=== PATIENT | female | born 1955 | race Caucasian/White ===

== ENCOUNTER → 2017-05-05 06:51 | Outpatient (CLI) | payer BC, SELFPAY ==
--- NOTE | 2017-05-05 06:53 | CT_ITS ---
STUDY: CT CHEST WITH CONTRAST REASON FOR EXAM: Female, 62 years old. Patient has a history of lung cancer. Prior right upper and middle lobectomy. RADIATION DOSAGE (If Supplied By Facility): CTDIvol = ( 13.43 ) mGy, DLP = ( 498.41 ) mGycm TECHNIQUE: Transaxial imaging was performed following intravenous administration of 100mL ml of Isovue 300 contrast material. Multiplanar coronal and sagittal images were reformatted. Individualized dose optimization techniques were used for this CT. COMPARISON: Comparison is made with prior study dated October 20, 2016. FINDINGS: Stable 4 mm nodule in the left lower lobe as seen on axial image #47. Stable 3 mm pleural-based nodule in the peripheral lateral aspect of the left lower lobe as seen on axial image #85. Stable 3 mm noncalcified nodule in the peripheral lateral aspect of the right upper lobe. There is no demonstrated pleural abnormality. Normal heart and pericardium. Normal mediastinum. Normal hilar regions. Normal enhanced pulmonary arteries. Normal aorta arch and descending thoracic aorta. There are degenerative changes of the thoracic spine. 1.9 cm hypodensity in the left adrenal gland. CT/Chest WITH Contrast IMPRESSION: Stable examination. Electronically Signed: Rishabh Camara MD at 9:36 EST Tel [phone], Service support ,
[2017-05-05 07:16] LABS: CREATININE FINGERSTICK 1.1 mg/dL (0.55-1.02)
== END ==
PROVIDERS: Family Provider Family Medicine Geriatric Medicine; PCP Family Medicine Geriatric Medicine; Visit Provider Family Medicine Geriatric Medicine
DX: R91.1 Solitary pulmonary nodule (principal)
CPT/HCPCS: 71260; Q9967

== ENCOUNTER → 2017-09-20 08:24 | Outpatient (CLI) | payer OTHER, SELFPAY ==
--- NOTE | 2017-09-20 08:38 | EKG12_ITS ---
Test Reason : PRE OP Blood Pressure : / mmHG Vent. Rate : 067 BPM Atrial Rate : 067 BPM P-R Int : 160 ms QRS Dur : 084 ms QT Int : 378 ms P-R-T Axes : 016 -04 045 degrees QTc Int : 399 ms Normal sinus rhythm Minimal voltage criteria for LVH, may be normal variant Borderline ECG No previous ECGs available Confirmed by DOMONIQUE VÁZQUEZ, PAULO ([id number]), publishing editor XI EDOUARD ([id number]) on 09/21/2017 1:36:10 PM Referred By: Dipesh Serrato Confirmed By:PAULO YOUSSEF MD
[2017-09-20 08:47] LABS: Hemoglobin 16.1 g/dl (12.0-15.0); Mean Corp Hgb Conc 34.3 g/gl (32-36); Mean Corpuscular Hgb 30.4 pg (27.0-32.0); Mean Corpuscular Volume 88.8 fL (81-99); Mean Platelet Vol. 9.6 fl (6.2-12.0); Platelet Count 245 K/mm3 (150-450); RBC Distribution Width CV 12.7 % (11.6-14.6); RBC Distribution Width SD 40.6 fl (35.1-43.9); Red Blood Count 5.29 M/mm3 (4.2-5.4); White Blood Count 6.7 K/mm3 (4.4-11.0)
[2017-09-20 08:48] LABS: Scan Indicated on CBC? Y/N NO
--- NOTE | 2017-09-20 08:51 | RAD_ITS ---
STUDY: X-RAY CHEST REASON FOR EXAM: Female, 62 years old. Preop. History of lung cancer. TECHNIQUE: PA and lateral views of the chest. COMPARISON: CT chest/thorax degenerative 2017. FINDINGS: The small nodular densities seen in the right upper lobe and left lower lobe by CT are not apparent on this exam. No new infiltrate. There is stable mild elevation of the medial right diaphragm. There is no demonstrated pleural abnormality. Normal size heart. Normal mediastinum. Postsurgical changes again seen at the right hilum. Normal visualized pulmonary arteries. Normal visualized aortic arch and descending thoracic aorta. There are stable degenerative changes of the lower thoracic spine. Normal visualized ribs, clavicles, and shoulders. There is no demonstrated abnormality of the visualized soft tissue structures of the upper abdomen. RAD/Chest PA and Lateral IMPRESSION: 1. Stable post surgical changes in the right hemithorax. 2. The very small right upper lobe and left lower lobe nodules seen by CT are not apparent here. 3. No acute pneumonic infiltrate or CHF. Electronically Signed: Kishor Hernandez MD at 9:45 EDT , Service support ,
[2017-09-20 09:18] LABS: Anion Gap 7 (5-15); BUN 10 mg/dL (7-18); BUN/Creat Ratio 11.9 RATIO (10-20); Calcium,Total 9.3 mg/dL (8.5-10.1); Chloride 105 mmol/L (98-107); Creatinine, Serum 0.84 mg/dL (0.55-1.02); EST Glomerular Filtration Rate 73 mL/min (>60); Est Glom Filt Rate - Afr Amer 88 mL/min (>60); Glucose 103 mg/dL (74-106); Potassium 3.9 mmol/L (3.5-5.1); Sodium Level 138 mmol/L (136-145)
[2017-09-21 10:26] LABS: AST(SGOT) 30 U/L (15-37); Alanine Aminotransfer ALT/SGPT 54 U/L (13-56); Albumin, Serum 4.2 g/dL (3.2-5.0); Alkaline Phosphatase 68 U/L (45-117); Bilirubin, Direct 0.16 mg/dL (0.00-0.30); Protein, Total 7.2 g/dL (6.4-8.2); Thyroid Stim Hormone (TSH) 2.45 uIU/mL (0.358-3.74)
== END ==
PROVIDERS: Family Provider Family Medicine Geriatric Medicine; PCP Family Medicine Geriatric Medicine; Visit Provider Physician Assistant
DX: Z01.818 Encounter for other preprocedural examination (principal); R53.83 Other fatigue; Z13.89 Encounter for screening for other disorder
CPT/HCPCS: 36415; 71046; 80048; 80076; 84443; 85027; 93005

== ENCOUNTER → 2017-09-21 13:57 | Outpatient (CLI) | payer BC, SELFPAY ==
[2017-09-21 14:41] LABS: Blood Gas Specimen Type VEN; O2 Delivery Device Room Air; SITE OTHER; Time Given 1430; VBG BASE EXCESS 1 mmol/L (-1.0-3.5); VBG Bicarbonate 27 mmol/L (22-26); VBG Oxygen Content 29 mmol/L (23-33); VBG PO2 65 mmHg (25-40); VBG SO2 91 % (50-70); VBG pCO2 50.4 mmHg (41-51); VBG pH 7.34 (7.32-7.42)
[2017-09-21 15:51] LABS: Allen Test POS; Base Excess -3 mmol/L (-2 to +2); Bicarbonate 21.9 mmol/L (22-26); Blood Gas Specimen Type ART; O2 Delivery Device Room Air; PO2 77 mmHG (75-100); SITE R Radial; SO2 95 % (95-99); Time Given 1546; Total Carbon Dioxide 23 mmol/L; pCO2 35.1 mmHg (35-45)
== END ==
LOC: LAB 13:57 → PSN 15:16
PROVIDERS: Family Provider Family Medicine Geriatric Medicine; PCP Family Medicine Geriatric Medicine; Visit Provider Orthopaedic Surgery
DX: Z01.812 Encounter for preprocedural laboratory examination (principal); S46.011A Strain of muscle(s) and tendon(s) of the rotator cuff of right shoulder, initial encounter
CPT/HCPCS: 36415; 36600; 82803

== ENCOUNTER → 2018-03-22 10:37 | Outpatient (CLI) | payer BC, SELFPAY ==
[2017-11-28 11:00] VITALS: BMI 31.2
[2018-03-22 12:41] LABS: Absolute Neutrophil Count 4.4 X10^3/uL (2.0-7.7); Basophil# 0.04 X10^3/uL; Basophil% 0.5 % (0-1); Eosinophil# 0.11 X10^3/uL; Eosinophils% 1.5 % (0-5); Hematocrit 47.9 % (37-47); Hemoglobin 16.5 g/dl (12.0-15.0); Lymphocyte % 29.2 % (19-41); Mean Corp Hgb Conc 34.4 g/gl (32-36); Mean Corpuscular Hgb 31.1 pg (27.0-32.0); Mean Corpuscular Volume 90.2 fL (81-99); Mean Platelet Vol. 10.4 fl (6.2-12.0); Monocyte# 0.75 X10^3/uL; Monocyte% 9.9 % (0-10); Neutrophil # 4.42 X10^3/uL (2.7-7.7); Neutrophil % 58.6 % (47-70); Platelet Count 285 K/mm3 (150-450); RBC Distribution Width CV 13.1 % (11.6-14.6); RBC Distribution Width SD 43.4 fl (35.1-43.9); Red Blood Count 5.31 M/mm3 (4.2-5.4); White Blood Count 7.5 K/mm3 (4.4-11.0)
[2018-03-22 12:47] LABS: POSITIVE COUNT NO; POSITIVE DIFFERENTIAL NO; POSITIVE MORPHOLOGY NO
[2018-03-22 13:00] LABS: Vitamin D,25 Hydroxy 32.7 ng/mL (29.95-100.01)
[2018-03-22 13:03] LABS: BUN 14 mg/dL (7-18); Creatinine, Serum 0.75 mg/dL (0.55-1.02); Glucose 100 mg/dL (74-106)
[2018-03-22 13:04] LABS: ALB/GLOB Ratio 1.3 RATIO (0.9-2.4); AST(SGOT) 23 U/L (15-37); Alanine Aminotransfer ALT/SGPT 55 U/L (13-56); Albumin, Serum 4.1 g/dL (3.2-5.0); Alkaline Phosphatase 76 U/L (45-117); Anion Gap 7 (5-15); BUN/Creat Ratio 18.7 RATIO (10-20); Calcium,Total 8.9 mg/dL (8.5-10.1); Chloride 105 mmol/L (98-107); EST Glomerular Filtration Rate 83 mL/min (>60); Est Glom Filt Rate - Afr Amer 100 mL/min (>60); Globulin 3.2 g/dL (2.2-4.2); Potassium 3.8 mmol/L (3.5-5.1); Protein, Total 7.3 g/dL (6.4-8.2); Sodium Level 137 mmol/L (136-145); Thyroid Stim Hormone (TSH) 1.47 uIU/mL (0.358-3.74)
--- OUTSIDE RECORDS SUMMARY | 2018-05-08 05:39 | XMS RPT_ITS ---
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 demonstrated pleural abnormality. Normal heart and pericardium. Normal mediastinum. Normal hilar regions. Normal enhanced pulmonary arteries. Normal aorta arch and descending thoracic aorta. There are degenerative changes of the thoracic spine. 1.9 cm hypodensity in the left adrenal gland. CT/Chest WITH Contrast IMPRESSION: Stable examination. Electronically Signed: Rishabh Camara MD at 9:36 EST Tel [phone], Service support , CC: Cristian Wasserman MD Storage Architect: Signed SCREENING MAMM (CAD), Observed: 05/04/2017 Status: F Source: ANGELINA BILAT 9:27 AM [facility] [place] [facility] Imaging Services [address] [place] [address] SCREENING MAMM (CAD), BILAT MR#: [id number] Acct: [id number] Name: MELISA EDOUARD Rep #: [id number] : 1955 F 62 From: Rishabh Camara MD PCP: Cristian Wasserman MD, Chi Status: REG CLI Study: SCREENING MAMM (CAD), BILAT Date of Exam: 05/04/17 Exam# [id number] Ordering Dr: Cristian Wasserman MD MAMMOGRAPHY - BILATERAL SCREENING REASON FOR EXAM: Female, 62 years old. Routine annual screening examination. PERTINENT HISTORY: Non-contributory. TECHNIQUE: Digital bilateral breast cesar (3D mammographic acquisition) in the CC and MLO projections. 2-D mediolateral oblique (MLO) and craniocaudad (CC) views of both breasts were obtained. CAD: Full Field Digital Mammography with Computer Added Detection was performed. COMPARISON: Comparison is made with prior study dated March 02, 2016. FINDINGS: Breast Composition: There are scattered areas of fibroglandular density. There are no dominant masses or suspicious calcifications. No other significant abnormalities are identified. There has been no significant change since the prior study. HPBI/SCREENING MAMM (CAD), BILAT IMPRESSION: Stable bilateral screening mammogram. Yearly follow-up mammogram recommended. (A) ASSESSMENT CATEGORY: BIRADS Category 1: Negative. A letter regarding these results will be sent to the patient by the facility within 30 days. Approximately 10% of breast cancers are not detected by mammography. A normal mammogram should not delay biopsy of a clinically suspicious abnormality. [id number] Electronically Signed: Rishabh Camara MD at 13:12 EST Tel [phone], Service support , CC: Cristian Wasserman MD Storage Architect: Signed ALLERGIES ALLERGIES DATE TYPE / CODE NAME / CODE REACTION SEVERITY SOURCE 11/28/2017 Drug ciprofloxaci Itching OK [facility] Allergy/4160 n/[id number] [facility](SNOMED (RXNORM) Repository CT) 11/07/2016 Drug simvastatin/ Rash Unknown [facility] Allergy/4160 [id number]( Hospital [facility](SNOMED XNORM) Repository CT) 11/07/2016 Drug atorvastatin Hives Unknown [facility] Allergy/4160 /[id number]( Hospital [facility](SNOMED RXNORM) Repository CT) ENCOUNTERS ENCOUNTERS ADMIT/DISCHARGE ACCOUNT ADMITTING ENCOUNTER LOCATION SOURCE NUMBER CLASS 04/27/2018 [id number] Ambulatory Angelina Angelina 7 [facility] ing:MASS Repository 03/26/2018 [id number] Ambulatory [place] Angelina 6 [facility] ing:US Repository 03/22/2018 [id number] Ambulatory Angelina [place] 4 [facility] ing:POLAB3 Repository 11/28/2017/ [id number] Ambulatory BMSBuilding:B Angelina 8 8 [facility] Repository 09/21/2017 [id number] Ambulatory Angelina [place] 9 [facility] ing:PSN Repository 09/20/2017 [id number] Ambulatory Angelina Angelina 7 [facility] ing:LAB Repository 09/20/2017 [id number] Ambulatory BMSBuilding:W [place] 6 [facility] Repository 05/05/2017 [id number] Ambulatory [place] 4 [facility] ing:CT Repository 05/04/2017 [id number] Ambulatory [place] 6 [facility] ing:BI Repository PAYERS PAYERS ENCOUNTER GUARANTOR PAYER SUBSCRIBER SOURCE 04/27/2018 FUCHS A Primary NOT GIVENUNK [place] [id number] Insurance:SELF PAY [place] Number: Effective Repository [id number]: (330) Date:2015-04-10 [phone] () 03/26/2018 FUCHS A Primary FUCHS A [place] [id number] Insurance:ANTHEMPolic MILLERDOB: [facility] y [place]: [id number] [id number] Repository [address]25[address]Jbe: ([phone]) Date:8865-34-42[phone] () 225900BEIHXTR, [place] [address]PW: 03/26/2018 Secondary NOT GIVENUNK Angelina Insurance:SELF PAY [facility] Number: Effective Repository Date:2018-03-22 03/22/2018 FUCHS A Primary FUCHS A Angelina [id number] Insurance:ANTHEMPolic MILLERDOB: [facility] y Number: [id number], [place] [id number] Repository [address]Vil: (330) Date:1067-88-96[phone] () [id number] [place] [address]FU: 03/22/2018 Secondary NOT GIVENUNK [place] Insurance:SELF PAY [facility] Number: Effective Repository Date:2018-03-22 11/28/2017 Fuchs A Primary Fuchs A Angelina [id number] Insurance:ANTHEMPolic MillerDOB: [facility] y Number: [id number], [place] [id number] Repository 345[address]Tmk: ([phone]) Date:6031-79-21[phone] () 84[address]MIXVPBK, [place] [address]WT: 11/28/2017 Secondary NOT GIVENUNK [place] Insurance:SELF PAY [facility] Number: Effective Repository Date:2017-11-28 09/21/2017 Fuchs A Primary Fuchs A Angelina [id number] Insurance:ANTHEMPolic MillerDOB: [facility] y Number: [id number], [place] [id number] Repository [address]Wbm: ([phone]) Date:7438-01-11SW [phone] () [id number], [place] [address]SC: 09/21/2017 Secondary NOT GIVENUNK [place] Insurance:SELF PAY [facility] Number: Effective Repository Date:2017-09-21 09/20/2017 Fuchs A Primary DELANN [place] [id number] Insurance:OB MILLERDOB: [facility] CAREWORKSPolicy [id number], [place] Number: Repository [address]Oqb: 330 [id number] [phone] () Date:6702-30-87[address]FGSQAAAV, [place] [address]ZT: 09/20/2017 Secondary NOT GIVENUNK Angelina Insurance:SELF PAY [facility] Number: Effective Repository Date:2017-09-20 09/20/2017 Fuchs A Primary Fuchs A [place] [id number] Insurance:ANTHEMPolic MillerDOB: [facility] [place] y Number: [id number], [place] [id number] Repository 165[address]Kol: ([phone]) Date:7582-74-41[phone] () 644[address]WETPLOB, [place] [address]GT: 09/20/2017 Secondary NOT GIVENUNK [place] Insurance:SELF PAY [facility] Number: Effective Repository Date:2017-09-20 05/05/2017 Fuchs A Primary Fuchs A [place] [id number] Insurance:ANTHEMPolic MillerDOB: [facility] y Number: [id number], [place] [id number] Repository [address]Iie: Date:0630-78-12[phone] [id number] CHU () [address]WD: 05/05/2017 Secondary NOT GIVENUNK [place] Insurance:SELF PAY [facility] Number: Effective Repository Date:2017-04-28 05/04/2017 Fuchs A Primary Fuchs A [place] [id number] Insurance:ANTHEMPolic MillerDOB: [facility] y Number: [id number], [place] [id number] Repository [address]Bba: Date:1876-36-06ZE [phone] [id number] MARTINEZ () [address]PL: 05/04/2017 Secondary NOT GIVENUNK Angelina Insurance:SELF PAY [facility] Number: Effective Repository Date:2017-03-17
== END ==
PROVIDERS: Family Provider Family Medicine Geriatric Medicine; PCP Family Medicine Geriatric Medicine; Visit Provider Family Medicine Geriatric Medicine
DX: E55.9 Vitamin D deficiency, unspecified (principal); R53.83 Other fatigue
CPT/HCPCS: 36415; 80053; 82306; 84443; 85025

== ENCOUNTER → 2018-03-26 09:27 | Outpatient (CLI) | payer BC, SELFPAY ==
--- NOTE | 2018-03-26 10:05 | US_ITS ---
STUDY: ABDOMINAL ULTRASOUND - RIGHT UPPER QUADRANT REASON FOR VISIT: Female, 63 years old. Right upper quadrant tenderness, intermittent. TECHNIQUE: Ultrasound evaluation of the right upper quadrant was performed with real-time and static mahoney-scale imaging. TECHNICAL QUALITY: Adequate. COMPARISON: CT chest 05/05/2017 FINDINGS: Liver: The liver measures 14.8 cm. Echogenic liver suggesting hepatic steatosis, concordant with steatotic features seen on prior CT imaging. The bile ducts are within normal limits. There is hepatic color flow. The direction of portal flow is hepatopetal. There is no demonstrated mass lesion. Gallbladder: Normal distended gallbladder. The gallbladder wall measures 2.6 mm. There is a negative sonographic Mccall's sign. There is no pericholecystic fluid. There are no gallstones. Common Bile Duct (C.B.D.): The common bile duct measures 2.9 mm. Pancreas: Normal size of the head, body and tail of the pancreas. There is normal echogenicity of the pancreas. There is no demonstrated pancreatic mass or cyst. Right Kidney: Normal size of the right kidney. The right kidney measures 11.5 cm. Normal renal cortex. The right cortex measures 1.3 cm. There is no demonstrated renal mass or cyst. There is no right hydronephrosis. US/Abdomen Limited IMPRESSION: Hepatic steatosis without evidence of hepatomegaly. Normal gallbladder and biliary tree. Electronically Signed: Dmitry Santillan MD at 17:50 EST Tel , Service support ,
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
== END ==
PROVIDERS: Family Provider Family Medicine Geriatric Medicine; PCP Family Medicine Geriatric Medicine; Referring Provider Family Medicine Geriatric Medicine; Visit Provider Family Medicine Geriatric Medicine
DX: K76.0 Fatty (change of) liver, not elsewhere classified (principal); R10.9 Unspecified abdominal pain
CPT/HCPCS: 76705

== ENCOUNTER → 2018-05-07 07:46 | Outpatient (CLI) | payer BC, SELFPAY ==
[2017-11-28 11:00] VITALS: BMI 31.2
--- NOTE | 2018-05-07 08:02 | CT_ITS ---
STUDY: CT CHEST WITH CONTRAST REASON FOR EXAM: Female, 63 years old. Lung cancer. Right upper and middle lobe removal. RADIATION DOSAGE (If Supplied By Facility): CTDIvol = ( 12.88 ) mGy, DLP = ( 570.94 ) mGycm TECHNIQUE: Transaxial imaging was performed following intravenous administration of 100 ml of Isovue 300 contrast material. Multiplanar coronal and sagittal images were reformatted. Individualized dose optimization techniques were used for this CT. COMPARISON: Including October 20, 2016 and May 05, 2017 FINDINGS: There is postoperative change on the right with volume loss.. There is a stable 0.4 cm nodule in the superior segment of the left lower lobe, series 1004 image 42/121 and coronal series 601 image 31/19. There is stable 0.2 cm subpleural nodule in the left lower lobe, coronal series 601 image 36/119 The lungs are normal. There is no demonstrated pleural abnormality. Normal heart and pericardium. Normal mediastinum. Normal hilar regions. Normal enhanced pulmonary arteries. Normal aorta arch and descending thoracic aorta. There are multi-level degenerative changes of the thoracic spine. There is stable 1.8 cm left adrenal nodule. There is hepatomegaly. CT/Chest WITH Contrast IMPRESSION: Stable postoperative change on the right. Stable left-sided nodules. Stable left adrenal nodule. Electronically Signed: Narendra Atkins MD at 10:41 EST , Service support ,
[2018-05-07 08:35] LABS: CREATININE FINGERSTICK 0.6 mg/dL (0.55-1.02); EGFR FINGERSTICK > 60.0000 mL/min (>60)
== END ==
PROVIDERS: Family Provider Family Medicine Geriatric Medicine; PCP Family Medicine Geriatric Medicine; Referring Provider Family Medicine Geriatric Medicine; Visit Provider Family Medicine Geriatric Medicine
DX: R91.1 Solitary pulmonary nodule (principal)
CPT/HCPCS: 71260; Q9967

== ENCOUNTER → 2018-06-01 15:14 | Outpatient (CLI) | payer BC, SELFPAY ==
[2017-11-28 11:00] VITALS: BMI 31.2
--- NOTE | 2018-06-01 15:16 | BI_ITS ---
MAMMOGRAPHY - BILATERAL SCREENING REASON FOR EXAM: Female, 63 years old. Routine annual screening examination. PERTINENT HISTORY: Non-contributory. TECHNIQUE: Digital bilateral breast cesar (3D mammographic acquisition) in the CC and MLO projections. 2-D mediolateral oblique (MLO) and craniocaudad (CC) views of both breasts were obtained. CAD: Full Field Digital Mammography with Computer Added Detection was performed. COMPARISON: Comparison is made with prior examination and degenerative 2017 and March 02, 2016. FINDINGS: Breast Composition: There are scattered areas of fibroglandular density. There are no dominant masses or suspicious calcifications. Stable small bilateral axillary lymph nodes. No other significant abnormalities are identified. There has been no significant change since the prior study. BI/SCREENING MAMM (CAD), BILAT IMPRESSION: Stable bilateral screening mammogram. Yearly follow-up mammogram recommended. (A) ASSESSMENT CATEGORY: BIRADS Category 2: Benign. A letter regarding these results will be sent to the patient by the facility within 30 days. Approximately 10% of breast cancers are not detected by mammography. A normal mammogram should not delay biopsy of a clinically suspicious abnormality. [id number] Electronically Signed: Rishabh Camara MD at 8:51 EST , Service support ,
== END ==
PROVIDERS: Family Provider Family Medicine Geriatric Medicine; PCP Family Medicine Geriatric Medicine; Referring Provider Family Medicine Geriatric Medicine; Visit Provider Family Medicine Geriatric Medicine
DX: Z12.31 Encounter for screening mammogram for malignant neoplasm of breast (principal)
CPT/HCPCS: 77063; 77067

== ENCOUNTER → 2018-07-13 11:49 | Outpatient (CLI) | payer BC, SELFPAY ==
[2017-11-28 11:00] VITALS: BMI 31.2
--- NOTE | 2018-07-13 11:52 | RAD_ITS ---
HISTORY: cough for about a week with sinus drainage/hx of lung cancer EXAM:XR Chest 2 Views COMPARISON: 09/20/2017 FINDINGS: No significant change. Stable right postthoracotomy changes with right hilar surgical clips and tiny anastomotic alcira and ipsilateral volume loss. Left lung remains clear. Normal heart size. No acute infiltrate. No vascular congestion or pleural effusion. Dorsal kyphosis. No pneumothorax. RAD/Chest PA and Lateral IMPRESSION: 1. No acute cardiopulmonary disease. No significant interval change. 2. Stable right postthoracotomy changes. at 0425 Reported and signed by: Giovani Duron MD Electronically Signed: Giovani Duron, at 4:23 EDT Tel , Service support ,
== END ==
PROVIDERS: Family Provider Family Medicine Geriatric Medicine; PCP Family Medicine Geriatric Medicine; Referring Provider Family Medicine Geriatric Medicine; Visit Provider Family Medicine Geriatric Medicine
DX: R06.02 Shortness of breath (principal); R05 Cough
CPT/HCPCS: 71046; 87633

== ENCOUNTER 2018-08-31 09:38 | Emergency (ER) | payer BC, SELFPAY ==
[2018-08-31 09:39] VITALS: BP 162/91; PULSE 102; RESP 16; TEMP 36.6; O2SAT 97; BMI 27.1
--- NOTE | 2018-08-31 09:58 | ED.VISSUMM ---
- ER Visit Summary Date of Service: 08/31/18 Chief Complaint: Left palm laceration History of Present Illness: The patient is a 63 F presents to the emergency department left palm laceration. Patient is otherwise healthy. Tetanus is up-to-date. She was trimming bushes. She accidentally cut through the brush and then into her palmar aspect of her left hand between her second and third digits. She denies other injury. She states she washed it out well at home, but it was still bleeding and gapping. She presented here. She denies any numbness. Physical Examination: Exam is relatively unremarkable. Patient is a 1 cm full-thickness laceration on the palmar aspect between the second and third distal MCP area. Two-point determination is preserved. Cap refill is normal. No evidence of gross contamination. Test Results: [] Emergency Department Course and Treatment: The patient's wound was anesthetized and irrigated. It was closed with one mattress suture. She tolerated this without issue. She was counseled on local wound care. She will be discharged home. Treatment Plan: [] Disposition: Discharge Impression: 1. 1 cm left palmar laceration with repair This note was generated with [employer] dictation software. It may contain incorrect words, spelling, and punctuation that were not noted in review of the chart prior to signing ED Disposition - Plan for ED Patient: Instructions: ED Laceration Hand Referrals: Cristian Silveira Chi, MD [Primary Care Provider] - 10 Day for suture removal
== END 2018-08-31 10:15 | disposition home or self-care (01) ==
PROVIDERS: Emergency Provider Emergency Medicine; Family Provider Family Medicine Geriatric Medicine; PCP Family Medicine Geriatric Medicine
DX: S61.412A Laceration without foreign body of left hand, initial encounter (principal); W26.9XXA Contact with unspecified sharp object(s), initial encounter; Y93.H2 Activity, gardening and landscaping; Y92.9 Unspecified place or not applicable
CPT/HCPCS: 12001; 99283

== ENCOUNTER → 2018-09-27 | Outpatient (CLI) | payer BC, SELFPAY ==
[2018-08-31 09:39] VITALS: BMI 27.1
[2018-09-27 12:16] LABS: Absolute Lymphocyte Count 2.43 X10^3/ul (0.83-4.51); Absolute Neutrophil Count 4.5 X10^3/uL (2.0-7.7); Basophil# 0.05 X10^3/uL; Basophil% 0.6 % (0-1); Eosinophil# 0.25 X10^3/uL; Eosinophils% 3.1 % (0-5); Hematocrit 47.3 % (37-47); Hemoglobin 15.9 g/dl (12.0-15.0); Lymphocyte # 2.43 X10^3/ul (4.0); Lymphocyte % 30.1 % (19-41); Mean Corp Hgb Conc 33.6 g/gl (32-36); Mean Corpuscular Hgb 30.1 pg (27.0-32.0); Mean Corpuscular Volume 89.4 fL (81-99); Mean Platelet Vol. 10.4 fl (6.2-12.0); Monocyte# 0.81 X10^3/uL; Platelet Count 268 K/mm3 (150-450); RBC Distribution Width CV 13.1 % (11.6-14.6); RBC Distribution Width SD 42.8 fl (35.1-43.9); Red Blood Count 5.29 M/mm3 (4.2-5.4); White Blood Count 8.1 K/mm3 (4.4-11.0)
[2018-09-27 12:31] LABS: POSITIVE COUNT NO; POSITIVE DIFFERENTIAL NO; POSITIVE MORPHOLOGY NO
[2018-09-27 12:42] LABS: ALB/GLOB Ratio 1.3 RATIO (0.9-2.4); AST(SGOT) 22 U/L (15-37); Alanine Aminotransfer ALT/SGPT 45 U/L (13-56); Albumin, Serum 3.9 g/dL (3.2-5.0); Alkaline Phosphatase 104 U/L (45-117); Anion Gap 7 (5-15); BUN 13 mg/dL (7-18); BUN/Creat Ratio 18.1 RATIO (10-20); Chloride 106 mmol/L (98-107); Creatinine, Serum 0.72 mg/dL (0.55-1.02); EST Glomerular Filtration Rate 87 mL/min (>60); Est Glom Filt Rate - Afr Amer 105 mL/min (>60); Globulin 3.1 g/dL (2.2-4.2); Glucose 127 mg/dL (74-106); Potassium 3.5 mmol/L (3.5-5.1); Sodium Level 137 mmol/L (136-145); Thyroid Stim Hormone (TSH) 1.43 uIU/mL (0.358-3.74)
== END | disposition home or self-care (01) ==
LOC: POLAB3 08:39
PROVIDERS: Family Provider Family Medicine Geriatric Medicine; PCP Family Medicine Geriatric Medicine; Visit Provider Family Medicine Geriatric Medicine
DX: R53.83 Other fatigue (principal)
CPT/HCPCS: 36415; 80053; 84443; 85025

== ENCOUNTER → 2019-03-28 09:46 | Outpatient (CLI) | payer MEDICARE, BC, SELFPAY ==
[2019-03-28 10:47] LABS: Absolute Lymphocyte Count 2.39 X10^3/uL (0.83-4.51); Absolute Neutrophil Count 5.9 X10^3/uL (2.0-7.7); Basophil# 0.08 X10^3/uL; Basophil% 0.9 % (0-1); Eosinophils% 1.1 % (0-5); Hematocrit 51.7 % (37-47); Hemoglobin 16.7 g/dL (12.0-15.0); Lymphocyte # 2.39 X10^3/ul (4.0); Mean Corp Hgb Conc 32.3 g/dL (32-36); Mean Corpuscular Hgb 29.9 pg (27.0-32.0); Mean Corpuscular Volume 92.7 fL (81-99); Mean Platelet Vol. 11.3 fl (6.2-12.0); Monocyte# 0.68 X10^3/uL; Monocyte% 7.4 % (0-10); NRBC Flagged by Analyzer 0 % (0-5); Neutrophil # 5.94 X10^3/uL (2.7-7.7); Neutrophil % 64.5 % (47-70); Platelet Count 216 K/mm3 (150-450); RBC Distribution Width CV 12.5 % (11.6-14.6); RBC Distribution Width SD 43.1 fl (35.1-43.9); Red Blood Count 5.58 M/mm3 (4.2-5.4); White Blood Count 9.2 K/mm3 (4.4-11.0)
[2019-03-28 10:54] LABS: Vitamin D,25 Hydroxy 32.4 ng/mL (29.95-100.01)
[2019-03-28 10:59] LABS: ALB/GLOB Ratio 1.2 RATIO (0.9-2.4); AST(SGOT) 40 U/L (15-37); Alanine Aminotransfer ALT/SGPT 70 U/L (13-56); Albumin, Serum 4.2 g/dL (3.2-5.0); Alkaline Phosphatase 123 U/L (45-117); Anion Gap 6 (5-15); BUN 13 mg/dL (7-18); BUN/Creat Ratio 15.9 RATIO (10-20); Calcium,Total 9.3 mg/dL (8.5-10.1); Chloride 107 mmol/L (98-107); Creatinine, Serum 0.82 mg/dL (0.55-1.02); EST Glomerular Filtration Rate 75 mL/min (>60); Est Glom Filt Rate - Afr Amer 90 mL/min (>60); Globulin 3.4 g/dL (2.2-4.2); Glucose 100 mg/dL (74-106); Potassium 3.8 mmol/L (3.5-5.1); Protein, Total 7.6 g/dL (6.4-8.2); Sodium Level 140 mmol/L (136-145); Thyroid Stim Hormone (TSH) 1.64 uIU/mL (0.358-3.74)
== END ==
PROVIDERS: Family Provider Family Medicine Geriatric Medicine; PCP Family Medicine Geriatric Medicine; Visit Provider Family Medicine Geriatric Medicine
DX: E55.9 Vitamin D deficiency, unspecified (principal); R53.83 Other fatigue
CPT/HCPCS: 36415; 80053; 82306; 84443; 85025

== ENCOUNTER → 2019-04-02 06:44 | Outpatient (CLI) | payer MEDICARE, BC, SELFPAY ==
--- NOTE | 2019-04-02 06:46 | CT_ITS ---
STUDY: CT CHEST WITHOUT CONTRAST- LOW DOSE SCREENING PROTOCOL REASON FOR EXAM: Female, 64 years old. pack per year history. No current symptoms of lung cancer or pulmonary infection. Shared decision-making with referring PCP documented in patient''s record. RADIATION DOSAGE (If Supplied By Facility): CTDIvol = ( 3.02 ) mGy, DLP = ( 95.91 ) mGycm TECHNIQUE: Low dose screening CT examination performed from the base of the neck to the upper abdomen. Sagittal and coronal reformatted images performed. Sagittal and coronal MIP images provided. The measurements provided are average, rounded measurements per ACR guidelines. COMPARISON: 05/07/2018 FINDINGS: Status post resection of the right upper lobe and right middle lobe the lungs. No change in a 4 mm noncalcified nodule in the superior segment the left lower lobe the lungs on image 84 consistent with a noncalcified granuloma. This requires no further follow-up. There is no demonstrated pleural abnormality. Normal heart and pericardium. There are calcifications of the coronary arteries. Normal mediastinum. Normal hilar regions. Normal unenhanced pulmonary arteries. Normal aorta arch and descending thoracic aorta. Normal osseous structures. There is no demonstrated abnormality of the visualized upper abdomen. CT/Low Dose CT Lung Screening IMPRESSION: 1. No significant indeterminate incidental findings requiring additional imaging. 2. Incidental findings include 4 mm of a left lower lobe noncalcified granuloma.. ASSESSMENT CATEGORY: LungRADS 1 - Negative. Continue annual screening with LDCT in 12 months, per established ACR guidelines. Electronically Signed: Dmitry Birmingham MD at 7:59 EST Tel , Service support ,
== END ==
PROVIDERS: Family Provider Family Medicine Geriatric Medicine; PCP Family Medicine Geriatric Medicine; Referring Provider Family Medicine Geriatric Medicine; Visit Provider Family Medicine Geriatric Medicine
DX: Z87.891 Personal history of nicotine dependence (principal)
CPT/HCPCS: G0297

== ENCOUNTER → 2019-04-23 11:22 | Outpatient (CLI) | payer MEDICARE, BC, SELFPAY ==
[2019-04-24 04:07] LABS: HEPATITIS B SURFACE AG Negative (Negative); Hepatitis A AB, Total Positive (Negative); Hepatitis A IgM Antibody Negative (Negative); Hepatitis B Core AB IgM Negative (Negative); Hepatitis B Core Ab Total Negative (Negative); Hepatitis C Ab <0.1 s/co ratio (0.0-0.9)
[2019-04-24 12:52] LABS: Hep B Surface Antibodies Reactive (.)
== END ==
PROVIDERS: Family Provider Family Medicine Geriatric Medicine; PCP Family Medicine Geriatric Medicine; Visit Provider Family Medicine Geriatric Medicine
DX: K76.9 Liver disease, unspecified (principal)
CPT/HCPCS: 36415; 86704; 86705; 86706; 86708; 86709; 86803; 87340

== ENCOUNTER 2019-04-29 13:00 | Outpatient (RCR) | payer SELFPAY | END 2019-05-10 23:59 | LOC: NS 13:00 | PROVIDERS: Family Provider Family Medicine Geriatric Medicine; PCP Family Medicine Geriatric Medicine; Visit Provider Family Medicine Geriatric Medicine | DX: Z71.3 Dietary counseling and surveillance (principal); E66.9 Obesity, unspecified; Z68.32 Body mass index [BMI] 32.0-32.9, adult | CPT/HCPCS: 97802; 97803 ==

== ENCOUNTER → 2019-04-30 12:14 | Outpatient (CLI) | payer MEDICARE, BC, SELFPAY ==
[2019-04-30 12:55] LABS: ALB/GLOB Ratio 1.3 RATIO (0.9-2.4); AST(SGOT) 32 U/L (15-37); Alanine Aminotransfer ALT/SGPT 70 U/L (13-56); Albumin, Serum 4.1 g/dL (3.2-5.0); Alkaline Phosphatase 104 U/L (45-117); Anion Gap 3 (5-15); BUN 13 mg/dL (7-18); BUN/Creat Ratio 16.3 RATIO (10-20); Calcium,Total 9.3 mg/dL (8.5-10.1); Chloride 107 mmol/L (98-107); EST Glomerular Filtration Rate 77 mL/min (>60); Est Glom Filt Rate - Afr Amer 93 mL/min (>60); Globulin 3.2 g/dL (2.2-4.2); Glucose 102 mg/dL (74-106); Potassium 4.3 mmol/L (3.5-5.1); Protein, Total 7.3 g/dL (6.4-8.2); Sodium Level 137 mmol/L (136-145)
== END ==
PROVIDERS: PCP Family Medicine Geriatric Medicine; Visit Provider Family Medicine Geriatric Medicine
DX: R74.8 Abnormal levels of other serum enzymes (principal)
CPT/HCPCS: 36415; 80053

== ENCOUNTER → 2019-05-16 10:04 | Outpatient (CLI) | payer MEDICARE, BC, SELFPAY ==
[2019-05-16 12:50] LABS: ALB/GLOB Ratio 1.4 RATIO (0.9-2.4); AST(SGOT) 33 U/L (15-37); Alanine Aminotransfer ALT/SGPT 61 U/L (13-56); Albumin, Serum 4.2 g/dL (3.2-5.0); Alkaline Phosphatase 101 U/L (45-117); Anion Gap 5 (5-15); BUN 11 mg/dL (7-18); Calcium,Total 9.8 mg/dL (8.5-10.1); Chloride 106 mmol/L (98-107); Creatinine, Serum 0.85 mg/dL (0.55-1.02); EST Glomerular Filtration Rate 72 mL/min (>60); Est Glom Filt Rate - Afr Amer 87 mL/min (>60); Globulin 3.1 g/dL (2.2-4.2); Glucose 98 mg/dL (74-106); Potassium 3.9 mmol/L (3.5-5.1); Protein, Total 7.3 g/dL (6.4-8.2); Sodium Level 138 mmol/L (136-145)
== END ==
PROVIDERS: PCP Family Medicine Geriatric Medicine; Visit Provider Family Medicine Geriatric Medicine
DX: K76.9 Liver disease, unspecified (principal)
CPT/HCPCS: 36415; 80053

== ENCOUNTER 2019-05-27 09:30 | Outpatient (RCR) | payer SELFPAY | END 2019-06-08 23:59 | LOC: NS 09:30 | PROVIDERS: Family Provider Family Medicine Geriatric Medicine; PCP Family Medicine Geriatric Medicine; Visit Provider Family Medicine Geriatric Medicine | DX: Z71.3 Dietary counseling and surveillance (principal); E66.9 Obesity, unspecified; Z68.32 Body mass index [BMI] 32.0-32.9, adult | CPT/HCPCS: 97803 ==

== ENCOUNTER → 2019-06-03 09:55 | Outpatient (CLI) | payer MEDICARE, BC, SELFPAY ==
--- NOTE | 2019-06-03 09:59 | BI_ITS ---
MAMMOGRAPHY - BILATERAL SCREENING REASON FOR EXAM: Female, 64 years old. Routine annual screening examination. PERTINENT HISTORY: Lost 13 pounds right lung cancer in April 2014 BILATERAL DIGITAL MAMMOGRAM WITH TOMOSYNTHESIS: Mediolateraloblique and craniocaudal views demonstrate no evidence of dominant parenchymal masses. No cluster of microcalcification or architectural distortion is seen. No evidence of skin thickening. No significant change since 06/01/2018. Breast Density: There are scattered areas of fibroglandular density. CAD was used to assist in final assessment. IMPRESSION: NORMAL MAMMOGRAM BILATERALLY. FINAL ASSESSMENT: BIRAD 1 (NEGATIVE) YEARLY MAMMOGRAM RECOMMENDED Electronically Signed: Lei Valencia, at 17:21 EST Tel , Service support , BI/SCREEN MAMM (CAD) W/SERAFIN ROSADO
== END ==
PROVIDERS: PCP Family Medicine Geriatric Medicine; Referring Provider Family Medicine Geriatric Medicine; Visit Provider Family Medicine Geriatric Medicine
DX: Z12.31 Encounter for screening mammogram for malignant neoplasm of breast (principal)
CPT/HCPCS: 77063; 77067

== ENCOUNTER 2019-06-25 09:30 | Outpatient (RCR) | payer SELFPAY | END 2019-07-09 23:59 | LOC: NS 09:30 | PROVIDERS: Family Provider Family Medicine Geriatric Medicine; PCP Family Medicine Geriatric Medicine; Visit Provider Family Medicine Geriatric Medicine | DX: Z71.3 Dietary counseling and surveillance (principal); E66.9 Obesity, unspecified; Z68.32 Body mass index [BMI] 32.0-32.9, adult | CPT/HCPCS: 97803 ==

== ENCOUNTER 2019-07-22 12:51 | Outpatient (RCR) | payer SELFPAY | END 2019-08-08 23:59 | LOC: NS 12:51 | PROVIDERS: Family Provider Family Medicine Geriatric Medicine; PCP Family Medicine Geriatric Medicine; Visit Provider Family Medicine Geriatric Medicine | DX: Z71.3 Dietary counseling and surveillance (principal); E66.9 Obesity, unspecified; Z68.32 Body mass index [BMI] 32.0-32.9, adult | CPT/HCPCS: 97803 ==

== ENCOUNTER 2019-09-03 14:00 | Outpatient (RCR) | payer SELFPAY | END 2019-09-08 23:59 | LOC: NS 14:00 | PROVIDERS: Family Provider Family Medicine Geriatric Medicine; PCP Family Medicine Geriatric Medicine; Visit Provider Family Medicine Geriatric Medicine | DX: Z71.3 Dietary counseling and surveillance (principal); E66.9 Obesity, unspecified; Z68.32 Body mass index [BMI] 32.0-32.9, adult | CPT/HCPCS: 97803 ==

== ENCOUNTER 2019-09-24 14:33 | Outpatient (RCR) | payer SELFPAY | END 2019-10-08 23:59 | LOC: NS 14:33 | PROVIDERS: Family Provider Family Medicine Geriatric Medicine; PCP Family Medicine Geriatric Medicine; Visit Provider Family Medicine Geriatric Medicine | DX: Z71.3 Dietary counseling and surveillance (principal); E66.9 Obesity, unspecified; Z68.32 Body mass index [BMI] 32.0-32.9, adult | CPT/HCPCS: 97803 ==

== ENCOUNTER → 2019-09-30 11:21 | Outpatient (CLI) | payer MEDICARE, BC, SELFPAY ==
[2019-09-30 12:15] LABS: Absolute Lymphocyte Count 2.87 X10^3/uL (0.83-4.51); Absolute Neutrophil Count 4.8 X10^3/uL (2.0-7.7); Basophil# 0.06 X10^3/uL; Basophil% 0.7 % (0-1); Eosinophil# 0.15 X10^3/uL; Eosinophils% 1.7 % (0-5); Hematocrit 47.4 % (37-47); Hemoglobin 15.8 g/dL (12.0-15.0); Lymphocyte # 2.87 X10^3/ul (4.0); Lymphocyte % 33.3 % (19-41); Mean Corp Hgb Conc 33.3 g/dL (32-36); Mean Corpuscular Hgb 30.9 pg (27.0-32.0); Mean Corpuscular Volume 92.6 fL (81-99); Mean Platelet Vol. 10.5 fl (6.2-12.0); Monocyte# 0.76 X10^3/uL; Monocyte% 8.8 % (0-10); NRBC Flagged by Analyzer 0 % (0-5); Neutrophil # 4.76 X10^3/uL (2.7-7.7); Neutrophil % 55.2 % (47-70); Platelet Count 281 K/mm3 (150-450); RBC Distribution Width CV 12.1 % (11.6-14.6); RBC Distribution Width SD 41.5 fl (35.1-43.9); Red Blood Count 5.12 M/mm3 (4.2-5.4); White Blood Count 8.6 K/mm3 (4.4-11.0)
[2019-09-30 12:37] LABS: BUN 14 mg/dL (7-18); Glucose 101 mg/dL (74-106)
[2019-09-30 12:38] LABS: ALB/GLOB Ratio 1.3 RATIO (0.9-2.4); AST(SGOT) 14 U/L (15-37); Alanine Aminotransfer ALT/SGPT 28 U/L (13-56); Alkaline Phosphatase 95 U/L (45-117); Anion Gap 6 (5-15); BUN/Creat Ratio 20.1 RATIO (10-20); Calcium,Total 9.6 mg/dL (8.5-10.1); Chloride 106 mmol/L (98-107); EST Glomerular Filtration Rate 90 mL/min (>60); Est Glom Filt Rate - Afr Amer 109 mL/min (>60); Globulin 3.1 g/dL (2.2-4.2); Potassium 4.3 mmol/L (3.5-5.1); Protein, Total 7.1 g/dL (6.4-8.2); Sodium Level 141 mmol/L (136-145); Thyroid Stim Hormone (TSH) 1.78 uIU/mL (0.358-3.74)
[2019-09-30 13:06] LABS: Vitamin D,25 Hydroxy 27.9 ng/mL
== END ==
PROVIDERS: PCP Family Medicine Geriatric Medicine; Visit Provider Family Medicine Geriatric Medicine
DX: I10 Essential (primary) hypertension (principal); E55.9 Vitamin D deficiency, unspecified
CPT/HCPCS: 36415; 80053; 82306; 84443; 85025

== ENCOUNTER 2019-10-22 13:25 | Outpatient (RCR) | payer SELFPAY | END 2019-11-08 23:59 | LOC: NS 13:25 | PROVIDERS: Family Provider Family Medicine Geriatric Medicine; PCP Family Medicine Geriatric Medicine; Visit Provider Family Medicine Geriatric Medicine | DX: Z71.3 Dietary counseling and surveillance (principal); E66.9 Obesity, unspecified; Z68.32 Body mass index [BMI] 32.0-32.9, adult | CPT/HCPCS: 97803 ==

== ENCOUNTER 2019-11-12 13:44 | Outpatient (RCR) | payer SELFPAY | END 2019-11-12 23:59 | disposition home or self-care (01) | LOC: NS 13:44 | PROVIDERS: Family Provider Family Medicine Geriatric Medicine; PCP Family Medicine Geriatric Medicine; Visit Provider Family Medicine Geriatric Medicine | DX: Z71.3 Dietary counseling and surveillance (principal); E66.9 Obesity, unspecified; Z68.32 Body mass index [BMI] 32.0-32.9, adult | CPT/HCPCS: 97803 ==

== ENCOUNTER → 2020-03-25 10:08 | Outpatient (CLI) | payer MEDICARE, BC, SELFPAY ==
[2020-03-25 12:39] LABS: Absolute Lymphocyte Count 2.94 X10^3/uL (0.83-4.51); Absolute Neutrophil Count 4.2 X10^3/uL (2.0-7.7); Basophil# 0.06 X10^3/uL; Basophil% 0.7 % (0-1); Eosinophil# 0.14 X10^3/uL; Eosinophils% 1.7 % (0-5); Hematocrit 49.3 % (37-47); Hemoglobin 16.3 g/dL (12.0-15.0); Lymphocyte # 2.94 X10^3/ul (4.0); Lymphocyte % 35.9 % (19-41); Mean Corp Hgb Conc 33.1 g/dL (32-36); Mean Corpuscular Hgb 30.5 pg (27.0-32.0); Mean Corpuscular Volume 92.1 fL (81-99); Mean Platelet Vol. 10.5 fl (6.2-12.0); Monocyte# 0.86 X10^3/uL; Monocyte% 10.5 % (0-10); NRBC Flagged by Analyzer 0 % (0-5); Neutrophil # 4.17 X10^3/uL (2.7-7.7); Platelet Count 324 K/mm3 (150-450); RBC Distribution Width SD 40.9 fl (35.1-43.9); Red Blood Count 5.35 M/mm3 (4.2-5.4); White Blood Count 8.2 K/mm3 (4.4-11.0)
[2020-03-25 12:52] LABS: Vitamin D,25 Hydroxy 36.9 ng/mL
[2020-03-25 13:00] LABS: ALB/GLOB Ratio 1.4 RATIO (0.9-2.4); AST(SGOT) 21 U/L (15-37); Alanine Aminotransfer ALT/SGPT 32 U/L (13-56); Albumin, Serum 4.2 g/dL (3.2-5.0); Alkaline Phosphatase 91 U/L (45-117); Anion Gap 5 (5-15); BUN 12 mg/dL (7-18); BUN/Creat Ratio 17.2 RATIO (10-20); Calcium,Total 9.5 mg/dL (8.5-10.1); Chloride 107 mmol/L (98-107); EST Glomerular Filtration Rate 89 mL/min (>60); Est Glom Filt Rate - Afr Amer 108 mL/min (>60); Globulin 3.1 g/dL (2.2-4.2); Glucose 89 mg/dL (74-106); Potassium 4.4 mmol/L (3.5-5.1); Protein, Total 7.3 g/dL (6.4-8.2); Sodium Level 139 mmol/L (136-145); Thyroid Stim Hormone (TSH) 2.19 uIU/mL (0.358-3.74)
== END ==
PROVIDERS: PCP Family Medicine Geriatric Medicine; Visit Provider Family Medicine Geriatric Medicine
DX: E55.9 Vitamin D deficiency, unspecified (principal); R53.83 Other fatigue
CPT/HCPCS: 36415; 80053; 82306; 84443; 85025

== ENCOUNTER → 2020-06-04 10:25 | Outpatient (CLI) | payer MEDICARE, BC, SELFPAY ==
--- NOTE | 2020-06-04 10:28 | BI_ITS ---
MAMMOGRAPHY - BILATERAL SCREENING REASON FOR EXAM: Female, 65 years old. Routine annual screening examination. PERTINENT HISTORY: Non-contributory. TECHNIQUE: Digital bilateral breast serafin (3D mammographic acquisition) in the CC and MLO projections. 2-D mediolateral oblique (MLO) and craniocaudad (CC) views of both breasts were obtained. CAD: Full Field Digital Mammography with Computer Added Detection was performed. COMPARISON: Comparison is made with prior examination dated 06/03/2019 and 06/01/2018. FINDINGS: Breast Composition: There are scattered areas of fibroglandular density. There are no dominant masses or suspicious calcifications. No other significant abnormalities are identified. There has been no significant change since the prior study. BI/SCRN MAMM (CAD)W/SERAFIN BILAT IMPRESSION: Stable bilateral screening mammogram. Yearly follow-up mammogram recommended. (A) ASSESSMENT CATEGORY: BIRADS Category 1: Negative. A letter regarding these results will be sent to the patient by the facility within 30 days. Approximately 10% of breast cancers are not detected by mammography. A normal mammogram should not delay biopsy of a clinically suspicious abnormality. [id number] Electronically Signed: Rishabh Camara MD at 12:39 EST , Service support ,
== END ==
PROVIDERS: PCP Family Medicine Geriatric Medicine; Referring Provider Family Medicine Geriatric Medicine; Visit Provider Family Medicine Geriatric Medicine
DX: Z12.31 Encounter for screening mammogram for malignant neoplasm of breast (principal)
CPT/HCPCS: 77063; 77067

== ENCOUNTER 2020-06-11 09:00 | Outpatient (RCR) | payer MEDICARE, BC, SELFPAY ==
[2020-06-11] MEDS: COVID-19 VACC, MRNA(PFIZER)/PF 30 MCG/0.3 ML SYRINGE IM (09:21)
[2020-07-02] MEDS: COVID-19 VACC, MRNA(PFIZER)/PF 30 MCG/0.3 ML SYRINGE IM (09:18)
== END 2020-06-11 23:59 ==
LOC: IMMUN 09:00
PROVIDERS: PCP Family Medicine Geriatric Medicine; Referring Provider Family Medicine; Visit Provider Family Medicine
DX: Z23 Encounter for immunization (principal)
CPT/HCPCS: 0001A; 0002A; 91300

== ENCOUNTER → 2020-10-05 10:06 | Outpatient (CLI) | payer MEDICARE, BC, SELFPAY ==
[2020-10-05 12:26] LABS: Absolute Neutrophil Count 4.5 X10^3/uL (2.0-7.7); Basophil% 1.2 % (0-1); Eosinophil# 0.32 X10^3/uL; Eosinophils% 3.9 % (0-5); Hematocrit 48.8 % (37-47); Hemoglobin 16.1 g/dL (12.0-15.0); Lymphocyte % 30.3 % (19-41); Mean Corpuscular Hgb 29.7 pg (27.0-32.0); Monocyte# 0.83 X10^3/uL; Monocyte% 10.1 % (0-10); NRBC Flagged by Analyzer 0 % (0-5); Neutrophil # 4.47 X10^3/uL (2.7-7.7); Neutrophil % 54.3 % (47-70); Platelet Count 285 K/mm3 (150-450); RBC Distribution Width CV 12.3 % (11.6-14.6); RBC Distribution Width SD 40.4 fl (35.1-43.9); Red Blood Count 5.42 M/mm3 (4.2-5.4); White Blood Count 8.2 K/mm3 (4.4-11.0)
[2020-10-05 12:53] LABS: ALB/GLOB Ratio 1.2 RATIO (0.9-2.4); AST(SGOT) 19 U/L (15-37); Alanine Aminotransfer ALT/SGPT 35 U/L (13-56); Alkaline Phosphatase 95 U/L (45-117); Anion Gap 8 (5-15); BUN 13 mg/dL (7-18); BUN/Creat Ratio 18.2 RATIO (10-20); Calcium,Total 9.3 mg/dL (8.5-10.1); Chloride 105 mmol/L (98-107); Creatinine, Serum 0.71 mg/dL (0.55-1.02); EST Glomerular Filtration Rate 87 mL/min (>60); Est Glom Filt Rate - Afr Amer 105 mL/min (>60); Globulin 3.2 g/dL (2.2-4.2); Glucose 91 mg/dL (74-106); Potassium 3.9 mmol/L (3.5-5.1); Protein, Total 7.2 g/dL (6.4-8.2); Sodium Level 138 mmol/L (136-145); Thyroid Stim Hormone (TSH) 1.53 uIU/mL (0.358-3.74)
[2020-10-05 12:59] LABS: Vitamin D,25 Hydroxy 30.4 ng/mL
== END ==
PROVIDERS: PCP Family Medicine Geriatric Medicine; Visit Provider Family Medicine Geriatric Medicine
DX: E55.9 Vitamin D deficiency, unspecified (principal); I10 Essential (primary) hypertension
CPT/HCPCS: 36415; 80053; 82306; 84443; 85025

== ENCOUNTER 2021-01-07 13:35 | Outpatient (CLI) | payer MEDICARE, BC, SELFPAY ==
[2021-01-07] MEDS: 0.9% Saline Lock 10 ML Syringe IV (13:52)
[2021-01-07 13:56] VITALS: BP 130/69; PULSE 84; RESP 16; TEMP 36.6; O2SAT 92; BMI 29.9
[2021-01-07 14:30] VITALS: BP 145/58; PULSE 77; RESP 16; TEMP 36.8; O2SAT 97
[2021-01-07 15:36] VITALS: BP 133/56; PULSE 73; RESP 16; TEMP 36.6; O2SAT 98
== END 2021-01-07 15:36 | disposition home or self-care (01) ==
LOC: MS3OUT 13:35 → MS3 13:36
PROVIDERS: PCP Family Medicine Geriatric Medicine; Referring Provider Nurse Practitioner Adult Health; Visit Provider Nurse Practitioner Adult Health
DX: Z23 Encounter for immunization (principal); U07.1 COVID-19
CPT/HCPCS: J7050; M0243; A4216; Q0244

== ENCOUNTER → 2021-03-29 13:24 | Outpatient (CLI) | payer MEDICARE, BC, SELFPAY ==
[2021-03-29 15:48] LABS: Absolute Lymphocyte Count 2.78 X10^3/uL (0.83-4.51); Absolute Neutrophil Count 4.2 X10^3/uL (2.0-7.7); Basophil# 0.08 X10^3/uL; Eosinophil# 0.27 X10^3/uL; Eosinophils% 3.4 % (0-5); Hematocrit 45.3 % (37-47); Hemoglobin 15.5 g/dL (12.0-15.0); Lymphocyte # 2.78 X10^3/ul (0.83-4.51); Lymphocyte % 34.6 % (19-41); Mean Corp Hgb Conc 34.2 g/dL (32-36); Mean Corpuscular Hgb 30.7 pg (27.0-32.0); Mean Corpuscular Volume 89.7 fL (81-99); Mean Platelet Vol. 11.2 fl (6.2-12.0); Monocyte# 0.71 X10^3/uL; Monocyte% 8.8 % (0-10); NRBC Flagged by Analyzer 0 % (0-5); Neutrophil # 4.17 X10^3/uL (2.7-7.7); Platelet Count 305 K/mm3 (150-450); RBC Distribution Width CV 12.8 % (11.6-14.6); RBC Distribution Width SD 41.8 fl (35.1-43.9); Red Blood Count 5.05 M/mm3 (4.2-5.4)
[2021-03-29 16:04] LABS: Vitamin D,25 Hydroxy 40.5 ng/mL
[2021-03-29 16:11] LABS: ALB/GLOB Ratio 1.1 RATIO (0.9-2.4); AST(SGOT) 37 U/L (15-37); Alanine Aminotransfer ALT/SGPT 53 U/L (13-56); Albumin, Serum 3.9 g/dL (3.2-5.0); Alkaline Phosphatase 94 U/L (45-117); Anion Gap 10 (5-15); BUN 12 mg/dL (7-18); BUN/Creat Ratio 17.2 RATIO (10-20); Calcium,Total 9.3 mg/dL (8.5-10.1); Chloride 106 mmol/L (98-107); EST Glomerular Filtration Rate 89 mL/min (>60); Est Glom Filt Rate - Afr Amer 108 mL/min (>60); Globulin 3.4 g/dL (2.2-4.2); Glucose 95 mg/dL (74-106); Protein, Total 7.3 g/dL (6.4-8.2); Sodium Level 141 mmol/L (136-145); Thyroid Stim Hormone (TSH) 1.35 uIU/mL (0.358-3.74)
== END ==
PROVIDERS: PCP Family Medicine Geriatric Medicine; Visit Provider Family Medicine Geriatric Medicine
DX: E55.9 Vitamin D deficiency, unspecified (principal); R53.83 Other fatigue
CPT/HCPCS: 36415; 80053; 82306; 84443; 85025

== ENCOUNTER 2021-06-07 10:40 | Outpatient (CLI) | payer MEDICARE, BC, SELFPAY ==
--- NOTE | 2021-06-07 10:44 | BI_ITS ---
MAMMOGRAPHY - BILATERAL SCREENING REASON FOR EXAM: Female, 66 years old. Routine annual screening examination. PERTINENT HISTORY: Non-contributory. TECHNIQUE: Digital bilateral breast serafin (3D mammographic acquisition) in the CC and MLO projections. 2-D mediolateral oblique (MLO) and craniocaudad (CC) views of both breasts were obtained. CAD: Full Field Digital Mammography with Computer Added Detection was performed. COMPARISON: Comparison is made with prior study dated 06/04/2020 and 06/03/2019. FINDINGS: Breast Composition: There are scattered areas of fibroglandular density. There are no dominant masses or suspicious calcifications. Stable benign-appearing bilateral axillary lymph nodes. No other significant abnormalities are identified. There has been no significant change since the prior study. BI/SCRN MAMM (CAD)W/SERAFIN BILAT IMPRESSION: Stable bilateral screening mammogram. Yearly follow-up mammogram recommended. (A) ASSESSMENT CATEGORY: BIRADS Category 2: Benign. A letter regarding these results will be sent to the patient by the facility within 30 days. Approximately 10% of breast cancers are not detected by mammography. A normal mammogram should not delay biopsy of a clinically suspicious abnormality. [id number] Electronically Signed: Rishabh Camara MD at 13:23 EST ,
== END 2021-06-07 23:59 | disposition home or self-care (01) ==
LOC: OPBI 10:41
PROVIDERS: PCP Family Medicine Geriatric Medicine; Visit Provider Family Medicine Geriatric Medicine
DX: Z12.31 Encounter for screening mammogram for malignant neoplasm of breast (principal)
CPT/HCPCS: 77063; 77067

== ENCOUNTER → 2021-09-28 | Outpatient (CLI) | payer MEDICARE, BC, SELFPAY | END | disposition home or self-care (01) | LOC: PSN 11:26 | PROVIDERS: PCP Family Medicine Geriatric Medicine; Visit Provider Family Medicine Geriatric Medicine | DX: U07.1 COVID-19 (principal) | CPT/HCPCS: 87635; 87804; 87807; C9803; U0003; U0005 ==

== ENCOUNTER → 2021-10-22 | Outpatient (CLI) | payer MEDICARE, BC, SELFPAY ==
[2021-10-22 12:39] LABS: Absolute Lymphocyte Count 2.47 X10^3/uL (0.83-4.51); Absolute Neutrophil Count 5.2 X10^3/uL (2.0-7.7); Basophil# 0.07 X10^3/uL; Basophil% 0.8 % (0-1); Eosinophil# 0.18 X10^3/uL; Eosinophils% 2.1 % (0-5); Hematocrit 46.5 % (37-47); Hemoglobin 15.9 g/dL (12.0-15.0); Lymphocyte # 2.47 X10^3/ul (0.83-4.51); Lymphocyte % 28.3 % (19-41); Mean Corp Hgb Conc 34.2 g/dL (32-36); Mean Corpuscular Hgb 31.7 pg (27.0-32.0); Mean Corpuscular Volume 92.6 fL (81-99); Monocyte# 0.78 X10^3/uL; Monocyte% 8.9 % (0-10); NRBC Flagged by Analyzer 0 % (0-5); Neutrophil # 5.19 X10^3/uL (2.7-7.7); Neutrophil % 59.4 % (47-70); Platelet Count 273 K/mm3 (150-450); RBC Distribution Width CV 12.5 % (11.6-14.6); RBC Distribution Width SD 42.3 fl (35.1-43.9); Red Blood Count 5.02 M/mm3 (4.2-5.4); White Blood Count 8.7 K/mm3 (4.4-11.0)
[2021-10-22 13:10] LABS: Vitamin D,25 Hydroxy 46.4 ng/mL
[2021-10-22 13:20] LABS: ALB/GLOB Ratio 1.2 RATIO (0.9-2.4); AST(SGOT) 19 U/L (15-37); Alanine Aminotransfer ALT/SGPT 46 U/L (13-56); Albumin, Serum 3.8 g/dL (3.2-5.0); Alkaline Phosphatase 81 U/L (45-117); Anion Gap 8 (5-15); BUN 14 mg/dL (7-18); Calcium,Total 9.4 mg/dL (8.5-10.1); Chloride 105 mmol/L (98-107); Creatinine, Serum 0.74 mg/dL (0.55-1.02); EST Glomerular Filtration Rate 84 mL/min (>60); Est Glom Filt Rate - Afr Amer 101 mL/min (>60); Globulin 3.3 g/dL (2.2-4.2); Glucose 94 mg/dL (74-106); Potassium 3.7 mmol/L (3.5-5.1); Protein, Total 7.1 g/dL (6.4-8.2); Sodium Level 139 mmol/L (136-145)
== END | disposition home or self-care (01) ==
LOC: POLAB3 09:33
PROVIDERS: PCP Family Medicine Geriatric Medicine; Visit Provider Family Medicine Geriatric Medicine
DX: E55.9 Vitamin D deficiency, unspecified (principal); R53.83 Other fatigue
CPT/HCPCS: 36415; 80053; 82306; 84443; 85025

== ENCOUNTER → 2022-01-03 | Outpatient (CLI) | payer MEDICARE, BC, SELFPAY ==
[2022-01-03 16:47] LABS: Absolute Neutrophil Count 5.7 X10^3/uL (2.0-7.7); Basophil# 0.08 X10^3/uL; Basophil% 0.8 % (0-1); Eosinophil# 0.14 X10^3/uL; Eosinophils% 1.5 % (0-5); Hematocrit 47.9 % (37-47); Lymphocyte % 29.5 % (19-41); Mean Corp Hgb Conc 33.4 g/dL (32-36); Mean Corpuscular Hgb 30.8 pg (27.0-32.0); Mean Corpuscular Volume 92.1 fL (81-99); Mean Platelet Vol. 10.3 fl (6.2-12.0); Monocyte# 0.69 X10^3/uL; Monocyte% 7.3 % (0-10); NRBC Flagged by Analyzer 0 % (0-5); Neutrophil # 5.73 X10^3/uL (2.7-7.7); Neutrophil % 60.4 % (47-70); Platelet Count 314 K/mm3 (150-450); RBC Distribution Width SD 41.1 fl (35.1-43.9); White Blood Count 9.5 K/mm3 (4.4-11.0)
[2022-01-03 17:09] LABS: ALB/GLOB Ratio 1.2 RATIO (0.9-2.4); AST(SGOT) 20 U/L (15-37); Alanine Aminotransfer ALT/SGPT 43 U/L (13-56); Albumin, Serum 3.9 g/dL (3.2-5.0); Alkaline Phosphatase 83 U/L (45-117); Amylase 53 U/L (25-115); Anion Gap 7 (5-15); BUN 12 mg/dL (7-18); BUN/Creat Ratio 17.1 RATIO (10-20); Calcium,Total 9.4 mg/dL (8.5-10.1); Chloride 104 mmol/L (98-107); EST Glomerular Filtration Rate 88 mL/min (>60); Est Glom Filt Rate - Afr Amer 107 mL/min (>60); Globulin 3.2 g/dL (2.2-4.2); Glucose 96 mg/dL (74-106); Lipase 146 U/L (73-393); Potassium 3.6 mmol/L (3.5-5.1); Protein, Total 7.1 g/dL (6.4-8.2); Sodium Level 140 mmol/L (136-145)
== END | disposition home or self-care (01) ==
LOC: POLAB3 13:52
PROVIDERS: PCP Family Medicine Geriatric Medicine; Visit Provider Family Medicine Geriatric Medicine
DX: R10.9 Unspecified abdominal pain (principal)
CPT/HCPCS: 36415; 80053; 82150; 83690; 85025

== ENCOUNTER → 2022-01-06 | Outpatient (CLI) | payer MEDICARE, BC, SELFPAY ==
--- NOTE | 2022-01-06 07:13 | US_ITS ---
STUDY: ABDOMINAL ULTRASOUND - RIGHT UPPER QUADRANT REASON FOR VISIT: Female, 66 years old RUQ PAIN TECHNIQUE: Ultrasound evaluation of the right upper quadrant was performed with real-time and static mahoney-scale imaging. TECHNICAL QUALITY: Adequate. COMPARISON: Comparison is made with prior study dated 03/26/2018. FINDINGS: Liver: The liver measures 16.1 cm. There is increased echogenicity consistent with fatty infiltration. The bile ducts are within normal limits. There is hepatic color flow. The direction of portal flow is hepatopetal. There is no demonstrated mass lesion. Gallbladder: Normal distended gallbladder. The gallbladder wall measures 2.0 mm. There is a negative sonographic Mccall''s sign. There is no pericholecystic fluid. There are no gallstones. Common Bile Duct (C.B.D.): The common bile duct measures 4 mm. Pancreas: Normal size of the head, body and tail of the pancreas. There is increased echogenicity of the pancreas. There is no demonstrated pancreatic mass or cyst. Right Kidney: Normal size of the right kidney. The right kidney measures 10.3 cm x 4.7 cm x 4.6 cm. Normal renal cortex. The right cortex measures 1.2 cm. There is no demonstrated renal mass or cyst. There is no right hydronephrosis. US/Abdomen Limited IMPRESSION: Fatty infiltration of the liver. Electronically Signed: Rishabh Camara MD at 10:17 EDT ,
== END | disposition home or self-care (01) ==
LOC: US 07:12
PROVIDERS: PCP Family Medicine Geriatric Medicine; Referring Provider Family Medicine Geriatric Medicine; Visit Provider Family Medicine Geriatric Medicine
DX: K76.0 Fatty (change of) liver, not elsewhere classified (principal)
CPT/HCPCS: 76705

== ENCOUNTER → 2022-01-14 | Outpatient (CLI) | payer MEDICARE, BC, SELFPAY ==
--- NOTE | 2022-01-14 07:55 | US_ITS ---
STUDY: ABDOMINAL ULTRASOUND - ELASTOGRAPHY REASON FOR VISIT: Female, 67 years old. Fatty infiltration of the liver. TECHNIQUE: Liver stiffness measurements were obtained on a G[employer] Cloud RS 85 ultrasound machine using a CA 1-7 probe following the SRU guidelines. 3 measurements were obtained using a 2-D-SWE method. The QR/M was 21suggesting a quality data set. TECHNICAL QUALITY: Adequate. COMPARISON: Comparison is made with prior sonogram of the right upper quadrant dated 01/06/2022. FINDINGS: Liver: Fatty infiltration of the liver. Median liver stiffness measured 8.1 kPa. US/Elastography Parenchyma/Organ IMPRESSION: Liver stiffness measures 8.1 kPa compatible with F2-F3 (Mild to moderate liver fibrosis) Metavir score. Electronically Signed: Rishabh Camara MD at 12:13 EDT ,
== END | disposition home or self-care (01) ==
LOC: US 07:52
PROVIDERS: PCP Family Medicine Geriatric Medicine; Referring Provider Family Medicine Geriatric Medicine; Visit Provider Family Medicine Geriatric Medicine
DX: K76.0 Fatty (change of) liver, not elsewhere classified (principal)
CPT/HCPCS: 76981

== ENCOUNTER → 2022-03-30 | Outpatient (CLI) | payer MEDICARE, BC, SELFPAY ==
--- NOTE | 2022-03-30 10:28 | RAD_ITS ---
STUDY: X-RAY - LUMBAR SPINE REASON FOR EXAM: Female, 67 years old. LOW BACK PAIN TECHNIQUE: XR Spine Lumbar Min 4 Views COMPARISON: 05.20.16 FINDINGS: Normal lumbar lordosis. There is no substantial scoliosis. There is a normal alignment of the vertebrae. There is multilevel endplate spondylosis of the lumbar vertebrae. There is multi-level degenerative disc disease with multi-level disc space narrowing. There are atherosclerotic vascular calcifications. Vacuum disc phenomenon at L5-S1. There is a compression deformity of the spine at level: L2 . These are age-indeterminate. MRI could further evaluate if of concern. The soft tissue structures are unremarkable. RAD/L/S Spine Min 4 Views IMPRESSION: Degenerative changes of the spine, as detailed above. There is a compression deformity of the spine at level: L2 . These are age-indeterminate. MRI could further evaluate if of concern. Electronically Signed: Tien Malhotra MD at 20:11 EST ,
== END | disposition home or self-care (01) ==
LOC: RAD 10:25
PROVIDERS: PCP Family Medicine Geriatric Medicine; Referring Provider Family Medicine Geriatric Medicine; Visit Provider Family Medicine Geriatric Medicine
DX: M47.816 Spondylosis without myelopathy or radiculopathy, lumbar region (principal); M51.36 Other intervertebral disc degeneration, lumbar region
CPT/HCPCS: 72110

== ENCOUNTER → 2022-04-27 | Outpatient (CLI) | payer MEDICARE, BC, SELFPAY ==
[2022-04-27 14:00] LABS: Vitamin D,25 Hydroxy 64.2 ng/mL
[2022-04-27 14:02] LABS: Absolute Lymphocyte Count 1.65 X10^3/uL (0.83-4.51); Absolute Neutrophil Count 5.3 X10^3/uL (2.0-7.7); Basophil# 0.06 X10^3/uL; Basophil% 0.7 % (0-1); Eosinophil# 0.14 X10^3/uL; Eosinophils% 1.7 % (0-5); Hematocrit 49.1 % (37-47); Hemoglobin 16.3 g/dL (12.0-15.0); Lymphocyte # 1.65 X10^3/ul (0.83-4.51); Lymphocyte % 20.4 % (19-41); Mean Corp Hgb Conc 33.2 g/dL (32-36); Mean Corpuscular Hgb 30.4 pg (27.0-32.0); Mean Corpuscular Volume 91.4 fL (81-99); Mean Platelet Vol. 10.3 fl (6.2-12.0); Monocyte# 0.91 X10^3/uL; Monocyte% 11.2 % (0-10); NRBC Flagged by Analyzer 0 % (0-5); Neutrophil % 65.6 % (47-70); Platelet Count 347 K/mm3 (150-450); RBC Distribution Width SD 43.1 fl (35.1-43.9); Red Blood Count 5.37 M/mm3 (4.2-5.4); White Blood Count 8.1 K/mm3 (4.4-11.0)
[2022-04-27 14:17] LABS: ALB/GLOB Ratio 1.3 RATIO (0.9-2.4); AST(SGOT) 21 U/L (15-37); Alanine Aminotransfer ALT/SGPT 34 U/L (13-56); Albumin, Serum 4.2 g/dL (3.2-5.0); Alkaline Phosphatase 90 U/L (45-117); Anion Gap 8 (5-15); BUN 15 mg/dL (7-18); BUN/Creat Ratio 23.5 RATIO (10-20); Calcium,Total 9.7 mg/dL (8.5-10.1); Chloride 103 mmol/L (98-107); Creatinine, Serum 0.64 mg/dL (0.55-1.02); EST Glomerular Filtration Rate 98 mL/min (>60); Est Glom Filt Rate - Afr Amer 119 mL/min (>60); Globulin 3.3 g/dL (2.2-4.2); Glucose 57 mg/dL (74-106); Potassium 3.5 mmol/L (3.5-5.1); Protein, Total 7.5 g/dL (6.4-8.2); Sodium Level 138 mmol/L (136-145); Thyroid Stim Hormone (TSH) 2.18 uIU/mL (0.358-3.74)
== END | disposition home or self-care (01) ==
LOC: POLAB3 09:25
PROVIDERS: PCP Family Medicine Geriatric Medicine; Visit Provider Family Medicine Geriatric Medicine
DX: E55.9 Vitamin D deficiency, unspecified (principal); R53.83 Other fatigue
CPT/HCPCS: 36415; 80053; 82306; 84443; 85025

== ENCOUNTER → 2022-05-07 | Outpatient (CLI) | payer MEDICARE, BC, SELFPAY ==
--- NOTE | 2022-05-07 08:30 | MRI_ITS ---
STUDY: MRI LUMBAR SPINE WITHOUT CONTRAST REASON FOR EXAM: Female, 67 years old. Initial encounter for fracture. TECHNIQUE: Standardized fat and water weighted pulse sequences were obtained in the sagittal and axial planes. COMPARISON: Lumbar spine radiographs 03/30/2022. MRI lumbar spine without contrast 06/09/2016. FINDINGS: T10-T11, T11-T12 and T12-L1: (Sagittal only). Normal endplates. Normal disc height, hydration and morphology. No ventral extradural defects. Normal central canal and bilateral intervertebral neural foramina. Small T11 benign vertebral body hemangioma is more obvious. Normal lumbar lordosis. There is no substantial scoliosis. Normal conus medullaris that terminates at the L1-L2 disc space level. L1-2: Normal L1 inferior endplate. Deep Schmorl''s node in the anterior L2 superior endplate causing increased anterior disc space height. There is mild reactive marrow fat infiltration underneath the Schmorl''s node. No ventral extradural defect. No significant facet arthropathy. Normal central canal and bilateral lateral recesses. Normal bilateral intervertebral neural foramina. L2-3: Normal endplates. Normal disc height, hydration and morphology. Normal bilateral facet joints. Normal central canal and bilateral lateral recesses. Normal bilateral intervertebral neural foramina. L3-4: Normal endplates. Mild disc space height narrowing. No ventral extradural defect. Mild bilateral degenerative facet arthropathy. Normal central canal and bilateral lateral recesses. Normal bilateral intervertebral neural foramina. L4-5: Normal endplates. Mild disc space height narrowing. No significant facet arthropathy. Tiny ventral extradural defect due to posterior bulging annulus. Moderate central canal stenosis with an AP canal diameter of 7 mm. Normal bilateral lateral recesses. Mild stenosis of the right intervertebral neural foramen. Normal left intervertebral neural foramen. L5-S1: Modic type II degenerative vertebral marrow fat infiltration underneath the vertebral endplates. Moderately pronounced disc space height narrowing. No significant facet arthropathy. Normal central canal and bilateral lateral recesses. Mild stenosis of the bilateral intervertebral neural foramina. Normal visualized sacral ala. Normal visualized paraspinous soft tissue structures. MRI/Spine Lumbar (Routine) IMPRESSION: 1. Prominent deep Schmorl''s node in the anterior L2 superior endplate with minimal reactive marrow fat infiltration. 2. No MRI evidence of recent fractures of the lumbar spine. 3. No MRI evidence of lumbar extruded disc fragment or disc protrusion. 4. Moderate central canal stenosis at L4-L5 disc space level with an AP canal diameter of 7 mm. Electronically Signed: Shilo Galaviz MD at 10:49 [facility] ,
== END | disposition home or self-care (01) ==
LOC: MRI 07:58
PROVIDERS: PCP Family Medicine Geriatric Medicine; Referring Provider Anesthesiology Pain Medicine; Visit Provider Anesthesiology Pain Medicine
DX: C34.00 Malignant neoplasm of unspecified main bronchus (principal); M80.08XA Age-related osteoporosis with current pathological fracture, vertebra(e), initial encounter for fracture
CPT/HCPCS: 72148

== ENCOUNTER → 2022-06-09 | Outpatient (CLI) | payer MEDICARE, BC, SELFPAY ==
--- NOTE | 2022-06-09 09:09 | BI_ITS ---
MAMMOGRAPHY - BILATERAL SCREENING REASON FOR EXAM: Female, 67 years old. Routine annual screening examination. PERTINENT HISTORY: Non-contributory. TECHNIQUE: Digital bilateral breast serafin (3D mammographic acquisition) in the CC and MLO projections. 2-D mediolateral oblique (MLO) and craniocaudad (CC) views of both breasts were obtained. CAD: Full Field Digital Mammography with Computer Added Detection was performed. COMPARISON: Comparison is made with prior study dated June 07, 2021 and June 04, 2020. FINDINGS: Breast Composition: There are scattered areas of fibroglandular density. There are no dominant masses or suspicious calcifications. Stable small benign-appearing bilateral axillary lymph nodes. No other significant abnormalities are identified. There has been no significant change since the prior study. MAMMOGRAPHY - BILATERAL SCREENING REASON FOR EXAM: Female, 67 years old. Routine annual screening examination. PERTINENT HISTORY: Non-contributory. TECHNIQUE: Digital bilateral breast serafin (3D mammographic acquisition) in the CC and MLO projections. 2-D mediolateral oblique (MLO) and craniocaudad (CC) views of both breasts were obtained. CAD: Full Field Digital Mammography with Computer Added Detection was performed. COMPARISON: Comparison is made with prior study dated June 07, 2021 and June 04, 2020. FINDINGS: Breast Composition: There are scattered areas of fibroglandular density. There are no dominant masses or suspicious calcifications. Stable small benign-appearing bilateral axillary lymph nodes. No other significant abnormalities are identified. There has been no significant change since the prior study. IMPRESSION: Stable bilateral screening mammogram. Yearly follow-up mammogram recommended. (A) ASSESSMENT CATEGORY: BIRADS Category 2: Benign. A letter regarding these results will be sent to the patient by the facility within 30 days. Approximately 10% of breast cancers are not detected by mammography. A normal mammogram should not delay biopsy of a clinically suspicious abnormality. [id number] BI/SCRN MAMM (CAD)W/SERAFIN BILAT IMPRESSION: Stable bilateral screening mammogram. Yearly follow-up mammogram recommended. (A) ASSESSMENT CATEGORY: BIRADS Category 2: Benign. A letter regarding these results will be sent to the patient by the facility within 30 days. Approximately 10% of breast cancers are not detected by mammography. A normal mammogram should not delay biopsy of a clinically suspicious abnormality. [id number] Electronically Signed: Rishabh Camara MD at 10:03 EST ,
== END | disposition home or self-care (01) ==
LOC: OPBI 09:08
PROVIDERS: PCP Family Medicine Geriatric Medicine; Visit Provider Family Medicine Geriatric Medicine
DX: Z12.31 Encounter for screening mammogram for malignant neoplasm of breast (principal)
CPT/HCPCS: 77063; 77067

== ENCOUNTER 2022-06-10 14:00 | Outpatient (RCR) | payer MEDICARE, BC, SELFPAY ==
--- NOTE | 2022-05-18 12:21 | HP.PTEVAL_ITS ---
Patient's Visit Information MELISA EDOUARD is a 67 year old F referred to Physical Therapy by Dr. Devin Van MD with a diagnosis of BACK PAIN. Date of Evaluation: 05/18/22 Physical Therapist: Yudi Sen PT, Cert MDT - Visit Plan Frequency: 2-3x /Week Duration: 4-6 Weeks Plan: INSTRUCT IN PROPER BODY MECHANICS FOR GARDENING. POSTURE CORRECTION/STRENGTHENING, INSTRUCTION IN APPROPRIATE BODY MECHANICS AND ACTIVITY MODIFICATIONS. DLS STARTING WITH A NEUTRAL SPINE PROGRESSING ROM TOLERATED. PRASHANT LE ROM, STRETCHING AND STRENGTHENING. HEP INSTRUCTION. 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 GOING ON VACATION NEXT MONTH. - Subjective Work/Leisure: RETIRED. LIKES TO GARDEN. [employer]. Present symptoms: I CAN FEEL IT ON THE LEFT SIDE OF MY BACK (L2). PATIENT REPORTS SHE HAS INTERMITTENT DISCOMFORT IN HER LEFT BACK AREA AT TIMES. PATIENT DENIES PRASHANT UE AND LE SX'S. Present since: JAN 2022. Pain Scale: WORST 1/10, LEAST 0/10. Currently: 0/10. Is it getting better, worse or staying the same: GETTING BETTER. Commenced as a result of: NO APPARENT REASON. Symptoms at onset: LEFT LOW BACK PAIN. Worse: BENDING, LIFTING. Better: OTC PAIN MEDICATION AND HEAT. SITTING AND LYING DOWN. Disturbed sleep: NO. Previous history/Previous treatment: PATIENT REPORTS A HISTORY OF HER BACK MUSCLES TENDING TO GET REALLY TIGHT SO SHE DOES MASSAGE AND CHIROPRACTIC. CHIROPRACTIC SINCE HIGH SCHOOL. NO BACK SURGERY. NO BACK INJECTIONS. Treatment this episode: CHIROPRACTIC AND MASSAGE. AFTER 3 MONTHS OF PAIN WENT TO DR. WASSERMAN - X-RAY SHOWED L2 COMPRESSION FX AND REFERRED TO DR. VAN. HAS HAD [address] VAN - ORDERED MRI AND FOLLOWED UP ON RESULTS. PRESCRIBED MALOXACAM AND PT. FOLLOW UP PENDING IN JULY. Coughing/sneezing/straining: NEGATIVE. Gait: NOT WALKING FAST BEFORE PAIN STARTED. WALKING ON TREADMILL X 20 MINUTES 4 TIMES NOW WITHOUT INCREASED PAIN. Bowel or Bladder Dysfunction: NO. Accidents: NO. Unexplained weight loss: NO. Imaging: BACK X-RAYS AND MRI - SEE [facility] EMR. PMH/Recent major surgery: IBS. 2015 PARTIAL REMOVAL OF LUNG FOR LUNG CANCER. NO CHEMO OR RADIATION. R ROTATOR CUFF REPAIR ABOUT 5 YEARS AGO. - Objective Sitting/Standing Posture: INCREASED KYPHOSIS. FH. RSH'S. Active Correction of posture: BETTER. Other Observations: INDEP GAIT AND TRANSFERS BUT SOME GUARDING WITH MVMT ALONG WITH DECREASED GAIT CADANCE. Sensory deficit: PRASHANT LE LIGHT TOUCH SENSATION GROSSLY INTACT AND SYMMETRICAL. ROM deficit: MILD HS AND GASTROC SOLEUS TIGHTNESS. L HIP IR/ER TIGHTNESS COMPARED TO RIGHT. Motor deficit: PRASHANT LE'S GROSSLY 5/5 WITH MMT'ING EXCEPT HIPS 4/5. Dural Signs: NEGATIVE PRASHANT LE'S. Lumbar mvmt loss: flex - NIL. ext - MOD. R SG - LARISSA. L SG - LARISSA. PATIENT C/O INCRASED SQUEEZING FEELING L LB WITH L SB TESTING. OTHERWISE PATIENT DENIES DISCOMFORT/PAIN WITH TESTING. Core strength: POOR. Palpation: NO ACUTE LOWER THORACIC, LUMBAR OR HIP TENDERNESS WITH PALPATION. TREATMENT: NEUROMUSCULAR REEDUCATION - RETRAINING OF MVMT AND POSTURE FOR SITTING, LYING AND STANDING ACTIVITIES. PATIENT IS ALREADY USING LUMBAR SUPPORT IN SITTING. INSTRUCTED PATIENT TO CONTINUE TO MINIMIZE BENDING, LIFTING AND TWISTING. - Balance/Special Test Scores Oswestry Low Back Score: 6 - Goals Goal 1:: DECRASE C/O LEFT LOW BACK PAIN Goal Time Frame: 4-6 Weeks Goal 2:: IMPROVE BENDING AND LIFTING FUNCTION Goal Time Frame: 4-6 Weeks Goal 3:: INSTRUCT IN PROPHYLAXIS Goal Time Frame: 4-6 Weeks - Anticipated Interventions Patient/Client Instruction: Educate patient on: Condition, Plan of Care, Risk Factors For the Purpose of:: To improve self management Therapeutic Exercise to Include: Strength training, Body mechanics, Postural training, Flexibilty training, Neuromotor development, In an aquatic setting, Dynamic Lumbar Stabilization For the Purpose of:: To decrease pain, To improve muscle performance and motor function, To increase tolerance to activity/condition/position, To improve ability of physical actions for home/community/work/leisure Thank you for the opportunity to evaluate your patient. For Medicare and Medicare HMO plans, please review the plan of care and approve it. It will need to be FAXED BACK to us at [phone] for Medicare purposes. For Medicare only, by signing this I certify the plan of care. Please let me know if there are questions or concerns regarding this plan of care. Physician Signature: Date:
--- NOTE | 2022-06-10 14:27 | HP.PTDCSUM ---
It has been my pleasure to treat MELISA EDOUARD referred by Dr. Devin Van MD, with the diagnosis of BACK PAIN for a total of 10 visit(s). Discharge Date: Please see the following information for a summary of their discharge status. Subjective: PATIENT REPORTS HER BACK FEELS STRONGER AND THE PAIN IS GONE. I THINK I JUST NEEDED TO GET BACK INTO EX'S AND LEARN THE RIGHT WAY. HAS BEEN TAKING IT EASY OVER ALL BUT ABLE TO DO SOME HOUSEWORK INCLUDING DUSTING AND VACUUMING YESTERDAY. NOT ABLE TO DO QUITE MUCH BEFORE BECAUSE COULD START TO FEEL IT IN HER BACK BEFORE DONE YESTERDAY. L rib Pain Intensity (Out of 10): 0 LB Pain Intensity (Out of 10): 0 % Improvement: 99 Objective/Function: PATIENT WAS SEEN TODAY FOR RE-ASSESSMENT OF PROGRESS TOWARD THE SET PT GOALS AND THE NEED FOR FURTHER PHYSICAL THERAPY VS READINESS FOR DISCHARGE. PATIENT REPORTS 99% IMPROVEMENT AND SHE IS INDEP WITH HOME AND GYM EX'S PROGRAMS BUT SHE STILL HAS SIGNIFICANT BACK ROM LIMITATION PER BELOW AND L LOW BACK SX'S ARE EASILY PROVOKED WITH ONE REP OF L SG TESTING ALTHOUGH MILD. ALSO STILL LIMITED IN ADL'S. PHYSICIAN RE-ASSESSMENT RECOMMENDED. PATIENT AGREEABLE. FOLLOW UP PENDING [facility] DR. VAN 07/11/[address] WASSERMAN IN SEPTEMBER. UPON EXAM TODAY: NEGATIVE PRASHANT LE DURAL TESTING. Lumbar mvmt loss: flex - NIL. ext - MOD. R SG - LARISSA. L SG - LARISSA. PATIENT C/O INCRASED SQUEEZING FEELING L LB AT THE END OF THE AVAILABLE ROM WITH L SB TESTING. OTHERWISE PATIENT DENIES DISCOMFORT/PAIN WITH TESTING. [ End ] Goal 1:: DECRASE C/O LEFT LOW BACK PAIN Goal Progress: Goal Met Goal 2:: IMPROVE BENDING AND LIFTING FUNCTION Goal Progress: Goal Met Goal 3:: INSTRUCT IN PROPHYLAXIS Goal Progress: Goal Met Plan: D/C TO INDEP EX. LEAVING FOR VACATION NEXT WEEK. If there are questions or concerns regarding this patient's physical therapy, please feel free to call me at [phone]. Thank you for the referral of this patient. Sincerely, Yudi Sen, PT, Cert MDT Balance/Gait/Functional tests - Balance/Special Test Scores Oswestry Low Back Score: 3
== END 2022-06-10 19:00 | disposition home or self-care (01) ==
LOC: PT 14:00
PROVIDERS: PCP Family Medicine Geriatric Medicine; Referring Provider Anesthesiology Pain Medicine; Visit Provider Anesthesiology Pain Medicine
DX: M54.9 Dorsalgia, unspecified (principal)
CPT/HCPCS: 97110; 97112; 97162; 97164

== ENCOUNTER → 2022-07-04 | Outpatient (CLI) | payer MEDICARE, BC, SELFPAY | END | disposition home or self-care (01) | LOC: PSN 08:20 | PROVIDERS: PCP Family Medicine Geriatric Medicine; Referring Provider Family Medicine Geriatric Medicine; Visit Provider Family Medicine Geriatric Medicine | DX: U07.1 COVID-19 (principal) | CPT/HCPCS: 87635; 87804; 87807; C9803; U0003; U0005 ==

== ENCOUNTER → 2022-10-24 | Outpatient (CLI) | payer MEDICARE, BC, SELFPAY ==
[2022-10-24 12:24] LABS: Absolute Lymphocyte Count 2.21 X10^3/uL (0.83-4.51); Basophil# 0.07 X10^3/uL; Eosinophil# 0.13 X10^3/uL; Eosinophils% 1.8 % (0-5); Hematocrit 46.7 % (37-47); Hemoglobin 15.7 g/dL (12.0-15.0); Lymphocyte # 2.21 X10^3/ul (0.83-4.51); Lymphocyte % 31.3 % (19-41); Mean Corp Hgb Conc 33.6 g/dL (32-36); Mean Corpuscular Hgb 30.8 pg (27.0-32.0); Mean Corpuscular Volume 91.6 fL (81-99); Mean Platelet Vol. 10.4 fl (6.2-12.0); Monocyte# 0.63 X10^3/uL; Monocyte% 8.9 % (0-10); NRBC Flagged by Analyzer 0 % (0-5); Neutrophil # 3.98 X10^3/uL (2.7-7.7); Neutrophil % 56.6 % (47-70); Platelet Count 271 K/mm3 (150-450); RBC Distribution Width SD 40.5 fl (35.1-43.9); White Blood Count 7.1 K/mm3 (4.4-11.0)
[2022-10-24 13:21] LABS: ALB/GLOB Ratio 1.1 RATIO (0.9-2.4); AST(SGOT) 23 U/L (15-37); Alanine Aminotransfer ALT/SGPT 47 U/L (13-56); Albumin, Serum 3.7 g/dL (3.2-5.0); Alkaline Phosphatase 84 U/L (45-117); Anion Gap 10 (5-15); BUN 15 mg/dL (7-18); BUN/Creat Ratio 23.7 RATIO (10-20); Calcium,Total 9.1 mg/dL (8.5-10.1); Chloride 108 mmol/L (98-107); Creatinine, Serum 0.63 mg/dL (0.55-1.02); EST Glomerular Filtration Rate 99 mL/min (>60); Est Glom Filt Rate - Afr Amer 120 mL/min (>60); Globulin 3.4 g/dL (2.2-4.2); Glucose 121 mg/dL (74-106); Potassium 3.7 mmol/L (3.5-5.1); Protein, Total 7.1 g/dL (6.4-8.2); Sodium Level 139 mmol/L (136-145); Thyroid Stim Hormone (TSH) 1.71 uIU/mL (0.358-3.74)
== END | disposition home or self-care (01) ==
PROVIDERS: PCP Family Medicine Geriatric Medicine; Visit Provider Family Medicine Geriatric Medicine
DX: E55.9 Vitamin D deficiency, unspecified (principal); R53.83 Other fatigue
CPT/HCPCS: 36415; 80053; 82306; 84443; 85025

== ENCOUNTER → 2022-11-22 | Outpatient (CLI) | payer MEDICARE, BC, SELFPAY | END | disposition home or self-care (01) | LOC: PSN 07:02 | PROVIDERS: PCP Family Medicine Geriatric Medicine; Referring Provider Family Medicine Geriatric Medicine; Visit Provider Family Medicine Geriatric Medicine | DX: R68.83 Chills (without fever) (principal) | CPT/HCPCS: 87635; 87804; 87807; C9803 ==

== ENCOUNTER → 2023-04-13 | Outpatient (CLI) | payer MEDICARE, BC, SELFPAY ==
--- NOTE | 2023-04-13 09:55 | RAD_ITS ---
STUDY: X-RAY - LUMBAR SPINE REASON FOR EXAM: Female, 68 years old. Low back pain. History of fall. TECHNIQUE: 5 view(s) of the lumbar spine were obtained. COMPARISON: March 30, 2022. FINDINGS: Normal osteopenia. Normal lumbar lordosis. No scoliosis. Normal vertebral alignment. New anterior wedge compression deformity of the upper endplate of the L4 vertebral body compatible with anterior wedge compression fracture. Diffuse lower thoracic and lumbosacral facet sclerosis. Diffuse intervertebral disc space narrowing with osteophytes most marked at L5-S1 with vacuum phenomenon at that level, unchanged. Vascular calcification. RAD/L/S Spine Min 4 Views IMPRESSION: Osteopenia with lower thoracic and lumbosacral spondylosis as described, most prevalent at L5-S1 and unchanged. New upper endplate anterior wedge compression deformity of the L4 vertebral body compatible with anterior wedge compression fracture. Electronically Signed: Dipesh Levi MD at 13:58 EST ,
--- OUTSIDE RECORDS SUMMARY | 2023-04-13 10:15 | XMS RPT_ITS | CCD ---
Author Name Unknown Address [address] [place] [address] Organization [facility] Results Test Name Value Interpretation Reference Range Facil ity Summary Purpose Family History No Family History Records Found Advance Directives No Advanced Directives Records Found Additional Source Comments INFORMATION SOURCE (unrecogn ized section and content) FOR RECORDS PERTAINING TO PATIENTS WHO ARE OR HAVE BEEN ENROLLED IN A CHEMICAL DEPENDENCY/SUBSTANCEABUSE PROGRAM, SOME INFORMATION MAY BE OMITTED. This clinical summary was aggregated from multiple sources. Caution should be exercised in using it in the provision of clinical care. This summary normalizes information from multiple sources, and as a consequence, information in this document may materially change the coding, format and clinical context of patient data. In addition, data may be omitted in some cases. CLINICAL DECISIONS SHOULD BE BASED ON THE PRIMARY CLINICAL RECORDS. [employer] provides no warranty or guarantee of the accuracy or completeness of information in this document.
== END | disposition home or self-care (01) ==
LOC: RAD 09:53
PROVIDERS: PCP Family Medicine Geriatric Medicine; Referring Provider Family Medicine Geriatric Medicine; Visit Provider Family Medicine Geriatric Medicine
DX: M54.50 Low back pain, unspecified (principal)
CPT/HCPCS: 72110

== ENCOUNTER → 2023-04-26 | Outpatient (CLI) | payer MEDICARE, BC, SELFPAY ==
[2023-04-26 10:43] LABS: Absolute Lymphocyte Count 2.37 X10^3/uL (0.83-4.51); Basophil# 0.08 X10^3/uL; Basophil% 0.9 % (0-1); Eosinophil# 0.19 X10^3/uL; Hematocrit 47.8 % (37-47); Hemoglobin 16.1 g/dL (12.0-15.0); Lymphocyte # 2.37 X10^3/ul (0.83-4.51); Lymphocyte % 25.3 % (19-41); Mean Corp Hgb Conc 33.7 g/dL (32-36); Mean Corpuscular Hgb 30.5 pg (27.0-32.0); Mean Corpuscular Volume 90.5 fL (81-99); Mean Platelet Vol. 10.2 fl (6.2-12.0); Monocyte# 0.72 X10^3/uL; Monocyte% 7.7 % (0-10); NRBC Flagged by Analyzer 0 % (0-5); Neutrophil # 5.96 X10^3/uL (2.7-7.7); Neutrophil % 63.5 % (47-70); Platelet Count 265 K/mm3 (150-450); RBC Distribution Width CV 12.4 % (11.6-14.6); RBC Distribution Width SD 41.1 fl (35.1-43.9); Red Blood Count 5.28 M/mm3 (4.2-5.4); White Blood Count 9.4 K/mm3 (4.4-11.0)
[2023-04-26 10:53] LABS: Vitamin D,25 Hydroxy 69.6 ng/mL
[2023-04-26 12:21] LABS: ALB/GLOB Ratio 1.2 RATIO (0.9-2.4); AST(SGOT) 14 U/L (15-37); Alanine Aminotransfer ALT/SGPT 40 U/L (13-56); Albumin, Serum 3.7 g/dL (3.2-5.0); Alkaline Phosphatase 157 U/L (45-117); Anion Gap 7 (5-15); BUN 15 mg/dL (7-18); BUN/Creat Ratio 23.8 RATIO (10-20); Calcium,Total 9.3 mg/dL (8.5-10.1); Chloride 106 mmol/L (98-107); Creatinine, Serum 0.63 mg/dL (0.55-1.02); EST Glomerular Filtration Rate 100 mL/min (>60); Est Glom Filt Rate - Afr Amer 120 mL/min (>60); Globulin 3.1 g/dL (2.2-4.2); Glucose 126 mg/dL (74-106); Potassium 3.7 mmol/L (3.5-5.1); Protein, Total 6.8 g/dL (6.4-8.2); Sodium Level 136 mmol/L (136-145); Thyroid Stim Hormone (TSH) 1.53 uIU/mL (0.358-3.74)
== END | disposition home or self-care (01) ==
LOC: POLAB3 09:13
PROVIDERS: PCP Family Medicine Geriatric Medicine; Visit Provider Family Medicine Geriatric Medicine
DX: E55.9 Vitamin D deficiency, unspecified (principal); R53.83 Other fatigue
CPT/HCPCS: 36415; 80053; 82306; 84443; 85025

== ENCOUNTER 2023-05-15 12:00 | Outpatient (RCR) | payer MEDICARE, BC, SELFPAY ==
--- NOTE | 2023-04-24 14:28 | HP.PTEVAL ---
Patient's Visit Information Visit Information Visit Information: MELISA EDOUARD is a 68 year old F referred to Physical Therapy by Dr. Cristian Silveira MD with a diagnosis of L4 Compression Fracture. Date of Evaluation: 04/24/23 Physical Therapist: Deidre Haines DPT Visit Plan Frequency: 2x /Week Duration: 4 Weeks Plan: L4 Compression Fracture- Focus on LE and Core Strength/Stabilization- Pain Mgmt. HEP Given IE: postural education, TA contraction, Clams, Hip add with ball, sit to stand with TA contraction. PATIENT IS ALREADY USING LUMBAR SUPPORT IN SITTING. INSTRUCTED PATIENT TO CONTINUE TO MINIMIZE BENDING, LIFTING AND TWISTING. LET PAIN BE HER GUIDE. Subjective Subjective: Patient reports that she fell KASH doing laundry and compression fracture L4. Called MD and she went in and saw PCP who gave her medications anti-inflam and muscle relaxers- x-ray which showed the compression fracture. She then had a bone density test and PT. She has not had the bone density test. Most of the time if she is in her recliner she is painfree. When she does have pain its more dull and achy. Pain is located in the across the back at top of the hips. She will get some anterior hip pain if she shifts position it goes away. The recliner has a lumbar support. She had PT last year for the same thing so she has gone back to all of her mechanical reminders. She has had a massage and she felt that helped a little bit. Worst: 05/20. No pain that radiates down the legs and no N/T. No loss or change in bowel or bladder- she has IBS-c. She is a member of [employer]- she works with [employer]- usually 1x a week through the holidays but goal is to come 3x a week. She did land therapy last time she had a compression fracture and she did okay- she does not like the pool. She feels that this compression fracture it worse than last year. She goes to the chiropractor- but is not currently. Goes back to the MD on Monday. Sleep is not disturbed-side sleeper. Work: none. PMHx/Meds: none. Objective Objective: Posture: forward head, rounded shoulder- increased kyphosis- can correct with verbal cues but does not maintain Gait: mild decrease in trunk rotation- good arm swing Sensation: WFL to gross touch bilateral LE Reflex: 2+ to patella ROM: Lumbar: Flexion: mild restriction, Extension: neutral, SB: mild restriction, Rotation: mild restriction- hesitant to move but no pain with motion. Hip/Knee/Ankle: WNL Strength: Core: fair minus, Hip: 4+/5 throughout, Knee: 5/5, Ankle: 5/5 Flex: HS: mild, Gastroc: mild Dural Signs: negative bilateral Palpation: not tender to touch Balance/Special Test Scores Oswestry Low Back Score: 25 Goals Goal 1:: Patient will report participation in home exercise program activities a minimum of 5 days per week, as adjunct to skilled physical therapy intervention in preparation for independent home management upon discharge. Goal Time Frame: 4-6 Weeks Goal 2:: Patient will maintain proper posture t/o tx session to demo increased core strength/stabilization Goal Time Frame: 4-6 Weeks Goal 3:: Patient will report no pain for 1 week Goal Time Frame: 4-6 Weeks Goal 4:: Patient will report 80% improvement Goal Time Frame: 4-6 Weeks Rehabilitation Potential Physical Therapy Diagnosis: Patient presents with hypomobility- she has decreased core strength/stabilization and muscular endurance leading to poor posture and increased pain with ADL's Rehabilitation Potential: Good Anticipated Interventions Patient/Client Instruction: Educate patient on: Benefits of Fitness Program For the Purpose of:: To improve muscle performance and motor function Therapeutic Exercise to Include: Strength training, Endurance training, Agility training, Body mechanics, Postural training, Flexibilty training, Gait and locomotor training, Neuromotor development, Dynamic Lumbar Stabilization and Scapular Strength/Stabilization For the Purpose of:: To improve muscle performance and motor function Cryotherapy (ice pack, ice massage): Yes Thermo therapy (hot pack): Yes Text: Thank you for the opportunity to evaluate your patient. For Medicare and Medicare HMO plans, please review the plan of care and approve it. It will need to be FAXED BACK to us at [phone] for Medicare purposes. For Medicare only, by signing this I certify the plan of care. Please let me know if there are questions or concerns regarding this plan of care. Physician Signature: Date:
--- NOTE | 2023-05-15 12:59 | HP.PTDCSUM ---
Discharge Summary D/C summary: It has been my pleasure to treat MELISA EDOUARD referred by Dr. Cristian Silveira MD, with the diagnosis of L4 Compression Fracture for a total of 7 visit(s). Discharge Date: Please see the following information for a summary of their discharge status. Subjective Subjective: She has been feeling really good and making progress and then on Monday she walked on the TM for 15 min- Monday went to [employer]- sang in the choir- went for a walk outside- 12 min walk her left hip was really sore in the middle of the buttock- ice/heat/ibuprofen- still a little touch -05/20. First time she has been outside walking. She had no pain doing the machines today. She feels confident with what she is doing currently. Pain Low back: Pain Intensity (Out of 10): 1 Overall Improvement % Improvement: 60 Objective Objective/Function: Posture: improved- good throughout session sitting on plinth without back support Gait: good- no decrease in trunk rotation Sensation: WFL to gross touch bilateral LE Reflex: 2+ to patella ROM: Lumbar: WFL mild discomfort with SB to the left Hip/Knee/Ankle: WNL Strength: Core: fair minus, Hip: 4+/5 throughout, Knee: 5/5, Ankle: 5/5 Flex: HS: mild, Gastroc: mild Dural Signs: negative bilateral Palpation: not tender to touch Goals Goal 1:: Patient will report participation in home exercise program activities a minimum of 5 days per week, as adjunct to skilled physical therapy intervention in preparation for independent home management upon discharge. Goal Progress: Goal Met Goal 2:: Patient will maintain proper posture t/o tx session to demo increased core strength/stabilization Goal Progress: Goal Met Goal 3:: Patient will report no pain for 1 week Goal Progress: Progressing Goal 4:: Patient will report 80% improvement Goal Progress: Progressing Plan Plan: Discharge to independent home exercise program- encouraged to call if questions or concerns. D/C Information d/c sentence: If there are questions or concerns regarding this patient's physical therapy, please feel free to call me at [phone]. Thank you for the referral of this patient. Sincerely, Deidre Haines, DPT Balance/Gait/Functional tests Balance/Special Test Scores Oswestry Low Back Score: 14 Improvement % Improvement: 60
== END 2023-05-15 14:10 | disposition home or self-care (01) ==
LOC: PT 12:00
PROVIDERS: PCP Family Medicine Geriatric Medicine; Referring Provider Family Medicine Geriatric Medicine; Visit Provider Family Medicine Geriatric Medicine
DX: S32.049D Unspecified fracture of fourth lumbar vertebra, subsequent encounter for fracture with routine healing (principal)
CPT/HCPCS: 97110; 97162

== ENCOUNTER → 2023-05-18 | Outpatient (CLI) | payer MEDICARE, BC, SELFPAY ==
--- NOTE | 2023-05-18 08:45 | BD_ITS ---
STUDY: DUAL ENERGY X-RAY ABSORPTIOMETRY / DXA REASON FOR EXAM: Female, 68 years old. [id number] TECHNIQUE: Bone Mineral Density (BMD) measurements of lumbar spine and bilateral hips were obtained. COMPARISON: None. FINDINGS: Lumbar Spine (L1-L4): g/cm2 (0.853) / T-score (-1.5) / Z-score (0.5) Findings are suggestive of osteopenia with a low fracture risk. Left Femur Total: g/cm2 (0.730) / T-score (-1.7) / Z-score (-0.3) Left Femoral Neck: g/cm2 (0.562) / T-score (-2.6) / Z-score (-0.8) Right Femur Total: g/cm2 (0.69) / T-score (-2.0) / Z-score (-0.5) Right Femoral Neck: g/cm2 (0.510) / T-score (-3.1) / Z-score (-1.3) BD/Dexa Bone Density Study IMPRESSION: The patient is considered osteoporotic as outlined below according to World [place] Organization (WHO) criteria with a high fracture risk. Reference Information: The T-score is the number of standard deviations above or below the standard which is normal for young adults at their peak bone mineral density. The World Health Organization (WHO) interprets the T-scores as follows: Above -1 Normal bone density Between -1 and -2.5 Osteopenia Equal to / or below -2.5 Osteoporosis As a practical clinical guideline, osteopenia may be graded as follows: Mild -1 through -1.5 Moderate -1.6 through -2.0 Severe -2.1 through -2.4 The Z-score is the number of standard deviations above or below age-matched controls. A Z-score of less than -1.5 would be considered abnormal. References: 1. NIH Osteoporosis and Related Bone Diseases www osteo.org 2. International Society for Clinical Densitometry www iscd.org 3. National Osteoporosis Foundation www nof.org Electronically Signed: Rishabh Camara MD at 9:32 EST ,
--- OUTSIDE RECORDS SUMMARY | 2023-05-18 08:58 | XMS RPT_ITS | CCD ---
Author Name Unknown Address [address] [place] [address] Organization [facility] Results Test Name Value Interpretation [...] BE BASED ON THE PRIMARY CLINICAL RECORDS. [employer] provides no warranty or guarantee of the accuracy or completeness of information in this document.
== END | disposition home or self-care (01) ==
LOC: OPBD 08:37
PROVIDERS: PCP Family Medicine Geriatric Medicine; Referring Provider Family Medicine Geriatric Medicine; Visit Provider Family Medicine Geriatric Medicine
DX: M81.0 Age-related osteoporosis without current pathological fracture (principal); Z78.0 Asymptomatic menopausal state
CPT/HCPCS: 77080

== ENCOUNTER 2023-05-26 20:03 | Observation (INO) | payer MEDICARE, BC, SELFPAY ==
[2023-05-26 20:03] VITALS: BP 162/72; PULSE 94; RESP 16; TEMP 36.4; O2SAT 99; BMI 29.2
--- NOTE | 2023-05-26 20:26 | EX.ED.UPPERE ---
HPI History of Present Illness HPI Narrative: Patient presents with paresthesias and weakness to her right arm that occurred tonight while she was sitting in her recliner. Patient states she was using her laptop. Patient states that she had some paresthesias in her right arm. Patient states she had difficulty moving her right arm. Patient states she had to reach over with her left arm and move her right arm. Patient states that she also had some questionable right facial weakness and questionable slurred speech. Patient states this lasted for only 5 to 10 seconds. Patient denies any chest pain. Patient denies any shortness of breath. Patient denies any nausea or vomiting. Patient states she does have a history of recent L4 compression fracture but only has minimal pain with this. Chief Complaint: Upper Extremity Injury Informant: patient Onset/Context/Timing Onset: Today Context: Sudden Onset Timing: Intermittent and Lasts (5 to 10 seconds) Location: Right upper extremity Worsened by: Nothing Relieved by: Nothing Associated Symptoms Associated Symptoms: Positive for Parasthesia and Weakness PFSH PFSH Medical History COVID-19 DDD (degenerative disc disease), lumbar Environmental allergies History of lung cancer IBS (irritable bowel syndrome) Home Medications calcium carbonate 600 mg calcium (1,500 mg) tablet 1,200 mg PO DAILY 11/07/16 [History Last Taken Unknown] ivermectin 1 % topical cream (Soolantra) 30 g TP DAILY 11/07/16 [History Last Taken Unknown] linaclotide 72 mcg capsule (Linzess) 72 mcg PO DAILY 11/07/16 [History Last Taken Unknown] loratadine 10 mg tablet (Allergy Relief (loratadine)) 10 mg PO PRN PRN Allergies 11/07/16 [History Last Taken Unknown] multivitamin (Multiple Vitamins tablet) 1 ea PO DAILY 11/07/16 [History Last Taken Unknown] Allergy/AdvReac Type Severity Reaction Status Date / Time ciprofloxacin [From Cipro] Allergy Mild itching Verified 05/26/23 20:07 atorvastatin Allergy Hives Verified 05/26/23 20:07 simvastatin Allergy Rash Verified 05/26/23 20:07 Family History Other Asthma CVA (cerebral vascular accident) Cancer Diabetes Surgical History History of lobectomy of lung History of rotator cuff surgery History of tonsillectomy History of tubal ligation Status post right foot surgery Social History Smoking Status: Never smoker alcohol intake: never substance use type: does not use what type of physical activity do you participate in: walking frequency: 3-4 times per week ROS ROS ED Constitutional Constitutional ED: Denies chills or fever(s) Eyes Eyes: Denies blurry vision or change in vision ENT ENT ED: Denies rhinorrhea or sore throat Cardiovascular Cardiovascular: Denies chest pain or palpitations Respiratory/Chest Respiratory/Chest: Denies cough or dyspnea Gastrointestinal Gastrointestinal: Denies nausea or vomiting Genitourinary Genitourinary ED: Denies dysuria or hematuria Musculoskeletal Musculoskeletal: Reports back pain; Denies neck pain Integumentary Denies abscess or rash Neurologic Neurologic: Reports paresthesias and weakness; Denies headache(s) Allergic/Immunologic Allergic/Immunologic ED: Denies mouth swelling or urticaria EXAM Physical Exam Const Vital Signs: 05/26/23 20:03 Temperature 97.6 F L Temperature Source Temporal Pulse Rate 948 H Respiratory Rate 16 Blood Pressure 162/72 H Blood Pressure Mean 102 Pulse Ox 99 Positive well nourished and well developed General Appearance ED: well developed and NAD HEENT Reports moist mucous membranes Eyes PERRL Neck full ROM and supple Resp normal respiratory effort and clear to auscultation bilaterally Cardio regular rate and regular rhythm GI non-tender and non-distended Palpation: soft Extremity normal to inspection and full ROM Neuro oriented x3, CN's II-XII intact bilaterally, moves all extremities, no focal motor deficits and no sensory deficits noted Sensorium / Orientation: alert Motor Exam: strength 5/5 throughout Psych mental status grossly normal MDM MDM MDM Narrative Medical decision making narrative: Differential diagnosis includes TIA, paresthesias, electrolyte abnormality, stroke, intracranial bleeding, cardiac dysrhythmia, and cardiac ischemia. EKG will be obtained to assess for cardiac dysrhythmia and cardiac ischemia. CT scan of the brain will be obtained to assess for intracranial bleeding and stroke. Chest x-ray will be obtained to assess for pneumonia and pneumothorax. CBC will be obtained to assess for leukocytosis and anemia. Basic metabolic profile will be obtained to assess for electrolyte abnormality and renal function. High-sensitivity troponin will be obtained to assess for cardiac ischemia. 2-hour repeat high-sensitivity troponin will be obtained to assess for ongoing cardiac ischemia. PT with INR and PTT will be obtained to assess for coagulopathy. Lab Data Attestation: I reviewed the patient's lab results. Lab results narrative: CBC was reviewed and was within normal limits. Basic metabolic profile was reviewed and showed an elevated glucose of 212. Anion gap was normal. Potassium was slightly low at 3.4. PT with INR and PTT were reviewed and were within normal limits. Initial high-sensitivity troponin was reviewed and was normal at 6. 2-hour repeat high-sensitivity troponin was reviewed and was normal at 7. Radiography Chest X-Ray - ED: 2 View, Read by ED Physician, Read by Radiologist and No Acute Disease Diagnostic Testing: PA and lateral chest x-ray was obtained. There are 2 views. On my independent interpretation, lung morocho are clear. There is normal cardiac silhouette. Bony thorax is normal. There is no acute process noted. Radiologist also interpreted the x-ray and agrees. EKG Initial EKG: Attestation: I personally reviewed and interpreted this EKG as follows: Interpretation: Sinus Rhythm (91) and No Acute Injury Pattern Comments: EKG was obtained. On my independent interpretation, it showed a normal sinus rhythm with a rate of 91. DE interval, QRS interval, and QTc intervals were all normal. Carnegie was normal. There are no acute ST or T wave changes. Prior EKG tracings: available for review Prior: Unchanged (09/20/2017) Treatment and Re-Evaluation Narrative: Patient is feeling better on reevaluation. Patient was advised of her findings. Patient has an ABCD2 score of 4. This puts her at moderate risk for further stroke. Because of this, I recommended admission to the hospital for TIA workup. Patient is agreeable with this. Case was discussed with the hospitalist. He will admit the patient for observation. Patient understood and was agreeable with the plan. All questions were answered. Discharge Plan Triage Chief Complaint: Upper Extremity Injury ED Provider: Mike Rivera Dx/Rx/DC Orders Clinical Impression: TIA (transient ischemic attack), Elevated blood pressure reading without diagnosis of hypertension Prescriptions: No Action multivitamin [Multiple Vitamins] 1 EACH tablet 1 ea PO DAILY calcium carbonate 600 MG tablet 1,200 mg PO DAILY loratadine [Allergy Relief (loratadine)] 10 MG tablet 10 mg PO PRN PRN (Reason: Allergies) ivermectin [Soolantra] 30 GM cream 30 g TP DAILY Linzess 72 MCG capsule 72 mcg PO DAILY Primary Care Provider: Cristian Silveira Chi Referrals: Cristian Silveira Chi, MD [Primary Care Provider] - Disposition Disposition: Acute Care Hospital [facility]
--- NOTE | 2023-05-26 20:50 | EKG12_ITS ---
Test Reason : DYSRHYTHMIA Blood Pressure : / mmHG Vent. Rate : 091 BPM Atrial Rate : 091 BPM P-R Int : 168 ms QRS Dur : 090 ms QT Int : 348 ms P-R-T Axes : 050 -09 052 degrees QTc Int : 428 ms Normal sinus rhythm Normal ECG Confirmed by Apolinar Santana ([id number]), social media editor HERB BURTON ([id number]) on 05/29/2023 9:55:12 AM Referred By: Confirmed By:Apolinar Santana
--- NOTE | 2023-05-26 20:50 | CT_ITS ---
STUDY: CT BRAIN WITHOUT CONTRAST REASON FOR EXAM: Female, 68 years old. TIA RADIATION DOSAGE (If Supplied By Facility): CTDIvol = ( 44.99 ) mGy, DLP = ( 796.11 ) mGycm TECHNIQUE: Transaxial CT imaging of the brain was performed without administration of intravenous contrast material. Individualized dose optimization techniques were used for this CT. COMPARISON: No relevant priors. FINDINGS: Normal soft tissue structures. Normal calvarium. Normal size ventricles and extra-axial spaces for the patient''s age. Normal white matter tracts of the cerebral hemispheres. Normal basal ganglia and thalami. Normal brainstem. Normal cerebellum. There is no intracranial hemorrhage. There are no findings of an acute ischemic infarction. Normal visualized paranasal sinuses. CT/Brain/Head without Contrast IMPRESSION: Normal unenhanced CT scan of the brain. Electronically Signed: Dmitry Birmingham MD at 21:55 EST ,
--- NOTE | 2023-05-26 21:20 | RAD_ITS ---
STUDY: X-RAY CHEST REASON FOR EXAM: Female, 68 years old. TIA TECHNIQUE: PA and lateral views of the chest. COMPARISON: 07/13/2018 FINDINGS: The lungs are clear and expanded. There is no demonstrated pleural abnormality. Normal size heart. Normal mediastinum and nj. Normal visualized pulmonary arteries. Normal visualized aortic arch and descending thoracic aorta. Normal visualized thoracic spine. Normal visualized ribs, clavicles, and shoulders. There is no demonstrated abnormality of the visualized soft tissue structures of the upper abdomen. RAD/Chest PA and Lateral IMPRESSION: Normal x-ray examination of the chest. Electronically Signed: Dmitry Birmingham MD at 22:01 EST ,
[2023-05-26 21:25] LABS: Absolute Lymphocyte Count 2.61 X10^3/uL (0.83-4.51); Absolute Neutrophil Count 5.8 X10^3/uL (2.0-7.7); Basophil# 0.07 X10^3/uL; Basophil% 0.7 % (0-1); Eosinophil# 0.14 X10^3/uL; Eosinophils% 1.5 % (0-5); Hematocrit 44.7 % (37-47); Hemoglobin 15.5 g/dL (12.0-15.0); Lymphocyte # 2.61 X10^3/ul (0.83-4.51); Lymphocyte % 27.6 % (19-41); Mean Corp Hgb Conc 34.7 g/dL (32-36); Mean Corpuscular Hgb 30.9 pg (27.0-32.0); Mean Platelet Vol. 9.5 fl (6.2-12.0); Monocyte# 0.81 X10^3/uL; Monocyte% 8.6 % (0-10); NRBC Flagged by Analyzer 0 % (0-5); Neutrophil # 5.79 X10^3/uL (2.7-7.7); Neutrophil % 61.4 % (47-70); Platelet Count 267 K/mm3 (150-450); RBC Distribution Width CV 12.3 % (11.6-14.6); RBC Distribution Width SD 40.2 fl (35.1-43.9); Red Blood Count 5.02 M/mm3 (4.2-5.4); White Blood Count 9.4 K/mm3 (4.4-11.0)
[2023-05-26 21:42] VITALS: BP 184/79; PULSE 95; RESP 12; O2SAT 95
[2023-05-26 21:43] LABS: Prothrombin Time (Protime)PT. 13.3 SECONDS (11.7-14.9)
[2023-05-26 21:44] LABS: Partial Thromboplast Time 25.8 Seconds (24.1-36.2)
[2023-05-26 21:45] LABS: Anion Gap 7 (5-15); BUN 13 mg/dL (7-18); BUN/Creat Ratio 15.5 RATIO (10-20); Calcium,Total 9.6 mg/dL (8.5-10.1); Chloride 106 mmol/L (98-107); Creatinine, Serum 0.84 mg/dL (0.55-1.02); EST Glomerular Filtration Rate 72 mL/min (>60); Est Glom Filt Rate - Afr Amer 87 mL/min (>60); Estimated Creatinine Clearance 63.53 ml/min; Glucose 212 mg/dL (74-106); Potassium 3.4 mmol/L (3.5-5.1); Sodium Level 139 mmol/L (136-145); Troponin-I HS (w/2H Reflex) 6 pg/mL (3.0-54.0)
--- OUTSIDE RECORDS SUMMARY | 2023-05-26 21:55 | XMS RPT_ITS | CCD ---
Author Name Unknown Address [address] [place] [address] Organization [facility] Results Test Name Value Interpretation [...] BE BASED ON THE PRIMARY CLINICAL RECORDS. [employer] provides no warranty or guarantee of the accuracy or completeness of information in this document.
[2023-05-26 23:22] LABS: Reflex Troponin-HS? (from REC) Y
[2023-05-26 23:51] LABS: Troponin-I HS 7 pg/mL (3.0-54.0)
--- NOTE | 2023-05-26 23:53 | HP.PCM.HOS_ITS ---
[facility] - General General Date of Admission: 05/26/23 Date of Service: 05/26/23 Chief Complaint: Transient right arm weakness/tingling and slurred speech HPI Narrative MELISA NGUYEN, is a 68 F with a past medical history of hyperlipidemia; with intolerance to statins, obesity; with BMI of 31.4 this admission, irritable bowel syndrome; of constipation type on Linzess, history of lung cancer; s/p bilateral upper lobectomies, history of COVID-19, history of allergy to ciprofloxacin (itching), DDD of the lumbar spine, history of L4 compression fracture and osteoarthritis who presents to [facility] ER complaining of transient right arm weakness/tingling and slurred speech. Mrs. Nguyen reports her symptoms began approximately 1 hour prior to arrival while she was sitting in her recliner using her laptop when she suddenly developed paresthesias in her right arm. She then noticed difficulty moving her right arm and had to reach over with her left arm to move her right arm. She adds that she also had some questionable right facial weakness and questionable slurred speech that lasted for only 5 to 10 seconds. She denies a history of TIA or CVA or similar previous episodes but she does admit to a positive family history of CVA. She also denies associated fever, chills, nausea, vomiting, chest pain, shortness of breath, recent illness or recent/relevant traumatic injury. In the ER her CTA scan of the head and neck was negative for acute pathologic changes but she did have an ABCD2 score 4 placing her at moderate risk for further stroke. She was also noted to have laboratory evidence of mild hypokalemia of 3 .4 mmol/L present on admission. Therefore, the ER physician contacted the hospitalist group to arrange admission to the CDU under observation status for TIA/CVA workup that is expected to be less than 48 hours. [facility] Medical History COVID-19 DDD (degenerative disc disease), lumbar Environmental allergies History of lung cancer IBS (irritable bowel syndrome) Home Medications ivermectin 1 % topical cream (Soolantra) 30 g TP DAILY 11/07/16 [History Last Taken Unknown] linaclotide 72 mcg capsule (Linzess) 72 mcg PO DAILY 11/07/16 [History Last Taken Unknown] loratadine 10 mg tablet (Allergy Relief (loratadine)) 10 mg PO PRN PRN Allergies 11/07/16 [History Last Taken Unknown] cholecalciferol (vitamin D3) 25 mcg (1,000 unit) capsule 1,000 unit PO DAILY 05/27/23 [History Last Taken Unknown] doxycycline monohydrate 40 mg capsule,immediate - delay release 40 mg PO DAILY 05/27/23 [History Last Taken Unknown] Allergy/AdvReac Type Severity Reaction Status Date / Time ciprofloxacin [From Cipro] Allergy Mild itching Verified 05/26/23 20:07 atorvastatin Allergy Hives Verified 05/26/23 20:07 simvastatin Allergy Rash Verified 05/26/23 20:07 Family History Other Asthma CVA (cerebral vascular accident) Cancer Diabetes Surgical History History of lobectomy of lung History of rotator cuff surgery History of tonsillectomy History of tubal ligation Status post right foot surgery Social History Smoking Status: Never smoker alcohol intake: never substance use type: does not use what type of physical activity do you participate in: walking frequency: 3-4 times per week ROS ROS Narrative Review of systems: General: Patient denies fever or chills HENT: Denies headache, denies stuffy nose, denies sore throat EYES: Denies changes in vision or discharge from eyes Resp: Denies cough, denies shortness of breath Cardiac: Denies chest pain or palpitations GI: Denies abdominal pain, denies changes in bowel, denies nausea or vomiting : Denies changes in urination Extremity: Denies swelling Musculoskeletal: Patient admits to back pain but denies neck pain. Neuro: Patient admits to numbness, tingling and weakness of the right upper extremity that lasted only a few seconds as per HPI Heme: Denies any bleeding or bruising Skin: Denies rashes Psychiatric: No complaints voiced related to uncontrolled depression or anxiety Endocrine: No polyuria, polydipsia or polyphagia The rest of the 14 point ROS was negative except for positives in HPI. Vital Signs Vital Signs Vital Signs: 05/26/23 20:03 05/26/23 21:42 Temperature 97.6 F L Temperature Source Temporal Pulse Rate 94 95 Respiratory Rate 16 12 Blood Pressure 162/72 H 184/79 H Blood Pressure Mean 102 114 Pulse Ox 99 95 Oxygen Delivery Method Room Air Weight Weight: 170 lb Body Mass Index (BMI) 29.2 Physical Exam Const alert, oriented x3, no apparent distress, average body habitus, healthy appearing and well nourished General Appearance: cooperative HEENT normocephalic, head/scalp atraumatic, hearing grossly normal bilaterally, moist oral mucous membranes and oropharynx normal Eyes PERRL, EOMs intact bilaterally and conjunctivae normal Neck no lymphadenopathy and supple Resp normal respiratory effort, no retractions, no use of accessory muscles and clear to auscultation bilaterally Cardio regular rate and regular rhythm GI normal to inspection, nondistended, normoactive bowel sounds, soft to palpation, non-tender and non-distended Extremity normal to inspection and full ROM Skin Skin Narrative: Patient has no evidence of rash or abscess at this time. Neuro oriented x3, CN's II-XII intact bilaterally, moves all extremities and no focal motor deficits Sensorium / Orientation: awake, alert, oriented to person, oriented to place and oriented to time Speech: speech normal Motor Exam: strength 5/5 throughout Psych affect normal Results Medical Records Data Attestation: I reviewed the patient's medical records Lab / Micro Data Attestation: I reviewed the patient's lab results. 05/26/23 21:15 05/26/23 21:15 Labs: Laboratory Results - last 24 hr 05/26/23 21:15: WBC 9.4, RBC 5.02, Hgb 15.5 H, Hct 44.7, MCV 89.0, MCH 30.9, MCHC 34.7, RDW Std Deviation 40.2, RDW Coeff of Erin 12.3, Plt Count 267, MPV 9. 5, Immature Gran % (Auto) 0.200, Neut % (Auto) 61.4, Lymph % (Auto) 27.6, Mcintosh % (Auto) 8.6, Eos % (Auto) 1.5, Baso % (Auto) 0.7, Absolute Neuts (auto) 5.8, Absolute Lymphs (auto) 2.61, Nucleated RBC % 0, PT 13.3, INR 1.0, APTT 25.8, Sodium 139, Potassium 3.4 L, Chloride 106, Carbon Dioxide 26.0, Anion Gap 7, BUN 13, Creatinine 0.84, Estim Creat Clear Calc 63.53, Est GFR (MDRD) Af Amer 87, Est GFR (MDRD) Non-Af 72, BUN/Creatinine Ratio 15.5, Glucose 212 H, Calcium 9.6, Troponin I High Sens 6 05/26/23 23:28: Troponin I High Sens 7 Imaging Radiology Impression Brain CT 05/26/23 20:50 IMPRESSION: Normal unenhanced CT scan of the brain. Electronically Signed: Dmitry Birmingham MD at 21:55 EST Reading Location ID and State: [id number] / [employer] , Service support , Chest X-Ray 05/26/23 21:20 IMPRESSION: Normal x-ray examination of the chest. Electronically Signed: Dmitry Birmingham MD at 22:01 EST Reading Location ID and State: [id number] / [employer] , Service support , Assessment & Plan Assessment/Plan (1) TIA (transient ischemic attack): (2) Hypokalemia: (3) Compression fracture of L4 vertebra: QUALIFIERS: Encounter type: sequela Qualified Code(s): S32.040S - Wedge compression fracture of fourth lumbar vertebra, sequela PLAN: Plan 1. TIA versus CVA with transient right upper extremity weakness/tingling, facial droop and slurred speech - Admit to CDU under observation status. Proceed with full TIA/CVA workup including: MRI of the brain without contrast, carotid Doppler to evaluate for stenosis and echocardiogram to evaluate left ventricular ejection fraction. Check MRI of the cervical spine to evaluate for possible cervical radiculopathy mimicking symptoms of CVA. Finally, we will st art baby aspirin and avoid statin with listed allergy plus consult [facility] teleneu[facility] for further recommendations with help appreciated in advance. 2. Hypokalemia of 3.4 mmol/L present on admission complicating #1 - Give supplemental potassium chloride and then recheck BMP in the a.m. to ensure imp rovement. 3. DDD of the lumbar spine with history of subacute L4 compression fracture and osteoarthritis - Give Tylenol as needed. 4. Hyperlipidemia; with intolerance to statins - Check lipid profile this admission in light of #1. 5. Obesity; with BMI of 31.4 this admission - Weight loss will be recommended. Check TSH. 6. Irritable bowel syndrome; of constipation type on Linzess - Stable. Resume home regimen. 7. History of lung cancer; s/p bilateral upper lobectomies - Noted. 8. History of COVID-19 - Noted. 9. History of allergy to ciprofloxacin (itching) - Noted. 10. DVT prophylaxis - Lovenox 40 mg subcu daily. Total time: Approximately 45 minutes. Charges/Coding Visit Charges OBSV E&M: 34023 Observ/hosp same date L1
[2023-05-27] VITALS (8 sets, daily range): BP systolic 137–162; BP diastolic 76–82; PULSE 72–88; RESP 16–18; TEMP 35.9–36.6; O2SAT 94–96; BMI 31.4
--- OUTSIDE RECORDS SUMMARY | 2023-05-27 00:32 | XMS RPT_ITS | CCD ---
Author Name Unknown Address [address] [place] [address] Organization [facility] Results Test Name Value Interpretation [...] BE BASED ON THE PRIMARY CLINICAL RECORDS. [employer] provides no warranty or guarantee of the accuracy or completeness of information in this document.
--- NOTE | 2023-05-27 01:50 | ECHOD_ITS ---
Reason For Study: TIA/CVA Procedure This was a 2D Doppler, Color Flow transthoracic echocardiogram. Exam performed portable in patient room. Left Ventricle Normal LV size. The estimated ejection fraction is 70 %. No evidence for diastolic dysfunction. No regional wall motion abnormalities noted. Right Ventricle Normal RV size. Normal systolic function. Atria The left and right atria are normal. Bubble contrast study negative for right to left interatrial shunt. No doppler evidence for ASD. Mitral Valve There is no mitral valve stenosis. No mitral valve insufficiency. Tricuspid Valve There is no tricuspid stenosis. No tricuspid valve insufficiency. Unable to estimate RV systolic pressure due to inadequate jet, pulmonary artery pressure probably normal. Aortic Valve Trisinus/trileaflet aortic valve. There is no aortic stenosis. No aortic valve insufficiency. Pulmonic Valve There is no pulmonic valvular stenosis. No pulmonic valve insufficiency. Great Vessels Normal aortic root. Pericardium/Pleural No pericardial effusion. Medication Performed a rapid injection of agitated mix of 9 cc saline and 1cc air to assess for atrial septal defect. MMode/2D Measurements & Calculations LVIDd: 3.9 cm IVSd: 1.2 cm Ao root diam: 2.4 cm LVIDs: 2.3 cm LVPWd: 1.3 cm RVDd: 2.7 cm FS: 42.0 % LAV(MOD-bp): 34.7 ml LVAd ap4: 22.2 cm2 SV(MOD-sp4): 34.9 ml LAV(MOD-bp) Indexed: 19.0 ml/m2 LVLd ap4: 7.6 cm LAV(MOD-sp2): 28.0 ml EDV(MOD-sp4): 52.5 ml LAV(MOD-sp4): 38.7 ml EDV(sp4-el): 55.0 ml LVAs ap4: 11.1 cm2 LVLs ap4: 6.1 cm ESV(MOD-sp4): 17.6 ml ESV(sp4-el): 17.1 ml EF(MOD-sp4): 66.5 % EF(sp4-el): 68.8 % SV(sp4-el): 37.8 ml LA A4 area: 16.3 cm2 LA dimension(2D): 3.5 cm RA A4 area: 7.5 cm2 TAPSE: 2.0 cm Time Measurements MV dec time: 0.23 sec Doppler Measurements & Calculations MV E max jr: 75.1 cm/sec Lat Peak E' Jr: 8.2 cm/sec Med Peak E' Jr: 6.0 cm/sec MV A max jr: 118.5 cm/sec E/E' lat: 9.2 E/E' med: 12.5 MV E/A: 0.63 MV dec slope: 327.0 cm/sec2 Ao V2 max: 150.0 cm/sec LV V1 max: 113.4 cm/sec Ao max P.0 mmHg LV V1 max P.1 mmHg Ao V2 mean: 115.7 cm/sec Ao mean P.7 mmHg Ao V2 VTI: 34.3 cm PA V2 max: 87.2 cm/sec ECHO/Echo Complete Interpretation Summary The estimated ejection fraction is 70 %. No evidence for diastolic dysfunction. Ordering Physician: Abhay Sullivan Referring Physician: Cristian Silveira Chi Performed By: Renetta Mustafa, NICHELLE, RVT
--- NOTE | 2023-05-27 01:50 | MRI_ITS ---
INDICATION: Transient right upper extremity weakness/numbness EXAMINATION: MRA - MRA Neck W/O Contrast TECHNIQUE: Routine non-contrast [id number] Carotid MR angiogram protocol was performed without gadolinium. 3D reconstructions were reviewed. Nascet criteria using the distal ICAs for comparison were used for evaluation of stenoses. IV Contrast Dosage and Agent: None. COMPARISON: None. FINDINGS: AORTIC ARCH AND BRANCHES: No significant stenosis at the visualized portions. RIGHT CCA: No occlusion or significant stenosis. RIGHT ICA: No occlusion or significant stenosis. LEFT CCA: No occlusion or significant stenosis. LEFT ICA: No occlusion or significant stenosis. RIGHT VERTEBRAL ARTERY: No occlusion or significant stenosis. LEFT VERTEBRAL ARTERY: No occlusion or significant stenosis. No evidence of acute injury of the major arterial system of the neck. MRI/MRA Neck without Contrast IMPRESSION: Normal non-contrast MRA of the Neck. Electronically Signed: Joe Fowler MD at 13:27 EST ,
--- NOTE | 2023-05-27 02:11 | MRI_ITS ---
We are attempting to reach an attending provider to discuss findings. An addendum with communication details will be sent when the communication is complete. EXAM: MR HEAD WITHOUT INTRAVENOUS CONTRAST CLINICAL INDICATION: TIA versus CVA TECHNIQUE: Multiplanar and multisequence MR images of the brain were obtained without intravenous contrast. COMPARISON: CT brain 05/26/2023 FINDINGS: BRAIN AND EXTRA-AXIAL SPACES: 4 mm focus of restricted diffusion noted within the right occipital lobe consistent with acute ischemic change. No intra- or extra-axial hemorrhage. No intracranial mass or mass effect. Posterior fossa structures are unremarkable. Ventricles are appropriate for age. No hydrocephalus. Basal cisterns are patent. SELLA: Normal. Normal sella turcica, pituitary gland, infundibular stalk, optic chiasm and hypothalamus. AUDITORY SYSTEM: Normal. The internal auditory canals are patent. BONES/JOINTS: Intact calvarium. SINUSES: 10 mm mucus retention cyst noted within the right maxillary and ethmoid sinuses. MASTOID AIR CELLS: Unremarkable as visualized. Clear. ORBITS: Unremarkable as visualized. Both globes, extraocular muscles, optic nerves and retrobulbar fat appear unremarkable. VASCULATURE: Unremarkable as visualized. Normal flow voids in the major intracranial circulation. MRI/Brain without Contrast IMPRESSION: 4 mm focus of acute ischemic change right occipital lobe. Otherwise normal MRI brain. Electronically Signed: Joe Fowler MD at 12:47 EST ,
[2023-05-27 02:18] LABS: Alcohol, Blood (Medical)-Serum < 3.0 mg/dL
[2023-05-27 02:24] LABS: Thyroid Stim Hormone (TSH) 1.85 uIU/mL (0.358-3.74)
[2023-05-27] MEDS: Potassium Chloride Oral Tablet 20 MEQ 40 MEQ PO (02:51)
[2023-05-27] MEDS: Aspirin 81 MG TAB.CHEW 162 MG PO (02:51)
[2023-05-27] MEDS: 0.9% Normal Saline (1000mL) 1,000 ML 70 ML IV (02:56)
[2023-05-27] MEDS: 0.9% Saline Lock 10 ML Syringe IV (02:58)
[2023-05-27] MEDS: CLARIFY ORDER 1 EACH NOTE (02:58)
[2023-05-27 03:29] LABS: Cholesterol 223 mg/dL (200); High Density Lipoprotein 50 mg/dL; Triglycerides 216 mg/dL; Very Low Density Lipoprotein 43 mg/dL (5-40)
--- OUTSIDE RECORDS SUMMARY | 2023-05-27 03:31 | XMS RPT_ITS | CCD ---
Author Name Unknown Address [address] [place] [address] Organization [facility] Results Test Name Value Interpretation [...] BE BASED ON THE PRIMARY CLINICAL RECORDS. [employer] ([employer] provides no warranty or guarantee of the accuracy or completeness of information in this document.
[2023-05-27] MEDS: Cholecalciferol (VIT D3) 25 MCG TABLET (1,000 UNITS) PO (08:34)
--- NOTE | 2023-05-27 11:03 | NEURO.CONS ---
Assessment and Plan: Neuro Assessment/Plan MELISA EDOUARD is a 68 F with a past medical history of HLD being evaluated by Teleneurology for TIA. she presented with a brief episode of right arm abnormal movement and slurred speech which resolved spontaneously CT head: no acute changes Diagnosis: TIA Plan: stroke/ TIA work up MRI brain with out cont MRA head and neck TTE hba1c, lipid panel Aspirin high intensity statin vascular risk modification Transfer to [facility] for the following reasons: I personally attended this patient and spent a total time of minutes evaluating this patient including clinical assessment, review of chart, medical history imaging, and determining appropriate treatment and workup. HPI Consult Data Date of Consult: 05/27/23 HPI Narrative HPI Narrative: MELISA EDOUARD, is a 68 F who presents with a brief episode of abnormal arm movement. she reports working on her computer when her right arm started moving strangley,she decriebs as having mind of its own she also reports right facial drop, no slurred speech, vision disturbance or numbness. the episode lasted for 5-10 seconds and resoled [facility] Medical History COVID-19 DDD (degenerative disc disease), lumbar Environmental allergies History of lung cancer IBS (irritable bowel syndrome) Home Medications ivermectin 1 % topical cream (Soolantra) 30 g TP DAILY 11/07/16 [History Last Taken Unknown] linaclotide 72 mcg capsule (Linzess) 72 mcg PO DAILY 11/07/16 [History Last Taken Unknown] loratadine 10 mg tablet (Allergy Relief (loratadine)) 10 mg PO PRN PRN Allergies 11/07/16 [History Last Taken Unknown] cholecalciferol (vitamin D3) 25 mcg (1,000 unit) capsule 1,000 unit PO DAILY 05/27/23 [History Last Taken Unknown] doxycycline monohydrate 40 mg capsule,immediate - delay release 40 mg PO DAILY 05/27/23 [History Last Taken Unknown] Allergy/AdvReac Type Severity Reaction Status Date / Time ciprofloxacin [From Cipro] Allergy Mild itching Verified 05/26/23 20:07 atorvastatin Allergy Hives Verified 05/26/23 20:07 simvastatin Allergy Rash Verified 05/26/23 20:07 Family History Other Asthma CVA (cerebral vascular accident) Cancer Diabetes Surgical History History of lobectomy of lung History of rotator cuff surgery History of tonsillectomy History of tubal ligation Status post right foot surgery Social History Smoking Status: Never smoker alcohol intake: never substance use type: does not use what type of physical activity do you participate in: walking frequency: 3-4 times per week Vital Signs Vital Signs Vital Signs: 05/26/23 20:03 05/26/23 21:42 05/27/23 00:18 Temperature 97.6 F L 97.8 F Temperature Source Temporal Pulse Rate 94 95 78 Pulse Strength Respiratory Rate 16 12 16 Respiratory Effort Respiratory Depth Respiratory Pattern Blood Pressure 162/72 H 184/79 H 152/79 H Blood Pressure Mean 102 114 103 Blood Pressure Source Blood Pressure Position Blood Pressure Location Pulse Ox 99 95 94 Oxygen Delivery Method Room Air 05/27/23 02:55 05/27/23 04:07 05/27/23 06:00 Temperature 97.6 F L Temperature Source Oral Pulse Rate 72 Pulse Strength Respiratory Rate 18 Respiratory Effort Normal Non-Labored Respiratory Depth Normal Respiratory Pattern Normal Blood Pressure 162/76 H Blood Pressure Mean 104 Blood Pressure Source Monitor Blood Pressure Position Semi-Fowlers Blood Pressure Location Right Arm Pulse Ox 96 95 Oxygen Delivery Method Room Air Room Air Room Air 05/27/23 06:00 05/27/23 08:40 05/27/23 08:00 Temperature 97.6 F L 96.7 F L Temperature Source Oral Temporal Pulse Rate 72 83 Pulse Strength Respiratory Rate 18 18 Respiratory Effort Respiratory Depth Respiratory Pattern Blood Pressure 162/76 H 153/78 H Blood Pressure Mean 104 103 Blood Pressure Source Monitor Monitor Blood Pressure Position Semi-Fowlers Semi-Fowlers Blood Pressure Location Right Arm Right Arm Pulse Ox 95 95 96 Oxygen Delivery Method Room Air Room Air Room Air 05/27/23 08:48 05/27/23 08:50 Temperature Temperature Source Pulse Rate Pulse Strength Normal (2+) Respiratory Rate Respiratory Effort Normal Non-Labored Respiratory Depth Normal Respiratory Pattern Normal Blood Pressure Blood Pressure Mean Blood Pressure Source Blood Pressure Position Blood Pressure Location Pulse Ox 95 Oxygen Delivery Method Room Air Weight Weight: 83 kg Body Mass Index (BMI) 31.4 EEG Results Procedure Details EEG Procedure Details: MELISA EDOUARD is a 68 year old F with a past medical history of , who presents for evaluation of Electroencephalogram on DATE at TIME NIHSS NIHSS Nursing Documentation NIHSS Nursing Documentation: NIH Stroke Scale Start: 05/26/23 21:34 Freq: Status: Discharge Protocol: Activity Type Activity Date Activity User E-sign Co-sign Detail Recorded Client Recorded Date Recorded By Document 05/26/23 21:34 ET Desktop 05/26/23 21:35 ET 05/26/23 21:34 NIH Stroke Scale [NIHSS] A score of 0 is normal or asymptomatic . Total possible score is 42. Inpatient: RN or Physician to activate a stroke alert for onset of new stroke symptoms or with NIHSS increase >/= 3 points. Following change in neurological status, NIHSS will be performed per physician order or more frequently PRN. -1a. Level of Consciousness Alert; keenly responsive -1b. LOC Questions Answers BOTH questions correctly. -1c. LOC Commands Performs both tasks correctly . -2. Best Gaze Normal -3. Visual No visual loss -4. Facial Palsy Normal symmetrical movements -5a. Left Arm No drift; arm holds 90 (or 45 ) degrees for full 10 seconds -5b. Right Arm No drift; arm holds 90 (or 45 ) degrees for full 10 seconds -6a. Left Leg No drift; leg holds 30-degree position for full 5 seconds -6b. Right Leg No drift; leg holds 30-degree position for full 5 seconds -7. Limb Ataxia Absent -8. Sensory Normal; no sensory loss -9. Best Language No aphasia; normal -10. Dysarthria Normal -11. Extinction and Inattention No abnormality -Total 0 Query Text:A score of 0 is normal or asymptomatic. Total possible score is 42 . ED: Notify Physician for NIHSS increase by > / = 3 points. Inpatient: RN or Physician to activate a stroke alert for NIHSS increase of > / = 3 points. NIHSS: Ischemic Stroke/TIA Start: 05/27/23 02:11 Text: For PCU Patients: NIH and Neuro Check every 4 Status: Active hours and PRN Freq: [id number] Protocol: Activity Type Activity Date Activity User E-sign Co-sign Detail Recorded Client Recorded Date Recorded By Document 05/27/23 08:41 HS Desktop 05/27/23 08:41 HS 05/27/23 08:41 -1a. Level of Consciousness Alert; keenly responsive -1b. LOC Questions Answers BOTH questions correctly. -1c. LOC Commands Performs both tasks correctly . -2. Best Gaze Normal -3. Visual No visual loss -4. Facial Palsy Normal symmetrical movements -5a. Left Arm No drift; arm holds 90 (or 45 ) degrees for full 10 seconds -5b. Right Arm No drift; arm holds 90 (or 45 ) degrees for full 10 seconds -6a. Left Leg No drift; leg holds 30-degree position for full 5 seconds -6b. Right Leg No drift; leg holds 30-degree position for full 5 seconds -7. Limb Ataxia Absent -8. Sensory Normal; no sensory loss -9. Best Language No aphasia; normal -10. Dysarthria Normal -11. Extinction and Inattention No abnormality -Total 0 Query Text:A score of 0 is normal or asymptomatic. Total possible score is 42 . ED: Notify Physician for NIHSS increase by > / = 3 points. Inpatient: RN or Physician to activate a stroke alert for NIHSS increase of > / = 3 points. Coma Scale [Assess] -Eye Opening Spontaneous -Motor Obeys Commands -Verbal Oriented [Total] -Coma Scale Total 15 Physical Exam Neuro Yo Coma Scale: GCS not evaluated Cranial Nerves: CN normal except as noted Sensory Exam: double simultaneous stimulation for sensation normal Motor Exam: strength 5/5 throughout Lab / Micro Data 05/26/23 21:15 05/26/23 21:15 Labs: Laboratory Results - last 24 hr 05/26/23 21:15: WBC 9.4, RBC 5.02, Hgb 15.5 H, Hct 44.7, MCV 89.0, MCH 30.9, MCHC 34.7, RDW Std Deviation 40.2, RDW Coeff of Erin 12.3, Plt Count 267, MPV 9.5, Immature Gran % (Auto) 0.200, Neut % (Auto) 61.4, Lymph % (Auto) 27.6, Labette % (Auto) 8.6, Eos % (Auto) 1.5, Baso % (Auto) 0.7, Absolute Neuts (auto) 5.8, Absolute Lymphs (auto) 2.61, Nucleated RBC % 0, PT 13.3, INR 1.0, APTT 25.8, Sodium 139, Potassium 3.4 L, Chloride 106, Carbon Dioxide 26.0, Anion Gap 7, BUN 13, Creatinine 0.84, Estim Creat Clear Calc 63.53, Est GFR (MDRD) Af Amer 87, Est GFR (MDRD) Non-Af 72, BUN/Creatinine Ratio 15.5, Glucose 212 H, Calcium 9.6, Troponin I High Sens 6 05/26/23 23:28: Troponin I High Sens 7, Triglycerides 216 H, Cholesterol 223 H, LDL Cholesterol 130, VLDL Cholesterol 43 H, HDL Cholesterol 50, TSH 1.85 05/27/23 01:58: Ethyl Alcohol < 3.0 Imaging Radiology Impression Brain CT 05/26/23 20:50 IMPRESSION: Normal unenhanced CT scan of the brain. Electronically Signed: Dmitry Birmingham MD at 21:55 EST , Chest X-Ray 05/26/23 21:20 IMPRESSION: Normal x-ray examination of the chest. Electronically Signed: Dmitry Birmingham MD at 22:01 EST , Active Medications Active Medications Active Medications: Current Medications Generic Name Dose Route Start Last Admin Trade Name Freq PRN Reason Stop Dose Admin Acetaminophen 650 mg 05/27/23 02:11 Acetaminophen 325 Mg Tablet PO Q4H PRN PRN Pain 1-10 Or Fever>99.6 Aspirin 162 mg 05/27/23 03:00 05/27/23 02:51 Aspirin 81 Mg Tab.Chew PO 162 mg DAILYCM JAN Administration Cholecalciferol 25 mcg 05/27/23 10:00 05/27/23 08:34 Cholecalciferol (Vit D3) 25 Mcg Tablet (1,000 Units) PO 25 mcg DAILY JAN Administration Clarify Med Order 1 each 05/27/23 03:00 05/27/23 02:58 Clarify Order NOTE 1 each CLARIFY JAN Administration Sodium Chloride 1,000 mls @ 70 mls/hr 05/27/23 02:11 05/27/23 02:56 IV 70 mls/hr .[id number] JAN Administration Sodium Chloride 250 mls @ 15 mls/hr 05/27/23 02:28 IV .[id number] PRN Additional IVPB Infusion Sodium Chloride 250 mls @ 15 mls/hr 05/27/23 02:28 IV .[id number] PRN Saline Flush Loratadine 10 mg 05/27/23 10:00 Loratadine 10 Mg Tablet PO DAILY PRN PRN Allergies Non-Formulary Medication 40 mg 05/27/23 10:00 Doxycycline Monohydrate PO DAILY JAN Non-Formulary Medication 30 gm 05/27/23 10:00 Ivermectin [Soolantra] TP DAILY JAN Non-Formulary Medication 72 mcg 05/27/23 10:00 Linaclotide [Linzess] PO DAILY JAN Sodium Chloride 10 - 40 ml 05/27/23 02:28 05/27/23 02:58 0.9% Saline Lock 10 Ml Syringe IV 10 ml UD PRN Administration SALINE FLUSH
--- NOTE | 2023-05-27 11:49 | CASEMGMT ---
RN CM Consult: This RN CM reviewed pt's EMR documentation. Admitted as observation with dx of r/o CVA and hypokalemia. Pt alert, oriented x3. Pt is ambulatory in the room independently without needs identified by PT, OT or ST. 6 clicks=24. Noted pt has NOK spouse and daughter listed for support. Pt with insurance coverage including MCR A/B and a secondary with [facility]. PCP listed as Dr. Silveira. Plan: Return home with support of family. No DC needs identified. Lorraine Shaw RN AC
--- NOTE | 2023-05-27 12:00 | CASEMGMT ---
Social Work PHQ-9 completed as pt may have had a stroke or TIA, pt scored a 0, no indication of depression at this time. AUGUSTA Chaudhari
--- NOTE | 2023-05-27 15:47 | DCINST_ITS ---
Discharge Instructions Diet Discharge Diet: Low fat / Low cholesterol Activity Discharge Activity: Return to Normal Activity Dressing / Incision Call your doctor if you observe: Fever of 101 or Higher, Shortness of breath, Dizziness, Fainting spells, Swelling in the ankles, Chest pain and Increased palpitations (irregular heartbeat) Follow Up Care Test Results: Test results from this visit will be discussed in further detail at your follow- up appointment, if applicable. Discharge Plan Admission Admit Date/Time: 05/27/23 01:42 Attending Provider: Jamey Mistry Primary Care Provider: Cristian Silveira Chi Consulting Providers: Matt Young; Cassia Del Rosario; Reena Diaz; Odilia Duke; Argelia Briceno; Rodney Holman; Ariadna Lindsey; Ryan Martini; Stevo Moreno; Cece Liriano; Giovani Fontenot; Lynn Perez; Viviana Hanson; Ilda Miller; Ion Teixeira; Coby Vail; Mateo Rogers; Kay Moya; Marta Sinclair; Abhay Sullivan Discharge Orders/Prescriptions Prescriptions: New aspirin 81 mg capsule 81 mg PO DAILY Qty: 30 0RF Continued loratadine [Allergy Relief (loratadine)] 10 MG tablet 10 mg PO PRN PRN (Reason: Allergies) ivermectin [Soolantra] 30 GM cream 30 g TP DAILY Linzess 72 MCG capsule 72 mcg PO DAILY doxycycline monohydrate 40 mg capsule,IR - delay rel,biphase 40 mg PO DAILY cholecalciferol (vitamin D3) 25 mcg (1,000 unit) capsule 1,000 unit PO DAILY Patient Comments: take 1 capsule by mouth once daily Referrals / Follow Up: Cristian Silveira Chi, MD [Primary Care Provider] - Within 1 Week Disposition Disposition (needs filled in before D/C Order can be placed): Home, Self Care
--- NOTE | 2023-05-27 15:52 | PCM.DC.SUM ---
Providers Date of Admission: 05/27/23 Primary Care Physician: Dr. Cristian Silveira MD Consultations 05/27/23 02:11 Consult: Tele-Neurology Routine Consulting Provider: [facility] Reason for Consult: Acute Ischemic Stroke/TIA EMERGENT Consult: No MD Notified: Yes Date Notified: 05/27/23 Time Notified: 03:56 Method of Notification: Answering Service Comments:: Transient right upper extremity weakness + facial droop Nursing Unit Staff Notify [facility] of Tele-Neurology Consult: Yes Reason For Visit: TIA VERSUS CVA WITH HYPOKALEMIA Diagnosis Discharge Diagnosis (1) TIA (transient ischemic attack): Status: Acute Code(s): G45.9 - Transient cerebral ischemic attack, unspecified (2) Hypokalemia: Status: Acute Code(s): E87.6 - Hypokalemia (3) Compression fracture of L4 vertebra: Status: Acute Code(s): S32.040A - Wedge compression fracture of fourth lumbar vertebra, initial encounter for closed fracture Qualifiers: Encounter type: sequela Qualified Code(s): S32.040S - Wedge compression fracture of fourth lumbar vertebra, sequela Medications at Discharge Home Medications ivermectin 1 % topical cream (Soolantra) 30 g TP DAILY 11/07/16 linaclotide 72 mcg capsule (Linzess) 72 mcg PO DAILY 11/07/16 loratadine 10 mg tablet (Allergy Relief (loratadine)) 10 mg PO PRN PRN Allergies 11/07/16 aspirin 81 mg capsule 81 mg PO DAILY #30 caps 05/27/23 cholecalciferol (vitamin D3) 25 mcg (1,000 unit) capsule 1,000 unit PO DAILY 05/27/23 doxycycline monohydrate 40 mg capsule,immediate - delay release 40 mg PO DAILY 05/27/23 Hospital Course Operations None Procedures 2-D Echocardiogram Summary of Care Provided Minutes Spent on Discharge: 40 Hospital Course: Per HPI: MELISA EDOUARD, is a 68 F with a past medical history of hyperlipidemia; with intolerance to statins, obesity; with BMI of 31.4 this admission, irritable bowel syndrome; of constipation type on Linzess, history of lung cancer; s/p bilateral upper lobectomies, history of COVID-19, history of allergy to ciprofloxacin (itching), DDD of the lumbar spine, history of L4 compression fracture and osteoarthritis who presents to [facility] ER complaining of transient right arm weakness/tingling and slurred speech. Mrs. Edouard reports her symptoms began approximately 1 hour prior to arrival while she was sitting in her recliner using her laptop when she suddenly developed paresthesias in her right arm. She then noticed difficulty moving her right arm and had to reach over with her left arm to move her right arm. She adds that she also had some questionable right facial weakness and questionable slurred speech that lasted for only 5 to 10 seconds. She denies a history of TIA or CVA or similar previous episodes but she does admit to a positive family history of CVA. She also denies associated fever, chills, nausea, vomiting, chest pain, shortness of breath, recent illness or recent/relevant traumatic injury. In the ER her CTA scan of the head and neck was negative for acute pathologic changes but she did have an ABCD2 score 4 placing her at moderate risk for further stroke. She was also noted to have laboratory evidence of mild hypokalemia of 3.4 mmol/L present on admission. Therefore, the ER physician contacted the hospitalist group to arrange admission to the CDU under observation status for TIA/CVA workup that is expected to be less than 48 hours. Hospital Course: 1. TIA versus CVA?68-year-old female presented to the hospital with right upper extremity weakness as well as right facial droop and slurred speech which resolved within minutes of starting. NIH is 0. Had an MRI of the brain today on the day of discharge which demonstrated a right occipital lobe lesion that was about 4 mm however there is no corresponding physical deficit and she has no blurry vision and there is no findings in the part of the brain to explain her right facial droop and her right arm weakness. Given that it is the weekend she would prefer to go home and given the fact that the MRI was essentially negative for explaining her symptoms I feel that the rest of the workup could be completed as an outpatient. A carotid Doppler has been ordered however this does not happen on Monday, so this can be obtained as an outpatient. The echo was unremarkable with a normal EF. MRA of her neck did not demonstrate any bony abnormalities to explain his pinched nerve. She unfortunate is also had hives to atorvastatin and simvastatin therefore we will hold off on any further statins but can proceed with aspirin. I discussed with her and her the plan for possible discharge today and expressed understanding of the risk and benefits of going home and would like to go today. Physical Exam Narrative General: Alert, Oriented x3, Cooperative, No apparent distress HEENT: Atraumatic, PERRLA, EOMI, Normocephalic Oral: Moist Mucosa Neck: Supple, No JVD Lungs: Clear to auscultation, Normal air movement, No rhonchi, No wheeze, No rales Cardiovascular: Regular rate, Regular Rhythm, Normal S1, Normal S2, No murmurs Abdomen: Soft, Non Tender, Non-Distended, No Hepato-splenomegaly Extremities: No edema, Capillary Refill Less than 3 Seconds Skin: No rashes, No breakdown Musculoskeletal: No Tenderness to Palpation of Joints or Extremities Neurological: No focal neurological deficits, Motor Exam 5/5 strength throughout, Sensory exam intact to light touch and pain Psych/Mental Status: Normal Affect, Appropriate Weight / BMI Weight Weight: 182 lb 15.739 oz Body Mass Index (BMI) 31.4 ABG / Lab / Microbiology Data 05/26/23 21:15 05/26/23 21:15 Laboratory: Laboratory Results - last 24 hr 05/26/23 21:15: WBC 9.4, RBC 5.02, Hgb 15.5 H, Hct 44.7, MCV 89.0, MCH 30.9, MCHC 34.7, RDW Std Deviation 40.2, RDW Coeff of Erin 12.3, Plt Count 267, MPV 9.5, Immature Gran % (Auto) 0.200, Neut % (Auto) 61.4, Lymph % (Auto) 27.6, [place] % (Auto) 8.6, Eos % (Auto) 1.5, Baso % (Auto) 0.7, Absolute Neuts (auto) 5.8, Absolute Lymphs (auto) 2.61, Nucleated RBC % 0, PT 13.3, INR 1.0, APTT 25.8, Sodium 139, Potassium 3.4 L, Chloride 106, Carbon Dioxide 26.0, Anion Gap 7, BUN 13, Creatinine 0.84, Estim Creat Clear Calc 63.53, Est GFR (MDRD) Af Amer 87, Est GFR (MDRD) Non-Af 72, BUN/Creatinine Ratio 15.5, Glucose 212 H, Calcium 9.6, Troponin I High Sens 6 05/26/23 23:28: Troponin I High Sens 7, Triglycerides 216 H, Cholesterol 223 H, LDL Cholesterol 130, VLDL Cholesterol 43 H, HDL Cholesterol 50, TSH 1.85 05/27/23 01:58: Ethyl Alcohol < 3.0 Radiography Diagnostic Testing: Radiology Impression Brain CT 05/26/23 20:50 IMPRESSION: Normal unenhanced CT scan of the brain. Electronically Signed: Dmitry Birmingham MD at 21:55 EST , Chest X-Ray 05/26/23 21:20 IMPRESSION: Normal x-ray examination of the chest. Electronically Signed: Dmitry Birmingham MD at 22:01 EST , Echocardiogram 05/27/23 01:50 Interpretation Summary The estimated ejection fraction is 70 %. No evidence for diastolic dysfunction. Ordering Physician: Abhay Sullivan Referring Physician: Cristian Silveira Chi Performed By: Renetta Mustafa, MESSICS, RVT Neck MRA 05/27/23 01:50 IMPRESSION: Normal non-contrast MRA of the Neck. Electronically Signed: Joe Fowler MD at 13:27 EST , Brain MRI 05/27/23 02:11 IMPRESSION: 4 mm focus of acute ischemic change right occipital lobe. Otherwise normal MRI brain. Electronically Signed: Joe Fowler MD at 12:47 EST , ADDENDUM: 05/27/23 1305 IMPRESSION: 4 mm focus of acute ischemic change right occipital lobe. Otherwise normal MRI brain. N.B. : The above Results were Read Back by Joe Fowler MD to Jewels Varma RN, and understanding confirmed on 05/27/2023 12:58:25 (ET). Electronically Signed: Joe Fowler MD at 12:47 EST , D/C Instructions Discharge Diet: Low fat / Low cholesterol Call your doctor if you observe: Fever of 101 or Higher, Shortness of breath, Dizziness, Fainting spells, Swelling in the ankles, Chest pain and Increased palpitations (irregular heartbeat) Meaningful Use Info Meaningful Use Diagnoses (Choose all that apply): None applicable Discharge Plan Admission Admit Date/Time: 05/27/23 01:42 Attending Provider: Jamey Mistry Primary Care Provider: Cristian Silveira Chi Consulting Providers: Matt Young; Cassia Del Rosario; Reena Diaz; Odilia Duke; Argelia Briceno; Rodney Holman; Ariadna Lindsey; Ryan Martini; Stevo Moreno; Cece Liriano; Giovani Fontenot; Lynn Perez; Viviana Hanson; Ilda Miller; Ion Teixeira; Coby Vail; Mateo Rogers; Kay Moya; Marta Sinclair; Abhay Sullivan Discharge Orders/Prescriptions Prescriptions: New aspirin 81 mg capsule 81 mg PO DAILY Qty: 30 0RF Continued loratadine [Allergy Relief (loratadine)] 10 MG tablet 10 mg PO PRN PRN (Reason: Allergies) ivermectin [Soolantra] 30 GM cream 30 g TP DAILY Linzess 72 MCG capsule 72 mcg PO DAILY doxycycline monohydrate 40 mg capsule,IR - delay rel,biphase 40 mg PO DAILY cholecalciferol (vitamin D3) 25 mcg (1,000 unit) capsule 1,000 unit PO DAILY Patient Comments: take 1 capsule by mouth once daily Referrals / Follow Up: Cristian Silveira Chi, MD [Primary Care Provider] - Within 1 Week Disposition Disposition (needs filled in before D/C Order can be placed): Home, Self Care Charges/Coding Visit Charges Inpatient E&M: 10117 Disch Hosp >30min
== END 2023-05-27 15:51 | disposition home or self-care (01) ==
LOC: ED 05-27 00:15 → PCU 05-27 03:29
PROVIDERS: Admitting Provider Internal Medicine; Emergency Provider Emergency Medicine; PCP Family Medicine Geriatric Medicine; Visit Provider Family Medicine
DX: G45.9 Transient cerebral ischemic attack, unspecified (principal); S32.040S Wedge compression fracture of fourth lumbar vertebra, sequela; R03.0 Elevated blood-pressure reading, without diagnosis of hypertension; R29.898 Other symptoms and signs involving the musculoskeletal system; E78.5 Hyperlipidemia, unspecified; R47.81 Slurred speech; E87.6 Hypokalemia; Z86.16 Personal history of COVID-19; Z79.899 Other long term (current) drug therapy; R29.810 Facial weakness; M51.36 Other intervertebral disc degeneration, lumbar region; E66.9 Obesity, unspecified; Z68.31 Body mass index [BMI] 31.0-31.9, adult; K58.1 Irritable bowel syndrome with constipation; M47.816 Spondylosis without myelopathy or radiculopathy, lumbar region; R20.2 Paresthesia of skin
CPT/HCPCS: 70450; 70547; 70551; 71046; 80048; 80061; 80320; 84443; 84484; 85025; 85610; 85730; 93005; 93306; 94762; 97802; 99221; 99285; J7030; A4216; G0378; G0480

== ENCOUNTER → 2023-05-30 | Outpatient (CLI) | payer MEDICARE, BC, SELFPAY ==
--- NOTE | 2023-05-30 07:16 | US_ITS ---
STUDY: ABDOMINAL ULTRASOUND - RIGHT UPPER QUADRANT; ELASTOGRAPHY REASON FOR VISIT: Female, 68 years old. Fatty infiltration of the liver. TECHNIQUE: Ultrasound evaluation of the right upper quadrant was performed with real-time and static mahoney-scale imaging. Point quantification shear wave elastography was performed ([employer]). TECHNICAL QUALITY: Adequate. COMPARISON: Comparison is made with prior study dated January 06, 2022. FINDINGS: Liver: The liver measures 14.5 cm. There is increased echogenicity consistent with fatty infiltration. The bile ducts are within normal limits. There is hepatic color flow. The direction of portal flow is hepatopetal. There is no demonstrated mass lesion. Median liver stiffness measured 8.7 kPa. Gallbladder: Normal distended gallbladder. The gallbladder wall measures 2.0 mm. There is a negative sonographic Mccall''s sign. There is no pericholecystic fluid. There are no gallstones. Common Bile Duct (C.B.D.): The common bile duct measures 3.0 mm. Pancreas: There is normal echogenicity of the visualized pancreas. There is no demonstrated pancreatic mass or cyst. Right Kidney: Normal size of the right kidney. The right kidney measures 11.2 cm x 6 cm x 4.6 cm. Normal renal cortex. The right cortex measures 1.2 cm. There is no demonstrated renal mass or cyst. There is no right hydronephrosis. US/ABD Limited w/ Elastography IMPRESSION: 1. Liver stiffness measures 8.7 kPa compatible with F2-F3 (Mild to moderate liver fibrosis) Metavir score. Electronically Signed: Rishabh Camara MD at 9:59 EST ,
--- OUTSIDE RECORDS SUMMARY | 2023-05-30 07:17 | XMS RPT_ITS | CCD ---
Author Name Unknown Address [address] [place] [address] Organization [facility] Results Test Name Value Interpretation [...] BE BASED ON THE PRIMARY CLINICAL RECORDS. [employer]. provides no warranty or guarantee of the accuracy or completeness of information in this document.
== END | disposition home or self-care (01) ==
LOC: US 07:15
PROVIDERS: PCP Family Medicine Geriatric Medicine; Referring Provider Family Medicine Geriatric Medicine; Visit Provider Family Medicine Geriatric Medicine
DX: K76.0 Fatty (change of) liver, not elsewhere classified (principal)
CPT/HCPCS: 76705; 76981

== ENCOUNTER → 2023-06-01 | Outpatient (CLI) | payer MEDICARE, BC, SELFPAY ==
--- NOTE | 2023-06-01 13:52 | CDU_ITS ---
Reason For Study: TIA Rt. Velocities/BP Lt. Velocities/BP Prox CCA 81.5/9.7 cm/sec. Prox CCA 89.4/14.6 cm/sec. Mid CCA 85.3/12.6 cm/sec. Mid CCA 80.6/13.5 cm/sec. Dist CCA 73/12.6 cm/sec. Dist CCA 72.9/11.3 cm/sec. Prox ICA 69.6/16.8 cm/sec. Prox ICA 67.4/15.7 cm/sec. Mid ICA 74/21.2 cm/sec. Mid ICA 79.5/20.1 cm/sec. Dist ICA 93.8/26.7 cm/sec. Dist ICA 92.7/24.5 cm/sec. Rt. ICA/CCA = 1.15. Lt. ICA/CCA = 1.15. Prox ECA 83.9/8 cm/sec. Prox ECA 79.5/8 cm/sec. Rt. Vert. 72.9/16.8 cm/sec. Lt. Vert. 62.6/12.6 cm/sec. Right Extracranial There is intimal thickening but no significant atherosclerotic plaque noted in the right common carotid artery. There is intimal thickening but no significant atherosclerotic plaque noted in the right internal carotid artery. There is intimal thickening but no significant atherosclerotic plaque noted in the right external carotid artery. Antegrade flow is noted in the right vertebral artery. Left Extracranial There is homogeneous, smooth atherosclerotic plaque noted in the left common carotid artery. There is intimal thickening but no significant atherosclerotic plaque noted in the left internal carotid artery. There is intimal thickening but no significant atherosclerotic plaque noted in the left external carotid artery. Antegrade flow is noted in the left vertebral artery. Procedure Carotid Duplex 32962. This is a Carotid Duplex examination using B-mode, color flow and specral Doppler. Exam performed in department. VL/Carotid Duplex Ultrasound Interpretation Summary Normal right extracranial internal carotid. Normal left extracranial internal carotid. Patent and antegrade vertebrals bilaterally. Ordering Physician: Cristian Silveira Chi Referring Physician: Cristian Silveira Chi Performed By: Nancy Vega RVT
--- OUTSIDE RECORDS SUMMARY | 2023-06-01 16:11 | XMS RPT_ITS | CCD ---
Author Name Unknown Address [address] [place] [address] Organization [facility] Results Test Name Value Interpretation [...] BE BASED ON THE PRIMARY CLINICAL RECORDS. [employer]. provides no warranty or guarantee of the accuracy or completeness of information in this document.
== END | disposition home or self-care (01) ==
LOC: CVS 13:50
PROVIDERS: PCP Family Medicine Geriatric Medicine; Referring Provider Family Medicine Geriatric Medicine; Visit Provider Family Medicine Geriatric Medicine
DX: I65.23 Occlusion and stenosis of bilateral carotid arteries (principal)
CPT/HCPCS: 93880

== ENCOUNTER → 2023-06-12 | Outpatient (CLI) | payer MEDICARE, BC, SELFPAY ==
--- NOTE | 2023-06-12 13:00 | BI_ITS ---
MAMMOGRAPHY - BILATERAL SCREENING 3-D TOMOSYNTHESIS REASON FOR EXAM: Female, 68 years old. SCREENING PERTINENT HISTORY: No significant family history. TECHNIQUE: 2-D mammograms and 3-D Tomosynthesis of the breast (s) were performed. CAD was performed. COMPARISON: 06/09/2022 FINDINGS: The breast composition is composed of scattered fibroglandular density. Scattered benign calcifications are seen. No dense spiculated masses or suspicious microcalcifications are identified. No architectural distortion is identified. There is no skin thickening or retraction. There has been no significant change since the prior study. BI/SCRN MAMM (CAD)W/SERAFIN BILAT IMPRESSION: No mammographic signs of malignancy. Routine yearly mammograms recommended. ASSESSMENT CATEGORY: BIRADS Category 1: Negative. A letter regarding these results will be sent to the patient by the facility within 30 days. FOLLOW UP RECOMMENDATION: Yearly follow up mammogram recommended. (A) Approximately 10% of breast cancers are not detected by mammography. A normal mammogram should not delay biopsy of a clinically suspicious abnormality. Electronically Signed: Dmitry Birmingham MD at 16:03 EST ,
== END | disposition home or self-care (01) ==
LOC: OPBI 12:58
PROVIDERS: PCP Family Medicine Geriatric Medicine; Referring Provider Family Medicine Geriatric Medicine; Visit Provider Family Medicine Geriatric Medicine
DX: Z12.31 Encounter for screening mammogram for malignant neoplasm of breast (principal)
CPT/HCPCS: 77063; 77067

== ENCOUNTER 2023-08-10 01:45 | Emergency (ER) | payer MEDICARE, BC, SELFPAY ==
[2023-08-10 01:45] VITALS: BP 180/91; PULSE 78; RESP 16; TEMP 36.4; O2SAT 98; BMI 32.0
--- NOTE | 2023-08-10 02:02 | EKG12_ITS ---
Test Reason : Blood Pressure : / mmHG Vent. Rate : 087 BPM Atrial Rate : 087 BPM P-R Int : 158 ms QRS Dur : 086 ms QT Int : 356 ms P-R-T Axes : 046 -12 049 degrees QTc Int : 428 ms Normal sinus rhythm Minimal voltage criteria for LVH, may be normal variant ( R in aVL ) Borderline ECG Confirmed by DOMONIQUE VÁZQUEZ, PAULO ([id number]), commissioning editor SHIMA RAWLS ([id number]) on 08/10/2023 11:43:35 AM Referred By: Confirmed By:PAULO YOUSSEF MD
--- NOTE | 2023-08-10 02:03 | EX.ED.DYSGE1 ---
HPI History of Present Illness Chief Complaint: Palpitations Informant: patient and spouse/S.O. Narrative Narrative: Patient woke up less than an hour prior to evaluation with rapid palpitations in her chest feeling like her heart was racing. She has a Fitbit and she was using it to detect her heart rate, it was as high as 120, and as low as low 100s. She did not feel like it suddenly went away, she states she feels a little shaky now but admits that she does not feel like her heart is racing right now. She denies any dyspnea, chest discomfort, lightheadedness near syncope or syncope. No recent illness. She went to bed feeling fine. She had a cryptogenic TIA in May, and had a cardiac workup that was unremarkable including a 1-week event monitor that showed no episodes of A-fib. She has no cardiac history. [facility] Medical History Chronic GERD Compression fracture of L4 vertebra DDD (degenerative disc disease), lumbar Elevated blood pressure reading without diagnosis of hypertension Environmental allergies Hepatic fibrosis History of lung cancer Hyperlipidemia Hypokalemia IBS (irritable bowel syndrome) Malignant neoplasm of unspecified part of unspecified bronchus or lung Osteoporosis Segmental and somatic dysfunction of cervical region Segmental and somatic dysfunction of lumbar region Segmental and somatic dysfunction of thoracic region TIA (transient ischemic attack) Vitamin D deficiency Home Medications ivermectin 1 % topical cream (Soolantra) 30 g TP DAILY skin care 11/07/16 [History Last Taken Unknown] linaclotide 72 mcg capsule (Linzess) 72 mcg PO DAILY bowel issues 11/07/16 [History Last Taken Unknown] aspirin 81 mg capsule 81 mg PO DAILY #30 caps 05/27/23 [Rx Last Taken Unknown] cholecalciferol (vitamin D3) 25 mcg (1,000 unit) capsule 1,000 unit PO DAILY vitamin 05/27/23 [History Last Taken Unknown] alendronate 70 mg tablet (Fosamax) 70 mg PO QWEEK 06/09/23 [History Last Taken Unknown] calcium carbonate 600 mg-vitamin D3 5 mcg (200 unit) capsule (Calcium 600 + D(3)) 1 cap PO DAILY 06/09/23 [History Last Taken Unknown] glucosamine [id number] yan 1,500 mg-400 unit-100 mg tablet (Osteo Bi-Flex (5-Loxin)) 1 tab PO DAILY 06/09/23 [History Last Taken Unknown] loratadine 10 mg tablet (Allergy Relief (loratadine)) 10 mg PO DAILY Allergies 06/09/23 [History Last Taken Unknown] multivitamin 1 tab PO DAILY 06/09/23 [History Last Taken Unknown] rosuvastatin 10 mg tablet (Crestor) 10 mg PO DAILY 06/09/23 [History Last Taken Unknown] tumeric root powder PO 06/09/23 [History Last Taken Unknown] doxycycline monohydrate 40 mg capsule,immediate - delay release 1 cap PO QDAY 07/05/23 [History Last Taken Unknown] Allergy/AdvReac Type Severity Reaction Status Date / Time ciprofloxacin [From Cipro] Allergy Mild itching Verified 07/05/23 15:03 atorvastatin Allergy Hives Verified 07/05/23 15:03 simvastatin Allergy Rash Verified 07/05/23 15:03 Family History Other Asthma CVA (cerebral vascular accident) Cancer Diabetes Hypertension Surgical History History of lobectomy of lung History of rotator cuff surgery History of tonsillectomy History of tubal ligation Status post right foot surgery Social History Smoking Status: Never smoker alcohol intake: never substance use type: does not use what type of physical activity do you participate in: walking frequency: 3-4 times per week ROS ROS ED Constitutional Constitutional ED: Denies chills or fever(s) Eyes Eyes: Denies change in vision or diplopia ENT ENT ED: Denies rhinorrhea or sore throat Cardiovascular Cardiovascular: Reports palpitations and racing heartbeat; Denies chest pain, lightheadedness or syncope Respiratory/Chest Respiratory/Chest: Denies cough or dyspnea Gastrointestinal Gastrointestinal: Denies abdominal pain, diarrhea, nausea or vomiting Genitourinary Genitourinary ED: Denies dysuria or hematuria Musculoskeletal Musculoskeletal: Denies back pain or neck pain Integumentary Denies abscess or rash Neurologic Neurologic: Denies headache(s), paresthesias or weakness Psychiatric Psychiatric: Denies anxiety or suicidal thoughts EXAM Physical Exam Const Vital Signs: 08/10/23 01:45 08/10/23 01:45 08/10/23 02:45 Temperature 97.5 F L Temperature Source Oral Pulse Rate 78 69 Respiratory Rate 16 12 Respiratory Effort Normal Non-Labored Blood Pressure 180/91 H 143/69 H Blood Pressure Mean 120 93 Pulse Ox 98 95 Oxygen Delivery Method Room Air Room Air 08/10/23 03:00 Temperature Temperature Source Pulse Rate 73 Respiratory Rate 13 Respiratory Effort Blood Pressure 139/71 H Blood Pressure Mean 93 Pulse Ox 95 Oxygen Delivery Method Room Air Positive well nourished and well developed General Appearance ED: well developed and NAD HEENT Reports moist mucous membranes normocephalic and atraumatic Eyes PERRL and EOMs intact bilaterally Neck full ROM and supple Resp normal respiratory effort and clear to auscultation bilaterally Cardio regular rate, regular rhythm and no murmurs Rate: Negative for tachycardic GI non-tender and non-distended Auscultation: normoactive bowel sounds Palpation: soft Back/Spine no CVA tenderness General Back: other FROM Extremity normal to inspection General Extremety ED: Negative for edema, pulses abnormal or tenderness General Extremity: Negative for edema or pulses abnormal Neuro oriented x3, CN's II-XII intact bilaterally and no sensory deficits noted Sensorium / Orientation: awake and alert Motor Exam: strength 5/5 throughout Skin no rashes or lesions noted and no wounds MDM MDM MDM Narrative Medical decision making narrative: Workup unremarkable, and with several hour observation she had no recurrent symptoms and no dysrhythmias, ectopy, or tachycardia. At this time I think it is safer to be discharged home. In reviewing records from Dr. Alonzo, if she had any symptoms such as this they would consider placing a loop recorder. Therefore I recommend following up with them in cardiology, or return to the ER immediately if she has recurrent symptoms. Of note her initial blood pressure in triage was 180/91, without treating it and observing her it is now 139/71, and the rest of her vital signs are normal. History & Record Review Additional record(s) reviewed:: Prior outpatient record (cardiology visit) Lab Data Attestation: I reviewed the patient's lab results. Labs: Laboratory Results - last 24 hr 08/10/23 02:09 WBC 8.7 RBC 5.18 Hgb 15.6 H Hct 47.2 H MCV 91.1 MCH 30.1 MCHC 33.1 RDW Std Deviation 40.9 RDW Coeff of Erin 12.2 Plt Count 277 MPV 9.6 Immature Gran % (Auto) 0.200 Neut % (Auto) 55.8 Lymph % (Auto) 32.5 [place] % (Auto) 8.6 Eos % (Auto) 2.0 Baso % (Auto) 0.9 Absolute Neuts (auto) 4.9 Absolute Lymphs (auto) 2.82 Nucleated RBC % 0 Sodium 141 Potassium 3.5 Chloride 110 H Carbon Dioxide 25.0 Anion Gap 6 BUN 12 Creatinine 0.68 Estim Creat Clear Calc 69.88 Est GFR (MDRD) Af Amer 109 Est GFR (MDRD) Non-Af 90 BUN/Creatinine Ratio 17.5 Glucose 139 H Calcium 9.2 Troponin I High Sens 6 Rhythm Strip Rhythm Strip: Sinus Rhythm Rate: 87 Ectopy: None EKG Initial EKG: Attestation: I personally reviewed and interpreted this EKG as follows: Interpretation: Sinus Rhythm and No Acute Injury Pattern Comments: Normal EKG Prior EKG tracings: available for review Prior: Unchanged Discharge Plan Triage Chief Complaint: Palpitations ED Provider: Narendra Jarrell Dx/Rx/DC Orders Clinical Impression: Palpitations Instructions: Your Heart's Electrical System, ED Palpitations Prescriptions: No Action multivitamin Tablet 1 tab PO DAILY [id number] [Osteo Bi-Flex (5-Loxin)] 1,500-400-100 mg-unit-mg tablet 1 tab PO DAILY Rx Instructions: give after food/meal Calcium 600 + D(3) 600 mg-5 mcg (200 unit) capsule 1 cap PO DAILY tumeric root powder PO rosuvastatin [Crestor] 10 mg tablet 10 mg PO DAILY alendronate [Fosamax] 70 mg tablet 70 mg PO QWEEK doxycycline monohydrate 40 mg capsule,IR - delay rel,biphase 1 cap PO QDAY ivermectin [Soolantra] 30 GM cream 30 g TP DAILY Linzess 72 MCG capsule 72 mcg PO DAILY loratadine [Allergy Relief (loratadine)] 10 mg tablet 10 mg PO DAILY cholecalciferol (vitamin D3) 25 mcg (1,000 unit) capsule 1,000 unit PO DAILY Patient Comments: take 1 capsule by mouth once daily aspirin 81 mg capsule 81 mg PO DAILY Qty: 30 0RF Primary Care Provider: Cristian Silveira Chi Referrals: Roscoe Alonzo MD [Med Staff - Active Staff] - As soon as possible Cristian Silveira Chi, MD [Primary Care Provider] - Disposition Disposition: Home, Self Care
[2023-08-10 02:15] LABS: Absolute Lymphocyte Count 2.82 X10^3/uL (0.83-4.51); Absolute Neutrophil Count 4.9 X10^3/uL (2.0-7.7); Basophil# 0.08 X10^3/uL; Basophil% 0.9 % (0-1); Eosinophil# 0.17 X10^3/uL; Hematocrit 47.2 % (37-47); Hemoglobin 15.6 g/dL (12.0-15.0); Lymphocyte # 2.82 X10^3/ul (0.83-4.51); Lymphocyte % 32.5 % (19-41); Mean Corp Hgb Conc 33.1 g/dL (32-36); Mean Corpuscular Hgb 30.1 pg (27.0-32.0); Mean Corpuscular Volume 91.1 fL (81-99); Mean Platelet Vol. 9.6 fl (6.2-12.0); Monocyte# 0.75 X10^3/uL; Monocyte% 8.6 % (0-10); NRBC Flagged by Analyzer 0 % (0-5); Neutrophil # 4.85 X10^3/uL (2.7-7.7); Neutrophil % 55.8 % (47-70); Platelet Count 277 K/mm3 (150-450); RBC Distribution Width CV 12.2 % (11.6-14.6); RBC Distribution Width SD 40.9 fl (35.1-43.9); Red Blood Count 5.18 M/mm3 (4.2-5.4); White Blood Count 8.7 K/mm3 (4.4-11.0)
[2023-08-10 02:37] LABS: Anion Gap 6 (5-15); BUN 12 mg/dL (7-18); BUN/Creat Ratio 17.5 RATIO (10-20); Calcium,Total 9.2 mg/dL (8.5-10.1); Chloride 110 mmol/L (98-107); Creatinine, Serum 0.68 mg/dL (0.55-1.02); EST Glomerular Filtration Rate 90 mL/min (>60); Est Glom Filt Rate - Afr Amer 109 mL/min (>60); Estimated Creatinine Clearance 69.88 ml/min; Glucose 139 mg/dL (74-106); Potassium 3.5 mmol/L (3.5-5.1); Sodium Level 141 mmol/L (136-145); Troponin-I HS 6 pg/mL (3.0-54.0)
[2023-08-10 02:45] VITALS: BP 143/69; PULSE 69; RESP 12; O2SAT 95
[2023-08-10 03:00] VITALS: BP 139/71; PULSE 73; RESP 13; O2SAT 95
[2023-08-10 04:00] VITALS: BP 146/72; PULSE 66; RESP 18; O2SAT 98
[2023-08-10 04:07] VITALS: BP 146/72; PULSE 66; RESP 18; TEMP 36.4; O2SAT 98
== END 2023-08-10 04:08 | disposition home or self-care (01) ==
PROVIDERS: Emergency Provider Emergency Medicine; PCP Family Medicine Geriatric Medicine; Visit Provider Emergency Medicine
DX: R00.2 Palpitations (principal); Z79.82 Long term (current) use of aspirin; Z86.73 Personal history of transient ischemic attack (TIA), and cerebral infarction without residual deficits
CPT/HCPCS: 80048; 84484; 85025; 93005; 99284; A4216

== ENCOUNTER → 2023-10-06 | Outpatient (CLI) | payer MEDICARE, BC, SELFPAY ==
--- NOTE | 2023-10-06 12:35 | RAD_ITS ---
STUDY: X-RAY - UNILATERAL RIBS ( RIGHT ) WITH CHEST REASON FOR EXAM: Female, 68 years old. RIB PAIN TECHNIQUE - RIBS: 2 views of the right ribs. TECHNIQUE - CHEST: Frontal view of the chest. COMPARISON: None. FINDINGS - RIBS: Normal visualized right ribs without a demonstrated fracture. FINDINGS - CHEST: The lungs are clear and expanded. There is no demonstrated pleural abnormality. Normal size heart. Normal mediastinum and nj. Normal visualized pulmonary arteries. Normal visualized aortic arch and descending thoracic aorta. Normal visualized thoracic spine. Normal visualized ribs, clavicles, and shoulders. There is no demonstrated abnormality of the visualized soft tissue structures of the upper abdomen. RAD/Ribs Uni Min 3V w/PA Chest IMPRESSION: RIBS: Normal x-ray examination of the right ribs. CHEST: Normal x-ray examination of the chest. Electronically Signed: Gil Moya MD at 16:03 EDT ,
== END | disposition home or self-care (01) ==
LOC: RAD 12:30
PROVIDERS: PCP Family Medicine Geriatric Medicine; Referring Provider Family Medicine Geriatric Medicine; Visit Provider Family Medicine Geriatric Medicine
DX: R07.81 Pleurodynia (principal)
CPT/HCPCS: 71101

== ENCOUNTER → 2023-10-20 | Outpatient (CLI) | payer MEDICARE, BC, SELFPAY ==
--- NOTE | 2023-10-20 07:12 | CT_ITS ---
INDICATION: RIB PAIN ON RIGHT SIDE EXAMINATION: CT CHEST WITHOUT CONTRAST - CT Chest W/O Contrast Injection TECHNIQUE: Helically acquired images were obtained of the chest. The protocol utilizes one or more of the following dose reduction techniques: automated exposure control, adjustment of mA and/or kV according to patient size,and/or use of iterative reconstruction technique. IV Contrast dosage and agent: None. RADIATION DOSAGE (If Supplied By Facility): CTDIvol = ( 13.60 ) mGy, DLP = ( 523.23 ) mGycm COMPARISON: April 02, 2019 FINDINGS: LUNGS, PLEURA AND LARGE AIRWAYS: No new masses, consolidation, or edema. There is stable minimal bibasilar atelectasis and/or scarring. There is a stable partially calcified left lower lobe subpleural 4 mm nodule suggestive of a granuloma. No pneumothorax. THYROID: No thyroid lesions. HEART AND PERICARDIUM: Heart size is normal. No pericardial effusion. CORONARY ARTERIES: Coronary artery calcification is not seen. VESSELS: Thoracic aorta is not dilated. MEDIASTINUM AND ZULEIMA: No mediastinal or hilar adenopathy. Esophagus is unremarkable. There is a small hiatal hernia. UPPER ABDOMEN: No acute pathology. BONES: There are degenerative changes of the thoracic spine. There is a L2 superior endplate deformity suggestive of a Schmorl''s node. CT/Chest without Contrast IMPRESSION: No acute cardiopulmonary process. Hiatal hernia. Electronically Signed: Kaylin Velásquez MD at 8:31 EDT ,
== END | disposition home or self-care (01) ==
LOC: CT 07:10
PROVIDERS: PCP Family Medicine Geriatric Medicine; Referring Provider Family Medicine Geriatric Medicine; Visit Provider Family Medicine Geriatric Medicine
DX: R07.81 Pleurodynia (principal)
CPT/HCPCS: 71250

== ENCOUNTER → 2023-10-30 | Outpatient (CLI) | payer MEDICARE, BC, SELFPAY ==
[2023-10-30 10:05] LABS: Absolute Neutrophil Count 7.2 X10^3/uL (2.0-7.7); Basophil# 0.08 X10^3/uL; Basophil% 0.7 % (0-1); Eosinophil# 0.15 X10^3/uL; Eosinophils% 1.4 % (0-5); Hematocrit 48.9 % (37-47); Hemoglobin 16.2 g/dL (12.0-15.0); Mean Corp Hgb Conc 33.1 g/dL (32-36); Mean Corpuscular Hgb 30.3 pg (27.0-32.0); Mean Corpuscular Volume 91.6 fL (81-99); Mean Platelet Vol. 10.4 fl (6.2-12.0); Monocyte% 7.4 % (0-10); NRBC Flagged by Analyzer 0 % (0-5); Neutrophil # 7.16 X10^3/uL (2.7-7.7); Platelet Count 273 K/mm3 (150-450); RBC Distribution Width CV 13.1 % (11.6-14.6); RBC Distribution Width SD 43.8 fl (35.1-43.9); Red Blood Count 5.34 M/mm3 (4.2-5.4); White Blood Count 10.8 K/mm3 (4.4-11.0)
[2023-10-30 10:23] LABS: Vitamin D,25 Hydroxy 67.8 ng/mL
[2023-10-30 10:45] LABS: ALB/GLOB Ratio 1.1 RATIO (0.9-2.4); AST(SGOT) 20 U/L (15-37); Alanine Aminotransfer ALT/SGPT 45 U/L (13-56); Albumin, Serum 3.8 g/dL (3.2-5.0); Alkaline Phosphatase 72 U/L (45-117); Anion Gap 9 (5-15); BUN 17 mg/dL (7-18); Calcium,Total 9.1 mg/dL (8.5-10.1); Chloride 104 mmol/L (98-107); Creatinine, Serum 0.77 mg/dL (0.55-1.02); EST Glomerular Filtration Rate 79 mL/min (>60); Est Glom Filt Rate - Afr Amer 95 mL/min (>60); Globulin 3.4 g/dL (2.2-4.2); Glucose 108 mg/dL (74-106); Potassium 3.7 mmol/L (3.5-5.1); Protein, Total 7.2 g/dL (6.4-8.2); Sodium Level 139 mmol/L (136-145); Thyroid Stim Hormone (TSH) 1.36 uIU/mL (0.358-3.74)
== END | disposition home or self-care (01) ==
LOC: POLAB3 08:56
PROVIDERS: PCP Family Medicine Geriatric Medicine; Visit Provider Family Medicine Geriatric Medicine
DX: I10 Essential (primary) hypertension (principal); E55.9 Vitamin D deficiency, unspecified
CPT/HCPCS: 36415; 80053; 82306; 84443; 85025

== ENCOUNTER → 2023-12-26 | Outpatient (CLI) | payer MEDICARE, BC, SELFPAY | END | disposition home or self-care (01) | LOC: PSN 07:56 | PROVIDERS: PCP Family Medicine Geriatric Medicine; Referring Provider Family Medicine Geriatric Medicine; Visit Provider Family Medicine Geriatric Medicine | DX: U07.1 COVID-19 (principal) | CPT/HCPCS: 87631 ==

== ENCOUNTER → 2024-01-09 | Outpatient (CLI) | payer MEDICARE, BC, SELFPAY ==
--- NOTE | 2024-01-09 10:35 | RAD_ITS ---
ACR Level 3 findings have been noted. An addendum which confirms receipt of the report will follow. INDICATION: Low back pain, unspecified EXAMINATION/TECHNIQUE: X-RAY - XR Spine Lumbar Min 4 Views COMPARISON: Prior study dated: 04/13/2023 FINDINGS: L4 vertebral body moderate compression approximately 30% vertebral body height loss, uncertain age, height loss is greater compared to the prior. Mild compression superior endplate of L2 is unchanged. The other vertebral bodies are normal height. Disc space narrowing and osteophytes at multiple levels most pronounced at L5-S1. Bilateral facet arthropathy at essentially all levels. No subluxation. No paravertebral soft tissue mass identified. RAD/L/S Spine Min 4 Views IMPRESSION: L4 moderate vertebral body compression fracture of uncertain age but greater degree of compression compared to prior study. MRI may be helpful for further evaluation. Degenerative changes otherwise stable. Electronically Signed: Coco High MD at 8:13 EDT ,
== END | disposition home or self-care (01) ==
LOC: RAD 10:33
PROVIDERS: PCP Family Medicine Geriatric Medicine; Referring Provider Family Medicine Geriatric Medicine; Visit Provider Family Medicine Geriatric Medicine
DX: M54.50 Low back pain, unspecified (principal)
CPT/HCPCS: 72110

== ENCOUNTER → 2024-02-01 | Outpatient (CLI) | payer MEDICARE, BC, SELFPAY | END | disposition home or self-care (01) | LOC: POLAB3 16:02 | PROVIDERS: PCP Family Medicine Geriatric Medicine; Visit Provider Family Medicine Geriatric Medicine | DX: R68.83 Chills (without fever) (principal) | CPT/HCPCS: 87631 ==

== ENCOUNTER → 2024-02-02 | Outpatient (CLI) | payer MEDICARE, BC, SELFPAY ==
--- NOTE | 2024-02-02 15:30 | MRI_ITS ---
INDICATION: COMPRESSION FX EXAMINATION: MRI - MR Spine Lumbar W/O Contrast TECHNIQUE: Multiplanar and multisequence MR images of the lumbar spine. IV Contrast Dosage and Agent: None. COMPARISON: 05/07/2022 FINDINGS: VERTEBRAE: Interval loss of height of the L4 vertebral body with formation of Schmorl''s node. Marrow edema signal present adjacent to the superior endplate. Stable chronic Schmorl''s node L2. No pathologic marrow replacement. VERTEBRAL ALIGNMENT: No spondylolisthesis. There is preservation of the normal lumbar lordosis. CORD: [] Normal location, size and signal characteristics. L1/L2: Normal disc height and morphology. Normal spinal canal, lateral recesses and neuroforamina. L2/L3: Normal disc height and morphology. Normal spinal canal, lateral recesses and neuroforamina. L3/L4: Mild loss of height and circumferential annular bulge and posterior element hypertrophy. Mild central and bilateral foraminal stenosis. L4/L5: Mild circumferential annular bulge with bilateral facet joint hypertrophy produces mild bilateral foraminal stenosis. L5/S1: Loss of disc height. Circumferential annular bulge and bilateral facet joint hypertrophy produce moderate bilateral foraminal stenosis. SOFT TISSUES: Unremarkable. MRI/Spine Lumbar (Routine) IMPRESSION: Acute to subacute L4 compression fracture with mild loss of height. Multilevel degenerative disc changes with central and foraminal stenoses as above. Electronically Signed: Farzad Peguero MD at 19:57 EDT ,
--- NOTE | 2024-02-02 15:30 | MRI_ITS ---
HISTORY: Prior fall, L4 compression fracture, left radiculopathy. TECHNIQUE: Multiplanar and multisequence MR images of the pelvis were obtained without contrast. 194 images. COMPARISON: XR 05/20/2016. FINDINGS: BONE: Refer to MRI lumbar spine same day regarding L4 compression fracture. No acute fracture, femoral head avascular necrosis, or confluent T1 signal abnormality. No significant bone marrow edema. JOINT: Mild degenerative changes of the hips. Normal alignment without dislocation. No joint effusion. TENDONS: Mild bilateral gluteal tendinopathy. Intact rectus femoris, iliopsoas, hamstring tendinous attachments. OTHER SOFT TISSUES: No abnormal periarticular fluid collections. Small granulomas in the posterior subcutaneous soft tissues. Preservation of fat around the sciatic nerves. PELVIS: Mild fluid in the endometrial cavity. 1.6 x 2.2 cm round mildly hypointense left myometrial lesion. No significant free fluid in the pelvis. MRI/Pelvis (Routine) IMPRESSION: No evidence for acute fracture or dislocation in the pelvis or hips. 2.2 cm uterine lesion, likely leiomyoma. Mild fluid in the endometrial cavity. Recommend follow-up ultrasound. Electronically Signed: Radha Rosales MD at 13:00 EDT ,
--- OUTSIDE RECORDS SUMMARY | 2024-02-02 17:05 | XMS RPT_ITS | CCD ---
Author Organization [email or web address] Results Test Name Value Interpretation Reference Range Facil ity US ELASTOGRAPHY LIVER W/ABD LTDon 10-19-2019 US ELASTOGRAPHY LIVER W/ABD LTD ORIGINAL Ultrasound RIGHT upper quadrant and liver elastography. Clinical indication: Hepatic Steatosis, fatty liver COMPARISON: None Technique: Elastography of the liver was performed in the right lobe. FINDINGS: Visualized portion of the pancreas is within normal limits, however is mildly obscured by gas. Small lesions are not excludable. The liver is normal in size, measuring 13 cm in length. There is masking of the portal triads and increased echogenicity. No focal lesions are seen. Common bile duct measures 3 mm. Gallbladder is normal without stones or sludge. No RIGHT hydronephrosis. No RIGHT upper quadrant ascites. Liver Median velocity: 0.88 m/s IQR/median ratio: 0.34 (Value less than or equal to 0.3 should be seen to ensure exam adequacy.) IMPRESSION: Mild hepatic steatosis or nonspecific hepatocellular disease. No evidence of clinically significant liver fibrosis.. U Consensus of Suggested Thresholds in Patients with Hepatitis C (Based upon Siemens pSWE): Median Velocity: Recommendation: < 1.2 m/s (Siemens Minimal Risk of Clinically Significant Fibrosis: METAVIR Stage 2.2 m/s High Risk of Clinically Significant Fibrosis and/or Cirrhosis: METAVIR Stage F4 and Some F3 Clinically significant Fibrosis Elastography Assessment of Liver Fibrosis: Society of Radiologists in Ultrasound Consensus Conference Statement. Damaris RG et al. Radiology 2015 276:3, [id number] I have personally reviewed the images of this examination and agree with the resident's findings and interpretation. Interpreted By: Wallace Martel MD Preliminary Report By: Abhay Byrne DO Electronically Signed By: Wallace Martel MD Dictated Date: 10/18/2019 3:08:12 PM Prelim Date: 10/18/2019 3:20:27 PM Sign Date: 10/18/2019 11:34:23 PM Ordering Provider:[facility] ([place]) Summary Purpose Family History No Family History Records Found Advance Directives No Advanced Directives Records Found Additional Source Comments INFORMATION SOURCE (unrecogn ized section and content) DATE CREATED AUTHOR 10/31/2019 [facility] FOR RECORDS PERTAINING TO PATIENTS WHO ARE [...] BE BASED ON THE PRIMARY CLINICAL RECORDS. [facility] [employer] [facility]. provides no warranty or guarantee of the accuracy or completeness of information in this document.
== END | disposition home or self-care (01) ==
LOC: MRI 15:20
PROVIDERS: PCP Family Medicine Geriatric Medicine; Referring Provider Family Medicine Geriatric Medicine; Visit Provider Family Medicine Geriatric Medicine
DX: S32.040A Wedge compression fracture of fourth lumbar vertebra, initial encounter for closed fracture (principal)
CPT/HCPCS: 72148; 72195

== ENCOUNTER → 2024-02-12 | Outpatient (CLI) | payer MEDICARE, BC, SELFPAY ==
--- NOTE | 2024-02-12 07:43 | US_ITS ---
STUDY: ULTRASOUND OF THE FEMALE PELVIS - COMPLETE REASON FOR EXAM: Female, 69 years old. LEIOMYOMA LMP: The patient is postmenopausal. TECHNIQUE: Transvaginal TECHNICAL QUALITY: Adequate. COMPARISON: None. FINDINGS: The uterus is anteverted and is in a midline position. The uterus measures 6.8 cm x 4.7 cm x 3.4 cm. There is a Nabothian cyst of the cervix. The endometrium measures 1.7 mm in thickness, and is hyperechoic. Endometrial polyp is suspected. Fibroid uterus. The largest fibroid measures 2.4 cm x 2.3 cm x 1.8 cm. I.U.D. - The patient does not have an I.U.D. The right ovary is non-visualized. The left ovary is non-visualized. There is no fluid in the cul-de-sac. US/Transvaginal Non- IMPRESSION: Fibroid uterus. Findings suggestive of an endometrial polyp. Electronically Signed: Rishabh Camara MD at 14:18 EST ,
== END | disposition home or self-care (01) ==
PROVIDERS: PCP Family Medicine Geriatric Medicine; Referring Provider Family Medicine Geriatric Medicine; Visit Provider Family Medicine Geriatric Medicine
DX: D52.9 Folate deficiency anemia, unspecified (principal)
CPT/HCPCS: 76830

== ENCOUNTER 2024-03-12 10:00 | Outpatient (RCR) | payer MEDICARE, BC, SELFPAY ==
--- NOTE | 2024-02-20 09:03 | HP.PTEVAL ---
Patient's Visit Information Visit Information Visit Information: MELISA EDOUARD is a 69 year old F referred to Physical Therapy by Dr. Cristian Silveira MD with a diagnosis of Spinal stenosis of lumbar spine. Date of Evaluation: 02/15/24 Physical Therapist: Iam Zarco DPT Visit Plan Frequency: 2x /Week Duration: 6 Weeks Plan: 1) Neutral spine core strengthen and hip strengthening 2) gym strengthening as tolerated Subjective Subjective: Pt. is here today for her initial evaluation with diagnosis of lumbar stenosis. Pt. reports having increased low back pain over the past few months. Pt. reports recent doing better. Pt. had a compression fracture of L4 last year. She reports either this fx did not heal or she had another one. Pt. reports having some pain and occasional N/T in her L leg at times, worse at night compared to the day. Pt. reports not doing her exercise routine due to her symptoms and being hesitant with her pain. Pt. reports no myotomal weakness. Pt. is sleeping okay besides when she gets the N/T in her LE. Pt. is hopeful to increase her strength and stability of her lumbar spine and reduce symptoms in order to get back to all recreational gym and household activities without limitations. Pain Lumbar spine: Pain Intensity (Out of 10): 2 Pain Intensity Range: 0 and 4 Objective Objective: POSTURE: Pt. has decent posture in stance. Pt. has normal iliac crest heights. Pt. has fairly normal lumbar lordosis as well. PALPATION: Pt. has some mild tenderness at her lower lumbar spine with PAs, no radicular symptoms noted. Pt. has minimal issues with her lumbar erector spinae. NEURO: Pt. has normal sensation in throughout BLEs. Pt. is able to rise on heels and toes. ROM: LUMBAR SPINE: flexion min loss increase NW, ext mod loss NE, SB min loss increase NW, rotation min loss increase NW. Pt. has tight HS. MMT: LEs: 5/5 distally, 4/5 throughout B hips. No marked myotomal weakness. Core strength: poor+. GAIT: normal pattern without increase in symptoms. STAIRS: mild increase NW with normal pattern. Special Tests L/S Slump test left side: Negative L/S Slump test right side: Negative L/S Left Straight Leg Raise: Negative L/S Right Straight Leg Raise: Negative Balance/Special Test Scores Oswestry Low Back Score: 13 Goals Goal 1:: LTG: Pt. to be I with HEP and gym program. Goal Time Frame: 4-6 Weeks Goal 2:: LTG: Pt. has full ROM of lumbar spine without increase in symptoms. Goal Time Frame: 4-6 Weeks Goal 3:: LTG: Pt. to have 5/5 strength throughout BLEs and core. Goal Time Frame: 4-6 Weeks Goal 4:: LTG: Pt. to sleep without increase in LE N/T. Goal Time Frame: 4-6 Weeks Rehabilitation Potential Physical Therapy Diagnosis: Pt. has signs and symptoms consistent with lumbar spinal stenosis. Pt. has some N/T in her leg at times, but not consistent. With her history of compression fx I would like her to maintain fairly neutral spine and work on core strengthening. Rehabilitation Potential: Good Anticipated Interventions Patient/Client Instruction: Educate patient on: Condition, Plan of Care, Risk Factors and Benefits of Fitness Program For the Purpose of:: To facilitate caregiver knowledge, To improve self management, To prevent re-injury, To improve ability to perform tasks related to life management and To improve tolerance to ADL's Therapeutic Exercise to Include: Strength training, Endurance training, Balance training, Postural training, Passive ROM and Active ROM For the Purpose of:: To decrease pain, To improve nutrient delivery to tissue, To increase oxygenation perfusion, To improve muscle performance and motor function and To improve ability to perform ADL's Text: Thank you for the opportunity to evaluate your patient. For Medicare and Medicare HMO plans, please review the plan of care and approve it. It will need to be FAXED BACK to us at [phone] for Medicare purposes. For Medicare only, by signing this I certify the plan of care. Please let me know if there are questions or concerns regarding this plan of care. Physician Signature: Date:
--- NOTE | 2024-03-12 15:53 | HP.PTREVAL ---
Re-Evaluation Intro: Dr. Cristian Silveira MD, It has been my pleasure to treat MELISA EDOUARD over the last 9 visits for Spinal stenosis of lumbar spine. Please see the progress note below for an update on the physical therapy plan of care! Subjective Subjective: Pt. reports overall doing well. Pt. repors being 98% better overall. Once in a great while she reports having a slight twinge in symptoms. Pt. reports this being more musclure. Objective Objective/Function: Pt. reports no N/T with sleeping. She is still sleeping in her R side though. ROM: Lumbar spine: normal without increase in symptoms. MMT: PT. has 5/5 strength throughout BLEs. Fair- core strength. GAIT: normal without issues. PT. is back to doing all ADLs and recreational activities without limitations. she is I with gym and HEP exercises. Pt. is going to complete her exercises on her own at this point in time. Plan Plan Plan: pt. to trial HEP at home and in gym on her own. Pt. to follow up with PT in the next few weeks if having issues. If I do not hear from over this rime period I will DC. Balance/Gait/Functional tests Balance/Special Test Scores Oswestry Low Back Score: 13 Goals Goals Goal 1:: LTG: Pt. to be I with HEP and gym program. Goal Time Frame: 4-6 Weeks Goal Progress: Progressing Goal 2:: LTG: Pt. has full ROM of lumbar spine without increase in symptoms. Goal Time Frame: 4-6 Weeks Goal Progress: Goal Met Goal 3:: LTG: Pt. to have 5/5 strength throughout BLEs and core. Goal Time Frame: 4-6 Weeks Goal Progress: Goal Met Goal 4:: LTG: Pt. to sleep without increase in LE N/T. Goal Time Frame: 4-6 Weeks Goal Progress: Goal Met Anticipated Interventions Anticipated Interventions Patient/Client Instruction: Educate patient on: Condition, Plan of Care, Risk Factors and Benefits of Fitness Program For the Purpose of:: To facilitate caregiver knowledge, To improve self management, To prevent re-injury, To improve ability to perform tasks related to life management and To improve tolerance to ADL's Therapeutic Exercise to Include: Strength training, Endurance training, Balance training, Postural training, Passive ROM and Active ROM For the Purpose of:: To decrease pain, To improve nutrient delivery to tissue, To increase oxygenation perfusion, To improve muscle performance and motor function and To improve ability to perform ADL's Re-Evaluation Ending Re-evaluation ending: Please do not hesitate to contact me at [phone] by phone or if you have questions or concerns regarding this new plan of care! Sincerely, ROMAN BaumannT
== END 2024-03-12 19:00 | disposition home or self-care (01) ==
LOC: PT 10:00
PROVIDERS: PCP Family Medicine Geriatric Medicine; Referring Provider Family Medicine Geriatric Medicine; Visit Provider Family Medicine Geriatric Medicine
DX: M48.061 Spinal stenosis, lumbar region without neurogenic claudication (principal)
CPT/HCPCS: 97110; 97161; 97530

== ENCOUNTER 2024-03-19 11:19 | Day surgery (SDC) | payer MEDICARE, BC, SELFPAY ==
--- NOTE | 2024-03-18 07:23 | EKG12_ITS ---
Test Reason : PRE OP Blood Pressure : */* mmHG Vent. Rate : 73 BPM Atrial Rate : 73 BPM P-R Int : 154 ms QRS Dur : 78 ms QT Int : 366 ms P-R-T Axes : 37 -13 61 degrees QTcB Int : 403 ms Normal sinus rhythm Minimal voltage criteria for LVH, may be normal variant Borderline ECG Confirmed by DOMONIQUE VÁZQUEZ, PAULO ([id number]), school photograph editor HERB BURTON ([id number]) on 03/18/2024 2:12:35 PM Referred By: Sammie Butterfield Confirmed By: PAULO YOUSSEF MD
[2024-03-18 07:57] LABS: Hematocrit 47.1 % (37-47); Hemoglobin 15.9 g/dL (12.0-15.0); Mean Corp Hgb Conc 33.8 g/dL (32-36); Mean Corpuscular Hgb 31.2 pg (27.0-32.0); Mean Corpuscular Volume 92.4 fL (81-99); Mean Platelet Vol. 9.5 fl (6.2-12.0); Platelet Count 259 K/mm3 (150-450); RBC Distribution Width SD 43.9 fl (35.1-43.9); White Blood Count 9.6 K/mm3 (4.4-11.0)
[2024-03-18 08:29] LABS: ALB/GLOB Ratio 1.4 RATIO (0.9-2.4); AST(SGOT) 16 U/L (15-37); Alanine Aminotransfer ALT/SGPT 38 U/L (13-56); Albumin, Serum 3.8 g/dL (3.2-5.0); Alkaline Phosphatase 49 U/L (45-117); Anion Gap 4 (5-15); BUN 10 mg/dL (7-18); BUN/Creat Ratio 17.8 RATIO (10-20); Calcium,Total 9.3 mg/dL (8.5-10.1); Chloride 108 mmol/L (98-107); Creatinine, Serum 0.56 mg/dL (0.55-1.02); EST Glomerular Filtration Rate 113 mL/min (>60); Est Glom Filt Rate - Afr Amer 137 mL/min (>60); Globulin 2.8 g/dL (2.2-4.2); Glucose 115 mg/dL (74-106); Potassium 3.6 mmol/L (3.5-5.1); Protein, Total 6.6 g/dL (6.4-8.2); Sodium Level 141 mmol/L (136-145)
[2024-03-19] VITALS (10 sets, daily range): BP systolic 121–154; BP diastolic 56–74; PULSE 78–86; RESP 16; TEMP 36.2–36.6; O2SAT 94–98; BMI 31.0
--- NOTE | 2024-03-19 11:55 | PCM.PRE.AN2 ---
ASA Classification* ASA Classification ASA Classification: 3 Assessment & Plan Anesthesia* Anesthesia Assessment Anesthesia Assessment: Discussed sedation and/or anesthesia options, risks, benefits, and alternatives with patient/parents/legal guardian/POA. Questions invited. The patient/parents/legal guardian/POA seems to understand and agrees to proceed with anesthesia plan. Reviewed the physical assessment, medical history, allergy history and patient home medications list prior to surgery/procedure/anesthetic and documented any changes. Performed airway and anesthesia risk assessments. Anesthesia Type Anesthesia Type: MAC History Source History Obtained from:: Patient and Chart Anesthesia Focused Assessment* Temperature: 97.8 F Pulse Rate: 80 Blood Pressure: 154/74 Respiratory Rate: 16 Pulse Ox: 98 Oxygen Delivery Method: Room Air Airway Assessment Mouth opens: >3 cm Mallampati Score: IV Teeth Condition: Caps/Crowns (Patient has several crowns. They are all tight.) Neck Range of motion (ROM): Limited ROM (Slight decrease in extension) Focused Labs Anesthesia Preop lab: CBC WBC 9.6 K/mm3 (4.4-11.0) 03/18/24 07:33 RBC 5.10 M/mm3 (4.2-5.4) 03/18/24 07:33 Hgb 15.9 g/dL (12.0-15.0) H 03/18/24 07:33 Hct 47.1 % (37-47) H 03/18/24 07:33 Plt Count 259 K/mm3 (150-450) 03/18/24 07:33 CHEMISTRY Potassium 3.6 mmol/L (3.5-5.1) 03/18/24 07:33 Sodium 141 mmol/L (136-145) 03/18/24 07:33 BUN 10 mg/dL (7-18) 03/18/24 07:33 Creatinine 0.56 mg/dL (0.55-1.02) 03/18/24 07:33 Glucose 115 mg/dL (74-106) H 03/18/24 07:33 TSH 1.36 uIU/mL (0.358-3.74) 10/30/23 08:57 COAG PT 13.3 SECONDS (11.7-14.9) 05/26/23 21:15 Pre-Assessment Diagnosis/Proposed Procedure Planned Operative Procedure(s): HYSTEROSCOPY D&C Anesthesia History Anesthesia History - operating room technician: Anesthesia History - operating room technician Hx Hospitalization Yes: 05/2023 TIA 03/15/24 14:45 Any Problems With Anesthesia No 03/15/24 14:45 Cholinesterase deficiency No 03/15/24 14:45 You/Your Family Experience No 03/15/24 14:45 fever (hyperthermia) with Relationship Recent Exposure to Contagious No 03/19/24 11:36 Disease Does patient have nerve No 03/15/24 14:45 stimulator Patient instructed to have device shut off --Does patient have Pacemaker No 03/19/24 11:36 or ICD? When Was Last Pacemaker Check QUESTION #4 FULL TEXT: You/Your Family Experience fever (hyperthermia) with Anesthesia Last Oral Intake Last Oral intake: Last Oral Intake NPO since 00:00 03/19/24 11:36 Meds taken in AM with sips of water? Meds patient instructed to take am of surgery PONV PONV - operating room technician: PONV - operating room technician Female Yes 03/15/24 14:45 HX of Motion Sickness No 03/15/24 14:45 HX of N/V After Surgery No 03/15/24 14:45 Non-Smoker Yes 03/15/24 14:45 Duration of Surgery greater No 03/15/24 14:45 than 60 minutes Number of Risk Factors 2 03/15/24 14:45 PONV Score Moderate Risk 03/15/24 14:45 Height & Weight Height & Weight: Anesthesia: Height & Weight Height 5 ft 4 in 03/19/24 11:36 Weight: 82.1 kg 03/19/24 11:36 Body Mass Index (BMI) 31.0 03/19/24 11:36 Respiratory Assessment Respiratory Assessment - operating room technician: Respiratory Tract Infection Hx - operating room technician Hx Respiratory Tract Infection Yes: BRONCHITIS 01/2024. 03/15/24 14:45 RESOLVED Any additional information?: Yes Hx Respiratory Tract Infection: No (And no recent respiratory tract infection in the past couple weeks) STOP Sleep Apnea STOP Sleep Apnea - operating room technician: STOP Sleep Apnea - operating room technician Hx Hypertension No 03/15/24 14:45 Hx Sleep Apnea No 03/15/24 14:45 CPAP BIPAP Do you snore loudly (louder No 03/15/24 14:45 than talking or can be heard Do you often feel tired/ No 03/15/24 14:45 fatigued/ sleepy during daytime? Has anyone observed you stop No 03/15/24 14:45 breathing during sleep? STOP Results Negative 03/15/24 14:45 QUESTION #5 FULL TEXT : Do you snore loudly (louder than talking or can be heard through closed doors)? Tobacco Use History Tobacco Use History - operating room technician: Tobacco Use History - operating room technician Tobacco Use Smoking Status Never smoker 03/15/24 14:45 Hx Tobacco Use No 03/15/24 14:45 Years Smoking Packs Smoked per Day Smoking Cessation Date was within the last 15 years Hx Smoking Cessation Date Hx Smoking Cessation No 03/15/24 14:45 Counseling Hematologic Medial History Hematologic Hx - operating room technician: Hematologic Medical Hx - technical support coordinator Hx of Blood Transfusion No 03/15/24 14:45 Hx of Transfusion in last 3 No 03/15/24 14:45 Months Date of Last Transfusion (if within last 3 months) Ever experience any problems No 03/15/24 14:45 with transfusion(s)? Specify any problems Hx of Preganancy in last 3 No 03/15/24 14:45 Months Nurse Filling Out Transfusion DSCHRIBER 03/15/24 14:45 & Questions: Date: 03/15/24 03/15/24 14:45 Time: 14:47 03/15/24 14:45 Patient unable to answer at this time (ie. confused, unrespo /Reproduction History /Reproductive History - operating room technician: /Reproductive Hx- operating room technician Hx Now No 03/15/24 14:45 Gestational Age (in weeks): EDC: Hx Hx Para Hx Section SAB No 03/15/24 14:45 PFSH Medical History (Updated 03/15/24 @ 14:55 by Marcy Joy) Wears glasses Post-menopausal History of steroid therapy Fatty liver High cholesterol Back pain History of IBS Heartburn Non-smoker Asthma Cancer Shortness of breath on exertion History of Holter monitoring History of echocardiogram Cardiology follow-up encounter Malignant neoplasm of unspecified part of unspecified bronchus or lung Chronic GERD Vitamin D deficiency Hepatic fibrosis Osteoporosis Hyperlipidemia Compression fracture of L4 vertebra Hypokalemia Elevated blood pressure reading without diagnosis of hypertension TIA (transient ischemic attack) DDD (degenerative disc disease), lumbar Segmental and somatic dysfunction of cervical region Segmental and somatic dysfunction of thoracic region Segmental and somatic dysfunction of lumbar region IBS (irritable bowel syndrome) History of lung cancer Environmental allergies Home Medications ?Medication ?Instructions ?Recorded ?Last Taken ?Type ivermectin 1 % topical cream 30 g TP DAILY skin care 11/07/16 Unknown History (Soolantra) linaclotide 72 mcg capsule 72 mcg PO DAILY bowel issues 11/07/16 Unknown History (Linzess) aspirin 81 mg capsule 81 mg PO DAILY #30 caps 05/27/23 03/18/24 Rx cholecalciferol (vitamin D3) 25 1,000 unit PO DAILY vitamin 05/27/23 Unknown History mcg (1,000 unit) capsule alendronate 70 mg tablet (Fosamax) 70 mg PO QWEEK 06/09/23 Unknown History calcium 600 mg (as 1 cap PO DAILY 06/09/23 Unknown History carbonate)-vitamin D3 5 mcg (200 unit) capsule (Calcium 600 + D(3)) loratadine 10 mg tablet (Allergy 10 mg PO DAILY Allergies 06/09/23 Unknown History Relief (loratadine)) multivitamin 1 tab PO DAILY 06/09/23 Unknown History doxycycline monohydrate 40 mg 1 cap PO .QOD 08/23/23 Unknown History capsule,immediate - delay release rosuvastatin 10 mg tablet (Crestor) 20 mg PO DAILY 11/23/23 Unknown History albuterol sulfate 90 mcg/actuation 2 puff inhalation PRN PRN 03/15/24 Unknown History aerosol inhaler BRONCHITIS gabapentin 100 mg capsule 100 mg PO TID PRN PRN pain 03/15/24 Unknown History Allergy/AdvReac Type Severity Reaction Status Date / Time ciprofloxacin (From Cipro) Allergy Mild itching Verified 03/19/24 11:35 atorvastatin Allergy Hives Verified 03/19/24 11:35 simvastatin Allergy Rash Verified 03/19/24 11:35 Family History Other Asthma CVA (cerebral vascular accident) Cancer Diabetes Hypertension Surgical History (Updated 03/19/24 @ 12:[address] Solo Peacock MD) Hx of colonoscopy History of lobectomy of lung History of rotator cuff surgery Status post right foot surgery History of tubal ligation History of tonsillectomy Social History (Updated 03/15/24 @ 09:24 by Avani Torres Smoking Status: Never smoker alcohol intake: never substance use type: does not use caffeine: Yes what type of physical activity do you participate in: walking frequency: 3-4 times per week seatbelt use: always do you feel safe at home: Yes additional social history: - Fuchs Review of Systems (Anesthesia) ROS Narrative System reviewed and no additional complaints, except as documented.
--- NOTE | 2024-03-19 12:33 | PCM.HP.BLA ---
History and Physical Date of Admission: 03/19/24 Intake Vital Signs 11/22/2408:59 03/15/2409:12 Height 5 ft 4 in 5 ft 4 in Weight: 184 lb 6 oz BMI 31.6 BP 158/88 H Intake Visit Reasons: FIBROID UTERUS (LUX) Acute Care Clinical Nurse Specialist Required: No Is patient in pain?: No Allergies ciprofloxacin (From Cipro) Allergy (Mild, Verified 03/15/24 09:13) itching atorvastatin Allergy (Verified 03/15/24 09:13) Hivessimvastatin Allergy (Verified 03/15/24 09:13) Rash Medications ?Medication ?Instructions ?Recorded ?Confirmed ?Type ivermectin 1 % topical cream 30 g TP DAILY skin care 11/07/16 03/15/24 History (Soolantra) linaclotide 72 mcg capsule 72 mcg PO DAILY bowel issues 11/07/16 03/15/24 History (Linzess) aspirin 81 mg capsule 81 mg PO DAILY #30 caps 05/27/23 03/15/24 Rx cholecalciferol (vitamin D3) 25 1,000 unit PO DAILY vitamin 05/27/23 03/15/24 History mcg (1,000 unit) capsule alendronate 70 mg tablet (Fosamax) 70 mg PO QWEEK 06/09/23 03/15/24 History calcium 600 mg (as 1 cap PO DAILY 06/09/23 03/15/24 History carbonate)-vitamin D3 5 mcg (200 unit) capsule (Calcium 600 + D(3)) loratadine 10 mg tablet (Allergy 10 mg PO DAILY Allergies 06/09/23 03/15/24 History Relief (loratadine)) multivitamin 1 tab PO DAILY 06/09/23 03/15/24 History tumeric root powder PO 06/09/23 03/15/24 History doxycycline monohydrate 40 mg 1 cap PO .QOD 08/23/23 03/15/24 History capsule,immediate - delay release rosuvastatin 10 mg tablet (Crestor) 20 mg PO DAILY 11/23/23 03/15/24 History gabapentin 100 mg capsule 100 mg PO TID 03/15/24 03/15/24 History Is last menstrual period known: No Post menopausal: Yes Patient : No : No PFSH Medical History Malignant neoplasm of unspecified part of unspecified bronchus or lung Chronic GERD Vitamin D deficiency Hepatic fibrosis Osteoporosis Hyperlipidemia Compression fracture of L4 vertebra Hypokalemia Elevated blood pressure reading without diagnosis of hypertension TIA (transient ischemic attack) DDD (degenerative disc disease), lumbar Segmental and somatic dysfunction of cervical region Segmental and somatic dysfunction of thoracic region Segmental and somatic dysfunction of lumbar region IBS (irritable bowel syndrome) History of lung cancer Environmental allergies Surgical History History of lobectomy of lung History of rotator cuff surgery Status post right foot surgery History of tubal ligation History of tonsillectomy Family History Other Asthma CVA (cerebral vascular accident) Cancer Diabetes Hypertension Social History (Updated 03/15/24 @ 09:24 by Avani Clay) Smoking Status: Never smoker alcohol intake: never substance use type: does not use caffeine: Yes what type of physical activity do you participate in: walking frequency: 3-4 times per week seatbelt use: always do you feel safe at home: Yes additional social history: - Fuchs HPI FIBROID UTERUS (LUX) Details: MELISA EDOUARD is a 69 year old who presents for discussion about incidental finding of uterine polyp. She had an MRI for low back pain and fracture of spine and they found the uterus to be enlarged. ultrasound showed the following: She denies postmenopausal bleeding and has never had any abnormal paps. She is a 10 year survivor of lung cancer (not related to smoking) She is surgically missing the top 2 lobes of her right lung. FINDINGS: The uterus is anteverted and is in a midline position. The uterus measures 6.8 cm x 4.7 cm x 3.4 cm. There is a Nabothian cyst of the cervix. The endometrium measures 1.7 mm in thickness, and is hyperechoic. Endometrial polyp is suspected. Fibroid uterus. The largest fibroid measures 2.4 cm x 2.3 cm x 1.8 cm. I.U.D. - The patient does not have an I.U.D. The right ovary is non-visualized. The left ovary is non-visualized. There is no fluid in the cul-de-sac. US/Transvaginal Non- IMPRESSION: Fibroid uterus. Findings suggestive of an endometrial polyp. History 2 Elective abortions Hx Para 2 Spontaneous abortions Hx # Term Pregnancies Ectopic pregnancies Hx # Pregnancies Multiple births # of living children Past Pregnancies Del. Date Name GA/Weeks Outcome Route Bth Weight Gen [facility] F[facility] Unknown Fredo Unknown Sonal ROS Const ROS Unobtainable: All systems reviewed & are unremarkable except as noted in H Resp Resp: Reports system reviewed and no additional complaints, except as documented; Denies cough GI GI: Reports as per HPI Psych Psych: Reports system reviewed and no additional complaints, except as documented Exam Const General: cooperative, healthy appearing, comfortable and no acute distress Resp Effort & Inspection: normal respiratory effort Skin General: no rashes or lesions noted Psych Appearance: grossly normal Speech and Movement: speech and movement normal Coding Level of Care Code Off vis,new,level 4 Diagnoses Endometrial thickening on ultrasound R93.89 Assessment and Plan Assessment and Plan (1) Endometrial thickening on ultrasound: Status: Acute Plan: After discussing the patient's diagnosis and treatment plan options, patient wishes to proceed with surgical management. I have discussed with the patient the risks, benefits, and alternatives of the procedure which include but are not limited to risks of anesthesia, bleeding, infection, possible damage to bowel, bladder, or surrounding vasculature which could lead to additional surgery to evaluate any complications. Patient agrees to procedure and wishes to proceed. ACOG/uptodate references given for additional information regarding procedure. plan is to perform a hysteroscopy D&C possible polypectomy.
--- NOTE | 2024-03-19 13:00 | EMB_PTH ---
PATIENT: MELISA EDOUARD LOC: [facility] – [place] U#:[id number] AGE/SX: 69/F ROOM: RE03/19/[address]: Dr. Sammie Butterfield DO : 1955 BED: DIS: 03/19/2024 SPEC #: [id number] RECD: 03/19/24 15:49 STATUS: CHINO TEJAS #: [id number] TREY: 03/19/24 13:[address]: Sammie Butterfield DEPT: SURGICAL PATHOLOGY RECD BY: Vadim Bronson ENTERED: 03/20/24 07:11 SP TYPE: ENDOM BX/C JOVANNI DR: Dr. Cristian Silveira MD Tissues: Endometrium, NOS Procedures: Surgery Specimen Level IV HEADER OPERATION: Hysteroscopy, D&C PRE-OP DIAGNOSIS: Endometrial thickening on ultrasound TISSUE SUBMITTED: Endometrial curettings MICROSCOPIC DIAGNOSIS Endometrial curettings: Fragments of benign endometrial tissue with inactive endometrium and focal cystic changes. SJ.mr 03/21/2024 MICROSCOPIC DESCRIPTION Slides are reviewed. GROSS DESCRIPTION Received in fixative is one container labeled with the patient's name and designated Endometrial curettings. The specimen consists of multiple irregular fragments of light angulo soft tissue that in aggregate measure 1.5 x 0.2 x 0.1 cm. The specimen is totally submitted in one cassette. 03/20/2024 TC:5 CPT:73091
--- NOTE | 2024-03-19 13:17 | PCM.DC ---
Discharge Instructions Diet Discharge Diet: No restrictions DC O2, CPAP, BIPAP needs Additional Home O2 Discharge instructions: No Dressing / Incision Discharge Activity: Return to Normal Activity, May Shower and May Take a Tub Bath (after 1 week) May resume sexual activity in: 1-2 weeks Weight Bearing Status: Weight bearing as tolerated Lifting Restrictions: none Dressing / Incision Call your doctor if you observe: Fever of 101 or Higher, Using more than 1 pad per hour, Shortness of breath and Uncontrolled pain Follow Up Care Please Follow Up With: Sammie Butterfield DO When: Call [phone] to schedule appointment. Test Results: Test results from this visit will be discussed in further detail at your follow-up appointment, if applicable. Discharge Plan Admission Primary Reason for Your Visit: hysteroscopy D&C Attending Provider: Sammie Butterfield Primary Care Provider: Cristian Silveira Chi Instructions Print Language: Citizen Of [place] Discharge Orders/Prescriptions Prescriptions: No Action multivitamin Tablet 1 tab PO DAILY Calcium 600 + D(3) 600 mg-5 mcg (200 unit) capsule 1 cap PO DAILY alendronate [Fosamax] 70 mg tablet 70 mg PO QWEEK doxycycline monohydrate 40 mg capsule,IR - delay rel,biphase 1 cap PO .QOD rosuvastatin [Crestor] 10 mg tablet 20 mg PO DAILY gabapentin 100 mg capsule 100 mg PO TID PRN PRN (Reason: pain) ivermectin [Soolantra] 30 GM cream 30 g TP DAILY Linzess 72 MCG capsule 72 mcg PO DAILY loratadine [Allergy Relief (loratadine)] 10 mg tablet 10 mg PO DAILY cholecalciferol (vitamin D3) 25 mcg (1,000 unit) capsule 1,000 unit PO DAILY Patient Comments: take 1 capsule by mouth once daily aspirin 81 mg capsule 81 mg PO DAILY Qty: 30 0RF albuterol sulfate 90 mcg/actuation HFA aerosol inhaler 2 puff inhalation PRN PRN (Reason: BRONCHITIS) Referrals / Follow Up: rCistian Silveira Chi, MD [Primary Care Provider] - Sammie Butterfield DO [Med Staff - Active Staff] - Disposition Disposition (needs filled in before D/C Order can be placed): Home, Self Care
[2024-03-19] MEDS: Lidocaine 1% (20 ml mdv) 20 ML Vial (13:31)
--- NOTE | 2024-03-19 13:54 | OP.PCM_ITS ---
Problems Associated Problem List Diagnoses (1) Endometrial thickening on ultrasound: (2) Malignant neoplasm of unspecified part of unspecified bronchus or lung: Multi Select Codes Urinary/Genital Urinary/Genital CPT Codes: 06132 Hysteroscopy,EMC, Polypectomy Operative Report (Standard) Operative Information Date of Procedure: 03/19/24 Pre-Operative Diagnosis: thickened endometrium, postmenopausal Post-Operative Diagnosis: thickened endometrium, postmenopausal Surgery/Procedure Performed: hysteroscopy D&C field ironworker: No Type of Anesthesia: Local MAC RN Documented Start/Stop Times: Operation Date: 03/19/24 13:00 Case Time Into Pre-Op 03/19/24 11:25 Out of Pre-Op 03/19/24 13:06 Anesthesia Start 03/19/24 13:09 Into Room 03/19/24 13:09 Procedure Start 03/19/24 13:30 Procedure End 03/19/24 13:45 Anesthesia End 03/19/24 13:51 Out of Room 03/19/24 13:51 Procedure Start Time: 13:30 Procedure Stop Time: 13:45 Select all DRAINS/GRAFTS/IMPLANTS that apply: None Estimated Blood Loss: 5cc Specimen collected: Yes Description of specimen(s) removed: endometrial curetting's Description of surgery: Patient was prepped and draped in a normal sterile fashion under MAC anesthesia. A weighted speculum was placed in the vagina and the anterior lip of the cervix was grasped with a single-tooth tenaculum. A paracervical block was placed with 1% lidocaine. Cervix was progressively dilated to allow passage of a 5 mm hysteroscope. The lining was fully visualized and noted to have a small lesion present that was almost flush with the lining of the uterus. A submucosal fibroid suspected. The lining otherwise appeared atrophic. A Uterine sound was performed and the uterus sounded to 9cm. A Curettage was performed and scant tissue was sent to pathology. Attempt was made to dig the small structure out of the endometrium. A fragment of the lesion broke free and had the appearance of fibroid tissue. This was submitted with the curettage sampling. At this time the procedure was ended. All instruments were removed from the vagina and excellent hemostasis was noted. Patient was awoken and taken to recovery in stable condition. Surgical Findings: small submucosal fibroid. less than 1 mm. Complications Complications: No Admit VTE Documentation VTE Present on Admission: No VTE Mechan Device Prophylaxis: SCD's VTE Pharm Prophylaxis ordered?: No
--- NOTE | 2024-03-19 13:55 | PCM.POST.ANE ---
Anesthesia: Postop Eval I Current Vital Signs Temperature: 97.2 F Pulse Rate: 86 Blood Pressure: 121/64 Respiratory Rate: 16 Pulse Ox: 96 Oxygen Delivery Method: Room Air Assessment Airway patent: Yes Spontaneous unlabored respirations: Yes Mental status: Awake and Calm nausea: No Vomiting: No Anesthesia Complication: No Fluid Hydration Crystalloid volume administer (ml): 10 Total IV fluid infused: 10 Progress Note Anesthesia document: Postop Eval 1 completed: Yes
[2024-03-19] MEDS: Acetaminophen 500 MG Tablet 1000 MG PO (14:55)
--- NOTE | 2024-03-19 16:49 | POSTOPAN2_ITS ---
Anesthesia Postop Eval I Sum Postop Eval Completion status Anesthesia document: Postop Eval 1 completed: Yes Anesthesia Postop Eval I Summary Anesthesia Postop Eval I Summary: Anesthesia Postop Eval I: Assessment Summary Airway patent Yes 03/19/24 13:56 PACKAGING LINE ATTENDANT.[email or web address] Spontaneous unlabored Yes 03/19/24 13:56 PACKAGING LINE ATTENDANT.[email or web address] respirations Mental status Awake,Calm 03/19/24 13:56 PACKAGING LINE ATTENDANT.[email or web address] nausea No 03/19/24 13:56 PACKAGING LINE ATTENDANT.[email or web address] Vomiting No 03/19/24 13:56 PACKAGING LINE ATTENDANT.LISAOBJamal Anesthesia Postop Eval I: Fluid Summary Crystalloid volume administer 10 03/19/24 13:56 PACKAGING LINE ATTENDANT.SKOBY (ml) Colloids volume administered ( ml) Blood Product volume administered (ml) Total IV fluid infused 10 03/19/24 13:56 PACKAGING LINE ATTENDANT.LISAOBJamal Anesthesia Postop Eval I: Summary Notes Anesthesia Complication No 03/19/24 13:56 PACKAGING LINE ATTENDANT.[email or web address] Anesthesia Complication Comment: Post-operative progress note Anesthesia: Postop Eval II Evaluation Mental status: Awake and Calm Pain Level: 1 nausea: No Vomiting: No Complications Anesthesia Complication: No
--- NOTE | 2024-03-19 16:49 | PCM.POSTANE2 ---
Anesthesia Postop Eval I Sum Postop Eval Completion status Anesthesia document: Postop Eval 1 completed: Yes Anesthesia Postop Eval I Summary Anesthesia Postop Eval I Summary: Anesthesia Postop Eval I: Assessment Summary Airway patent Yes 03/19/24 13:56 WINDOWS SYSTEM ADMIN.[email or web address] Spontaneous unlabored Yes 03/19/24 13:56 WINDOWS SYSTEM ADMIN.FRANCIS respirations Mental status Awake,Calm 03/19/24 13:56 WINDOWS SYSTEM ADMIN.SKOBY nausea No 03/19/24 13:56 WINDOWS SYSTEM ADMIN.SKOBY Vomiting No 03/19/24 13:56 WINDOWS SYSTEM ADMIN.LISAOBJamal Anesthesia Postop Eval I: Fluid Summary Crystalloid volume administer 10 03/19/24 13:56 WINDOWS SYSTEM ADMIN.SKOBY (ml) Colloids volume administered ( ml) Blood Product volume administered (ml) Total IV fluid infused 10 03/19/24 13:56 WINDOWS SYSTEM ADMIN.LISAOBJamal Anesthesia Postop Eval I: Summary Notes Anesthesia Complication No 03/19/24 13:56 WINDOWS SYSTEM ADMIN.LISAOBJamal Anesthesia Complication Comment: Post-operative progress note Anesthesia: Postop Eval II Evaluation Mental status: Awake and Calm Pain Level: 1 nausea: No Vomiting: No Complications Anesthesia Complication: No
== END 2024-03-19 15:13 | disposition home or self-care (01) ==
LOC: SDC 11:19 → AC 11:21
PROVIDERS: PCP Family Medicine Geriatric Medicine; Referring Provider Obstetrics & Gynecology; Visit Provider Obstetrics & Gynecology
PROC: (CPT 58120; principal; 2024-03-19 12:45)
DX: D25.0 Submucous leiomyoma of uterus (principal); R93.89 Abnormal findings on diagnostic imaging of other specified body structures; E78.5 Hyperlipidemia, unspecified; Z78.0 Asymptomatic menopausal state; Z90.2 Acquired absence of lung [part of]; Z79.82 Long term (current) use of aspirin; Z86.73 Personal history of transient ischemic attack (TIA), and cerebral infarction without residual deficits; Z85.118 Personal history of other malignant neoplasm of bronchus and lung
CPT/HCPCS: 58558; 00952; 36415; 80053; 85027; 86850; 86900; 86901; 88305; 93005; A4216; J2405

== ENCOUNTER → 2024-04-17 | Outpatient (CLI) | payer MEDICARE, BC, SELFPAY ==
[2024-04-17 11:17] LABS: Absolute Lymphocyte Count 2.42 X10^3/uL (0.83-4.51); Absolute Neutrophil Count 6.3 X10^3/uL (2.0-7.7); Basophil# 0.08 X10^3/uL; Basophil% 0.8 % (0-1); Hematocrit 46.4 % (37-47); Lymphocyte # 2.42 X10^3/ul (0.83-4.51); Lymphocyte % 24.9 % (19-41); Mean Corp Hgb Conc 34.5 g/dL (32-36); Mean Corpuscular Hgb 30.8 pg (27.0-32.0); Mean Corpuscular Volume 89.2 fL (81-99); Mean Platelet Vol. 9.6 fl (6.2-12.0); Monocyte% 8.2 % (0-10); NRBC Flagged by Analyzer 0 % (0-5); Neutrophil # 6.26 X10^3/uL (2.7-7.7); Neutrophil % 64.6 % (47-70); Platelet Count 290 K/mm3 (150-450); RBC Distribution Width CV 12.7 % (11.6-14.6); RBC Distribution Width SD 41.7 fl (35.1-43.9); White Blood Count 9.7 K/mm3 (4.4-11.0)
[2024-04-17 11:44] LABS: Vitamin D,25 Hydroxy 79.6 ng/mL
[2024-04-17 12:02] LABS: ALB/GLOB Ratio 1.2 RATIO (0.9-2.4); AST(SGOT) 19 U/L (15-37); Alanine Aminotransfer ALT/SGPT 40 U/L (13-56); Albumin, Serum 3.6 g/dL (3.2-5.0); Alkaline Phosphatase 54 U/L (45-117); Anion Gap 8 (5-15); BUN 14 mg/dL (7-18); BUN/Creat Ratio 22.4 RATIO (10-20); Calcium,Total 9.2 mg/dL (8.5-10.1); Chloride 106 mmol/L (98-107); Creatinine, Serum 0.63 mg/dL (0.55-1.02); EST Glomerular Filtration Rate 100 mL/min (>60); Est Glom Filt Rate - Afr Amer 121 mL/min (>60); Globulin 3.1 g/dL (2.2-4.2); Glucose 121 mg/dL (74-106); Potassium 3.5 mmol/L (3.5-5.1); Protein, Total 6.7 g/dL (6.4-8.2); Sodium Level 139 mmol/L (136-145)
== END | disposition home or self-care (01) ==
PROVIDERS: PCP Family Medicine Geriatric Medicine; Referring Provider Family Medicine Geriatric Medicine; Visit Provider Family Medicine Geriatric Medicine
DX: I10 Essential (primary) hypertension (principal); E55.9 Vitamin D deficiency, unspecified
CPT/HCPCS: 36415; 80053; 82306; 84443; 85025

== ENCOUNTER 2024-05-15 11:55 | Outpatient (CLI) | payer MEDICARE, BC, SELFPAY | END 2024-05-15 23:59 | disposition home or self-care (01) | LOC: PSN 11:56 | PROVIDERS: PCP Family Medicine Geriatric Medicine; Referring Provider Family Medicine Geriatric Medicine; Visit Provider Family Medicine Geriatric Medicine | DX: R68.83 Chills (without fever) (principal) | CPT/HCPCS: 87631 ==

== ENCOUNTER → 2024-06-13 | Outpatient (CLI) | payer MEDICARE, BC, SELFPAY ==
--- NOTE | 2024-06-13 11:55 | BI_ITS ---
PROCEDURE: SCRN MAMM (CAD)W/SERAFIN BILAT REASON FOR EXAM: F, Age 69 y/o , . Routine annual follow-up. No family history. TECHNIQUE: Bilateral screening digital breast tomosynthesis with 2D and 3D images. Computer aided detection. COMPARISON: Prior exam(s) dating back to June 12, 2023.. FINDINGS: The breasts are almost entirely fatty. Stable small bilateral fat containing axillary lymph nodes. No suspicious masses, areas of developing architectural distortion, or suspicious calcifications. Stable examination. BI/SCRN MAMM (CAD)W/SERAFIN BILAT IMPRESSION: BI-RADS 2: BENIGN. RECOMMEND ANNUAL MAMMOGRAPHIC SCREENING. Follow-up code: Routine Follow-up The patient will be notified of the results by letter. Reading Location: [id number]
== END | disposition home or self-care (01) ==
LOC: OPBI 11:53
PROVIDERS: PCP Family Medicine Geriatric Medicine; Referring Provider Family Medicine Geriatric Medicine; Visit Provider Family Medicine Geriatric Medicine
DX: Z12.31 Encounter for screening mammogram for malignant neoplasm of breast (principal)
CPT/HCPCS: 77063; 77067

== ENCOUNTER → 2024-07-18 | Outpatient (CLI) | payer MEDICARE, BC, SELFPAY ==
--- NOTE | 2024-07-18 15:20 | RAD_ITS ---
PROCEDURE: ABD INC DECUB AND/OR ERECT 07/18/2024 REASON FOR EXAM: FDFECAL IMPACTION TECHNIQUE: Single view abdomen. COMPARISON: None available FINDINGS: Bowel gas: Nonobstructive bowel gas pattern Calcifications: Vascular phleboliths projecting over the pelvis. Bones: No acute displaced fracture or dislocation. Other: None RAD/Abd Inc Decub and/or Erect IMPRESSION: Nonobstructive bowel gas pattern Reading Location: [id number]
[2024-07-18 16:04] LABS: Absolute Lymphocyte Count 2.46 X10^3/uL (0.83-4.51); Absolute Neutrophil Count 7.9 X10^3/uL (2.0-7.7); Basophil# 0.07 X10^3/uL; Basophil% 0.6 % (0-1); Eosinophil# 0.14 X10^3/uL; Eosinophils% 1.2 % (0-5); Hematocrit 49.2 % (37-47); Hemoglobin 16.5 g/dL (12.0-15.0); Lymphocyte # 2.46 X10^3/ul (0.83-4.51); Mean Corp Hgb Conc 33.5 g/dL (32-36); Mean Corpuscular Hgb 30.4 pg (27.0-32.0); Mean Corpuscular Volume 90.6 fL (81-99); Mean Platelet Vol. 9.7 fl (6.2-12.0); Monocyte# 1.03 X10^3/uL; Monocyte% 8.8 % (0-10); NRBC Flagged by Analyzer 0 % (0-5); Neutrophil # 7.93 X10^3/uL (2.7-7.7); Neutrophil % 67.9 % (47-70); Platelet Count 306 K/mm3 (150-450); RBC Distribution Width CV 12.7 % (11.6-14.6); RBC Distribution Width SD 42.3 fl (35.1-43.9); Red Blood Count 5.43 M/mm3 (4.2-5.4); White Blood Count 11.7 K/mm3 (4.4-11.0)
[2024-07-18 16:55] LABS: Anion Gap 12 (5-15); BUN 13 mg/dL (4-19); BUN/Creat Ratio 20.1 RATIO (10-20); Calcium,Total 10.1 mg/dL (7.6-11.0); Carbon Dioxide 25.1 mmol/L (21.0-32.0); Chloride 101 mmol/L (98-108); Creatinine, Serum 0.65 mg/dL (0.70-1.20); EST Glomerular Filtration Rate 95 (>60); Glucose 118 mg/dL (70-99); Potassium 3.7 mmol/L (3.3-5.1); Sodium Level 138 mmol/L (133-145)
== END | disposition home or self-care (01) ==
LOC: RAD 15:25
PROVIDERS: PCP Family Medicine Geriatric Medicine; Referring Provider Family Medicine Geriatric Medicine; Visit Provider Family Medicine Geriatric Medicine
DX: K56.41 Fecal impaction (principal); I10 Essential (primary) hypertension
CPT/HCPCS: 36415; 74019; 80048; 85025

== ENCOUNTER → 2024-07-19 | Outpatient (CLI) | payer MEDICARE, BC, SELFPAY | END | disposition home or self-care (01) | PROVIDERS: PCP Family Medicine Geriatric Medicine; Referring Provider Family Medicine Geriatric Medicine; Visit Provider Family Medicine Geriatric Medicine | DX: R19.7 Diarrhea, unspecified (principal) | CPT/HCPCS: 82274; 83630; 87177; 87209; 87493; 87506 ==

== ENCOUNTER → 2024-08-06 | Outpatient (CLI) | payer MEDICARE, BC, SELFPAY ==
[2024-08-06 08:33] LABS: Cholesterol 172 mg/dL (<=200); High Density Lipoprotein 62 mg/dL; Low Density Lipoprotein Calc. 94 mg/dL; Triglycerides 79 mg/dL; Very Low Density Lipoprotein 16 mg/dL (5-40); cholesterol:hdl ratio screen 2.77
[2024-08-06 08:59] LABS: AST(SGOT) 23 U/L (<=31); Alanine Aminotransfer ALT/SGPT 35 U/L (<=34); Albumin, Serum 4.3 g/dL (3.4-4.8); Alkaline Phosphatase 49 U/L (35-104); Anion Gap 12 (5-15); BUN 11 mg/dL (4-19); BUN/Creat Ratio 17.1 RATIO (10-20); Bilirubin, Direct 0.32 mg/dL (0.00-0.30); Calcium,Total 9.2 mg/dL (7.6-11.0); Carbon Dioxide 23.9 mmol/L (21.0-32.0); Chloride 105 mmol/L (98-108); Creatinine, Serum 0.64 mg/dL (0.70-1.20); EST Glomerular Filtration Rate 95 (>60); Globulin 2.3 g/dL (2.2-4.2); Glucose 118 mg/dL (70-99); Potassium 3.8 mmol/L (3.3-5.1); Protein, Total 6.6 g/dL (5.9-8.4); Sodium Level 140 mmol/L (133-145); Total Bilirubin 0.72 mg/dL (0.00-1.30)
== END | disposition home or self-care (01) ==
LOC: LAB 07:03
PROVIDERS: PCP Family Medicine Geriatric Medicine; Referring Provider Student in an Organized Health Care Education/Training Program; Visit Provider Student in an Organized Health Care Education/Training Program
DX: I10 Essential (primary) hypertension (principal); E78.5 Hyperlipidemia, unspecified
CPT/HCPCS: 36415; 80048; 80061; 80076

== ENCOUNTER → 2024-08-14 | Outpatient (CLI) | payer MEDICARE, BC, SELFPAY ==
--- NOTE | 2024-08-14 10:10 | RAD_ITS ---
PROCEDURE: CHEST PA AND LATERAL 08/14/2024 REASON FOR EXAM: PLEURISY TECHNIQUE: Frontal and lateral views of the chest. COMPARISON: 10/06/2023 FINDINGS: The lungs are clear. Status post right upper lobectomy again noted. No pneumothorax or pleural effusion. The cardiac and mediastinal contours appear within limits. The visualized osseous structures appear within limits. RAD/Chest PA and Lateral IMPRESSION: No evidence of acute disease. Reading Location: [id number]
== END | disposition home or self-care (01) ==
LOC: RAD 10:08
PROVIDERS: PCP Family Medicine Geriatric Medicine; Referring Provider Family Medicine Geriatric Medicine; Visit Provider Family Medicine Geriatric Medicine
DX: R09.1 Pleurisy (principal)
CPT/HCPCS: 71046

== ENCOUNTER → 2024-10-30 | Outpatient (CLI) | payer MEDICARE, BC, SELFPAY ==
[2024-10-30 09:43] LABS: Hematocrit 46.7 % (37-47); Hemoglobin 15.8 g/dL (12.0-15.0); Immature Granulocytes Count 0.060 X10^3/uL (0.0-0.0); Mean Corp Hgb Conc 33.8 g/dL (32-36); Mean Corpuscular Volume 91.7 fL (81-99); Mean Platelet Vol. 9.7 fl (6.2-12.0); NRBC Flagged by Analyzer 0 % (0-5); Platelet Count 319 K/mm3 (150-450); RBC Distribution Width CV 12.8 % (11.6-14.6); RBC Distribution Width SD 43.0 fl (35.1-43.9); Red Blood Count 5.09 M/mm3 (4.2-5.4); White Blood Count 9.4 K/mm3 (4.4-11.0)
[2024-10-30 10:49] LABS: AST(SGOT) 21 U/L (<=31); Alanine Aminotransfer ALT/SGPT 34 U/L (<=34); Albumin, Serum 4.3 g/dL (3.4-4.8); Alkaline Phosphatase 52 U/L (35-104); Anion Gap 13 (5-15); BUN 11 mg/dL (4-19); BUN/Creat Ratio 17.8 RATIO (10-20); Calcium,Total 9.6 mg/dL (7.6-11.0); Carbon Dioxide 22.2 mmol/L (21.0-32.0); Chloride 104 mmol/L (98-108); Globulin 2.3 g/dL (2.2-4.2); Glucose 133 mg/dL (70-99); Potassium 3.6 mmol/L (3.3-5.1); Vitamin D,25 Hydroxy 88.2 ng/mL (30-100)
[2024-10-30 17:08] LABS: Xtra Tube Kwok EXTRA TUBE
== END | disposition home or self-care (01) ==
LOC: POLAB3 09:06
PROVIDERS: PCP Family Medicine Geriatric Medicine; Visit Provider Family Medicine Geriatric Medicine
DX: I10 Essential (primary) hypertension (principal); E55.9 Vitamin D deficiency, unspecified
CPT/HCPCS: 36415; 80053; 82306; 84443; 85025

== ENCOUNTER → 2024-11-14 | Outpatient (CLI) | payer MEDICARE, BC, SELFPAY ==
--- NOTE | 2024-11-14 07:54 | US_ITS ---
PROCEDURE: ABD LIMITED W/ ELASTOGRAPHY REASON FOR EXAM: HEPATIC FIBROSIS COMPARISON: None. TECHNIQUE: Right upper quadrant abdominal ultrasound. Iván Elast[employer] Imaging shear wave elastography for non-invasive assessment of liver tissue stiffness. Iván EPIQ Elite. FINDINGS: LIVER: Size: Unremarkable Length: 13.6 cm Echotexture: Diffusely echogenic suggesting fatty infiltration Contour: Normal Lesions: None identified Elastography: EQI Med: 11.7 kPa EQI Med Jr: 1.9 cm m/s IQR/Med: 26 %* GALLBLADDER: No stones sludge wall thickening or tenderness. COMMON BILE DUCT: Normal measuring 4 mm . PANCREAS: Normal Visualized portions of the right kidney are unremarkable. No right upper quadrant ascites. US/ABD Limited w/ Elastography IMPRESSION: SEVERE HEPATIC FIBROSIS / CIRRHOSIS Diffuse fatty infiltration of the liver. Reference Values: SRU <1.37 m/s (5.7kPa): No to mild fibrosis 1.37 m/s - 2.2 m/s: Moderate to severe fibrosis >2.2 m/s (15kPa): Significant fibrosis / cirrhosis METAVIR Score F2 or higher: 1.34 m/s (5.7kPa) F3 or higher: 1.55 m/s (7.3kPa) F4: 1.80 m/s (10kPa) * If the IQR/Med is >30%, the variance in the measurements is a large and the a ccuracy of the measurement may be in question. Reading Location: [id number]
--- OUTSIDE RECORDS SUMMARY | 2024-11-14 08:17 | XMS RPT_ITS | CCD ---
Author Organization [facility] Care Team Providers Care Quality Assurance Clerk Name Role Phone Dr. Cristian Silveira Chi Primary Care Provider Dr. Cristian Silveira Chi Referring Provider KRISTI Mcwilliams Attending Provider Dr. Cristian Silveira Chi Primary Care Provider [phone] Dr. Murphy Montes De Oca Attending Provider Dr. Mike Rivera Emergency Provider [phone] Dr. Abhay Sullivan Admit Provider Unavailabl e Dr. Abhay Sullivan Other Provider Unavailabl e MD Matt Young Other Provider Unavailable Dr. Cassia Del Rosario Other Provider MD Reena Diaz Other Provider Unavailable Dr. Odilia Duke Other Provider Dr. Argelia Briceno Other Provider Dr. Rodney Holman Other Provider Dr. Ariadna Lindsey Other Provider Dr. Ryan Martini Other Provider Dr. Stevo Moreno Other Provider MD Cece Liriano Other Provider Dr. Giovani Fontenot Other Provider Dr. Lynn Perez Other Provider Dr. Viviana Hanson Other Provider [phone] Ilda Miller Other Provider Dr. Ion Teixeira Other Provider Dr. Coby Vail Other Provider Dr. Mateo Rogers Other Provider Dr. Kay Moya Other Provider Unavailable MD Marta Sinclair Other Provider Unavailable Dr. Jamey Mistry Attending Provider Dr. Jamey Mistry Other Provider Dr. Mike Rosa Attending Provider Dr. Cristian Silveira Chi Referring Provider Dr. Cristian Silveira Chi Primary Care Provider Dr. Murphy Montes eD Oca Attending Provider Dr. Mike Rivera Emergency Provider Dr. Abhay Sullivan Admit Provider Unavailabl Dr. Abhay Dee Other Provider Unavailabl e MD Matt Young Other Provider Unavailable Dr. Cassia Del Rosario Other Provider MD Reena Diaz Other Provider Unavailable Dr. Odilia Duke Other Provider Dr. Argelia Briceno Other Provider Dr. Rodney Holman Other Provider Dr. Ariadna Lindsey Other Provider Dr. Ryan Martini Other Provider Dr. Stevo Moreno Other Provider MD Cece Liriano Other Provider Dr. Giovani Fontenot Other Provider Dr. Lynn Perez Other Provider Dr. Viviana Hanson Other Provider [phone] Dr. Ilda Miller Other Provider Dr. Ion Teixeira Other Provider Dr. Coby Vail Other Provider Dr. Mateo Rogers Other Provider Dr. Kay Moya Other Provider Unavailable MD Marta Sinclair Other Provider Unavailable Dr. Jamey Mistry Attending Provider Dr. Jamey Mistry Other Provider Dr. Cristian Silveira Chi Referring Provider Dr. Mike Rosa Attending Provider Dr. Jean Law Attending Provider Dr. Roscoe Alonzo Attending Provider Raoul VÁZQUEZ, Dr. Cristian Saleh Primary Care Provider Raoul VÁZQUEZ, Dr. Cristian Saleh Attending Provider Raoul VÁZQUEZ, Dr. Cristian Saleh Referring Provider Dr. Sammie Butterfield DO Attending Provider Cheri VÁZQUEZ, Dr. Malhotra Attending Provider Dr. Sammie Butterfield DO Referring Provider Dr. Sammie Butterfield DO Other Provider Raoul VÁZQUEZ, Dr. Cristian Saleh Primary Care Provider Raoul VÁZQUEZ, Dr. Cristian Saleh Attending Provider Raoul VÁZQUEZ, Dr. Cristian Saleh Referring Provider Hallie Tong Attending Provider Raoul VÁZQUEZ, Dr. Cristian Saleh Primary Care Provider Raoul VÁZQUEZ, Dr. Cristian Saleh Attending Provider Raoul VÁZQUEZ, Dr. Cristian Saleh Referring Provider Bruno Alvarado Attending Provider Bruno Alvarado Referring Provider Raoul VÁZQUEZ, Dr. Cristian Saleh Primary Care Provider Raoul VÁZQUEZ, Dr. Cristian Saleh Attending Provider Dr. Cristian Silveira MD, Chi Referring Provider Raoul, Cristian Chi Referring Unavailable Raoul, Cristian Chi Primary Care Unavailable Danna Goodrich NP Attending Unavailable Raoul, Cristian Chi Referring Unavailable Raoul, Cristian Chi Primary Care Unavailable Gin Littler Attending Unavailable Raoul, Cristian Chi Primary Care Unavailable Raoul, Cristian Chi Referring Unavailable Sammie Butterfield Attending Unavailabl e Raoul, Cristian Chi Primary Care Unavailable Cordelia Atwood NP Attending Unavailable Raoul, Cristian Chi Referring Unavailable Raoul, Cristian Chi Primary Care Unavailable Raoul, Cristian Chi Referring Unavailable Raoul, Cristian Chi Attending Unavailable Raoul, Cristian Chi Attending Unavailable Raoul, Cristian Chi Primary Care Unavailable Raoul, Cristian Chi Referring Unavailable Raoul, Cristian Chi Attending Unavailable Raoul, Cristian Chi Referring Unavailable Raoul, Cristian Chi Primary Care Unavailable Raoul, Cristian Chi Attending Unavailable Raoul, Cristian Chi Referring Unavailable Raoul, Cristian Chi Primary Care Unavailable Raoul, Cristian Chi Attending Unavailable Raoul, Cristian Chi Primary Care Unavailable Raoul, Cristian Chi Referring Unavailable Raoul, Cristian Chi Primary Care Unavailable Raoul, Cristian Chi Referring Unavailable Sammie Butterfield Attending Unavailabl e Raoul, Cristian Chi Primary Care Unavailable Bruno Little Attending Unavailable Demiter Bruno Referring Unavailable Raoul, Cristian Chi Attending Unavailable Raoul, Cristian Chi Referring Unavailable Raoul, Cristian Chi Primary Care Unavailable Raoul, Cristian Chi Primary Care Unavailable Raoul, Cristian Chi Referring Unavailable Raoul, Cristian Chi Attending Unavailable Raoul, Cristian Chi Attending Unavailable Raoul, Cristian Chi Primary Care Unavailable Raoul, Cristian Chi Primary Care Unavailable Raoul, Cristian Chi Attending Unavailable Raoul, Cristian Chi Primary Care Unavailable Sammie Butterfield Referring Unavailabl e Sammie Butterfield Attending Unavailabl e Raoul, Critsian Chi Attending Unavailable Raoul, Cristian Chi Primary Care Unavailable Raoul, Cristian Chi Referring Unavailable Raoul, Cristian Chi Attending Unavailable Raoul, Cristian Chi Referring Unavailable Raoul, Cristian Chi Primary Care Unavailable Raoul, Cristian Chi Attending Unavailable Raoul, Cristian Chi Referring Unavailable Raoul, Cristian Chi Primary Care Unavailable Raoul, Cristian Chi Primary Care Unavailable Raoul, Cristian Chi Referring Unavailable Raoul, Cristian Chi Attending Unavailable Raoul, Cristian Chi Primary Care Unavailable Raoul, Cristian Chi Referring Unavailable Raoul, Cristian Chi Attending Unavailable Raoul, Cristian Chi Primary Care Unavailable Sammie Butterfield Referring Unavailabl Roscoe Uriarte Attending Unavailable Raoul, Cristian Chi Primary Care Unavailable Sammie Butterfield Consulting Sammie Vu Referring Sammie Vu Attending Unavailabl e Raoul, Cristian Chi Primary Care Unavailable Hallie Tong Attending Unavail able Raoul, Cristian Chi Referring Unavailable Allergies Allergy Classification Reported Allergen(s) Allergy Type Date of Onset Reaction(s) Facility HMG-CoA Reductase Inhibitors (statins) (2 sources) atorvastatin Drug Allergy 11-02-2022 [facility] Quinolones (antibiotic) (1 source) Ciprofloxacin Drug Allergy 11-02-2022 [facility] (20 sources) atorvastatin Drug Allergy 08-31-2018 [facility] (20 sources) Ciprofloxacin Drug Allergy 08-31-2018 [facility] (20 sources) Simvastatin Drug Allergy 08-31-2018 [facility] (1 source) atorvastatin Drug Allergy 07-31-[address] [facility] (1 source) Ciprofloxacin Drug Allergy 07-31-[address] [facility] (1 source) Simvastatin Drug Allergy 07-31-[address] [facility] Medications Current Medications Medication Drug Class(es) Dates Sig (Normalized) Sig (Original) [id number] 200 actuat albuterol 0.09 mg/actuat metered dose inhaler (6 sources) beta2-Adrenergic Agonist Start: 03-15-2024 Albuterol Sulfate 90 mcg/actuation HFA aerosol inhaler Active 2 NMA INHALATION NEEDED as needed for BRONCHITIS March 15, 2024 1:00am alendronic acid 70 mg oral tablet (8 sources) Bisphosphonate Start: 06-09-2023 take 1 tablet by mouth every week Alendronate (Fosamax) 70 mg tablet Active 70 mg PO EVERY WEEK June 09, 2023 1:00am aspirin 81 mg oral tablet (11 sources) Platelet Aggregation Inhibitor, Nonsteroidal Anti-inflammatory Drug Start: 05-27-2023 take 1 capsule by mouth once daily Aspirin 81 mg capsule Active 81 mg PO DAILY 30 0 May 27, 2023 1:00am calcium carbonate 1500 mg / cholecalciferol 200 unt oral capsule (8 sources) Vitamin D Start: 06-09-2023 Calcium Carbonate-Vitamin D3 (Calcium 600 + D(3)) 600 mg-5 mcg (200 unit) capsule Active 1 NMA PO DAILY June 09, 2023 1:00am cholecalciferol 0.025 mg oral capsule (12 sources) Vitamin D Start: 05-27-2023 take 1 capsule by mouth once daily Cholecalciferol (Vitamin D3) 25 mcg (1,000 unit) capsule Active 1000 U PO DAILY May 27, 2023 1:00am vitamin doxycycline anhydrous 40 mg delayed release oral capsule (20 sources) Tetracycline-class Drug Start: 08-23-2023 Doxycycline Monohydrate 40 mg capsule,IR - delay rel,biphase Active 1 NMA PO .QOD August 23, 2023 2:13pm Start: 07-05-2023 take 1 capsule by mo uth once daily Doxycycline Monohydrate Active 1 CAP PO daily July 05, 2023 12:00am Start: 05-27-2023 End: 06-09-2023 take 1 capsule by mouth once daily Doxycycline Monohydrate 40 mg capsule,IR - delay rel,biphase Discontinued 40 mg PO DAILY May 27, 2023 1:00am June 09, 2023 4:12pm infection Start: 2021 End: 11-02-2022 take 1 capsule by mouth once daily Doxycycline Monohydrate 40 mg capsule,IR - delay rel,biphase Discontinued 40 mg PO DAILY 2021 12:00am November 02, 2022 8:24am gabapentin 100 mg oral capsule (12 sources) Anti-epileptic Agent Start: 11-23-2023 End: 03-15-2024 take 1 capsule by mouth three times daily as needed for pain Gabapentin 100 mg capsule Active 100 mg PO 3 TIMES DAILY NEEDED as needed for pain March 15, 2024 10:23am ivermectin 10 mg/ml topical cream (20 sources) Antiparasitic, Pediculicide Start: 11-07-2016 Ivermectin (Soolantra) 30 GM cream Active 30 g TP DAILY November 07, 2016 12:00am skin care linaclotide 0.072 mg oral capsule (20 sources) Guanylate Cyclase-C Agonist Start: 11-07-2016 take 1 capsule by mouth once daily Linaclotide (Linzess) 72 MCG capsule Active 72 ug PO DAILY November 07, 2016 12:00am bowel issues lisinopril 2.5 mg oral tablet (4 sources) Angiotensin Converting Enzyme Inhibitor Start: 07-31-2024 End: 08-23-2024 take 1 tablet by mouth once daily Lisinopril 2.5 mg tablet Active 2.5 mg PO daily 90 3 August 23, 2024 10:23am loratadine 10 mg oral tablet (20 sources) Start: 11-07-2016 End: 06-09-2023 take 1 tablet by mouth once daily Loratadine (Allergy Relief (Loratadine)) 10 mg tablet Active 10 mg PO DAILY June 09, 2023 4:09pm Allergies Multivitamin preparation (2 sources) Start: 06-09-2023 take 1 tablet by mouth once daily Multivitamin Active 1 TABLET PO DAILY June 09, 2023 1:00am Start: 06-09-2023 take 1 tablet by [place] th once daily Multivitamin Active 1 TABLET PO DAILY June 09, 2023 12:00am Multivitamin tablet (6 sources) Start: 06-09-2023 Multivitamin t ablet Active 1 {tbl} PO DAILY June 09, 2023 1:00am rosuvastatin calcium 10 mg oral tablet (14 sources) HMG-CoA Reductase Inhibitor Start: 11-23-2023 take 2 tablets by mouth once daily Rosuvastatin (Crestor) 10 mg tablet Active 20 mg PO DAILY November 23, 2023 9:57am Start: 06-09-2023 End: 11-23-2023 take 1 tablet by mouth once daily Rosuvastatin (Crestor) 10 mg tablet Discontinued 10 mg PO DAILY June 09, 2023 1:00am November 23, 2023 9:57am vancomycin 125 mg oral capsule (5 sources) Glycopeptide Antibacterial Start: 07-19-2024 take 1 capsule by mouth every six hours Vancomycin 125 mg capsule Active 125 mg PO EVERY 6 HOURS 40 10 0 July 19, 2024 12:00am Completed/Discontinued Medications Medication Drug Class(es) Dates Sig (Normalized) Sig (Original) amoxicillin 875 mg / clavulanate 125 mg oral tablet (5 sources) Penicillin-class Antibacterial Start: 07-02-2024 End: 07-02-2024 Amoxicillin-Pot Clavulanate 875-125 mg tablet Discontinued 1 {tbl} PO Q12H July 02, 2024 12:00am July 02, 2024 11:50am Complete 07/04/24 calcium carbonate 1500 mg oral tablet (20 sources) Start: 11-07-2016 End: 05-27-2023 take 2 tablets by mouth once daily Calcium Carbonate 600 MG tablet Discontinued 1200 mg PO DAILY November 07, 2016 12:00am May 27, 2023 1:17am Start: 11-07-2016 End: 05-27-2023 take 1200 mg by mouth once daily Calcium Carbonate Discontinued 1200 MG PO DAILY November 07, 2016 12:00am May 27, 2023 1:17am Doxycycline Monohydrate 40 mg capsule,IR - delay rel,biphase (6 sources) Start: 07-05-2023 End: 08-23-2023 Doxycycline Monohydrate 40 mg capsule,IR - delay rel,biphase Discontinued 1 NMA PO daily July 05, 2023 12:00am August 23, 2023 2:14pm Ksbdyakrehn-[id number] a Serr (Osteo Bi-Flex (5-Loxin)) 1,500-400-100 mg-unit-mg tablet (8 sources) Start: 06-09-2023 End: 03-15-2024 take 1 tablet by mouth once daily at mealtime Ofnlzbhwbjn-Q0-Lrlsumjr a Serr (Osteo Bi-Flex (5-Loxin)) 1,500-400-100 mg-unit-mg tablet Discontinued 1 {tbl} PO DAILY June 09, 2023 1:00am March 15, 2024 10:23am give after food/meal Start: 06-09-2023 take 1 tablet by [place] once daily at mealtime Qxisssflbek-G3-Ehrxhhbmo Serr (Osteo Bi-Flex (5-Loxin)) 1,500-400-100 mg-unit-mg tablet Active 1 TABLET PO DAILY June 09, 2023 1:00am give after food/meal Start: 06-09-2023 take 1 tablet by [place] th once daily at mealtime Yiyvjgrtovy-L3-Lzdbursio Serr (Osteo Bi-Flex (5-Loxin)) 1,500-400-100 mg-unit-mg tablet Active 1 TABLET PO DAILY June 09, 2023 12:00am give after food/meal methylPREDNISolone 4 mg oral tablet (17 sources) Corticosteroid Start: 11-02-2022 End: 11-08-2022 take 1 tablet by mouth once Methylprednisolone (Medrol (Fede)) 4 mg tablets,dose pack Discontinued 4 mg PO per package directions 21 6 0 November 02, 2022 12:00am November 07, 2022 12:00am November 08, 2022 12:04am metroNIDAZOLE 500 mg oral tablet (5 sources) Nitroimidazole Antimicrobial Start: 07-02-2024 End: 07-02-2024 take 1 tablet by mouth twice daily Metronidazole 500 mg tablet Discontinued 500 mg PO TWICE A DAY July 02, 2024 12:00am July 02, 2024 11:50am Multivitamin (Multiple Vitamins) 1 EACH tablet (20 sources) Start: 11-07-2016 End: 05-27-2023 take 1 tablet by mouth once daily Multivitamin (Multiple Vitamins) 1 EACH tablet Discontinued 1 NMA PO DAILY November 07, 2016 12:00am May 27, 2023 1:17am Start: 11-07-2016 End: 05-27-2023 take 1 tablet by mouth once daily Multivitamin (Multiple Vitamins) 1 EACH tablet Discontinued 1 EACH PO DAILY November 07, 2016 12:00am May 27, 2023 1:17am Start: 11-07-2016 End: 05-27-2023 take 1 tablet by mouth once daily Multivitamin (Multiple Vitamins) 1 EACH tablet Discontinued 1 EACH PO DAILY November 06, 2016 11:00pm May 27, 2023 12:17am Start: 11-07-2016 take 1 tablet by [place] th once daily Multivitamin (Multiple Vitamins) 1 EACH tablet Active 1 EACH PO DAILY November 06, 2016 11:00pm Start: 11-07-2016 take 1 tablet by [place] th once daily Multivitamin (Multiple Vitamins) 1 EACH tablet Active 1 EACH PO DAILY November 07, 2016 12:00am pantoprazole 40 mg delayed release oral tablet (8 sources) Proton Pump Inhibitor Start: 06-09-2023 End: 07-05-2023 take 1 tablet by mouth once daily Pantoprazole 40 mg tablet,delayed release (DR/EC) Discontinued 40 mg PO DAILY June 09, 2023 1:00am July 05, 2023 3:05pm tumeric root powder (8 sources) Start: 06-09-2023 End: 03-15-2024 tumeric root powder Discontinued PO June 09, 2023 1:00am March 15, 2024 3:42pm Start: 06-09-2023 tumeric root p owder Active PO June 09, 2023 1:00am Start: 06-09-2023 tumeric root p owder Active PO June 09, 2023 12:00am Problems Active Problems Problem Classification Problem Date Documented Da te Episodic/Chronic Acute cerebrovascular disease (18 sources) Cerebral infarction, unspecified; Translations: [Stroke of unknown etiology] Onset: 4 06-15-2023 Chronic Cancer of bronchus; lung (9 sources) Malignant neoplasm of lower respiratory tract; Translations: [Malignant neoplasm of unspecified part of unspecified bronchus or lung] 06-09-2023 Chronic Cancer of bronchus; lung (8 sources) History of malignant neoplasm of thoracic cavity structure; Translations: [Personal history of other malignant neoplasm of bronchus and lung] 06-09-2023 Episodic Cardiac dysrhythmias (7 sources) Palpitations; Translations: [Palpitations] 08-10-2023 Episodic Disorders of lipid metabolism (10 sources) Hyperlipidemia; Translations: [Hyperlipidemia, unspecified] Onset: 5 06-09-2023 Chronic Esophageal disorders (8 sources) Gastroesophageal reflux disease; Translations: [Gastro-esophageal reflux disease without esophagitis] 06-09-2023 Chronic Essential hypertension (7 sources) Hypertensive disorder; Translations: [Essential (primary) hypertension] Onset: 5 08-02-2024 Chronic Immunizations and screening for infectious disease (20 sources) Contact with or exposure to other viral diseases; Translations: [Exposure to COVID-19 virus] 01-06-2021 Episodic Nutritional deficiencies (8 sources) Vitamin D deficiency; Translations: [Vitamin D deficiency, unspecified] 06-09-2023 Chronic Osteoporosis (8 sources) Osteoporosis; Translations: [Age-related osteoporosis without current pathological fracture] 06-09-2023 Chronic Other bone disease and musculoskeletal deformities (20 sources) Segmental and somatic dysfunction; Translations: [Segmental and somatic dysfunction of cervical region] 11-28-2017 Episodic Other circulatory disease (16 sources) Elevated blood-pressure reading without diagnosis of hypertension; Translations: [Elevated blood-pressure reading, without diagnosis of hypertension] 05-27-2023 Episodic Other fractures (11 sources) Compression fracture of lumbar spine; Translations: [Wedge compression fracture of fourth lumbar vertebra, initial encounter for closed fracture] 05-27-2023 Episodic Other gastrointestinal disorders (8 sources) Irritable bowel syndrome; Translations: [Irritable bowel syndrome without diarrhea] 06-09-2023 Chronic Other liver diseases (8 sources) Hepatic fibrosis; Translations: [Hepatic fibrosis] 06-09-2023 Chronic Other screening for suspected conditions (not mental disorders or infectious disease) (10 sources) Endometrium thickened; Translations: [Abnormal findings on diagnostic imaging of other specified body structures] Onset: 5 03-15-2024 Chronic Other upper respiratory infections (10 sources) Acute sinusitis; Translations: [Acute sinusitis, unspecified] 11-02-2022 Episodic Pleurisy; pneumothorax; pulmonary collapse (1 source) Pleurisy; Translations: [Pleurisy] Onset: 5 Episodic Spondylosis; intervertebral disc disorders; other back problems (20 sources) Degeneration of lumbar intervertebral disc; Translations: [Other intervertebral disc degeneration, lumbar region] 11-28-2017 Chronic Transient cerebral ischemia (20 sources) Transient cerebral ischemia; Translations: [Transient cerebral ischemic attack, unspecified] Onset: 4 05-27-2023 Chronic Comment on above: 05/2023 NO DEFICITS Unclassified (20 sources) Age AND/OR growth finding; Translations: [65 years of age or older] 01-06-2021 Unclassified (1 source) Hepatic fibrosis, unspecified; Translations: [Hepatic fibrosis, unspecified] Onset: 5 Unclassified (1 source) Low back pain, unspecified; Translations: [Low back pain, unspecified] Onset: 4 Viral infection (20 sources) Disease caused by 2019-nCoV; Translations: [COVID-19] 01-06-2021 Episodic Past or Other Problems Problem Classification Problem Date Documented Da te Episodic/Chronic Deficiency and other anemia (1 source) Folate deficiency anemia, unspecified; Translations: [Folate deficiency anemia, unspecified] Onset: 03-02-2024 Episodic Fluid and electrolyte disorders (18 sources) Hypokalemia; Translations: [Hypokalemia] Onset: 03-15-2024 05-27-2023 Episodic Intestinal obstruction without hernia (1 source) Fecal impaction; Translations: [Fecal impaction] Onset: 07-23-2024 Episodic Other circulatory disease (8 sources) Elevated blood-pressure reading, without diagnosis of hypertension; Translations: [Elevated blood pressure reading without diagnosis of hypertension] Onset: 03-15-2024 05-27-2023 Episodic Other fractures (6 sources) Wedge compression fracture of fourth lumbar vertebra, initial encounter for closed fracture; Translations: [Closed fracture of lumbar vertebra without mention of spinal cord injury] Onset: 02-22-2024 05-27-2023 Episodic Other gastrointestinal disorders (1 source) Diarrhea, unspecified; Translations: [Diarrhea, unspecified] Onset: 07-24-2024 Episodic Other screening for suspected conditions (not mental disorders or infectious disease) (1 source) Encounter for screening mammogram for malignant neoplasm of breast; Translations: [Encounter for screening mammogram for malignant neoplasm of breast] Onset: 06-25-2024 Episodic Residual codes; unclassified (1 source) Chills (without fever); Translations: [Chills (without fever)] Onset: 07-15-2024 Episodic Results Test Name Value Interpretation Reference Range Facility Absolute lymphocyte countOrd ered By: Cristian Silveira on 10-30-2024 Lymphocytes Auto (Unsp spec) [#/Vol] 2.36 10*3/uL 0.83-4.[address] [facility] Absolute neutrophil countOrd ered By: Cristian Silveira on 10-30-2024 Neutrophils (Bld) [#/Vol] 6.1 10*3/uL 2.0-7.[address] [facility] Anion gap in Serum or Plasma Ordered By: Cristian Silveira on 10-30-2024 Anion gap [Moles/Vol] 13 mmol/L 5-[address] [facility] Automated lymphocyte count a s percentage of total leukocytesOrdered By: Cristian Silveira on 10-30-2024 Lymphocytes/100 WBC Auto (Unsp spec) 25.1 % 19-[address] [facility] BUN/creatinine ratioOrdered By: Cristian Silveira on 10-30-2024 Urea nitrogen/Creatinine [Mass ratio] 17.8 mg/mg 10-[address] [facility] Basophil percentageOrdered B y: Cristian Silveira on 10-30-2024 Basophils/100 WBC (Bld) 0.7 % 0-1 [facility] Bilirubin, totalOrdered By: Cristian Silveira on 10-30-2024 Bilirubin [Mass/Vol] 0.66 mg/dL 0.00-1.30 [facility] CBC W/Diff, Automatedon 10-09 Absolute Lymph 2.36 X10 3/uL Normal 0.83-4.[address] [facility] Comment on above: Performed By: #### L 506.1001, [id number], L500.4050, L100.0100 ####[facility] [id number] [place], [address] Absolute Neut 6.1 X10 3/uL Normal 2.0-7.[address] [facility] Comment on above: Performed By: #### L 506.1001, [id number], L500.4050, L100.0100 ####[facility] [id number] [place], [address] Basophils/100 WBC (Bld) 0.7 % Normal 0-1 [facility] Comment on above: Performed By: #### L 506.1001, [id number], L500.4050, L100.0100 ####[facility] [id number] [place], [address] Eosinophils/100 WBC (Bld) 1.0 % Normal 0-[address] [facility] Comment on above: Performed By: #### L 506.1001, [id number], L500.4050, L100.0100 ####[facility] [id number] [place], [address] Erythrocyte distribution width (RBC) [Ratio] 12.8 % Normal 11.6-14.[address] [facility] Comment on above: Performed By: #### L 506.1001, [id number], L500.4050, L100.0100 ####[facility] [id number] [place], [address] Hematocrit (Bld) [Volume fraction] 46.7 % Normal 37-[address] [facility] Comment on above: Performed By: #### L 506.1001, [id number], L500.4050, L100.0100 ####[facility] [id number] [place], [address] Hemoglobin (Bld) [Mass/Vol] 15.8 g/dL High 12.0-15.[address] [facility] Comment on above: Performed By: #### L 506.1001, [id number], [id number], L100.0100 ####[facility] [address] [place], [address] IG% 0.600 Normal 0.0-0.[address] [facility] Comment on above: Result Comment: IG% - Immature Granulocytes (promyelocytes, myelocytes and metamyelocytes) > 1% indicates that a LEFT SHIFT is Present. Performed By: #### L 506.1001, [id number], [id number], L100.0100 ####[facility] [address] [place], [address] Lymphocytes/100 WBC (Bld) 25.1 % Normal 19-[address] [facility] Comment on above: Performed By: #### L 506.1001, [id number], L500.4050, L100.0100 ####[facility] [address] [place], [address] MCH (RBC) [Entitic mass] 31.0 pg Normal 27.0-32.[address] [facility] Comment on above: Performed By: #### L 506.1001, L501.9520, L500.4050, L100.0100 ####[facility] [address] [place], [address] MCHC (RBC) [Mass/Vol] 33.8 g/dL Normal 32-[address] [facility] Comment on above: Performed By: #### L 506.1001, L501.9520, L500.4050, L100.0100 ####[facility] [address] [place], [address] MCV (RBC) [Entitic vol] 91.7 fL Normal 81-99 [facility] Comment on above: Performed By: #### L 506.1001, L501.9520, L500.4050, L100.0100 ####[facility] [address] [place], [address] Monocytes/100 WBC (Bld) 7.5 % Normal 0-10 [facility] Comment on above: Performed By: #### L 506.1001, L501.9520, L500.4050, L100.0100 ####[facility] [address] [place], [address] Neutrophils/100 WBC (Bld) 65.1 % Normal 47-[address] [facility] Comment on above: Performed By: #### L 506.1001, L501.9520, L500.4050, L100.0100 ####[facility] [address] [place], [address] Nucleated RBC (Bld) [#/Vol] 0 10*3/uL Normal 0-[address] [facility] Comment on above: Performed By: #### L 506.1001, L501.9520, L500.4050, L100.0100 ####[facility] [address] [place], [address] Platelet mean volume (Bld) [Entitic vol] 9.7 fL Normal 6.2-12.[address] [facility] Comment on above: Performed By: #### L 506.1001, L501.9520, L500.4050, L100.0100 ####[facility] [address] [place], [address] Platelets (Bld) [#/Vol] 319 10*3/uL Normal 150-[address] [facility] Comment on above: Performed By: #### L 506.1001, L501.9520, L500.4050, L100.0100 ####[facility] [address] [place], [address] RBC (Bld) [#/Vol] 5.09 10*6/uL Normal 4.2-5.4 [facility] Comment on above: Performed By: #### L 506.1001, L501.9520, L500.4050, L100.0100 ####[facility] [address] [place], [address] RDW SD 43.0 fl Normal 35.1-43.[address] [facility] Comment on above: Performed By: #### L 506.1001, L501.9520, L500.4050, L100.0100 ####[facility] [address] [place], [address] WBC (Bld) [#/Vol] 9.4 10*3/uL Normal 4.4-11.0 [facility] Comment on above: Performed By: #### L 506.1001, L501.9520, L500.4050, L100.0100 ####[facility] [address] [place], [address] Carbon dioxide, total [Moles /volume] in Central venous bloodOrdered By: Cristian Silveira on 10-30-2024 CO2 [Moles/Vol] 22.2 mmol/L 21.0-32.[address] [facility] Chloride assayOrdered By: Vadim Silveira on 10-30-2024 Chloride [Moles/Vol] 104 mmol/L 98-108 [facility] Comprehensive Metabolic Prof ilon 10-30-2024 Albumin [Mass/Vol] 4.3 g/dL Normal 3.4-4.8 [facility] Comment on above: Performed By: #### M 100.678 #### [facility] [address] [place], [address] Albumin/Globulin [Mass ratio] 1.9 {ratio} Normal 0.9-2.[address] [facility] Comment on above: Performed By: #### M 100.678 #### [facility] [address] [place], [address] ALK PHOS 52 U/L Normal 35-[address] [facility] Comment on above: Performed By: #### M 100.678 #### [facility] [address] [place], [address] ALT [Catalytic activity/Vol] 34 U/L Normal <=[address] [facility] Comment on above: Performed By: #### M 100.678 #### [facility] [address] [place], [address] AST [Catalytic activity/Vol] 21 U/L Normal <=[address] [facility] Comment on above: Performed By: #### M 100.678 #### [facility] [address] [place], [address] Bilirubin [Mass/Vol] 0.66 mg/dL Normal 0.00-1.30 [facility] Comment on above: Performed By: #### M 100.678 #### [facility] [address] [place], [address] BUN/CRE 17.8 RATIO Normal 10-[address] [facility] Comment on above: Performed By: #### M 100.678 #### [facility] [address] [place], [address] Calcium [Mass/Vol] 9.6 mg/dL Normal 7.6-11.0 [facility] Comment on above: Performed By: #### M 100.678 #### [facility] [address] [place], [address] Chloride [Moles/Vol] 104 mmol/L Normal 98-108 [facility] Comment on above: Performed By: #### M 100.678 #### [facility] [address] [place], [address] CO2 [Moles/Vol] 22.2 mmol/L Normal 21.0-32.[address] [facility] Comment on above: Performed By: #### M 100.678 #### [facility] [address] [place], [address] Creatinine [Mass/Vol] 0.64 mg/dL Low 0.70-1.[address] [facility] Comment on above: Performed By: #### M 100.678 #### [facility] [address] [place], [address] GAP 13 Normal 5-[address] [facility] Comment on above: Performed By: #### M 100.678 #### [facility] [address] [place], [address] GFR/1.73 sq M.predicted among non-blacks MDRD (S/P/Bld) [Vol rate/Area] 95 mL/min/{1.73_m2} Normal >60 [facility] Comment on above: Result Comment: mL/m in/1.73m2 CKD-EPI Creatinine Equation (2020) Performed By: #### M 100.678 #### [facility] [address] [place], [address] Globulin (S) [Mass/Vol] 2.3 g/dL Normal 2.2-4.2 [facility] Comment on above: Performed By: #### M 100.678 #### [facility] [address] [place], [address] Glucose [Mass/Vol] 133 mg/dL High 70-99 [facility] Comment on above: Performed By: #### M 100.678 #### [facility] [address] [place], [address] Potassium [Moles/Vol] 3.6 mmol/L Normal 3.3-5.[address] [facility] Comment on above: Performed By: #### M 100.678 #### [facility] [address] [place], [address] Sodium [Moles/Vol] 139 mmol/L Normal 133-145 [facility] Comment on above: Performed By: #### M 100.678 #### [facility] [address] [place], [address] T PROT 6.6 g/dL Normal 5.9-8.[address] [facility] Comment on above: Performed By: #### M 100.678 #### [facility] [address] [place], [address] Urea nitrogen [Mass/Vol] 11 mg/dL Normal 4-[address] [facility] Comment on above: Performed By: #### M 100.678 #### [facility] [address] [place], [place], [id number] (850) Eosinophil percentageOrdered By: Cristian Silveira on 10-30-2024 Eosinophils/100 WBC (Bld) 1.0 % 0-[address] [facility] Erythrocyte distribution wid th ratioOrdered By: Cristian Silveira 10-30-2024 Erythrocyte distribution width (RBC) [Ratio] 12.8 % 11.6-14.[address] [facility] Erythrocyte distribution wid th standard deviationOrdered By: Cristian Silveira 10-30-2024 Erythrocyte distribution width (RBC) [Ratio] 43.0 fl 35.1-43.[address] [facility] Glomerular filtration rate ( GFR) estimation/1.73 sq m using serum, plasma, or whole bOrdered By: Cristian Silveira on 10-30-2024 GFR/1.73 sq M.predicted among non-blacks MDRD (S/P/Bld) [Vol rate/Area] 95 mL/min/{1.73_m2} >60 [facility] Comment on above: mL/min/1.73m2 CKD-EP I Creatinine Equation (2020) Hematocrit Auto (Bld) [Volum e fraction]Ordered By: Cristian Silveira on 10-30-2024 Hematocrit (Bld) [Volume fraction] 46.7 % 37-[address] [facility] Hemoglobin measurementOrdere d By: Cristian Silveira on 10-30-2024 Hemoglobin (Bld) [Mass/Vol] 15.8 g/dL High 12.0-15.[address] [facility] Immature granulocytes/100 WB C Auto (Bld)Ordered By: Cristian Silveira on 10-30-2024 Immature granulocytes/100 WBC (Bld) 0.600 % 0.0-0.[address] [facility] Comment on above: IG% - Immature Granu locytes (promyelocytes, myelocytes and metamyelocytes) > 1% indicates that a LEFT SHIFT is Present. Laboratory - Chemistry and C hemistry - challengeOrdered By: Cristian Silveira on 10-30-2024 AST [Catalytic activity/Vol] 21 U/L <[address] [facility] MCV (mean corpuscular volume ) determinationOrdered By: Cristian Silveira 10-30-2024 MCV (RBC) [Entitic vol] 91.7 fL 81-99 [facility] Mean corpuscular hemoglobin (MCH) determinationOrdered By: Cristian Silveira 10-30-2024 MCH (RBC) [Entitic mass] 31.0 pg 27.0-32.[address] [facility] Mean corpuscular hemoglobin concentration (MCHC) determinationOrdered By: Cristian Silveira 10-30-2024 MCHC (RBC) [Mass/Vol] 33.8 g/dL 32-[address] [facility] Mean platelet volume determi nationOrdered By: Cristian Silveira 10-30-2024 Platelet mean volume (Bld) [Entitic vol] 9.7 fL 6.2-12.[address] [facility] Monocyte percentageOrdered B y: Cristian Silveira on 10-30-2024 Monocytes/100 WBC (Bld) 7.5 % 0-10 [facility] Neutrophil percentageOrdered By: Cristian Silveira 10-30-2024 Neutrophils/100 WBC (Bld) 65.1 % 47-[address] [facility] Nucleated red blood cell per centageOrdered By: Cristian Silveira on 10-30-2024 Nucleated RBC/100 WBC (Bld) [Ratio] 0 % 0-[address] [facility] Platelet countOrdered By: Vadim Silveira on 10-30-2024 Platelets (Bld) [#/Vol] 319 10*3/uL 150-[address] [facility] Potassium measurement (mass/ volume)Ordered By: Cristian Silveira on 10-30-2024 Potassium (Unsp spec) [Mass/Vol] 3.6 mmol/L 3.3-5.[address] [facility] RBC Auto (Bld) [#/Vol]Ordere d By: Cristian Silveira on 10-30-2024 RBC (Bld) [#/Vol] 5.09 10*6/uL 4.2-5.4 [facility] Serum creatinine measurement (mass/volume)Ordered By: Cristian Silveira 10-30-2024 Creatinine [Mass/Vol] 0.64 mg/dL Low 0.70-1.[address] [facility] Serum globulin measurementOr dered By: Cristian Silveira 10-30-2024 Globulin (S) [Mass/Vol] 2.3 g/dL 2.2-4.2 [facility] Serum glucose measurement (m ass/volume)Ordered By: Cristian Silveira 10-30-2024 Glucose [Mass/Vol] 133 mg/dL High 70-99 [facility] Serum or plasma alanine mederos otransferase (ALT) measurementOrdered By: Cristian Silveira 10-30-2024 ALT [Catalytic activity/Vol] 34 U/L <[address] [facility] Serum or plasma albumin rigoberto urement (mass/volume)Ordered By: Cristian Silveira 10-30-2024 Albumin [Mass/Vol] 4.3 g/dL 3.4-4.8 [facility] Serum or plasma albumin/glob ulin mass ratioOrdered By: Cristian Silveira 10-30-2024 Albumin/Globulin [Mass ratio] 1.9 {ratio} 0.9-2.[address] [facility] Serum or plasma alkaline luis sphatase measurementOrdered By: Cristian Silveira 10-30-2024 ALP [Catalytic activity/Vol] 52 U/L 35-[address] [facility] Serum or plasma calcium rigoberto urement (mass/volume)Ordered By: Cristian Silveira on 10-30-2024 Calcium [Mass/Vol] 9.6 mg/dL 7.6-11.0 [facility] Serum or plasma urea nitroge n measurement (mass/volume)Ordered By: Cristian Silveira on 10-30-2024 Urea nitrogen [Mass/Vol] 11 mg/dL 4-[address] [facility] Sodium levelOrdered By: Cristian Silveira on 10-30-2024 Sodium [Moles/Vol] 139 mmol/L 133-145 [facility] TSH DL <= 0.005 mIU/L QnOrde red By: Cristian Silveira on 10-30-2024 TSH Qn 1.610 uIU/mL 0.300-4.[address] [facility] Thyroid Stim Hormone (TSH)on 10-30-2024 TSH 1.610 uIU/mL Normal 0.300-4.[address] [facility] Comment on above: Performed By: #### M [id number] #### [facility] [address] [place], [address] Total proteinOrdered By: Cristian Silveira on 10-30-2024 Protein [Mass/Vol] 6.6 g/dL 5.9-8.4 [facility] Vitamin D,25 Hydroxyon 10-30 Vitamin D 25-OH 88.2 ng/mL Normal 30-[address] [facility] Comment on above: Result Comment: Nery min D Status Deficiency: <20 ng/mL (50nmol/L) Insufficiency: 20-30 ng/mL (50-75 nmol/L) Sufficiency: 30-100 ng/mL (75-250 nmol/L) Toxicity: >100 ng/mL (>250 nmol/L) Performed By: #### M 100.678 #### [facility] [address] [place], [place], [address] White blood cell (WBC) count Ordered By: Cristian Silveira on 10-30-2024 WBC (Bld) [#/Vol] 9.4 10*3/uL 4.4-11.0 [facility] Chest PA and Lateralon 08-14 Chest PA and Lateral [facility] Services [address] [place], [place] [address] Chest PA and Lateral MR#: [id number] Acct: [id number] Name: MELISA EDOUARD Rep #: [id number] : 1955 F 69 From: [place] MD PCP: Dr. Cristian Silveira MD Status: REG CLI Study: Chest PA and Lateral Date of Exam: 08/14/24 Exam# [id number] Ordering Dr: Cristian Silveira MD PROCEDURE: CHEST PA AND LATERAL 08/14/2024 REASON FOR EXAM: PLEURISY TECHNIQUE: Frontal and lateral views of the chest. COMPARISON: 10/06/2023 FINDINGS: The lungs are clear. Status post right upper lobectomy again noted. No pneumothorax or pleural effusion. The cardiac and mediastinal contours appear within limits. The visualized osseous structures appear within limits. RAD/Chest PA and Lateral IMPRESSION: No evidence of acute disease. Reading Location: [facility] CC: Dr. Cristian Silveira MD Combination Welder: Signed Normal [facility] Anion gap in Serum or Plasma Ordered By: Bruno Little on 08-06-2024 Anion gap [Moles/Vol] 12 mmol/L 08-[address] [facility] BUN/creatinine ratioOrdered By: Bruno Little on 08-06-2024 Urea nitrogen/Creatinine [Mass ratio] 17.1 mg/mg 01-[address] [facility] Basic Metabolic Profile (BMP )on 08-06-2024 BUN/CRE 17.1 RATIO Normal 01-[address] [facility] Comment on above: Performed By: #### M 100.678 #### [facility] [address] [place], [place], [id number] Calcium [Mass/Vol] 9.2 mg/dL Normal 7.6-11.0 [facility] Comment on above: Performed By: #### M 100.678 #### [facility] [address] [place], [address] Chloride [Moles/Vol] 105 mmol/L Normal 98-108 [facility] Comment on above: Performed By: #### M 100.678 #### [facility] [address] [place], [address] CO2 [Moles/Vol] 23.9 mmol/L Normal 21.0-32.[address] [facility] Comment on above: Performed By: #### M 100.678 #### [facility] [address] [place], [address] Creatinine [Mass/Vol] 0.64 mg/dL Low 0.70-1.[address] [facility] Comment on above: Performed By: #### M 100.678 #### [facility] [address] [place], [address] GAP 12 Normal 5-[address] [facility] Comment on above: Performed By: #### M 100.678 #### [facility] [address] [place], [address] GFR/1.73 sq M.predicted among non-blacks MDRD (S/P/Bld) [Vol rate/Area] 95 mL/min/{1.73_m2} Normal >60 [facility] Comment on above: Result Comment: mL/m in/1.73m2 CKD-EPI Creatinine Equation (2020) Performed By: #### M 100.678 #### [facility] [address] [place], [address] Glucose [Mass/Vol] 118 mg/dL High 70-99 [facility] Comment on above: Performed By: #### M 100.678 #### [facility] [address] [place], [address] Potassium [Moles/Vol] 3.8 mmol/L Normal 3.3-5.[address] [facility] Comment on above: Performed By: #### M 100.678 #### [facility] [address] [place], [address] Sodium [Moles/Vol] 140 mmol/L Normal 133-145 [facility] Comment on above: Performed By: #### M 100.678 #### [facility] [address] [place], [address] Urea nitrogen [Mass/Vol] 11 mg/dL Normal 4-[address] [facility] Comment on above: Performed By: #### M 100.678 #### [facility] [address] [place], [place], [address] Bilirubin directOrdered By: Bruno Little on 08-06-2024 Bilirubin.direct [Mass/Vol] 0.32 mg/dL High 0.00-0.[address] [facility] Bilirubin, totalOrdered By: Bruno Little on 08-06-2024 Bilirubin [Mass/Vol] 0.72 mg/dL 0.00-1.30 [facility] Calculated very low density lipoprotein (VLDL) cholesterol measurementOrdered By: Bruno Little on 08-06-2024 Calculated very low density lipoprotein (VLDL) cholesterol measurement 16 mg/dL 5-[address] [facility] Carbon dioxide, total [Moles /volume] in Central venous bloodOrdered By: Bruno Little on 08-06-2024 CO2 [Moles/Vol] 23.9 mmol/L 21.0-32.[address] [facility] Chloride assayOrdered By: Lisa Little on 08-06-2024 Chloride [Moles/Vol] 105 mmol/L 98-108 [facility] Glomerular filtration rate ( GFR) estimation/1.73 sq m using serum, plasma, or whole bOrdered By: Bruno Little on 08-06-2024 GFR/1.73 sq M.predicted among non-blacks MDRD (S/P/Bld) [Vol rate/Area] 95 mL/min/{1.73_m2} >60 [facility] Comment on above: mL/min/1.73m2 CKD-EP I Creatinine Equation (2020) LDL calc ser/plasOrdered By: Bruno Little on 08-06-2024 Cholesterol in LDL [Mass/Vol] 94 mg/dL [facility] Comment on above: Zaqrjaujlf=591-157 m g/dL & Higher Moxw=662 mg/dL or greater Laboratory - Chemistry and C hemistry - challengeOrdered By: Bruno Little on 08-06-2024 AST [Catalytic activity/Vol] 23 U/L <[address] [facility] Lipid Profileon 08-06-2024 CHOL:HDL 2.[address] [facility] Comment on above: Performed By: #### M 100.678 #### [facility] [address] [place], [address] Cholesterol [Mass/Vol] 172 mg/dL Normal <=200 [facility] Comment on above: Result Comment: Chol esterol level, Desirable <200 mg/dL Borderline high cholesterol 200-239 mg/dL High cholesterol >=240 mg/dL Recommendations of the NCEP Adult Treatment Panel for the following risk-cutoff thresholds for the [place] population. Performed By: #### M 100.678 #### [facility] [address] [place], [address] Cholesterol in HDL [Mass/Vol] 62 mg/dL Normal [facility] Comment on above: Result Comment: Cate onal Cholesterol Education Program (NCEP) guidelines: <40 mg/dL: Low HDL-cholesterol (major risk factor for CHD) >= 60 mg/dL: High HDL-cholesterol (negative risk factor for CHD) HDL-cholesterol is affected by a number of factors, e.g. smoking, exercise, hormones, sex and age. Performed By: #### M 100.678 #### [facility] [address] [place], [address] Cholesterol in LDL [Mass/Vol] 94 mg/dL Normal [facility] Comment on above: Result Comment: Bord vqiwor=792-656 mg/dL Higher Laan=864 mg/dL or greater Performed By: #### M 100.678 #### [facility] [address] [place], [address] Cholesterol in VLDL [Mass/Vol] 16 mg/dL Normal 5-[address] [facility] Comment on above: Performed By: #### M 100.678 #### [facility] [address] [place], [address] Triglyceride [Mass/Vol] 79 mg/dL Normal [facility] Comment on above: Result Comment: The drugs N-Acetylcysteine and Metamizole may falsely depress this assay. Normal range: <150 mg/dL Borderline High: 150-199 mg/dL High: 200-499 mg/dL Very High: >500 mg/dL Performed By: #### M 100.678 #### [facility] [address] [place], [address] Liver Profileon 08-06-2024 Albumin [Mass/Vol] 4.3 g/dL Normal 3.4-4.8 [facility] Comment on above: Performed By: #### M 100.678 #### [facility] [address] [place], [address] ALK PHOS 49 U/L Normal 35-[address] [facility] Comment on above: Performed By: #### M 100.678 #### [facility] [address] [place], [address] ALT [Catalytic activity/Vol] 35 U/L Normal <=[address] [facility] Comment on above: Performed By: #### M 100.678 #### [facility] [address] [place], [address] AST [Catalytic activity/Vol] 23 U/L Normal <=[address] [facility] Comment on above: Performed By: #### M 100.678 #### [facility] [address] [place], [address] Bilirubin [Mass/Vol] 0.72 mg/dL Normal 0.00-1.30 [facility] Comment on above: Performed By: #### M 100.678 #### [facility] [address] [place], [address] Bilirubin.direct [Mass/Vol] 0.32 mg/dL High 0.00-0.[address] [facility] Comment on above: Performed By: #### M 100.678 #### [facility] [address] [place], [address] Globulin (S) [Mass/Vol] 2.3 g/dL Normal 2.2-4.2 [facility] Comment on above: Performed By: #### M 100.678 #### [facility] [address] [place], [address] T PROT 6.6 g/dL Normal 5.9-8.[address] [facility] Comment on above: Performed By: #### M 100.678 #### [facility] [address] [place], [place], [address] Potassium measurement (mass/ volume)Ordered By: Bruno Little on 08-06-2024 Potassium (Unsp spec) [Mass/Vol] 3.8 mmol/L 3.3-5.[address] [facility] Screening total cholesterol/ high density lipoprotein (HDL) cholesterol ratioOrdered By: Bruno Little on 08-06-2024 Cholesterol.total/Cholest mckenna in HDL [Mass ratio] 2.77 {ratio} [facility] Serum creatinine measurement (mass/volume)Ordered By: Bruno Little on 08-06-2024 Creatinine [Mass/Vol] 0.64 mg/dL Low 0.70-1.[address] [facility] Serum globulin measurementOr dered By: Bruno Little on 08-06-2024 Globulin (S) [Mass/Vol] 2.3 g/dL 2.2-4.2 [facility] Serum glucose measurement (m ass/volume)Ordered By: Bruno Little on 08-06-2024 Glucose [Mass/Vol] 118 mg/dL High 70-99 [facility] Serum or plasma alanine mederos otransferase (ALT) measurementOrdered By: Bruno Little on 08-06-2024 ALT [Catalytic activity/Vol] 35 U/L <[address] [facility] Serum or plasma albumin rigoberto urement (mass/volume)Ordered By: Bruno Sidney on 08-06-2024 Albumin [Mass/Vol] 4.3 g/dL 3.4-4.8 [facility] Serum or plasma alkaline luis sphatase measurementOrdered By: [facility] on 08-06-2024 ALP [Catalytic activity/Vol] 49 U/L 35-[address] [facility] Serum or plasma calcium rigoberto urement (mass/volume)Ordered By: Bruno Demmarie on 08-06-2024 Calcium [Mass/Vol] 9.2 mg/dL 7.6-11.0 [facility] Serum or plasma cholesterol in HDL measurement (mass/volume)Ordered By: Bruno Little on 08-06-2024 Cholesterol in HDL [Mass/Vol] 62 mg/dL >[address] [facility] Comment on above: National Cholesterol Education Program (NCEP) guidelines:<40 mg/dL: Low HDL-cholesterol (major risk factor for CHD)>= 60 mg/dL: High HDL-cholesterol (negative risk factor for CHD)HDL-cholesterol is affected by a number of factors, e.g. smoking, exercise, hormones, sex and age. Serum or plasma cholesterol measurement (mass/volume)Ordered By: Bruno Little on 08-06-2024 Cholesterol [Mass/Vol] 172 mg/dL <201 [facility] Comment on above: Cholesterol level, D esirable <200 mg/dLBorderline high cholesterol 200-239 mg/dLHigh cholesterol >=240 mg/dLRecommendations of the NCEP Adult Treatment Panel for the following risk-cutoff thresholds for the [place] population. Serum or plasma urea nitroge n measurement (mass/volume)Ordered By: Bruno Little on 08-06-2024 Urea nitrogen [Mass/Vol] 11 mg/dL 4-[address] [facility] Sodium levelOrdered By: Xuan Haniter on 08-06-2024 Sodium [Moles/Vol] 140 mmol/L 133-145 [facility] Total proteinOrdered By: Joseph Haniter on 08-06-2024 Protein [Mass/Vol] 6.6 g/dL 5.9-8.4 [facility] Triglycerides measurementOrd ered By: Bruno Little on 08-06-2024 Triglyceride [Mass/Vol] 79 mg/dL <199 [facility] Comment on above: The drugs N-Acetylcy steine and Metamizole may falsely depress this assay. Normal range: <150 mg/dLBorderline High: 150-199 mg/dLHigh: 200-499 mg/dLVery High: >500 mg/dL Cardiology Visit Reporton Cardiology Visit Report [facility] [address] [place] [address] OFFICE VISIT Date of Service: 07/31/24 MR#: [id number] Acct: [id number] Name: MELISA EDOUARD Rep #: [id number] : 1955 Provider: KRISTI Lew Age/Sex: 69/F Location: [facility] Status: Signed HPI HPI History of Present Illness Details: Melisa Edouard is a 69-year-old female who presents to office today for follow-up for monitoring of her cardiovascular health. Patient has a history of hypertension. Patient presented to the emergency department May 2019 for with an unusual sensation in her right arm and some facial drooping. MRI at that time demonstrated a 4 mm focus of acute ischemic changes in the right occipital lobe and otherwise normal. Patient received aspirin and no other medication. An echocardiogram was performed which demonstrated preserved left ventricular systolic function estimated at 70% with no valvular abnormalities noted, no source of embolus was noted and bubble contrast study was normal. Patient was discharged from the hospital with a 7-day event monitor which did not demonstrate any evidence of atrial fibrillation. Carotid studies were also noted to be normal and lipid profile demonstrated a total cholesterol of 223, HDL of 50, LDL 130. Patient was initiated on lipid-lowering medication. Patient presented to the emergency room 08/10/2023 with concerns of palpitations and her Fitbit detecting a heart rate into the high 120s. Workup in the emergency room was unremarkable and she had no recurrent symptoms. Patient was seen approximately 1 month ago for routine follow-up and was noted to be hypertensive. Patient was instructed to monitor BP at home. Upon follow-up in office today, patient presented home BP readings with documented readings with systolic BP 120s-140s/70s with most readings above 130 systolic. Patient also brought her home BP cuff with her today and this was determined to be accurate with readings similar to in office BP readings. Intake Vital Signs 07/02/24 07:24 07/31/24 08:18 Height 5 ft 4 in 5 ft 4 in Weight: 185 lb 185 lb BMI 31.7 31.7 BP 152/98 H 146/86 H Blood Pressure Location Rt brachial Rt brachial Position Sitting Sitting Respiration 14 18 Pulse 84 102 H Pulse Source Monitor NIBP Pulse Oximetry (%) 96 Oxygen Delivery Method room air Comment 1st BP: 151/84 HR: 98 Intake Visit Reasons: 1 M FU/OK PER MMM Inventory Control Coordinator Required: No Accompanied by: Self Is patient in pain?: No Allergies ciprofloxacin (From Cipro) Allergy (Mild, Verified 07/31/24 12:59) itching atorvastatin Allergy (Verified 07/31/24 12:59) Hives simvastatin Allergy (Verified 07/31/24 12:59) Rash Medications ???Medication ???Instructions ???Recorded ???Confirmed ???Type ivermectin 1 % topical cream 30 g TP DAILY skin care 11/07/16 0 07/31/24 History (Soolantra) linaclotide 72 mcg capsule 72 mcg PO DAILY bowel issues 11/0707/31/24 History (Linzess) aspirin 81 mg capsule 81 mg PO DAILY #30 caps 05/27/23 0 07/31/24 Rx cholecalciferol (vitamin D3) 25 1,000 unit PO DAILY vitamin 07/31/24 History mcg (1,000 unit) capsule alendronate 70 mg tablet (Fosamax) 70 mg PO QWEEK 06/09/23 07/31/24 History calcium 600 mg (as 1 cap PO DAILY 06/09/23 07/31/24 H istory carbonate)-vitamin D3 5 mcg (200 unit) capsule (Calcium 600 + D(3)) loratadine 10 mg tablet (Allergy 10 mg PO DAILY Allergies 06/09/23 07/31/24 History Relief (loratadine)) multivitamin 1 tab PO DAILY 06/09/23 07/31/24 H istory doxycycline monohydrate 40 mg 1 cap PO .QOD 05/15/24 04/23/25 Hi story capsule,immediate - delay release rosuvastatin 10 mg tablet (Crestor) 20 mg PO DAILY 11/23/23 5 History albuterol sulfate 90 mcg/actuation 2 puff inhalation PRN PRN 07/31/24 History aerosol inhaler BRONCHITIS gabapentin 100 mg capsule 100 mg PO TID PRN PRN pain 4 07/31/24 History vancomycin 125 mg capsule 125 mg PO Q6H 10 days #40 caps 03/0407/31/24 Rx lisinopril 2.5 mg tablet 2.5 mg PO QDAY #30 tabs 07/31/24 0 07/31/24 Rx Ejection fraction %: 70 Have you fallen in the past year?: No PFSH Medical History Asthma Back pain Cancer Cardiology follow-up encounter Chronic GERD Compression fracture of L4 vertebra DDD (degenerative disc disease), lumbar Elevated blood pressure reading without diagnosis of hypertension Environmental allergies Fatty liver Heartburn Hepatic fibrosis High cholesterol History of echocardiogram History of Holter monitoring History of IBS History of lung cancer History of steroid therapy Hyperlipidemia Hypokalemia IBS (irritable bowel syndrome) Malignant neoplasm of un (more content not included)... Normal [facility] Ova and Parasites 8623on OP OVA AND PARASITES EXAM, ROUTINE These results were obtained using wet preparation(s) and trichrome stained smear. This test does not include testing for Crytosporidium parvum, Cyclospora, or Microsporidia. One negative specimen does not rule out the possibility of a parasitic infection. TESTING PERFORMED AT [facility]. ORIGINAL REPORT ON FILE IN LAB CONTAINS ADDITIONAL TEST SITE INFORMATION. Ova/Parasite Exam NO OVA, CYSTS, OR PARASITES FOUND. Normal [facility] Comment on above: Performed By: #### M 100.6795, M100.637, M100.7900, M100.6796, M600.5000, M100.0605 #### [facility] Laboratory [address] [place], [address] C. difficile DNA LAURIE+probe Q l (Unsp spec)Ordered By: Cristian Silveira on 07-19-2024 Clostridioides difficile (PCR) [facility] C. difficile Ql (Stl)Ordered By: Cristian Silveira on 07-19-2024 C. difficile GDH Antigen & Toxins Toxigenic C. difficile Abnormal [facility] CDIFF (PCR)on 07-19-2024 CDIFF A positive C. difficile molecular test does not differentiate between an active C. difficile infection and C. difficile colonization. Use clinical judgement and paired toxin/antigen testing to identify true infection and need for treatment. C diff DNA Spec Ql LAURIE+probe Reference Range: Negative [employer] GeneXpert: polymerase chain reaction (PCR) 027 027 NAP1-B1 Presumptive Negative *for epidemiolologic???u se C. Diff PCR A Positive-Toxigenic C. Difficile Detected A Normal [facility] Comment on above: Performed By: #### M 100.6795, M100.637, M100.7900, M100.6796, M600.5000, M100.0605 #### [facility] [address] [place], [address] Clostridium Diff Toxin/Agon 07-19-2024 CDIFF (EIA) Copy of report sent to Infection Control Printer [id number] 07/19/24 [facility] Interpretation of C. diff by EIA Method POS Antigen and POS Toxin = Positive for Toxigenic C. difficile gene and active toxin production IS detected. Consistent with true infection. C. difficile Antigen A Positive C. diff A/B Antigen A C. difficile Toxin A Positive-Toxigenic C. Difficile (EIA) A Toxigenic C. difficile Normal [facility] Comment on above: Performed By: #### M 100.6795, M100.637, M100.7900, M100.6796, M600.5000, M100.0605 #### [facility] [address] [place], [address] Clostridium difficile detect ion by polymerase chain reactionOrdered By: Cristian Silveira on 07-19-2024 C. difficile DNA LAURIE+probe Ql (Unsp spec) [facility] ENTERIC PATHOGEN PANEL STOOL on 07-19-2024 EP PANEL Copy of report sent to Infection Control Printer [id number] 07/19/24 0414 [facility]. RESULTS CALLED TO DR. CRISTIAN SILVEIRA 07/19/24 3177 Maru Vargas. REPORT READ BACK BY . Normal Reference Range = Not Detected Nucleic acid amplification test method Not detected for Campylobacter group, Salmonella species, Shigella species, Vibrio Group, Yersinia enterocolitica, EHEC (Shiga Toxin 1, Shiga Toxin 2), Norovirus Gl/Gll, and Rotavirus A. Other common stool pathogens are not detected on this panel include: Aeromonas/Plesiomon as or parasites. Order testing for these organisms separately if suspected. This is an amplified DNA test which makes it both specific and sensitive. CAMPYLOBACTER Not Detected Norovirus Not Detected Rotavirus Not Detected Salmonella Not Detected Shiga Toxin Not Detected Shigella sp. Not Detected VIBRIO Not Detected Yersinia Not Detected Normal [facility] Comment on above: Performed By: #### M 100.6795, M100.637, M100.7900, M100.6796, M600.5000, M100.0605 #### [facility] [address] [place], [place], [id number] Lactoferrin IA Ql (Stl)Order ed By: Cristian Silveira on 07-19-2024 Stool Lactoferrin [facility] Lower GI hemoglobin IA Ql (S tl)Ordered By: Cristian Silveira on 07-19-2024 Stool Occult Blood (MARCELA) [facility] Stool Clostridium difficile detectionOrdered By: Cristian Silveira on 07-19-2024 C. difficile Ql (Stl) Toxigenic C. difficile Abnormal [facility] Stool Lactoferrin/WBCon 07-09 WBCST Normal Reference Range = Negative Fecal WBC Lactoferrin Negative: No Fecal WBC Lactoferrin present Normal [facility] Comment on above: Performed By: #### M 100.6795, M100.637, M100.7900, M100.6796, M600.5000, M100.0605 #### [facility] [address] [place], [address] Stool Occult Blood iFOBon STOB Negative Normal [facility] Comment on above: Performed By: #### M 100.6795, M100.637, M100.7900, M100.6796, M600.5000, M100.0605 #### [facility] [address] [facility] [place], [address] Stool enteric pathogen panel by probe and target amplification methodOrdered By: Cristian Silveira on 07-19-2024 Enteric Bacteriology [facility] Stool gastrointestinal hemog lobin detection by immunologic methodOrdered By: Cristian Silveira on 07-19-2024 Lower GI hemoglobin IA Ql (Stl) [facility] Stool lactoferrin detection by immunoassayOrdered By: Cristian Silveira on 07-19-2024 Lactoferrin IA Ql (Stl) [facility] Abd Inc Decub and/or Erecton 07-18-2024 Abd Inc Decub and/or Erect [facility] Imaging Services [address] [place], [place] [id number] Abd Inc Decub and/or Erect MR#: [id number] Acct: [id number] Name: MELISA EDOUARD Rep #: [id number] : 1955 F 69 From: Shelley Aguilar MD PCP: Dr. Cristian Silveira MD Status: REG CLI Study: Abd Inc Decub and/or Erect Date of Exam: 07/18 Exam# [id number] Ordering Dr: Cristian Silveira MD PROCEDURE: ABD INC DECUB AND/OR ERECT 07/18/2024 REASON FOR EXAM: FDFECAL IMPACTION TECHNIQUE: Single view abdomen. COMPARISON: None available FINDINGS: Bowel gas: Nonobstructive bowel gas pattern Calcifications: Vascular phleboliths projecting over the pelvis. Bones: No acute displaced fracture or dislocation. Other: None RAD/Abd Inc Decub and/or Erect IMPRESSION: Nonobstructive bowel gas pattern Reading Location: [facility] CC: Dr. Cristian Silveira MD Combination Welder: Signed Normal [facility] Absolute lymphocyte countOrd ered By: Cristian Silveira on 07-18-2024 Lymphocytes Auto (Unsp spec) [#/Vol] 2.46 10*3/uL 0.83-4.[address] [facility] Absolute neutrophil countOrd ered By: Cristian Silveira on 07-18-2024 Neutrophils (Bld) [#/Vol] 7.9 10*3/uL High 2.0-7.[address] [facility] Anion gap in Serum or Plasma Ordered By: Cristian Silveira on 07-18-2024 Anion gap [Moles/Vol] 12 mmol/L 5-[address] [facility] Automated lymphocyte count a s percentage of total leukocytesOrdered By: Cristian Silveira on 07-18-2024 Lymphocytes/100 WBC Auto (Unsp spec) 21.0 % 19-[address] [facility] BUN/creatinine ratioOrdered By: Cristian Silveira on 07-18-2024 Urea nitrogen/Creatinine [Mass ratio] 20.1 mg/mg High 10- [facility] Basic Metabolic Profile (BMP )on 07-18-2024 BUN/CRE 20.1 RATIO High - [facility] Comment on above: Performed By: #### L 500.2500, L100.0100 ####[facility] [address] [place], [address] Calcium [Mass/Vol] 10.1 mg/dL Normal 7.6-11.0 [facility] Comment on above: Performed By: #### L 500.2500, L100.0100 ####[facility] [address] [place], [address] Chloride [Moles/Vol] 101 mmol/L Normal 98-108 [facility] Comment on above: Performed By: #### L 500.2500, L100.0100 ####[facility] [address] [place], [address] CO2 [Moles/Vol] 25.1 mmol/L Normal 21.0-32.[address] [facility] Comment on above: Performed By: #### L 500.2500, L100.0100 ####[facility] [address] [place], [address] Creatinine [Mass/Vol] 0.65 mg/dL Low 0.70-1.[address] [facility] Comment on above: Performed By: #### L 500.2500, L100.0100 ####[facility] [address] [place], [address] GAP 12 Normal 5-[address] [facility] Comment on above: Performed By: #### L 500.2500, L100.0100 ####[facility] [address] [place], [address] GFR/1.73 sq M.predicted among non-blacks MDRD (S/P/Bld) [Vol rate/Area] 95 mL/min/{1.73_m2} Normal >60 [facility] Comment on above: Result Comment: mL/m in/1.73m2 CKD-EPI Creatinine Equation (2020) Performed By: #### L 500.2500, L100.0100 ####[facility] [address] [place], [address] Glucose [Mass/Vol] 118 mg/dL High 70-99 [facility] Comment on above: Performed By: #### L 500.2500, L100.0100 ####[facility] [address] [place], [address] Potassium [Moles/Vol] 3.7 mmol/L Normal 3.3-5.[address] [facility] Comment on above: Performed By: #### L 500.2500, L100.0100 ####[facility] [address] [place], [address] Sodium [Moles/Vol] 138 mmol/L Normal 133-145 [facility] Comment on above: Performed By: #### L 500.2500, L100.0100 ####[facility] [address] [place], [address] Urea nitrogen [Mass/Vol] 13 mg/dL Normal 4-[address] [facility] Comment on above: Performed By: #### L 500.2500, L100.0100 ####[facility] [address] [place], [address] Basophil percentageOrdered B y: Cristian Silveira on 07-18-2024 Basophils/100 WBC (Bld) 0.6 % 0-1 [facility] CBC W/Diff, Automatedon 07-09 0-2024 Absolute Lymph 2.46 X10 3/uL Normal 0.83-4.[address] [facility] Comment on above: Performed By: #### L 500.2500, L100.0100 ####[facility] [address] [place], [address] Absolute Neut 7.9 X10 3/uL High 2.0-7.[address] [facility] Comment on above: Performed By: #### L 500.2500, L100.0100 ####[facility] [address] [place], [address] Basophils/100 WBC (Bld) 0.6 % Normal 0-1 [facility] Comment on above: Performed By: #### L 500.2500, L100.0100 ####[facility] [address] [place], [address] Eosinophils/100 WBC (Bld) 1.2 % Normal 0-[address] [facility] Comment on above: Performed By: #### L 500.2500, L100.0100 ####[facility] [address] [place], [address] Erythrocyte distribution width (RBC) [Ratio] 12.7 % Normal 11.6-14.[address] [facility] Comment on above: Performed By: #### L 500.2500, L100.0100 ####[facility] [address] [place], [address] Hematocrit (Bld) [Volume fraction] 49.2 % High 37-[address] [facility] Comment on above: Performed By: #### L 500.2500, L100.0100 ####[facility] [address] [place], [address] Hemoglobin (Bld) [Mass/Vol] 16.5 g/dL High 12.0-15.[address] [facility] Comment on above: Performed By: #### L 500.2500, L100.0100 ####[facility] [address] [place], [address] IG% 0.500 Normal 0.0-0.[address] [facility] Comment on above: Result Comment: IG% - Immature Granulocytes (promyelocytes, myelocytes and metamyelocytes) > 1% indicates that a LEFT SHIFT is Present. Performed By: #### L 500.2500, L100.0100 ####[facility] [address] [place], [address] Lymphocytes/100 WBC (Bld) 21.0 % Normal 19-[address] [facility] Comment on above: Performed By: #### L 500.2500, L100.0100 ####[facility] [address] [place], [address] MCH (RBC) [Entitic mass] 30.4 pg Normal 27.0-32.[address] [facility] Comment on above: Performed By: #### L 500.2500, L100.0100 ####[facility] [address] [place], [address] MCHC (RBC) [Mass/Vol] 33.5 g/dL Normal 32-[address] [facility] Comment on above: Performed By: #### L 500.2500, L100.0100 ####[facility] [address] [place], [address] MCV (RBC) [Entitic vol] 90.6 fL Normal 81-99 [facility] Comment on above: Performed By: #### L 500.2500, L100.0100 ####[facility] [address] [place], [address] Monocytes/100 WBC (Bld) 8.8 % Normal 0-10 [facility] Comment on above: Performed By: #### L 500.2500, L100.0100 ####[facility] [address] [place], [address] Neutrophils/100 WBC (Bld) 67.9 % Normal 47-[address] [facility] Comment on above: Performed By: #### L 500.2500, L100.0100 ####[facility] [address] [place], [address] Nucleated RBC (Bld) [#/Vol] 0 10*3/uL Normal 0-[address] [facility] Comment on above: Performed By: #### L 500.2500, L100.0100 ####[facility] [address] [place], [address] Platelet mean volume (Bld) [Entitic vol] 9.7 fL Normal 6.2-12.[address] [facility] Comment on above: Performed By: #### L 500.2500, L100.0100 ####[facility] [address] [place], [address] Platelets (Bld) [#/Vol] 306 10*3/uL Normal 150-[address] [facility] Comment on above: Performed By: #### L 500.2500, L100.0100 ####[facility] [address] [place], [address] RBC (Bld) [#/Vol] 5.43 10*6/uL High 4.2-5.4 [facility] Comment on above: Performed By: #### L 500.2500, L100.0100 ####[facility] [address] [place], [address] RDW SD 42.3 fl Normal 35.1-43.[address] [facility] Comment on above: Performed By: #### L 500.2500, L100.0100 ####[facility] [address] [place], [address] WBC (Bld) [#/Vol] 11.7 10*3/uL High 4.4-11.0 [facility] Comment on above: Performed By: #### L 500.2500, L100.0100 ####[facility] [address] [place], [address] Carbon dioxide, total [Moles /volume] in Central venous bloodOrdered By: Cristian Silveira on 07-18-2024 CO2 [Moles/Vol] 25.1 mmol/L 21.0-32.[address] [facility] Chloride assayOrdered By: Vadim Silveira on 07-18-2024 Chloride [Moles/Vol] 101 mmol/L 98-108 [facility] Eosinophil percentageOrdered By: Cristian Silveira on 07-18-2024 Eosinophils/100 WBC (Bld) 1.2 % 0-[address] [facility] Erythrocyte distribution wid th (RBC) [Ratio]Ordered By: Cristian Silveira on 07-18-2024 Erythrocyte distribution width (RBC) [Entitic vol] 42.3 fL 35.1-43.9 [facility] Erythrocyte distribution wid th ratioOrdered By: Cristian Silveira on 07-18-2024 Erythrocyte distribution width (RBC) [Ratio] 12.7 % 11.6-14.[address] [facility] Erythrocyte distribution wid th standard deviationOrdered By: Cristian Silveira on 07-18-2024 Erythrocyte distribution width (RBC) [Ratio] 42.3 fl 35.1-43.[address] [facility] GFR/1.73 sq M.predicted lilian g non-blacks MDRD (S/P/Bld) [Vol rate/Area]Ordered By: Cristian Silveira on 07-18-2024 Estimated GFR (MDRD) Non-Af Amer 95 >[address] [facility] Comment on above: mL/min/1.73m2 CKD-EP I Creatinine Equation (2020) Glomerular filtration rate ( GFR) estimation/1.73 sq m using serum, plasma, or whole bOrdered By: Cristian Silveira on 07-18-2024 GFR/1.73 sq M.predicted among non-blacks MDRD (S/P/Bld) [Vol rate/Area] 95 mL/min/{1.73_m2} >60 [facility] Comment on above: mL/min/1.73m2 CKD-EP I Creatinine Equation (2020) Hematocrit Auto (Bld) [Volum e fraction]Ordered By: Cristian Silveira 07-18-2024 Hematocrit (Bld) [Volume fraction] 49.2 % High 37-[address] [facility] Hemoglobin measurementOrdere d By: Cristian Silveira 07-18-2024 Hemoglobin (Bld) [Mass/Vol] 16.5 g/dL High 12.0-15.[address] [facility] Immature granulocytes/100 WB C Auto (Bld)Ordered By: Cristian Silveira 07-18-2024 Immature granulocytes/100 WBC (Bld) 0.500 % 0.0-0.[address] [facility] Comment on above: IG% - Immature Granu locytes (promyelocytes, myelocytes and metamyelocytes) > 1% indicates that a LEFT SHIFT is Present. Lymphocytes Auto (Unsp spec) [#/Vol]Ordered By: Cristian Silveira 07-18-2024 Lymphocytes (Bld) [#/Vol] 2.46 10*3/uL 0.83-4.[address] [facility] Lymphocytes/100 WBC Auto (Un sp spec)Ordered By: Cristian Silveira 07-18-2024 Lymphocytes/100 WBC (Bld) 21.0 % 19-[address] [facility] MCV (mean corpuscular volume ) determinationOrdered By: Cristian Silveira on 07-18-2024 MCV (RBC) [Entitic vol] 90.6 fL 81-99 [facility] Mean corpuscular hemoglobin (MCH) determinationOrdered By: Cristian Silveira on 07-18-2024 MCH (RBC) [Entitic mass] 30.4 pg 27.0-32.[address] [facility] Mean corpuscular hemoglobin concentration (MCHC) determinationOrdered By: Cristian Silveira on 07-18-2024 MCHC (RBC) [Mass/Vol] 33.5 g/dL 32-[address] [facility] Mean platelet volume determi nationOrdered By: Cristian Silveira on 07-18-2024 Platelet mean volume (Bld) [Entitic vol] 9.7 fL 6.2-12.[address] [facility] Monocyte percentageOrdered B y: Cristian Silveira on 07-18-2024 Monocytes/100 WBC (Bld) 8.8 % 0-10 [facility] Neutrophil percentageOrdered By: Cristian Silveira on 07-18-2024 Neutrophils/100 WBC (Bld) 67.9 % 47-[address] [facility] Nucleated red blood cell per centageOrdered By: Cristian Silveira on 07-18-2024 Nucleated RBC/100 WBC (Bld) [Ratio] 0 % 0-[address] [facility] Platelet countOrdered By: Vadim Silveira on 07-18-2024 Platelets (Bld) [#/Vol] 306 10*3/uL 150-[address] [facility] Potassium (Unsp spec) [Mass/ Vol]Ordered By: Cristian Silveira on 07-18-2024 Potassium [Moles/Vol] 3.7 mmol/L 3.3-5.[address] [facility] Potassium measurement (mass/ volume)Ordered By: Cristian Silveira on 07-18-2024 Potassium (Unsp spec) [Mass/Vol] 3.7 mmol/L 3.3-5.[address] [facility] RBC Auto (Bld) [#/Vol]Ordere d By: Cristian Silveira on 07-18-2024 RBC (Bld) [#/Vol] 5.43 10*6/uL High 4.2-5.4 [facility] Serum creatinine measurement (mass/volume)Ordered By: Cristian Silveira on 07-18-2024 Creatinine [Mass/Vol] 0.65 mg/dL Low 0.70-1.[address] [facility] Serum glucose measurement (m ass/volume)Ordered By: Cristian Silveira on 07-18-2024 Glucose [Mass/Vol] 118 mg/dL High 70-99 [facility] Serum or plasma calcium rigoberto urement (mass/volume)Ordered By: Cristian Silveira on 07-18-2024 Calcium [Mass/Vol] 10.1 mg/dL 7.6-11.0 [facility] Serum or plasma urea nitroge n measurement (mass/volume)Ordered By: Cristian Silveira on 07-18-2024 Urea nitrogen [Mass/Vol] 13 mg/dL 4-[address] [facility] Sodium levelOrdered By: Cristian Silveira on 07-18-2024 Sodium [Moles/Vol] 138 mmol/L 133-145 [facility] White blood cell (WBC) count Ordered By: Cristian Silveira on 07-18-2024 WBC (Bld) [#/Vol] 11.7 10*3/uL High 4.4-11.0 [facility] Cardiology Visit Reporton Cardiology Visit Report [facility] [place], [place] [address] OFFICE VISIT Date of Service: 07/02/24 MR#: [id number] Acct: [id number] Name: MELISA EDOUARD Rep #: [id number] : 1955 Provider: KRISTI Tang Age/Sex: 69/F Location: [facility] [place] Status: Signed HPI HPI History of Present Illness Details: Melisa Edouard is a 69-year-old lady who presents to the office today for a cardiovascular follow up visit. She has a history of hypertension who says that on May 2023 she had an unusual sensation in her right arm with some facial drooping and presented to the emergency room. She was evaluated with an MRI which demonstrated a 4 mm focus of acute ischemic change in the right occipital lobe and otherwise normal. She received aspirin and no other medication. An echocardiogram was performed which demonstrated preserved left ventricular systolic function estimated at 70% with no valvular abnormalities noted no source of embolus was noted and bubble contrast study was normal. Subsequently she was discharged with the 7-day event monitor which has not demonstrated any evidence of atrial fibrillation. Carotid studies were noted to be normal and a lipid profile demonstrated total cholesterol 223 HDL of 50 and LDL of 130. She has since been started on lipid-lowering medication. Presented to the emergency room on 08/10/2023 with complaints of palpitations. She states her Fitbit had detected a heart rate into the high 120. Workup in the emergency room was unremarkable she had no recurrent symptoms and no dysrhythmias, ectopy, or a tachycardia. From a cardiac standpoint, the patient is doing well. She denies any palpitations, chest pain, pressure or heaviness. She denies SOB, Orthopnea, and PND. She does not have bleeding issues; no blood in urine, stool or nosebleeds. She denies any decrease in energy level, myalgias, or claudication. She does not have edema, or sudden weight gain. She denies dizziness, lightheadedness, syncopal or near syncopal episodes, and headaches. She states her blood pressures at home average 128-130/70-80's. Intake Vital Signs 07/05/23 15:00 07/02/24 07:24 Height 5 ft 4 in 5 ft 4 in Weight: 185 lb BMI 31.7 BP 152/98 H Blood Pressure Location Rt brachial Position Sitting Respiration 14 Pulse 84 Pulse Source Monitor Pulse Oximetry (%) 96 Oxygen Delivery Method room air Intake Visit Reasons: 1 Y FU Inventory Control Coordinator Required: No Accompanied by: Is patient in pain?: No Allergies ciprofloxacin (From Cipro) Allergy (Mild, Verified 07/02/24 11:25) itching atorvastatin Allergy (Verified 07/02/24 11:25) Hives simvastatin Allergy (Verified 07/02/24 11:25) Rash Medications ???Medication ???Instructions ???Recorded ???Confirmed ???Type ivermectin 1 % topical cream 30 g TP DAILY skin care 11/07/16 0 07/02/24 History (Soolantra) linaclotide 72 mcg capsule 72 mcg PO DAILY bowel issues 11/0707/02/24 History (Linzess) aspirin 81 mg capsule 81 mg PO DAILY #30 caps 05/27/23 0 07/02/24 Rx cholecalciferol (vitamin D3) 25 1,000 unit PO DAILY vitamin 07/02/24 History mcg (1,000 unit) capsule alendronate 70 mg tablet (Fosamax) 70 mg PO QWEEK 06/09/23 07/02/24 History calcium 600 mg (as 1 cap PO DAILY 06/09/23 07/02/24 H istory carbonate)-vitamin D3 5 mcg (200 unit) capsule (Calcium 600 + D(3)) loratadine 10 mg tablet (Allergy 10 mg PO DAILY Allergies 06/09/23 07/02/24 History Relief (loratadine)) multivitamin 1 tab PO DAILY 06/09/23 07/02/24 H istory doxycycline monohydrate 40 mg 1 cap PO .QOD 08/23/23 07/02/24 Hi story capsule,immediate - delay release rosuvastatin 10 mg tablet (Crestor) 20 mg PO DAILY 11/23/23 5 History albuterol sulfate 90 mcg/actuation 2 puff inhalation PRN PRN 07/02/24 History aerosol inhaler BRONCHITIS gabapentin 100 mg capsule 100 mg PO TID PRN PRN pain 4 07/02/24 History Ejection fraction %: 70 Have you fallen in the past year?: No PFSH Medical History Wears glasses Post-menopausal History of steroid therapy Fatty liver High cholesterol Back pain History of IBS Heartburn Non-smoker Asthma Cancer Shortness of breath on exertion History of Holter monitoring History of echocardiogram Cardiology follow-up encounter Malignant neoplasm of unspecified part of unspecified bronchus or lung Chronic GERD Vitamin D deficiency Hepatic fibrosis Osteoporosis Hyperlipidemia Compression fracture of L4 vertebra Hypokalemia Elevated blood pressure reading without diagnosis of hypertension TIA (transient ischemic attack) DDD (degenerative disc disease), lumbar Segmental and somatic dysfunct (more content not included)... Normal [facility] Breast imaging reportOrdered By: Rishabh Camara on 06-13-2024 Study report [facility] Imaging Services [address] [place] [address] SCRN MAMM (CAD)W/SERAFIN BILAT MR#: [id number] Acct: [id number] Name: MELISA EDOUARD Rep #: [id number] : 1955 F 69 From: Diogenes Camara MD PCP: Dr. Cristian Silveira MD Status: REG C KT Study:SCRN MAMM (CAD)W/SERAFIN BILAT Date of Exa m: 06/13/24 Exam# [id number] Ordering Dr: Cristian Silveira MD PROCEDURE: SCRN MAMM (CAD)W/SERAFIN BILAT REASON FOR EXAM: F, Age 69 y/o , . Routine annual follow-up. No family history. TECHNIQUE: Bilateral screening digital breast tomosynthesis with 2D and 3D images. Computeraided detection. COMPARISON: Prior exam(s) dating back to June 12, 2023.. FINDINGS: The breasts are almost entirely fatty. Stable small bilateral fat containing axillary lymph nodes. No suspicious masses, areas of developing architectural distortion, or suspicious calcifications. Stable examination. BI/SCRN MAMM (CAD)W/SERAFIN BILAT IMPRESSION: BI-RADS 2: BENIGN. RECOMMEND ANNUAL MAMMOGRAPHIC SCREENING. Follow-up code: Routine Follow-up The patient will be notified of the results by letter. Reading Location: [id number] CC: Dr. Cristian Silveira MD ~ Combination Welder: Signed [facility] SCRN MAMM (CAD)W/SERAFIN BILATo n 06-13-2024 SCRN MAMM (CAD)W/SERAFIN BILAT [facility] Imaging Services [address] [place] [id number] SCRN MAMM (CAD)W/SERAFIN BILAT MR#: [id number] Acct: [id number] Name: MELISA EDOUARD Rep #: [id number] : 1955 F 69 From: Rishabh cerna MD PCP: Dr. Cristian Silveira MD Status: REG CL Study: SCRN MAMM (CAD)W/SERAFIN BILAT Date of Exam: 10/02 Exam# [id number] Ordering Dr: Cristian Silveira MD PROCEDURE: SCRN MAMM (CAD)W/SERAFIN BILAT REASON FOR EXAM: F, Age 69 y/o , . Routine annual follow-up. No family history. TECHNIQUE: Bilateral screening digital breast tomosynthesis with 2D and 3D images. Computer aided detection. COMPARISON: Prior exam(s) dating back to June 12, 2023.. FINDINGS: The breasts are almost entirely fatty. Stable small bilateral fat containing axillary lymph nodes. No suspicious masses, areas of developing architectural distortion, or suspicious calcifications. Stable examination. BI/SCRN MAMM (CAD)W/SERAFIN BILAT IMPRESSION: BI-RADS 2: BENIGN. RECOMMEND ANNUAL MAMMOGRAPHIC SCREENING. Follow-up code: Routine Follow-up The patient will be notified of the results by letter. Reading Location: [facility] CC: Dr. Cristian Silveira MD Combination Welder: Signed Normal [facility] Influenza virus A and B and SARS-CoV-2 (COVID-19) and Respiratory syncytial virus RNAOrdered By: Cristian Silveira on 05-15-2024 SARS-CoV-2 (COVID-19) RNA LAURIE+probe Ql (Unsp spec) RSV Abnormal [facility] M100.678on 05-15-2024 M100.678 SARS-CoV-2 (COVID 19) Negative INFLUENZA A Negative INFLUENZA B Negative RSV PCR A Positive A RSV Normal [facility] Comment on above: Performed By: #### M 100.678 #### [facility] Laboratory [address] [place] [address], [id number] 15-MI-Qptkado DOrdered By: Josias Silveira on 04-17-2024 Vitamin D 25-Hydroxy 79.6 ng/mL [facility] Comment on above: Vitamin D 25(OH) Sta tus Range Deficiency <20 ng/mL (50nmol/L) Insufficiency 20 - 30 ng/mL (50 - 75 nmol/L) Sufficiency 30 - 100 ng/mL (75 - 250 nmol/L) Toxicity >100 ng/mL (>250 nmol/L) Absolute neutrophil countOrd ered By: Cristian Silveira on 04-17-2024 Neutrophils (Bld) [#/Vol] 6.3 10*3/uL 2.0-7.[address] [facility] Albumin to globulin ratioOrd ered By: Cristian Silveira on 04-17-2024 Albumin/Globulin [Mass ratio] 1.2 {ratio} 0.9-2.[address] [facility] Basophil percentageOrdered B y: Cristian Silveira on 04-17-2024 Basophils/100 WBC (Bld) 0.8 % 0-1 [facility] Bilirubin, totalOrdered By: Cristian Raoul on 04-17-2024 Bilirubin [Mass/Vol] 1.00 mg/dL 0.20-1.00 [facility] Comment on above: For patients on eltr ombopag therapy, use of Dimension [place] TBIL is not recommended. Blood urea nitrogen (BUN)/cr eatinine ratioOrdered By: Cristian Silveira on 04-17-2024 Urea nitrogen/Creatinine [Mass ratio] 22.4 mg/mg High 10-[address] [facility] CBC W/Diff, Automatedon Absolute Lymph 2.42 X10 3/uL Normal 0.83-4.[address] [facility] Comment on above: Performed By: #### L 500.4050, L501.9520, L100.0100, L506.1000 ####[facility] [address] [place], [address] Absolute Neut 6.3 X10 3/uL Normal 2.0-7.[address] [facility] Comment on above: Performed By: #### L 500.4050, L501.9520, L100.0100, L506.1000 ####[facility] [address] [place], [address] Basophils/100 WBC (Bld) 0.8 % Normal 0-1 [facility] Comment on above: Performed By: #### L 500.4050, L501.9520, L100.0100, L506.1000 ####[facility] [address] [place], [address] Eosinophils/100 WBC (Bld) 1.0 % Normal 0-[address] [facility] Comment on above: Performed By: #### L 500.4050, L501.9520, L100.0100, L506.1000 ####[facility] [address] [place], [address] Erythrocyte distribution width (RBC) [Ratio] 12.7 % Normal 11.6-14.[address] [facility] Comment on above: Performed By: #### L 500.4050, L501.9520, L100.0100, L506.1000 ####[facility] [address] [place], [address] Hematocrit (Bld) [Volume fraction] 46.4 % Normal 37-[address] [facility] Comment on above: Performed By: #### L 500.4050, L501.9520, L100.0100, L506.1000 ####[facility] [address] [place], [address] Hemoglobin (Bld) [Mass/Vol] 16.0 g/dL High 12.0-15.[address] [facility] Comment on above: Performed By: #### L 500.4050, L501.9520, L100.0100, L506.1000 ####[facility] [address] [place], [address] IG% 0.500 Normal 0.0-0.[address] [facility] Comment on above: Result Comment: IG% - Immature Granulocytes (promyelocytes, myelocytes and metamyelocytes) > 1% indicates that a LEFT SHIFT is Present. Performed By: #### L 500.4050, L501.9520, L100.0100, L506.1000 ####[facility] [address] [place], [address] Lymphocytes/100 WBC (Bld) 24.9 % Normal 19-[address] [facility] Comment on above: Performed By: #### L 500.4050, L501.9520, L100.0100, L506.1000 ####[facility] [address] [place], [address] MCH (RBC) [Entitic mass] 30.8 pg Normal 27.0-32.[address] [facility] Comment on above: Performed By: #### L 500.4050, L501.9520, L100.0100, L506.1000 ####[facility] [address] [place], [address] MCHC (RBC) [Mass/Vol] 34.5 g/dL Normal 32-[address] [facility] Comment on above: Performed By: #### L 500.4050, L501.9520, L100.0100, L506.1000 ####[facility] [address] [place], [address] MCV (RBC) [Entitic vol] 89.2 fL Normal 81-99 [facility] Comment on above: Performed By: #### L 500.4050, L501.9520, L100.0100, L506.1000 ####[facility] [address] [place], [address] Monocytes/100 WBC (Bld) 8.2 % Normal 0-10 [facility] Comment on above: Performed By: #### L 500.4050, L501.9520, L100.0100, L506.1000 ####[facility] [address] [place], [address] Neutrophils/100 WBC (Bld) 64.6 % Normal 47-[address] [facility] Comment on above: Performed By: #### L 500.4050, L501.9520, L100.0100, L506.1000 ####[facility] [address] [place], [address] Nucleated RBC (Bld) [#/Vol] 0 10*3/uL Normal 0-[address] [facility] Comment on above: Performed By: #### L 500.4050, L501.9520, L100.0100, L506.1000 ####[facility] [address] [place], [address] Platelet mean volume (Bld) [Entitic vol] 9.6 fL Normal 6.2-12.[address] [facility] Comment on above: Performed By: #### L 500.4050, L501.9520, L100.0100, L506.1000 ####[facility] [address] [place], [address] Platelets (Bld) [#/Vol] 290 10*3/uL Normal 150-[address] [facility] Comment on above: Performed By: #### L 500.4050, L501.9520, L100.0100, L506.1000 ####[facility] [address] [place], [address] RBC (Bld) [#/Vol] 5.20 10*6/uL Normal 4.2-5.4 [facility] Comment on above: Performed By: #### L 500.4050, L501.9520, L100.0100, L506.1000 ####[facility] [address] [place], [address] RDW SD 41.7 fl Normal 35.1-43.[address] [facility] Comment on above: Performed By: #### L 500.4050, L501.9520, L100.0100, L506.1000 ####[facility] [address] [place], [address] WBC (Bld) [#/Vol] 9.7 10*3/uL Normal 4.4-11.0 [facility] Comment on above: Performed By: #### L 500.4050, L501.9520, L100.0100, L506.1000 ####[facility] [address] [place], [address] Carbon dioxide measurementOr dered By: Cristian Silveira on 04-17-2024 CO2 [Moles/Vol] 25.0 mmol/L 21.0-32.[address] [facility] Chloride measurementOrdered By: Cristian Silveira on 04-17-2024 Chloride [Moles/Vol] 106 mmol/L 98-107 [facility] Comprehensive Metabolic Prof ilon 04-17-2024 Albumin [Mass/Vol] 3.6 g/dL Normal 3.2-5.0 [facility] Comment on above: Performed By: #### L 500.4050, L501.9520, L100.0100, L506.1000 ####[facility] [address] [place], [address] Albumin/Globulin [Mass ratio] 1.2 {ratio} Normal 0.9-2.[address] [facility] Comment on above: Performed By: #### L 500.4050, L501.9520, L100.0100, L506.1000 ####[facility] [address] [place], [address] ALK P 54 U/L Normal 45-[address] [facility] Comment on above: Performed By: #### L 500.4050, L501.9520, L100.0100, L506.1000 ####[facility] [address] [place], [address] ALT [Catalytic activity/Vol] 40 U/L Normal 13-[address] [facility] Comment on above: Performed By: #### L 500.4050, L501.9520, L100.0100, L506.1000 ####[facility] [address] [place], [address] AST [Catalytic activity/Vol] 19 U/L Normal 15-[address] [facility] Comment on above: Performed By: #### L 500.4050, L501.9520, L100.0100, L506.1000 ####[facility] [address] [place], [address] Bilirubin [Mass/Vol] 1.00 mg/dL Normal 0.20-1.00 [facility] Comment on above: Result Comment: For patients on eltrombopag therapy, use of Dimension [place] TBIL is not recommended. Performed By: #### L 500.4050, L501.9520, L100.0100, L506.1000 ####[facility] [address] [place], [address] BUN/CRE 22.4 RATIO High 10-[address] [facility] Comment on above: Performed By: #### L 500.4050, L501.9520, L100.0100, L506.1000 ####[facility] [address] [place], [address] CA,Total 9.2 mg/dL Normal 8.5-10.[address] [facility] Comment on above: Performed By: #### L 500.4050, L501.9520, L100.0100, L506.1000 ####[facility] [address] [place], [address] Chloride [Moles/Vol] 106 mmol/L Normal 98-107 [facility] Comment on above: Performed By: #### L 500.4050, L501.9520, L100.0100, L506.1000 ####[facility] [address] [place], [address] CO2 [Moles/Vol] 25.0 mmol/L Normal 21.0-32.[address] [facility] Comment on above: Performed By: #### L 500.4050, L501.9520, L100.0100, L506.1000 ####[facility] [address] [place], [address] Creatinine [Mass/Vol] 0.63 mg/dL Normal 0.55-1.[address] [facility] Comment on above: Result Comment: The validity of the calculated GFR GFRAA in patients over 70 years has not been determined. Clinical correlation is essential. Performed By: #### L 500.4050, L501.9520, L100.0100, L506.1000 ####[facility] [address] [place], [address] EST GFR - AA 121 mL/min Normal >[address] [facility] Comment on above: Result Comment: Afri can Macanese GFR Calc Performed By: #### L 500.4050, L501.9520, L100.0100, L506.1000 ####[facility] [address] [place], [address] GAP 8 Normal 5-[address] [facility] Comment on above: Performed By: #### L 500.4050, L501.9520, L100.0100, L506.1000 ####[facility] [address] [place], [address] GFR/1.73 sq M.predicted among non-blacks MDRD (S/P/Bld) [Vol rate/Area] 100 mL/min/{1.73_m2} Normal >[address] [facility] Comment on above: Result Comment: Non- GFR Calc Performed By: #### L 500.4050, L501.9520, L100.0100, L506.1000 ####[facility] [address] [place], [address] Globulin (S) [Mass/Vol] 3.1 g/dL Normal 2.2-4.2 [facility] Comment on above: Performed By: #### L 500.4050, L501.9520, L100.0100, L506.1000 ####[facility] [address] [place], [address] Glucose [Mass/Vol] 121 mg/dL High 74-106 [facility] Comment on above: Result Comment: Fast ing Glucose result from 100 to 125 mg/dL suggests IMPAIRED HOMEOSTASIS per A.D.A. criteria. Performed By: #### L 500.4050, L501.9520, L100.0100, L506.1000 ####[facility] [address] [place], [address] Potassium [Moles/Vol] 3.5 mmol/L Normal 3.5-5.[address] [facility] Comment on above: Performed By: #### L 500.4050, L501.9520, L100.0100, L506.1000 ####[facility] [address] [place], [address] Sodium [Moles/Vol] 139 mmol/L Normal 136-145 [facility] Comment on above: Performed By: #### L 500.4050, L501.9520, L100.0100, L506.1000 ####[facility] [address] [place], [address] T PROT 6.7 g/dL Normal 6.4-8.[address] [facility] Comment on above: Performed By: #### L 500.4050, L501.9520, L100.0100, L506.1000 ####[facility] [address] [place], [address] Urea nitrogen [Mass/Vol] 14 mg/dL Normal 7-[address] [facility] Comment on above: Performed By: #### L 500.4050, L501.9520, L100.0100, L506.1000 ####[facility] [address] [place], [address] Eosinophil percentageOrdered By: Cristian Silveira on 04-17-2024 Eosinophils/100 WBC (Bld) 1.0 % 0-[address] [facility] Erythrocyte distribution wid th ratioOrdered By: Cristian Silveira on 04-17-2024 Erythrocyte distribution width (RBC) [Ratio] 12.7 % 11.6-14.[address] [facility] Erythrocyte distribution wid th standard deviationOrdered By: Cristian Silveira on 04-17-2024 Erythrocyte distribution width (RBC) [Entitic vol] 41.7 fL 35.1-43.9 [facility] Estimated glomerular filtrat ion rate (GFR) AmericanOrdered By: Cristian Silveira on 04-17-2024 Estimated GFR (MDRD) Amer 121 mL/min >[address] [facility] Comment on above: GFR Calc Glomerular filtration rate ( GFR) estimationOrdered By: Cristian Silveira on 04-17-2024 Estimated GFR (MDRD) Non-Af Amer 100 mL/min >[address] [facility] Comment on above: Non- GFR Calc Glucose measurementOrdered B y: Cristian Raoul on 04-17-2024 Glucose [Mass/Vol] 121 mg/dL High 74-106 [facility] Comment on above: Fasting Glucose resu lt from 100 to 125 mg/dL suggests IMPAIRED HOMEOSTASIS per A.D.A. criteria. Hematocrit Auto (Bld) [Volum e fraction]Ordered By: Cristian Silveira on 04-17-2024 Hematocrit (Bld) [Volume fraction] 46.4 % 37-[address] [facility] Hemoglobin measurementOrdere d By: Cristian Silveira on 04-17-2024 Hemoglobin (Bld) [Mass/Vol] 16.0 g/dL High 12.0-15.[address] [facility] Immature granulocytes/100 WB C Auto (Bld)Ordered By: Cristian Silveira 04-17-2024 Immature granulocytes/100 WBC (Bld) 0.500 % 0.0-0.[address] [facility] Comment on above: IG% - Immature Granu locytes (promyelocytes, myelocytes and metamyelocytes) > 1% indicates that a LEFT SHIFT is Present. Laboratory - Chemistry and C hemistry - challengeOrdered By: Cristian Silveira on 04-17-2024 AST [Catalytic activity/Vol] 19 U/L 15-[address] [facility] Lymphocytes Auto (Unsp spec) [#/Vol]Ordered By: Cristian Silveira on 04-17-2024 Lymphocytes (Bld) [#/Vol] 2.42 10*3/uL 0.83-4.[address] [facility] Lymphocytes/100 WBC Auto (Un sp spec)Ordered By: Cristian Silveira on 04-17-2024 Lymphocytes/100 WBC (Bld) 24.9 % 19-[address] [facility] MCV (mean corpuscular volume ) determinationOrdered By: Cristian Silveira on 04-17-2024 MCV (RBC) [Entitic vol] 89.2 fL 81-99 [facility] Mean corpuscular hemoglobin (MCH) determinationOrdered By: Cristian Silveira on 04-17-2024 MCH (RBC) [Entitic mass] 30.8 pg 27.0-32.[address] [facility] Mean corpuscular hemoglobin concentration (MCHC) determinationOrdered By: Cristian Silveira on 04-17-2024 MCHC (RBC) [Mass/Vol] 34.5 g/dL 32-[address] [facility] Mean platelet volume determi nationOrdered By: Cristian Silveira on 04-17-2024 Platelet mean volume (Bld) [Entitic vol] 9.6 fL 6.2-12.[address] [facility] Monocyte percentageOrdered B y: Cristian Silveira on 04-17-2024 Monocytes/100 WBC (Bld) 8.2 % 0-10 [facility] Neutrophil percentageOrdered By: Cristian Silveira on 04-17-2024 Neutrophils/100 WBC (Bld) 64.6 % 47-[address] [facility] Nucleated red blood cell per centageOrdered By: Cristian Silveira on 04-17-2024 Nucleated RBC/100 WBC (Bld) [Ratio] 0 % 0-[address] [facility] Platelet countOrdered By: Vadim Silveira on 04-17-2024 Platelets (Bld) [#/Vol] 290 10*3/uL 150-[address] [facility] Potassium measurementOrdered By: Cristian Silveira on 04-17-2024 Potassium [Moles/Vol] 3.5 mmol/L 3.5-5.[address] [facility] RBC Auto (Bld) [#/Vol]Ordere d By: Cristian Silveira on 04-17-2024 RBC (Bld) [#/Vol] 5.20 10*6/uL 4.2-5.4 [facility] Serum anion gap measurementO rdered By: Cristian Silveira on 04-17-2024 Anion gap [Moles/Vol] 8 mmol/L 5-[address] [facility] Serum globulin measurementOr dered By: Cristian Silveira on 04-17-2024 Globulin (S) [Mass/Vol] 3.1 g/dL 2.2-4.2 [facility] Serum or plasma alanine mederos otransferase (ALT) measurementOrdered By: Cristian Silveira on 04-17-2024 ALT [Catalytic activity/Vol] 40 U/L 13-[address] [facility] Serum or plasma albumin rigoberto urement (mass/volume)Ordered By: Cristian Silveira on 04-17-2024 Albumin [Mass/Vol] 3.6 g/dL 3.2-5.0 [facility] Serum or plasma alkaline luis sphatase measurementOrdered By: Cristian Silveira on 04-17-2024 ALP [Catalytic activity/Vol] 54 U/L 45-[address] [facility] Serum or plasma calcium rigoberto urement (mass/volume)Ordered By: Cristian Silveira on 04-17-2024 Calcium [Mass/Vol] 9.2 mg/dL 8.5-10.1 [facility] Serum or plasma creatinine m easurement (mass/volume)Ordered By: Cristian Silveira on 04-17-2024 Creatinine [Mass/Vol] 0.63 mg/dL 0.55-1.[address] [facility] Comment on above: The validity of the calculated GFR & GFRAA in patients over 70 years has not been determined. Clinical correlation is essential. Serum or plasma urea nitroge n measurement (mass/volume)Ordered By: Cristian Silveira on 04-17-2024 Urea nitrogen [Mass/Vol] 14 mg/dL 7-[address] [facility] Sodium levelOrdered By: Cristian Silveira 04-17-2024 Sodium [Moles/Vol] 139 mmol/L 136-145 [facility] TSH QnOrdered By: Cristian Silveira o n 04-17-2024 Thyroid Stimulating Hormone (TSH) 1.310 uIU/mL 0.358-3.[address] [facility] Thyroid Stim Hormone (TSH)on 04-17-2024 TSH 1.310 uIU/mL Normal 0.358-3.[address] [facility] Comment on above: Performed By: #### L 500.4050, L501.9520, L100.0100, L506.1000 ####[facility] [address] [place], [address] Total proteinOrdered By: Cristian Raoul on 04-17-2024 Protein [Mass/Vol] 6.7 g/dL 6.4-8.2 [facility] Vitamin D,25 Hydroxyon 04-17 Vitamin D 25-OH 79.6 ng/mL Normal [facility] Comment on above: Result Comment: Nery min D 25(OH) Status Range Deficiency <20 ng/mL (50nmol/L) Insufficiency 20 - 30 ng/mL (50 - 75 nmol/L) Sufficiency 30 - 100 ng/mL (75 - 250 nmol/L) Toxicity >100 ng/mL (>250 nmol/L) Performed By: #### L 500.4050, L501.9520, L100.0100, L506.1000 ####[facility] [address] [place], [address] White blood cell (WBC) count Ordered By: Cristian Godfreyok on 04-17-2024 WBC (Bld) [#/Vol] 9.7 10*3/uL 4.4-11.0 [facility] Discharge Instructionon 03-10 Discharge Instruction [facility] Medical Records Department [address] [place] [address] Instructions for Home/Discharge Instructions 03/19/24 1317 MR#: [id number] Acct: [id number] Name: MELISA EDOUARD Rep #: [id number] : 1955 69 From: Sammie Butterfield DO PCP: Dr. Cristian Silveira MD Status:REG [facility] Discharge Instructions Diet Discharge Diet: No restrictions DC O2, CPAP, BIPAP needs Additional Home O2 Discharge instructions: No Dressing / Incision Discharge Activity: Return to Normal Activity, May Shower and May Take a Tub Bath (after 1 week) May resume sexual activity in: 1-2 weeks Weight Bearing Status: Weight bearing as tolerated Lifting Restrictions: none Dressing / Incision Call your doctor if you observe: Fever of 101 or Higher, Using more than 1 pad per hour, Shortness of breath and Uncontrolled pain Follow Up Care Please Follow Up With: Sammie Butterfield DO When: Call [phone] to schedule appointment. Test Results: Test results from this visit will be discussed in further detail at your follow-up appointment, if applicable. Discharge Plan Admission Primary Reason for Your Visit: hysteroscopy D C Attending Provider: Sammie Butterfield Primary Care Provider: Cristian Silveira Chi Instructions Print Language: Polish Discharge Orders/Prescription s Prescriptions: No Action multivitamin Tablet 1 tab PO DAILY Calcium 600 + D(3) 600 mg-5 mcg (200 unit) capsule 1 cap PO DAILY alendronate [Fosamax] 70 mg tablet 70 mg PO QWEEK doxycycline monohydrate 40 mg capsule,IR - delay rel,biphase 1 cap PO .QOD rosuvastatin [Crestor] 10 mg tablet 20 mg PO DAILY gabapentin 100 mg capsule 100 mg PO TID PRN PRN (Reason: pain) ivermectin [Soolantra] 30 GM cream 30 g TP DAILY Linzess 72 MCG capsule 72 mcg PO DAILY loratadine [Allergy Relief (loratadine)] 10 mg tablet 10 mg PO DAILY cholecalciferol (vitamin D3) 25 mcg (1,000 unit) capsule 1,000 unit PO DAILY Patient Comments: take 1 capsule by mouth once daily aspirin 81 mg capsule 81 mg PO DAILY Qty: 30 0RF albuterol sulfate 90 mcg/actuation HFA aerosol inhaler 2 puff inhalation PRN PRN (Reason: BRONCHITIS) Referrals / Follow Up: Cristian Silveira Chi, MD [Primary Care Provider] - Sammie Butterfield DO [Med Staff - Active Staff] - Disposition Disposition (needs filled in before D/C Order can be placed): Home, Self Care 03/19/24 1320 Sammie Butterfield DO CC: Dr. Cristian Silveira MD Signed ADDENDUM by Dr. Sammie Butterfield DO on 03/19/24 at 1408 take Ibuprofen (600 mg every 6 hours) or tylenol (500 mg every 6 hours) as needed for pain. 03/19/24 1408 Sammie Butterfield DO cc: Dr. Cristian Silveira MD * Signed [facility] MR/POSTOP.Mohinder 03-19-2024 MR/POSTOP.[facility] Medical Records Department [address] [place] [address] Anesthesia Postop Eval I 03/19/24 1355 MR#: [id number] Acct: [id number] Name: MELISA EDOUARD Rep #: [id number] : 1955 69 From: Latoya Vega CRNA PCP: Dr. Cristian Silveira MD Status:[facility] Y Race: C Location: [place] [address] Anesthesia: Postop Eval I Current Vital Signs Temperature: 97.2 F Pulse Rate: 86 Blood Pressure: 121/64 Respiratory Rate: 16 Pulse Ox: 96 Oxygen Delivery Method: Room Air Assessment Airway patent: Yes Spontaneous unlabored respirations: Yes Mental status: Awake and Calm nausea: No Vomiting: No Anesthesia Complication: No Fluid Hydration Crystalloid volume administer (ml): 10 Total IV fluid infused: 10 Progress Note Anesthesia document: Postop Eval 1 completed: Yes 03/19/24 1356 Date Latoya Vega GENERATOR OPERATOR STRAIGHT BEVEL GEAR Cosigner Signature: Date CC: Signed Normal [facility] MR/[id number] 03-19-2024 /[facility] Medical Records Department [address] [place] [address] Anesthesia Postop Eval II 03/19/24 1649 MR#: [id number] Acct: [id number] Name: MELISA EDOUARD Rep #: [id number] : 1955 69 From: Solo Peacock MD PCP: Dr. Cristian Silveira MD Status:[facility] Y Race: C Location: [facility] Anesthesia Postop Eval I Sum Postop Eval Completion status Anesthesia document: Postop Eval 1 completed: Yes Anesthesia Postop Eval I Summary Anesthesia Postop Eval I Summary: Anesthesia Postop Eval I: Assessment Summary Airway patent Yes 03/19/24 13:56 GENERATOR OPERATOR STRAIGHT BEVEL GEAR.LISAOBJamal Spontaneous unlabored Yes 03/19/24 13:56 GENERATOR OPERATOR STRAIGHT BEVEL GEAR.SKOBY respirations Mental status Awake,Calm 03/19/24 13:56 GENERATOR OPERATOR STRAIGHT BEVEL GEAR.SKOBY nausea No 03/19/24 13:56 GENERATOR OPERATOR STRAIGHT BEVEL GEAR.SKOBY Vomiting No 03/19/24 13:56 GENERATOR OPERATOR STRAIGHT BEVEL GEAR.SKOBY Anesthesia Postop Eval I: Fluid Summary Crystalloid volume administer 10 03/19/24 13:56 GENERATOR OPERATOR STRAIGHT BEVEL GEAR.SKOBY (ml) Colloids volume administered ( ml) Blood Product volume administered (ml) Total IV fluid infused 10 03/19/24 13:56 GENERATOR OPERATOR STRAIGHT BEVEL GEAR.SKOBY Anesthesia Postop Eval I: Summary Notes Anesthesia Complication No 03/19/24 13:56 GENERATOR OPERATOR STRAIGHT BEVEL GEAR.SKOBY Anesthesia Complication Comment: Post-operative progress note Anesthesia: Postop Eval II Evaluation Mental status: Awake and Calm Pain Level: 1 nausea: No Vomiting: No Complications Anesthesia Complication: No 03/19/24 1649 Date Solo Peacock MD Cosigner Signature: Date CC: Signed Normal [facility] Operative Reporton 4 Operative Report [facility] Medical Records Department [address] [place] [address] Operative Report 03/19/24 1354 MR#: [id number] Acct: [id number] Name: MELISA EDOUARD Rep #: [id number] : 1955 69 From: Sammie Butterfield DO PCP: Dr. Cristian Silveira MD Status:[facility] Location: [place] [address] Problems Associated Problem List Diagnoses (1) Endometrial thickening on ultrasound: (2) Malignant neoplasm of unspecified part of unspecified bronchus or lung: Multi Select Codes Urinary/Genital Urinary/Genital CPT Codes: 99245 Hysteroscopy,EMC, Polypectomy Operative Report (Standard) Operative Information Date of Procedure: 03/19/24 Pre-Operative Diagnosis: thickened endometrium, postmenopausal Post-Operative Diagnosis: thickened endometrium, postmenopausal Surgery/Procedure Performed: hysteroscopy D C hot mill supervisor: No Type of Anesthesia: Local MAC RN Documented Start/Stop Times: Operation Date: 03/19/24 13:00 Case Time Into Pre-Op 03/19/24 11:25 Out of Pre-Op 03/19/24 13:06 Anesthesia Start 03/19/24 13:09 Into Room 03/19/24 13:09 Procedure Start 03/19/24 13:30 Procedure End 03/19/24 13:45 Anesthesia End 03/19/24 13:51 Out of Room 03/19/24 13:51 Procedure Start Time: 13:30 Procedure Stop Time: 13:45 Select all DRAINS/GRAFTS/IMPLA NTS that apply: None Estimated Blood Loss: 5cc Specimen collected: Yes Description of specimen(s) removed: endometrial curetting's Description of surgery: Patient was prepped and draped in a normal sterile fashion under MAC anesthesia. A weighted speculum was placed in the vagina and the anterior lip of the cervix was grasped with a single-tooth tenaculum. A paracervical block was placed with 1% lidocaine. Cervix was progressively dilated to allow passage of a 5 mm hysteroscope. The lining was fully visualized and noted to have a small lesion present that was almost flush with the lining of the uterus. A submucosal fibroid suspected. The lining otherwise appeared atrophic. A Uterine sound was performed and the uterus sounded to 9cm. A Curettage was performed and scant tissue was sent to pathology. Attempt was made to dig the small structure out of the endometrium. A fragment of the lesion broke free and had the appearance of fibroid tissue. This was submitted with the curettage sampling. At this time the procedure was ended. All instruments were removed from the vagina and excellent hemostasis was noted. Patient was awoken and taken to recovery in stable condition. Surgical Findings: small submucosal fibroid. less than 1 mm. Complications Complications: No Admit VTE Documentation VTE Present on Admission: No VTE Mechan Device Prophylaxis: SCD's VTE Pharm Prophylaxis ordered?: No 03/19/24 1400 Cosigner Signature (if applicable): CC: Dr. Sammie Butterfield DO; Dr. Cristian Silveira MD Signed Normal [facility] Surgery Specimen Level Yakov 03-19-2024 Surgery Specimen Level IV ----- Patient Age/Sex Location Account Attending Physician MELISA EDOUARD 69/F [facility] [id number] Rahat Shahid Specimen: [id number] Received: 03/19/24 Status: [place] Num: [id number] Spec Type: ENDOM BX/C [facility] [place] Dr: Dr. Sammie Butterfield DO HEADER OPERATION: HysteroscopyRahat PRE-OP DIAGNOSIS: Endometrial thickening on ultrasound TISSUE SUBMITTED: Endometrial curettings MICROSCOPIC DIAGNOSIS Endometrial curettings: Fragments of benign endometrial tissue with inactive endometrium and focal cystic changes. SJ.mr 03/21/2024 MICROSCOPIC DESCRIPTION Slides are reviewed. GROSS DESCRIPTION Received in fixative is one container labeled with the patient's name and designated Endometrial curettings. The specimen consists of multiple irregular fragments of light angulo soft tissue that in aggregate measure 1.5 x 0.2 x 0.1 cm. The specimen is totally submitted in one cassette. 03/20/2024 TC:5 CPT:71753 Patient Age/Sex Location Account Attending Physician MELISA EDOUARD 69/F [facility] [id number] Rahat Shahid Signed (signatur e on file) Dr. Jame Mrogan MD 03/21/[address] [facility] Comment on above: Performed By: #### M 100.678 #### [facility] Laboratory [address] [place], [address] 12 Lead EKGon 03-18-2024 12 Lead EKG [facility] Cardiovascular Services [address] [place] [address] 12 Lead EKG 03/18/24 0724 MR#: [id number] Acct: [id number] Name: MELISA EDOUARD Rep #: [id number] : 1955 69 From: Roscoe Alonzo MD Attending Dr: Dr. Sammie Butterfield DO Statu s: PRE SDC Ordering Dr: Sammie Butterfield DO Date: 4 Location: [facility] Sex: F C Admitted: Test Reason : PRE OP Blood Pressure : */* mmHG Vent. Rate : 73 BPM Atrial Rate : 73 BPM P-R Int : 154 ms QRS Dur : 78 ms QT Int : 366 ms P-R-T Axes : 37 -13 61 degrees QTcB Int : 403 ms Normal sinus rhythm Minimal voltage criteria for LVH, may be normal variant Borderline ECG Confirmed by CHERI VÁZQUEZ, ROSCOE ([id number]), editor & co founder HERB BURTON ([id number]) on 03/18/2024 2:12:35 PM Referred By: Sammie Butterfield Confirmed By: ROSCOE ALONZO MD 03/18/24 1412 Date Roscoe Alonzo MD CC: Dr. Sammie Butterfield DO; Dr. Cristian Silveira MD Signed Normal [facility] Albumin to globulin ratioOrd ered By: Sammie Garland on 03-18-2024 Albumin/Globulin [Mass ratio] 1.4 {ratio} 0.9-2.[address] [facility] Bilirubin, totalOrdered By: Sammie Garland on 03-18-2024 Bilirubin [Mass/Vol] 0.70 mg/dL 0.20-1.00 [facility] Comment on above: For patients on eltr ombopag therapy, use of Dimension [place] TBIL is not recommended. Blood urea nitrogen (BUN)/cr eatinine ratioOrdered By: Sammie Garland on 03-18-2024 Urea nitrogen/Creatinine [Mass ratio] 17.8 mg/mg 10-[address] [facility] CBC-Complete Blood Cnt No Di ffon 03-18-2024 Erythrocyte distribution width (RBC) [Ratio] 13.0 % Normal 11.6-14.[address] [facility] Comment on above: Performed By: #### L 500.4050, BTSPAT, L100.0500 ####[facility] [address] [place], [address] Hematocrit (Bld) [Volume fraction] 47.1 % High 37-[address] [facility] Comment on above: Performed By: #### L 500.4050, BTSPAT, L100.0500 ####[facility] [address] [place], [address] Hemoglobin (Bld) [Mass/Vol] 15.9 g/dL High 12.0-15.[address] [facility] Comment on above: Performed By: #### L 500.4050, BTSPAT, L100.0500 ####[facility] [address] [place], [address] MCH (RBC) [Entitic mass] 31.2 pg Normal 27.0-32.[address] [facility] Comment on above: Performed By: #### L 500.4050, BTSPAT, L100.0500 ####[facility] [address] [place], [address] MCHC (RBC) [Mass/Vol] 33.8 g/dL Normal 32-[address] [facility] Comment on above: Performed By: #### L 500.4050, BTSPAT, L100.0500 ####[facility] [address] [place], [address] MCV (RBC) [Entitic vol] 92.4 fL Normal 81-99 [facility] Comment on above: Performed By: #### L 500.4050, BTSPAT, L100.0500 ####[facility] [address] [place], [address] Platelet mean volume (Bld) [Entitic vol] 9.5 fL Normal 6.2-12.[address] [facility] Comment on above: Performed By: #### L 500.4050, BTSPAT, L100.0500 ####[facility] [address] [place], [address] Platelets (Bld) [#/Vol] 259 10*3/uL Normal 150-[address] [facility] Comment on above: Performed By: #### L 500.4050, BTSPAT, L100.0500 ####[facility] [address] [place], [address] RBC (Bld) [#/Vol] 5.10 10*6/uL Normal 4.2-5.4 [facility] Comment on above: Performed By: #### L 500.4050, BTSPAT, L100.0500 ####[facility] [address] [place], [address] RDW SD 43.9 fl Normal 35.1-43.[address] [facility] Comment on above: Performed By: #### L 500.4050, BTSPAT, L100.0500 ####[facility] [address] [place], [address] WBC (Bld) [#/Vol] 9.6 10*3/uL Normal 4.4-11.0 [facility] Comment on above: Performed By: #### L 500.4050, BTSPAT, L100.0500 ####[facility] [address] [place], [address] Carbon dioxide measurementOr dered By: Sammie Garland on 03-18-2024 CO2 [Moles/Vol] 29.0 mmol/L 21.0-32.[address] [facility] Chloride measurementOrdered By: Sammie Garland on 03-18-2024 Chloride [Moles/Vol] 108 mmol/L High 98-107 [facility] Comprehensive Metabolic Prof ilon 03-18-2024 Albumin [Mass/Vol] 3.8 g/dL Normal 3.2-5.0 [facility] Comment on above: Performed By: #### L 500.4050, BTSPAT, L100.0500 ####[facility] [address] [place], [address] Albumin/Globulin [Mass ratio] 1.4 {ratio} Normal 0.9-2.[address] [facility] Comment on above: Performed By: #### L 500.4050, BTSPAT, L100.0500 ####[facility] [address] [place], [address] ALK P 49 U/L Normal 45-[address] [facility] Comment on above: Performed By: #### L 500.4050, BTSPAT, L100.0500 ####[facility] [address] [place], [address] ALT [Catalytic activity/Vol] 38 U/L Normal 13-[address] [facility] Comment on above: Performed By: #### L 500.4050, BTSPAT, L100.0500 ####[facility] [address] [place], [address] AST [Catalytic activity/Vol] 16 U/L Normal 15-[address] [facility] Comment on above: Performed By: #### L 500.4050, BTSPAT, L100.0500 ####[facility] [address] [place], [address] Bilirubin [Mass/Vol] 0.70 mg/dL Normal 0.20-1.00 [facility] Comment on above: Result Comment: For patients on eltrombopag therapy, use of Dimension [place] TBIL is not recommended. Performed By: #### L 500.4050, BTSPAT, L100.0500 ####[facility] [address] [place], [address] BUN/CRE 17.8 RATIO Normal 10-[address] [facility] Comment on above: Performed By: #### L 500.4050, BTSPAT, L100.0500 ####[facility] [address] [place], [address] CA,Total 9.3 mg/dL Normal 8.5-10.[address] [facility] Comment on above: Performed By: #### L 500.4050, BTSPAT, L100.0500 ####[facility] [address] [place], [address] Chloride [Moles/Vol] 108 mmol/L High 98-107 [facility] Comment on above: Performed By: #### L 500.4050, BTSPAT, L100.0500 ####[facility] [address] [place], [address] CO2 [Moles/Vol] 29.0 mmol/L Normal 21.0-32.[address] [facility] Comment on above: Performed By: #### L 500.4050, BTSPAT, L100.0500 ####[facility] [address] [place], [address] Creatinine [Mass/Vol] 0.56 mg/dL Normal 0.55-1.[address] [facility] Comment on above: Result Comment: The validity of the calculated GFR GFRAA in patients over 70 years has not been determined. Clinical correlation is essential. Performed By: #### L 500.4050, BTSPAT, L100.0500 ####[facility] [address] [place], [address] EST GFR - AA 137 mL/min Normal >[address] [facility] Comment on above: Result Comment: Afri can Macanese GFR Calc Performed By: #### L 500.4050, BTSPAT, L100.0500 ####[facility] [address] [place], [address] GAP 4 Low 5-[address] [facility] Comment on above: Performed By: #### L 500.4050, BTSPAT, L100.0500 ####[facility] [address] [place], [address] GFR/1.73 sq M.predicted among non-blacks MDRD (S/P/Bld) [Vol rate/Area] 113 mL/min/{1.73_m2} Normal >[address] [facility] Comment on above: Result Comment: Non- GFR Calc Performed By: #### L 500.4050, BTSPAT, L100.0500 ####[facility] [address] [place], [address] Globulin (S) [Mass/Vol] 2.8 g/dL Normal 2.2-4.2 [facility] Comment on above: Performed By: #### L 500.4050, BTSPAT, L100.0500 ####[facility] [address] [place], [address] Glucose [Mass/Vol] 115 mg/dL High 74-106 [facility] Comment on above: Result Comment: Fast ing Glucose result from 100 to 125 mg/dL suggests IMPAIRED HOMEOSTASIS per A.D.A. criteria. Performed By: #### L 500.4050, BTSPAT, L100.0500 ####[facility] [address] [place], [address] Potassium [Moles/Vol] 3.6 mmol/L Normal 3.5-5.[address] [facility] Comment on above: Performed By: #### L 500.4050, BTSPAT, L100.0500 ####[facility] [address] [place], [address] Sodium [Moles/Vol] 141 mmol/L Normal 136-145 [facility] Comment on above: Performed By: #### L 500.4050, BTSPAT, L100.0500 ####[facility] [address] [place], [address] T PROT 6.6 g/dL Normal 6.4-8.[address] [facility] Comment on above: Performed By: #### L 500.4050, BTSPAT, L100.0500 ####[facility] [address] [place], [address] Urea nitrogen [Mass/Vol] 10 mg/dL Normal 7-[address] [facility] Comment on above: Performed By: #### L 500.4050, BTSPAT, L100.0500 ####[facility] [address] [place], [address] Erythrocyte distribution wid th ratioOrdered By: Sammie Garland on 03-18-2024 Erythrocyte distribution width (RBC) [Ratio] 13.0 % 11.6-14.[address] [facility] Erythrocyte distribution wid th standard deviationOrdered By: Sammie Garland on 03-18-2024 Erythrocyte distribution width (RBC) [Entitic vol] 43.9 fL 35.1-43.9 [facility] Estimated glomerular filtrat ion rate (GFR) AmericanOrdered By: Sammie Garland on 03-18-2024 Estimated GFR (MDRD) Amer 137 mL/min >[address] [facility] Comment on above: GFR Calc Glomerular filtration rate ( GFR) estimationOrdered By: Sammie Garland on 03-18-2024 Estimated GFR (MDRD) Non-Af Amer 113 mL/min >[address] [facility] Comment on above: Non- GFR Calc Glucose measurementOrdered B y: Sammie Garland on 03-18-2024 Glucose [Mass/Vol] 115 mg/dL High 74-106 [facility] Comment on above: Fasting Glucose resu lt from 100 to 125 mg/dL suggests IMPAIRED HOMEOSTASIS per A.D.A. criteria. Hematocrit Auto (Bld) [Volum e fraction]Ordered By: Sammie Garland on 03-18-2024 Hematocrit (Bld) [Volume fraction] 47.1 % High 37-[address] [facility] Hemoglobin measurementOrdere d By: Sammie Garland on 03-18-2024 Hemoglobin (Bld) [Mass/Vol] 15.9 g/dL High 12.0-15.[address] [facility] Laboratory - Chemistry and C hemistry - challengeOrdered By: Sammie Garland on 03-18-2024 AST [Catalytic activity/Vol] 16 U/L 15-[address] [facility] MCV (mean corpuscular volume ) determinationOrdered By: Sammie Garland on 03-18-2024 MCV (RBC) [Entitic vol] 92.4 fL 81-99 [facility] Mean corpuscular hemoglobin (MCH) determinationOrdered By: Sammie Garland on 03-18-2024 MCH (RBC) [Entitic mass] 31.2 pg 27.0-32.[address] [facility] Mean corpuscular hemoglobin concentration (MCHC) determinationOrdered By: Sammie Garland on 03-18-2024 MCHC (RBC) [Mass/Vol] 33.8 g/dL 32-[address] [facility] Mean platelet volume determi nationOrdered By: Sammie Garland on 03-18-2024 Platelet mean volume (Bld) [Entitic vol] 9.5 fL 6.2-12.[address] [facility] Platelet countOrdered By: Adolfo Garland on 03-18-2024 Platelets (Bld) [#/Vol] 259 10*3/uL 150-[address] [facility] Potassium measurementOrdered By: Sammie Garland on 03-18-2024 Potassium [Moles/Vol] 3.6 mmol/L 3.5-5.[address] [facility] RBC Auto (Bld) [#/Vol]Ordere d By: Sammie Garland on 03-18-2024 RBC (Bld) [#/Vol] 5.10 10*6/uL 4.2-5.4 [facility] Serum anion gap measurementO rdered By: Sammie Garland on 03-18-2024 Anion gap [Moles/Vol] 4 mmol/L Low 5-[address] [facility] Serum globulin measurementOr dered By: Sammie Garland on 03-18-2024 Globulin (S) [Mass/Vol] 2.8 g/dL 2.2-4.2 [facility] Serum or plasma alanine mederos otransferase (ALT) measurementOrdered By: Sammie Garland on 03-18-2024 ALT [Catalytic activity/Vol] 38 U/L 13-[address] [facility] Serum or plasma albumin rigoberto urement (mass/volume)Ordered By: Sammie Garland on 03-18-2024 Albumin [Mass/Vol] 3.8 g/dL 3.2-5.0 [facility] Serum or plasma alkaline luis sphatase measurementOrdered By: Sammie Garland on 03-18-2024 ALP [Catalytic activity/Vol] 49 U/L 45-[address] [facility] Serum or plasma calcium rigoberto urement (mass/volume)Ordered By: Sammie Garland on 03-18-2024 Calcium [Mass/Vol] 9.3 mg/dL 8.5-10.1 [facility] Serum or plasma creatinine m easurement (mass/volume)Ordered By: Sammie Garland on 03-18-2024 Creatinine [Mass/Vol] 0.56 mg/dL 0.55-1.[address] [facility] Comment on above: The validity of the calculated GFR & GFRAA in patients over 70 years has not been determined. Clinical correlation is essential. Serum or plasma urea nitroge n measurement (mass/volume)Ordered By: Sammie Garland on 03-18-2024 Urea nitrogen [Mass/Vol] 10 mg/dL 7-[address] [facility] Sodium levelOrdered By: Mia Garland on 03-18-2024 Sodium [Moles/Vol] 141 mmol/L 136-145 [facility] Total proteinOrdered By: Grace Garland on 03-18-2024 Protein [Mass/Vol] 6.6 g/dL 6.4-8.2 [facility] Type AND Screen - PAT ONLYon 03-18-2024 Ab SCREEN GEL Negative Normal [facility] Comment on above: Order Comment: Reaso n for Exam: surgerySurgery Date: [id number] D CPREOP Performed By: #### L 500.4050, BTSPAT, L100.0500 ####[facility] [address] [place], [address] ABO and Rh group Nom (Bld) Blood group A Rh(D) negative Normal [facility] Comment on above: Order Comment: Reaso n for Exam: surgerySurgery Date: [id number] D CPREOP Performed By: #### L 500.4050, BTSPAT, L100.0500 ####[facility] [address] [place], [place], [address] White blood cell (WBC) count Ordered By: Sammie Garland on 03-18-2024 WBC (Bld) [#/Vol] 9.6 10*3/uL 4.4-11.0 [facility] Cell Builder Office Visit Reporton 03-15-2024 Cell Builder Office Visit Report [facility] [address], [address] [place] [address] OFFICE VISIT Date of Service: 03/15/24 MR#: [id number] Acct: [id number] Name: MELISA EDOUARD Rep #: [id number] : 1955 Provider: Dr. Sammie Brooks DO Age/Sex: 69/F Location: [facility] Status: Signed Intake Vital Signs 11/23/23 09:59 03/15/24 09:12 Height 5 ft 4 in 5 ft 4 in Weight: 184 lb 6 oz BMI 31.6 BP 158/88 H Intake Visit Reasons: FIBROID UTERUS (RAOUL) Inventory Control Coordinator Required: No Is patient in pain?: No Allergies ciprofloxacin (From Cipro) Allergy (Mild, Verified 03/15/24 09:13) itching atorvastatin Allergy (Verified 03/15/24 09:13) Hives simvastatin Allergy (Verified 03/15/24 09:13) Rash Medications ???Medication ???Instructions ???Recorded ???Confirmed ???Type ivermectin 1 % topical cream 30 g TP DAILY skin care 11/07/16 03/15/24 History (Soolantra) linaclotide 72 mcg capsule 72 mcg PO DAILY bowel issues 11/07/16 03/15/24 History (Linzess) aspirin 81 mg capsule 81 mg PO DAILY #30 caps 05/27/23 03/15/24 Rx cholecalciferol (vitamin D3) 25 1,000 unit PO DAILY vitamin 05/27/23 03/15/24 History mcg (1,000 unit) capsule alendronate 70 mg tablet (Fosamax) 70 mg PO QWEEK 06/09/23 03/15/24 History calcium 600 mg (as 1 cap PO DAILY 06/09/23 03/15/24 History carbonate)-vitamin D3 5 mcg (200 unit) capsule (Calcium 600 + D(3)) loratadine 10 mg tablet (Allergy 10 mg PO DAILY Allergies 06/09/23 03/15/24 History Relief (loratadine)) multivitamin 1 tab PO DAILY 06/09/23 03/15/24 History tumeric root powder PO 06/09/23 03/15/24 History doxycycline monohydrate 40 mg 1 cap PO .QOD 08/23/23 03/15/24 History capsule,immediate - delay release rosuvastatin 10 mg tablet (Crestor) 20 mg PO DAILY 11/23/23 03/15/24 History gabapentin 100 mg capsule 100 mg PO TID 03/15/24 03/15/24 History Is last menstrual period known: No Post menopausal: Yes Patient : No : No PFSH Medical History Malignant neoplasm of unspecified part of unspecified bronchus or lung Chronic GERD Vitamin D deficiency Hepatic fibrosis Osteoporosis Hyperlipidemia Compression fracture of L4 vertebra Hypokalemia Elevated blood pressure reading without diagnosis of hypertension TIA (transient ischemic attack) DDD (degenerative disc disease), lumbar Segmental and somatic dysfunction of cervical region Segmental and somatic dysfunction of thoracic region Segmental and somatic dysfunction of lumbar region IBS (irritable bowel syndrome) History of lung cancer Environmental allergies Surgical History History of lobectomy of lung History of rotator cuff surgery Status post right foot surgery History of tubal ligation History of tonsillectomy Family History Other Asthma CVA (cerebral vascular accident) Cancer Diabetes Hypertension Social History (Updated 03/15/24 @ 09:24 by Avani Clay) Smoking Status: Never smoker alcohol intake: never substance use type: does not use caffeine: Yes what type of physical activity do you participate in: walking frequency: 3-4 times per week seatbelt use: always do you feel safe at home: Yes additional social history: - [place] HPI FIBROID UTERUS (RAOUL) Details: MELISA EDOUARD is a 69 year old who presents for discussion about incidental finding of uterine polyp. She had an MRI for low back pain and fracture of spine and they found the uterus to be en larged. ultrasound showed the following: She denies postmenopausal bleeding and has never had any abnormal paps. She is a 10 year survivor of lung cancer (not related to smoking) She is surgically missing the top 2 lobes of her right lung. FINDINGS: The uterus is anteverted and is in a midline position. The uterus measures 6.8 cm x 4.7 cm x 3.4 cm. There is a Nabothian cyst of the cervix. The endometrium measures 1.7 mm in thickness, and is hyperechoic. Endometrial polyp is suspected. Fibroid uterus. The largest fibroid measures 2.4 cm x 2.3 cm x 1.8 cm. I.U.D. - The patient does not have an I.U.D. The right ovary is non-visualized. The left ovary is non-visualized. There is no fluid in the cul-de-sac. US/Transvaginal Non- IMPRESSION: Fibroid uterus. Findings suggestive of an endometrial polyp. History 2 Elective abortions Hx Para 2 Spontaneous abortions Hx # Term Pregnancies Ectopic pregnancies Hx # Pregnancies Multiple births # of living children Past Pregnancies Del. Date Name GA/Weeks Outcome Route Bth (more content not included)... Normal [facility] Re-Evaluation - PT (1)on Re-Evaluation - PT (1) [facility] Physical Therapy [facility] [address] [facility] [facility] [place] [address] / REEVALUATION / MEDICARE RECERTIFICATION PHYSICAL THERAPY MR#: [id number] Acct: [id number] Name: MELISA EDOUARD Rep #: [id number] : 1955 69 From: Iam Zarco DPT Referring Dr.: Dr. Cristian Silveira MD Status:REG RCR Insurance: MEDICARE PART A B ANTHEM Re-Evaluation Intro: Dr. Cristian Silveira MD, It has been my pleasure to treat MELISA EDOUARD over the last 9 visits for Spinal stenosis of lumbar spine. Please see the progress note below for an update on the physical therapy plan of care! Subjective Subjective: Pt. reports overall doing well. Pt. repors being 98% better overall. Once in a great while she reports having a slight twinge in symptoms. Pt. reports this being more musclure. Objective Objective/Function: Pt. reports no N/T with sleeping. She is still sleeping in her R side though. ROM: Lumbar spine: normal without increase in symptoms. MMT: PT. has 5/5 strength throughout BLEs. Fair- core strength. GAIT: normal without issues. PT. is back to doing all ADLs and recreational activities without limitations. she is I with gym and HEP exercises. Pt. is going to complete her exercises on her own at this point in time. Plan Plan Plan: pt. to trial HEP at home and in gym on her own. Pt. to follow up with PT in the next few weeks if having issues. If I do not hear from over this rime period I will DC. Balance/Gait/Functi onal tests Balance/Special Test Scores Oswestry Low Back Score: 13 Goals Goals Goal 1:: LTG: Pt. to be I with HEP and gym program. Goal Time Frame: 4-6 Weeks Goal Progress: Progressing Goal 2:: LTG: Pt. has full ROM of lumbar spine without increase in symptoms. Goal Time Frame: 4-6 Weeks Goal Progress: Goal Met Goal 3:: LTG: Pt. to have 5/5 strength throughout BLEs and core. Goal Time Frame: 4-6 Weeks Goal Progress: Goal Met Goal 4:: LTG: Pt. to sleep without increase in LE N/T. Goal Time Frame: 4-6 Weeks Goal Progress: Goal Met Anticipated Interventions Anticipated Interventions Patient/Client Instruction: Educate patient on: Condition, Plan of Care, Risk Factors and Benefits of Fitness Program For the Purpose of:: To facilitate caregiver knowledge, To improve self management, To prevent re- injury, To improve ability to perform tasks related to life management and To improve tolerance to ADL's Therapeutic Exercise to Include: Strength training, Endurance training, Balance training, Postural training, Passive ROM and Active ROM For the Purpose of:: To decrease pain, To improve nutrient delivery to tissue, To increase oxygenation perfusion, To improve muscle performance and motor function and To improve ability to perform ADL's Re-Evaluation Ending Re-evaluation ending: Please do not hesitate to contact me at [phone] by phone or if you have questions or concerns regarding this new plan of care! Sincerely, ROMAN BaumannT 03/12/24 1553 CC: Dr. Cristian Silveira MD CLS Signed For Medicare only, by signing this I certify the plan of care. _ Physicians Signature Date Normal [facility] Inital Evaluation (1) - PTon 02-20-2024 Inital Evaluation (1) - PT [facility] Physical [facility] [address] [place] [address]. [address] [place] [address] / REHABILITATION SERVICES INITIAL EVALUATION MR#: [id number] Acct: [id number] Name: MELISA EDOUARD Rep #: [id number] : 1955 69 From: Iam OWENST Referring Dr.: Dr. Cristian Silveira MD Status: REG RCR Insurance: MEDICARE PART A B [id number] Patient's Visit Information Visit Information Visit Information: MELISA EDOUARD is a 69 year old F referred to Physical Therapy by Dr. Cristian Silveira MD with a diagnosis of Spinal stenosis of lumbar spine. Date of Evaluation: 02/15/24 Physical Therapist: Iam Zarco DPT Visit Plan Frequency: 2x /Week Duration: 6 Weeks Plan: 1) Neutral spine core strengthen and hip strengthening 2) gym strengthening as tolerated Subjective Subjective: Pt. is here today for her initial evaluation with diagnosis of lumbar stenosis. Pt. reports having increased low back pain over the past few months. Pt. reports recent doing better. Pt. had a compression fracture of L4 last year. She reports either this fx did not heal or she had another one. Pt. reports having some pain and occasional N/T in her L leg at times, worse at night compared to the day. Pt. reports not doing her exercise routine due to her symptoms and being hesitant with her pain. Pt. reports no myotomal weakness. Pt. is sleeping okay besides when she gets the N/T in her LE. Pt. is hopeful to increase her strength and stability of her lumbar spine and reduce symptoms in order to get back to all recreational gym and household activities without limitations. Pain Lumbar spine: Pain Intensity (Out of 10): 2 Pain Intensity Range: 0 and 4 Objective Objective: POSTURE: Pt. has decent posture in stance. Pt. has normal iliac crest heights. Pt. has fairly normal lumbar lordosis as well. PALPATION: Pt. has some mild tenderness at her lower lumbar spine with PAs, no radicular symptoms noted. Pt. has minimal issues with her lumbar erector spinae. NEURO: Pt. has normal sensation in throughout BLEs. Pt. is able to rise on heels and toes. ROM: LUMBAR SPINE: flexion min loss increase NW, ext mod loss NE, SB min loss increase NW, rotation min loss increase NW. Pt. has tight HS. MMT: LEs: 5/5 distally, 4/5 throughout B hips. No marked myotomal weakness. Core strength: poor+. GAIT: normal pattern without increase in symptoms. STAIRS: mild increase NW with normal pattern. Special Tests L/S Slump test left side: Negative L/S Slump test right side: Negative L/S Left Straight Leg Raise: Negative L/S Right Straight Leg Raise: Negative Balance/Special Test Scores Oswestry Low Back Score: 13 Goals Goal 1:: LTG: Pt. to be I with HEP and gym program. Goal Time Frame: 4-6 Weeks Goal 2:: LTG: Pt. has full ROM of lumbar spine without increase in symptoms. Goal Time Frame: 4-6 Weeks Goal 3:: LTG: Pt. to have 5/5 strength throughout BLEs and core. Goal Time Frame: 4-6 Weeks Goal 4:: LTG: Pt. to sleep without increase in LE N/T. Goal Time Frame: 4-6 Weeks Rehabilitation Potential Physical Therapy Diagnosis: Pt. has signs and symptoms consistent with lumbar spinal stenosis. Pt. has some N/T in her leg at times, but not consistent. With her history of compression fx I would like her to maintain fairly neutral spine and work on core strengthening. Rehabilitation Potential: Good Anticipated Interventions Patient/Client Instruction: Educate patient on: Condition, Plan of Care, Risk Factors and Benefits of Fitness Program For the Purpose of:: To facilitate caregiver knowledge, To improve self management, To prevent re- injury, To improve ability to perform tasks related to life management and To improve tolerance to ADL's Therapeutic Exercise to Include: Strength training, Endurance training, Balance training, Postural training, Passive ROM and Active ROM For the Purpose of:: To decrease pain, To improve nutrient delivery to tissue, To increase oxygenation perfusion, To improve muscle performance and motor function and To improve ability to perform ADL's Text: Thank you for the opportunity to evaluate your patient. For Medicare and Medicare HMO plans, please review the plan of care and approve it. It will need to be FAXED BACK to us at [phone] for Medicare purposes. For Medicare only, by signing this I certify the plan of care. Please let me know if there are questions or concerns regarding this plan of care. Physician Signature: __Date: 02/20/24 0904 CC: Dr. Cristian Silveira MD CLS Signed Normal [facility] Transvaginal Non-on 02-12-2024 Transvaginal Non- [facility] Imaging Services [address] [place] [address] Transvaginal Non- MR#: [id number] Acct: [id number] Name: MELISA EDOUARD Rep #: [id number] : 1955 F 69 From: Rishabh cerna MD PCP: Dr. Cristian Silveira MD Status: [facility] Study: Transvaginal Non- Date of Exam: Exam# [id number] Ordering Dr: Cristian Silveira MD [id number] STUDY: ULTRASOUND OF THE FEMALE PELVIS - COMPLETE REASON FOR EXAM: Female, 69 years old. LEIOMYOMA LMP: The patient is postmenopausal. TECHNIQUE: Transvaginal TECHNICAL QUALITY: Adequate. COMPARISON: None. FINDINGS: The uterus is anteverted and is in a midline position. The uterus measures 6.8 cm x 4.7 cm x 3.4 cm. There is a Nabothian cyst of the cervix. The endometrium measures 1.7 mm in thickness, and is hyperechoic. Endometrial polyp is suspected. Fibroid uterus. The largest fibroid measures 2.4 cm x 2.3 cm x 1.8 cm. I.U.D. - The patient does not have an I.U.D. The right ovary is non-visualized. The left ovary is non-visualized. There is no fluid in the cul-de-sac. US/Transvaginal Non- IMPRESSION: Fibroid uterus. Findings suggestive of an endometrial polyp. Electronically Signed: Rishabh Camara MD at 14:18 EST , CC: Dr. Cristian Silveira MD Combination Welder: Signed Normal [facility] Pelvis (Routine)on 4 Pelvis (Routine) [facility] Imaging Services [address] [place] [address] Pelvis (Routine) MR#: [id number] Acct: [id number] Name: MELISA EDOUARD Rep #: [id number] : 1955 F 69 From: Radha redding MD PCP: Dr. Cristian Silveira MD Status: REG CLI Study: Pelvis (Routine) Date of Exam: 02/02/24 Exam# [id number] Ordering Dr: Cristian Silveira MD -[id number] HISTORY: Prior fall, L4 compression fracture, left radiculopathy. TECHNIQUE: Multiplanar and multisequence MR images of the pelvis were obtained without contrast. 194 images. COMPARISON: XR 05/20/2016. FINDINGS: BONE: Refer to MRI lumbar spine same day regarding L4 compression fracture. No acute fracture, femoral head avascular necrosis, or confluent T1 signal abnormality. No significant bone marrow edema. JOINT: Mild degenerative changes of the hips. Normal alignment without dislocation. No joint effusion. TENDONS: Mild bilateral gluteal tendinopathy. Intact rectus femoris, iliopsoas, hamstring tendinous attachments. OTHER SOFT TISSUES: No abnormal periarticular fluid collections. Small granulomas in the posterior subcutaneous soft tissues. Preservation of fat around the sciatic nerves. PELVIS: Mild fluid in the endometrial cavity. 1.6 x 2.2 cm round mildly hypointense left myometrial lesion. No significant free fluid in the pelvis. MRI/Pelvis (Routine) IMPRESSION: No evidence for acute fracture or dislocation in the pelvis or hips. 2.2 cm uterine lesion, likely leiomyoma. Mild fluid in the endometrial cavity. Recommend follow-up ultrasound. Electronically Signed: Radha Rosales MD at 13:00 EDT , CC: Dr. Cristian Silveira MD Combination Welder: Signed Normal [facility] Spine Lumbar (Routine)on Spine Lumbar (Routine) [facility] Imaging Services [address] [place] [address] Spine Lumbar (Routine) MR#: [id number] Acct: [id number] Name: MELISA EDOUARD Rep #: [id number] : 1955 F 69 From: Farzad Peguero MD PCP: Dr. Cristian Silveira MD Status: REG CLI Study: Spine Lumbar (Routine) Date of Exam: 02/02/24 Exam# [id number] Ordering Dr: Cristian Silveira MD -[id number] INDICATION: COMPRESSION FX EXAMINATION: MRI - MR Spine Lumbar W/O Contrast TECHNIQUE: Multiplanar and multisequence MR images of the lumbar spine. IV Contrast Dosage and Agent: None. COMPARISON: 05/07/2022 FINDINGS: VERTEBRAE: Interval loss of height of the L4 vertebral body with formation of Schmorl''s node. Marrow edema signal present adjacent to the superior endplate. Stable chronic Schmorl''s node L2. No pathologic marrow replacement. VERTEBRAL ALIGNMENT: No spondylolisthesis. There is preservation of the normal lumbar lordosis. CORD: [] Normal location, size and signal characteristics. L1/L2: Normal disc height and morphology. Normal spinal canal, lateral recesses and neuroforamina. L2/L3: Normal disc height and morphology. Normal spinal canal, lateral recesses and neuroforamina. L3/L4: Mild loss of height and circumferential annular bulge and posterior element hypertrophy. Mild central and bilateral foraminal stenosis. L4/L5: Mild circumferential annular bulge with bilateral facet joint hypertrophy produces mild bilateral foraminal stenosis. L5/S1: Loss of disc height. Circumferential annular bulge and bilateral facet joint hypertrophy produce moderate bilateral foraminal stenosis. SOFT TISSUES: Unremarkable. MRI/Spine Lumbar (Routine) IMPRESSION: Acute to subacute L4 compression fracture with mild loss of height. Multilevel degenerative disc changes with central and foraminal stenoses as above. Electronically Signed: Farzad Peguero MD at 19:57 EDT Reading Location ID and State: Counts include 234 beds at the [facility] / [place] Tel , Service support , CC: Dr. Cristian Silveira MD Combination Welder: Signed Normal [facility] M100.678on 02-01-2024 M100.678 Pending SARS-CoV-2 (COVID 19) Negative INFLUENZA A Negative INFLUENZA B Negative RSV PCR Negative [facility] Comment on above: Performed By: #### M 100.678 #### [facility] Laboratory [address] [facility] [place], [address] L/S Spine Min 4 Viewson L/S Spine Min 4 Views [facility] Imaging Services [address] [place] [address] L/S Spine Min 4 Views MR#: [id number] Acct: [id number] Name: MELISA EDOUARD Rep #: [id number] : 1955 F 69 From: Coco Giang PCP: Dr. Cristian Silveira MD Status: REG CLI Study: L/S Spine Min 4 Views Date of Exam: 01/09/24 Exam# [id number] Ordering Dr: Cristian Silveira MD ADDENDUM by Dr. Coco High MD on 01/10/24 at 0813 [id number] INDICATION: Low back pain, unspecified EXAMINATION/TECHNIQ UE: X-RAY - XR Spine Lumbar Min 4 Views COMPARISON: Prior study dated: 04/13/2023 FINDINGS: L4 vertebral body moderate compression approximately 30% vertebral body height loss, uncertain age, height loss is greater compared to the prior. Mild compression superior endplate of L2 is unchanged. The other vertebral bodies are normal height. Disc space narrowing and osteophytes at multiple levels most pronounced at L5-S1. Bilateral facet arthropathy at essentially all levels. No subluxation. No paravertebral soft tissue mass identified. 01/10/24 08 Date cc: Dr. Cristian Silveira MD * Signed ADDENDUM by Dr. Coco High MD on 01/10/24 at 0813 RAD/L/S Spine Min 4 Views IMPRESSION: L4 moderate vertebral body compression fracture of uncertain age but greater degree of compression compared to prior study. MRI may be helpful for further evaluation. Degenerative changes otherwise stable. N.B. : Anaid Valladares (SYLWIA) , OT, confirmed on 01/11/2024 15:22:50 (ET) that the healthcare facility has received the radiology report. Electronically Signed: Coco High MD at 8:13 EDT , 01/11/24 1529 Date cc: Dr. Cristian Silveira MD * Signed ACR Level 3 findings have been noted. An addendum which confirms receipt of the report will follow. [id number] INDICATION: Low back pain, unspecified EXAMINATION/TECHNIQ UE: X-RAY - XR Spine Lumbar Min 4 Views COMPARISON: Prior study dated: 04/13/2023 FINDINGS: L4 vertebral body moderate compression approximately 30% vertebral body height loss, uncertain age, height loss is greater compared to the prior. Mild compression superior endplate of L2 is unchanged. The other vertebral bodies are normal height. Disc space narrowing and osteophytes at multiple levels most pronounced at L5-S1. Bilateral facet arthropathy at essentially all levels. No subluxation. No paravertebral soft tissue mass identified. RAD/L/S Spine Min 4 Views IMPRESSION: L4 moderate vertebral body compression fracture of uncertain age but greater degree of compression compared to prior study. MRI may be helpful for further evaluation. Degenerative changes otherwise stable. Electronically Signed: Coco High MD at 8:13 EDT , CC: Dr. Cristian Silveira MD Combination Welder: Signed Normal [facility] [id number] 12-26-2023 M100.678 Copy of report sent to Infection Control Printer [id number] 12/26/23 1054 MLOLLO. SARS-CoV-2 (COVID 19) A Positive A INFLUENZA A Negative INFLUENZA B Negative RSV PCR Negative SARS-CoV-2 (COVID 19 PCR) [facility] Comment on above: Performed By: #### M [id number] #### [facility] [address] [place], [address] Cardiology Visit Reporton Cardiology Visit Report [facility] [address] [place], [place] [address] OFFICE VISIT Date of Service: 11/23/23 MR#: [id number] Acct: [id number] Name: MELISA EDOUARD Rep #: [id number] : 1955 Provider: AYO calero Age/Sex: 68/F Location: [facility] [place] Status: Signed [facility] History of Present Illness Details: Pleasant 68-year-old lady who presents to the office today for a cardiovascular follow up visit. She has a history of hypertension who says that on May 26 she had an unusual sensation in her right arm with some facial drooping and presented to the emergency room. She was evaluated with an MRI which demonstrated a 4 mm focus of acute ischemic change in the right occipital lobe and otherwise normal. She received aspirin and no other medication. An echocardiogram was performed which demonstrated preserved left ventricular systolic function estimated at 70% with no valvular abnormalities noted no source of embolus was noted and bubble contrast study was normal. Subsequently she was discharged with the 7-day event monitor which has not demonstrated any evidence of atrial fibrillation. Carotid studies were noted to be normal and a lipid profile demonstrated total cholesterol 223 HDL of 50 and LDL of 130. She has since been started on lipid-lowering medication. Presented to the emergency room on 08/10/2023 with complaints of palpitations. She states her Fitbit had detected a heart rate into the high 120. Workup in the emergency room was unremarkable she had no recurrent symptoms and no dysrhythmias, ectopy, or a tachycardia. From a cardiac standpoint, the patient is doing well. She denies any palpitations, chest pain, pressure or heaviness. She denies SOB, Orthopnea, and PND. She does not have bleeding issues; no b lood in urine, stool or nosebleeds. She denies any decrease in energy level, myalgias, or claudication. She does not have edema, or sudden weight gain. She denies dizziness, lightheadedness, syncopal or near syncopal episodes, and headaches. She states her blood pressures at home average 128-130/70-80's. Intake Vital Signs 08/23/23 13:47 11/23/23 09:55 11/23/23 09:59 Height 5 ft 4 in 5 ft 4 in 5 ft 4 in Weight: 184 lb BMI 31.6 BP 149/89 H Blood Pressure Location Lt brachial Position Sitting Respiration 20 H Pulse 83 Pulse Source Monitor Pulse Oximetry (%) 95 Intake Visit Reasons: 3 M FU Inventory Control Coordinator Required: No Is patient in pain?: No Allergies ciprofloxacin (From Cipro) Allergy (Mild, Verified 11/23/23 10:06) itching atorvastatin Allergy (Verified 11/23/23 10:06) Hives simvastatin Allergy (Verified 11/23/23 10:06) Rash Medications ???Medication ???Instructions ???Recorded ???Confirmed ???Type ivermectin 1 % topical cream 30 g TP DAILY skin care 11/07/16 11/23/23 History (Soolantra) linaclotide 72 mcg capsule 72 mcg PO DAILY bowel issues 11/07/16 11/23/23 History (Linzess) aspirin 81 mg capsule 81 mg PO DAILY #30 caps 05/27/23 11/23/23 Rx cholecalciferol (vitamin D3) 25 1,000 unit PO DAILY vitamin 05/27/23 11/23/23 History mcg (1,000 unit) capsule alendronate 70 mg tablet (Fosamax) 70 mg PO QWEEK 06/09/23 11/23/23 History calcium carbonate 600 mg-vitamin 1 cap PO DAILY 06/09/23 11/23/23 History D3 5 mcg (200 unit) capsule (Calcium 600 + D(3)) glucosamine [id number] 1 tab PO DAILY 06/09/23 11/23/23 History yan 1,500 mg-400 unit-100 mg tablet (Osteo Bi-Flex (5-Loxin)) loratadine 10 mg tablet (Allergy 10 mg PO DAILY Allergies 06/09/23 11/23/23 History Relief (loratadine)) multivitamin 1 tab PO DAILY 06/09/23 11/23/23 History tumeric root powder PO 06/09/23 11/23/23 History doxycycline monohydrate 40 mg 1 cap PO .QOD 08/23/23 11/23/23 History capsule,immediate - delay release gabapentin 100 mg capsule 100 mg PO QHS PRN 11/23/23 11/23/23 History rosuvastatin 10 mg tablet (Crestor) 20 mg PO DAILY 11/23/23 11/23/23 History Have you fallen in the past year?: No PFSH Medical History Malignant neoplasm of unspecified part of unspecified bronchus or lung Chronic GERD Vitamin D deficiency Hepatic fibrosis Osteoporosis Hyperlipidemia Compression fracture of L4 vertebra Hypokalemia Elevated blood pressure reading without diagnosis of hypertension TIA (transient ischemic attack) DDD (degenerative disc disease), lumbar Segmental and somatic dysfunction of cervical region Segmental and somatic dysfunction of thoracic region Segmental and somatic dysfunction of lumbar region IBS (irritable bowel syndrome) History of lung cancer Environmental allergies Surgical History History of lobectomy of lung History of rotator (more content not included)... Normal [facility] Absolute lymphocyte countOrd ered By: Narendra Jarrell on 08-10-2023 Lymphocytes Auto (Unsp spec) [#/Vol] 2.82 10*3/uL 0.83-4.[address] [facility] Automated lymphocyte count a s percentage of total leukocytesOrdered By: Narendra Jarrell on 08-10-2023 Lymphocytes/100 WBC Auto (Unsp spec) 32.5 % 19-[address] [facility] Basophil percentageOrdered B y: Narendra Jarrell on 08-10-2023 Basophils/100 WBC (Bld) 0.9 % 0-1 [facility] Chloride [Moles/Vol] 110 mmol/L 98-107 [facility] Eosinophils/100 WBC (Bld) 2.0 % 0-[address] [facility] Glucose [Mass/Vol] 139 mg/dL 74-106 [facility] Comment on above: Fasting Glucose resu lt greater than or equal to 126 mg/dL suggests DIABETES MELLITUS per A.D.A. criteria. Hemoglobin (Bld) [Mass/Vol] 15.6 g/dL 12.0-15.[address] [facility] Monocytes/100 WBC (Bld) 8.6 % 0-10 [facility] Neutrophils (Bld) [#/Vol] 4.9 10*3/uL 2.0-7.[address] [facility] Neutrophils/100 WBC (Bld) 55.8 % 47-[address] [facility] Potassium [Moles/Vol] 3.5 mmol/L 3.5-5.[address] [facility] Sodium [Moles/Vol] 141 mmol/L 136-145 [facility] WBC (Bld) [#/Vol] 8.7 10*3/uL 4.4-11.0 [facility] Determination of erythrocyte mean corpuscular volume (MCV)Ordered By: Narendra Jarrell on 08-10-2023 MCV (RBC) [Entitic vol] 91.1 fL 81-99 [facility] Erythrocyte distribution wid th ratioOrdered By: Narendra Jarrell on 08-10-2023 Erythrocyte distribution width (RBC) [Ratio] 12.2 % 11.6-14.[address] [facility] Erythrocyte distribution wid th standard deviationOrdered By: Narendra Jarrell on 08-10-2023 Erythrocyte distribution width (RBC) [Entitic vol] 40.9 fL 35.1-43.9 [facility] Hematocrit Auto (Bld) [Volum e fraction]Ordered By: Narendra Jarrell on 08-10-2023 Hematocrit (Bld) [Volume fraction] 47.2 % 37-[address] [facility] Immature granulocytes/100 WB C Auto (Bld)Ordered By: Narendra Jarrell on 08-10-2023 Immature granulocytes/100 WBC (Bld) 0.200 % 0.0-0.[address] [facility] Comment on above: IG% - Immature Granu locytes (promyelocytes, myelocytes and metamyelocytes) > 1% indicates that a LEFT SHIFT is Present. Laboratory - Chemistry and C hemistry - challengeOrdered By: Narendra Jarrell on 08-10-2023 CO2 [Moles/Vol] 25.0 mmol/L 21.0-32.[address] [facility] Urea nitrogen/Creatinine [Mass ratio] 17.5 mg/mg 10-[address] [facility] Laboratory - Hematology and Cell countsOrdered By: Narendra Jarrell on 08-10-2023 MCH (RBC) [Entitic mass] 30.1 pg 27.0-32.[address] [facility] MCHC (RBC) [Mass/Vol] 33.1 g/dL 32-[address] [facility] Nucleated RBC/100 WBC (Bld) [Ratio] 0 % 0-[address] [facility] Platelet mean volume (Bld) [Entitic vol] 9.6 fL 6.2-12.[address] [facility] Platelets (Bld) [#/Vol] 277 10*3/uL 150-[address] [facility] No Panel InformationOrdered By: Narendra Jarrell on 08-10-2023 Estimated Creatinine Clearance Calc 69.88 ml/min [facility] Estimated GFR (MDRD) Amer 109 mL/min >[address] [facility] Comment on above: GFR Calc Estimated GFR (MDRD) Non-Af Amer 90 mL/min >[address] [facility] Comment on above: Non- GFR Calc Troponin I High Sensitivity 6 pg/mL 3.0-54.[address] [facility] Comment on above: Please Note: New Stephie t Units and Gender Specific Reference Ranges. For more information see Policy Stat Procedure [place] High Sensitivity Troponin (TNIH) and attachments. RBC Auto (Bld) [#/Vol]Ordere d By: Narendra Jarrell on 08-10-2023 RBC (Bld) [#/Vol] 5.18 10*6/uL 4.2-5.4 [facility] Serum or plasma calcium rigoberto urement (mass/volume)Ordered By: Narendra Jarrell on 08-10-2023 Calcium [Mass/Vol] 9.2 mg/dL 8.5-10.1 [facility] Serum or plasma creatinine m easurement (mass/volume)Ordered By: Narendra Jarrell on 08-10-2023 Creatinine [Mass/Vol] 0.68 mg/dL 0.55-1.[address] [facility] Comment on above: The validity of the calculated GFR & GFRAA in patients over 70 years has not been determined. Clinical correlation is essential. Serum or plasma urea nitroge n measurement (mass/volume)Ordered By: Narendra Jarrell on 08-10-2023 Urea nitrogen [Mass/Vol] 12 mg/dL 10-[address] [facility] Thin prep Papanicolaou smear with manual screeningOrdered By: Narendra Jarrell on 08-10-2023 Thin prep Papanicolaou smear with manual screening 6 08-[address] [facility] No Panel InformationOrdered By: Abhay Yusuf on 05-27-2023 Ethyl Alcohol Level < 3.0 mg/dL [facility] Comment on above: The serum:whole bloo d ethanol ratio is approximately 1.14and varies slightly with hematocrit. Medical Alcohol reference interval and critical value innon-tolerant individuals; 50 - 100 Impairment 100 Intoxication 100 - 250 Severe Poisoning 250 - 400 Deep/possible fatal coma Absolute lymphocyte countOrd ered By: Mike Rivera on 05-26-2023 Lymphocytes Auto (Unsp spec) [#/Vol] 2.61 10*3/uL 0.83-4.[address] [facility] Activated partial thrombopla stin time (aPTT) in platelet poor plasma by coagulation aOrdered By: Mike Rivera on 05-26-2023 aPTT Coag (PPP) [Time] 25.8 s 24.1-36.2 [facility] Automated lymphocyte count a s percentage of total leukocytesOrdered By: Mike Rivera on 05-26-2023 Lymphocytes/100 WBC Auto (Unsp spec) 27.6 % 19-[address] [facility] Basophil percentageOrdered B y: Abhay Yusuf on 05-26-2023 Cholesterol [Mass/Vol] 223 mg/dL <200 [facility] Comment on above: <200 mg/dL Desirable 200-240 mg/dL Borderline >240 mg/dL High Risk Triglyceride [Mass/Vol] 216 mg/dL <199 [facility] Comment on above: The drugs N-Acetylcy steine and Metamizole may falsely depress this assay.Serum Triglycerides Reference Interval Normal <150 mg/dL Borderline high 150 - 199 mg/dL High 200 - 499 mg/dL Very High > or = 500 mg/dL Basophil percentageOrdered B y: Mike Rivera on 05-26-2023 Basophils/100 WBC (Bld) 0.7 % 0-1 [facility] Chloride [Moles/Vol] 106 mmol/L 98-107 [facility] Eosinophils/100 WBC (Bld) 1.5 % 0-[address] [facility] Glucose [Mass/Vol] 212 mg/dL 74-106 [facility] Comment on above: Glucose result great er than or equal to 200 mg/dLsuggests DIABETES MELLITUS per A.D.A. criteria. Hemoglobin (Bld) [Mass/Vol] 15.5 g/dL 12.0-15.[address] [facility] Monocytes/100 WBC (Bld) 8.6 % 0-10 [facility] Neutrophils (Bld) [#/Vol] 5.8 10*3/uL 2.0-7.[address] [facility] Neutrophils/100 WBC (Bld) 61.4 % 47-[address] [facility] Potassium [Moles/Vol] 3.4 mmol/L 3.5-5.[address] [facility] Sodium [Moles/Vol] 139 mmol/L 136-145 [facility] WBC (Bld) [#/Vol] 9.4 10*3/uL 4.4-11.0 [facility] Determination of erythrocyte mean corpuscular volume (MCV)Ordered By: Mike Rivera on 05-26-2023 MCV (RBC) [Entitic vol] 89.0 fL 81-99 [facility] Erythrocyte distribution wid th ratioOrdered By: Mike Rivera on 05-26-2023 Erythrocyte distribution width (RBC) [Ratio] 12.3 % 11.6-14.[address] [facility] Erythrocyte distribution wid th standard deviationOrdered By: Mike Rivera on 05-26-2023 Erythrocyte distribution width (RBC) [Entitic vol] 40.2 fL 35.1-43.9 [facility] Hematocrit Auto (Bld) [Volum e fraction]Ordered By: Mike Rivera on 05-26-2023 Hematocrit (Bld) [Volume fraction] 44.7 % 37-[address] [facility] Immature granulocytes/100 WB C Auto (Bld)Ordered By: Mike Rivera on 05-26-2023 Immature granulocytes/100 WBC (Bld) 0.200 % 0.0-0.[address] [facility] Comment on above: IG% - Immature Granu locytes (promyelocytes, myelocytes and metamyelocytes) > 1% indicates that a LEFT SHIFT is Present. Laboratory - Chemistry and C hemistry - challengeOrdered By: Abhay Yusuf on 05-26-2023 Cholesterol in HDL [Mass/Vol] 50 mg/dL >[address] [facility] Comment on above: The drugs N-Acetylcy steine and Metamizole may falsely depress this assay. Reference Range HDL <40 mg/dL Low HDL Cholesterol HDL >or= 60 mg/dL High HDL Cholesterol Cholesterol in LDL [Mass/Vol] 130 mg/dL 0-[address] [facility] Laboratory - Chemistry and C hemistry - challengeOrdered By: Mike Rivera on 05-26-2023 CO2 [Moles/Vol] 26.0 mmol/L 21.0-32.[address] [facility] Urea nitrogen/Creatinine [Mass ratio] 15.5 mg/mg 10-[address] [facility] Laboratory - CoagulationOrde red By: Mike Rivera on 05-26-2023 INR Coag (Bld) [Relative time] 1.0 {INR} [facility] PT Coag (PPP) [Time] 13.3 s 11.7-14.9 [facility] Laboratory - Hematology and Cell countsOrdered By: Mike Rivera on 05-26-2023 MCH (RBC) [Entitic mass] 30.9 pg 27.0-32.[address] [facility] MCHC (RBC) [Mass/Vol] 34.7 g/dL 32-[address] [facility] Nucleated RBC/100 WBC (Bld) [Ratio] 0 % 0-[address] [facility] Platelet mean volume (Bld) [Entitic vol] 9.5 fL 6.2-12.[address] [facility] Platelets (Bld) [#/Vol] 267 10*3/uL 150-[address] [facility] No Panel InformationOrdered By: Mike Rivera on 05-26-2023 Troponin I High Sensitivity 7 pg/mL 3.0-54.[address] [facility] Comment on above: Please Note: New Stephie t Units and Gender Specific Reference Ranges. For more information see Policy Stat Procedure [place] High Sensitivity Troponin (TNIH) and attachments. Estimated Creatinine Clearance Calc 63.53 ml/min [facility] Estimated GFR (MDRD) Amer 87 mL/min >[address] [facility] Comment on above: GFR Calc Estimated GFR (MDRD) Non-Af Amer 72 mL/min >[address] [facility] Comment on above: Non- GFR Calc No Panel InformationOrdered By: Abhay Yusuf on 05-26-2023 VLDL Cholesterol 43 mg/dL 5-[address] [facility] RBC Auto (Bld) [#/Vol]Ordere d By: Mike Rivera on 05-26-2023 RBC (Bld) [#/Vol] 5.02 10*6/uL 4.2-5.4 [facility] Serum or plasma calcium rigoberto urement (mass/volume)Ordered By: Mike Rivera on 05-26-2023 Calcium [Mass/Vol] 9.6 mg/dL 8.5-10.1 [facility] Serum or plasma creatinine m easurement (mass/volume)Ordered By: Mike Rivera on 05-26-2023 Creatinine [Mass/Vol] 0.84 mg/dL 0.55-1.[address] [facility] Comment on above: The validity of the calculated GFR & GFRAA in patients over 70 years has not been determined. Clinical correlation is essential. Serum or plasma thyroid stim ulating hormone (TSH) measurement (units/volume)Ordered By: Abhay Yusuf on 05-26-2023 TSH Qn 1.85 uIU/mL 0.358-3.[address] [facility] Serum or plasma urea nitroge n measurement (mass/volume)Ordered By: Mike Rivera on 05-26-2023 Urea nitrogen [Mass/Vol] 13 mg/dL 7-[address] [facility] Thin prep Papanicolaou smear with manual screeningOrdered By: Mike Rivera on 05-26-2023 Thin prep Papanicolaou smear with manual screening 7 5-[address] [facility] Absolute lymphocyte countOrd ered By: Cristian Silveira on 04-26-2023 Lymphocytes Auto (Unsp spec) [#/Vol] 2.37 10*3/uL 0.83-4.[address] [facility] Automated lymphocyte count a s percentage of total leukocytesOrdered By: Cristian Silveira on 04-26-2023 Lymphocytes/100 WBC Auto (Unsp spec) 25.3 % 19-[address] [facility] Basophil percentageOrdered B y: Cristian Silveira on 04-26-2023 Basophils/100 WBC (Bld) 0.9 % 0-1 [facility] Bilirubin [Mass/Vol] 0.80 mg/dL 0.20-1.00 [facility] Comment on above: For patients on eltr ombopag therapy, use of Dimension [place] TBIL is not recommended. Chloride [Moles/Vol] 106 mmol/L 98-107 [facility] Eosinophils/100 WBC (Bld) 2.0 % 0-[address] [facility] Glucose [Mass/Vol] 126 mg/dL 74-106 [facility] Comment on above: Fasting Glucose resu lt greater than or equal to 126 mg/dL suggests DIABETES MELLITUS per A.D.A. criteria. Hemoglobin (Bld) [Mass/Vol] 16.1 g/dL 12.0-15.[address] [facility] Monocytes/100 WBC (Bld) 7.7 % 0-10 [facility] Neutrophils (Bld) [#/Vol] 6.0 10*3/uL 2.0-7.[address] [facility] Neutrophils/100 WBC (Bld) 63.5 % 47-[address] [facility] Potassium [Moles/Vol] 3.7 mmol/L 3.5-5.[address] [facility] Protein [Mass/Vol] 6.8 g/dL 6.4-8.2 [facility] Sodium [Moles/Vol] 136 mmol/L 136-145 [facility] WBC (Bld) [#/Vol] 9.4 10*3/uL 4.4-11.0 [facility] Determination of erythrocyte mean corpuscular volume (MCV)Ordered By: Cristian Silveira on 04-26-2023 MCV (RBC) [Entitic vol] 90.5 fL 81-99 [facility] Erythrocyte distribution wid th ratioOrdered By: [facility] on 04-26-2023 Erythrocyte distribution width (RBC) [Ratio] 12.4 % 11.6-14.[address] [facility] Erythrocyte distribution wid th standard deviationOrdered By: [facility] on 04-26-2023 Erythrocyte distribution width (RBC) [Entitic vol] 41.1 fL 35.1-43.9 [facility] Hematocrit Auto (Bld) [Volum e fraction]Or[facility]: [facility] on 04-26-2023 Hematocrit (Bld) [Volume fraction] 47.8 % 37-[address] [facility] Immature granulocytes/100 WB C Auto (Bld)Ordered By: [facility] 04-26-2023 Immature granulocytes/100 WBC (Bld) 0.600 % 0.0-0.[address] [facility] Comment on above: IG% - Immature Granu locytes (promyelocytes, myelocytes and metamyelocytes) > 1% indicates that a LEFT SHIFT is Present. Laboratory - Chemistry and C hemistry - challengeOrdered By: Cristian Raoul on 04-26-2023 Albumin/Globulin [Mass ratio] 1.2 {ratio} 0.9-2.[address] [facility] ALP [Catalytic activity/Vol] 157 U/L 45-[address] [facility] ALT [Catalytic activity/Vol] 40 U/L 13-[address] [facility] CO2 [Moles/Vol] 23.0 mmol/L 21.0-32.[address] [facility] Globulin (S) [Mass/Vol] 3.1 g/dL 2.2-4.2 [facility] Urea nitrogen/Creatinine [Mass ratio] 23.8 mg/mg 10-[address] [facility] Laboratory - Hematology and Cell countsOrdered By: Cristian Silveira on 04-26-2023 MCH (RBC) [Entitic mass] 30.5 pg 27.0-32.[address] [facility] MCHC (RBC) [Mass/Vol] 33.7 g/dL 32-[address] [facility] Nucleated RBC/100 WBC (Bld) [Ratio] 0 % 0-[address] [facility] Platelets (Bld) [#/Vol] 265 10*3/uL 150-[address] [facility] No Panel InformationOrdered By: Cristian Silveira on 04-26-2023 Estimated GFR (MDRD) Amer 120 mL/min >[address] [facility] Comment on above: GFR Calc Estimated GFR (MDRD) Non-Af Amer 100 mL/min >[address] [facility] Comment on above: Non- GFR Calc Vitamin D 25-Hydroxy 69.6 ng/mL [facility] Comment on above: Vitamin D 25(OH) Sta tus Range Deficiency <20 ng/mL (50nmol/L) Insufficiency 20 - 30 ng/mL (50 - 75 nmol/L) Sufficiency 30 - 100 ng/mL (75 - 250 nmol/L) Toxicity >100 ng/mL (>250 nmol/L) Platelet mean volume Luciano-Ec ker (Bld) [Entitic vol]Ordered By: Cristian Silveira on 04-26-2023 Platelet mean volume (Bld) [Entitic vol] 10.2 fL 6.2-12.[address] [facility] RBC Auto (Bld) [#/Vol]Ordere d By: Cristian Silveira on 04-26-2023 RBC (Bld) [#/Vol] 5.28 10*6/uL 4.2-5.4 [facility] Serum or plasma calcium rigoberto urement (mass/volume)Ordered By: Cristian Silveira on 04-26-2023 Calcium [Mass/Vol] 9.3 mg/dL 8.5-10.1 [facility] Serum or plasma creatinine m easurement (mass/volume)Ordered By: Cristian Silveira on 04-26-2023 Creatinine [Mass/Vol] 0.63 mg/dL 0.55-1.[address] [facility] Comment on above: The validity of the calculated GFR & GFRAA in patients over 70 years has not been determined. Clinical correlation is essential. Serum or plasma thyroid stim ulating hormone (TSH) measurement (units/volume)Ordered By: Cristian Silveira on 04-26-2023 TSH Qn 1.53 uIU/mL 0.358-3.[address] [facility] Serum or plasma urea nitroge n measurement (mass/volume)Ordered By: Cristian Silveira on 04-26-2023 Urea nitrogen [Mass/Vol] 15 mg/dL 7-[address] [facility] Thin prep Papanicolaou smear with manual screeningOrdered By: Cristian Silveira on 04-26-2023 Thin prep Papanicolaou smear with manual screening 3.7 g/dL 3.2-5.[address] [facility] Thin prep Papanicolaou smear with manual screening 14 U/L 15-[address] [facility] Thin prep Papanicolaou smear with manual screening 7 5-[address] [facility] Laboratory - Microbiology an d Antimicrobial susceptibilityOrdered By: Cristian Silveira on 11-22-2022 SARS-CoV-2 (COVID-19) RNA LAURIE+probe Ql (Unsp spec) [facility] No Panel InformationOrdered By: Cristian Silveira on 11-22-2022 Influenza Types A,B Direct FA (MARCELA) [facility] RSV Ag EIAOrdered By: Cristian carey on 11-22-2022 RSV Ag Immune stain Ql (Tiss) [facility] Absolute lymphocyte countOrd ered By: Cristian Silveira on 10-24-2022 Lymphocytes Auto (Unsp spec) [#/Vol] 2.21 10*3/uL 0.83-4.[address] [facility] Basophil percentageOrdered B y: Cristian Silveira on 10-24-2022 Basophils/100 WBC (Bld) 1.0 % 0-1 [facility] Bilirubin [Mass/Vol] 0.50 mg/dL 0.20-1.00 [facility] Comment on above: For patients on eltr ombopag therapy, use of Dim[place] TBIL is not recommended. Chloride [Moles/Vol] 108 mmol/L 98-107 [facility] Eosinophils/100 WBC (Bld) 1.8 % 0-[address] [facility] Glucose [Mass/Vol] 121 mg/dL 74-106 [facility] Comment on above: Fasting Glucose resu lt from 100 to 125 mg/dL suggests IMPAIRED HOMEOSTASIS per A.D.A. criteria. Neutrophils (Bld) [#/Vol] 4.0 10*3/uL 2.0-7.[address] [facility] Neutrophils/100 WBC (Bld) 56.6 % 47-[address] [facility] Potassium [Moles/Vol] 3.7 mmol/L 3.5-5.[address] [facility] Protein [Mass/Vol] 7.1 g/dL 6.4-8.2 [facility] Sodium [Moles/Vol] 139 mmol/L 136-145 [facility] WBC (Bld) [#/Vol] 7.1 10*3/uL 4.4-11.0 [facility] Blood erythrocytes count (nu mber/volume)Ordered By: Cristian Silveira on 10-24-2022 RBC (Bld) [#/Vol] 5.10 10*6/uL 4.2-5.4 [facility] Blood hemoglobin measurement (mass/volume)Ordered By: Cristian Silveira on 10-24-2022 Hemoglobin (Bld) [Mass/Vol] 15.7 g/dL 12.0-15.[address] [facility] Blood lymphocytes/100 leukoc ytesOrdered By: Cristian Silveira on 10-24-2022 Lymphocytes/100 WBC (Bld) 31.3 % 19-[address] [facility] Blood monocytes/100 leukocyt esOrdered By: Cristian Silveira on 10-24-2022 Monocytes/100 WBC (Bld) 8.9 % 0-10 [facility] Blood platelet mean volumeOr dered By: Cristian Silveira on 10-24-2022 Platelet mean volume (Bld) [Entitic vol] 10.4 fL 6.2-12.[address] [facility] Determination of erythrocyte mean corpuscular volume (MCV)Ordered By: Cristian Silveira on 10-24-2022 MCV (RBC) [Entitic vol] 91.6 fL 81-99 [facility] Hematocrit Auto (Bld) [Volum e fraction]Ordered By: Cristian Silveira on 10-24-2022 Hematocrit (Bld) [Volume fraction] 46.7 % 37-[address] [facility] Laboratory - Chemistry and C hemistry - challengeOrdered By: Cristian Silveira on 10-24-2022 ALP [Catalytic activity/Vol] 84 U/L 45-[address] [facility] ALT [Catalytic activity/Vol] 47 U/L 13-[address] [facility] CO2 [Moles/Vol] 21.0 mmol/L 21.0-32.[address] [facility] Globulin (S) [Mass/Vol] 3.4 g/dL 2.2-4.2 [facility] Urea nitrogen/Creatinine [Mass ratio] 23.7 mg/mg 10-[address] [facility] Laboratory - Hematology and Cell countsOrdered By: Cristian Silveira on 10-24-2022 Erythrocyte distribution width (RBC) [Entitic vol] 40.5 fL 35.1-43.9 [facility] Erythrocyte distribution width (RBC) [Ratio] 12.0 % 11.6-14.[address] [facility] Immature granulocytes/100 WBC (Bld) 0.400 % 0.0-0.[address] [facility] Comment on above: IG% - Immature Granu locytes (promyelocytes, myelocytes and metamyelocytes) > 1% indicates that a LEFT SHIFT is Present. MCH (RBC) [Entitic mass] 30.8 pg 27.0-32.[address] [facility] Nucleated RBC/100 WBC (Bld) [Ratio] 0 % 0-[address] [facility] MCHC Auto (RBC) [Mass/Vol]Or dered By: Cristian Silveira on 10-24-2022 MCHC (RBC) [Mass/Vol] 33.6 g/dL 32-[address] [facility] No Panel InformationOrdered By: Cristian Silveira on 10-24-2022 Estimated GFR (MDRD) Amer 120 mL/min >[address] [facility] Comment on above: GFR Calc Estimated GFR (MDRD) Non-Af Amer 99 mL/min >[address] [facility] Comment on above: Non- GFR Calc Thyroid Stimulating Hormone (TSH) 1.71 uIU/mL 0.358-3.[address] [facility] Vitamin D 25-Hydroxy 77.0 ng/mL [facility] Comment on above: Vitamin D 25(OH) Sta tus Range Deficiency <20 ng/mL (50nmol/L) Insufficiency 20 - 30 ng/mL (50 - 75 nmol/L) Sufficiency 30 - 100 ng/mL (75 - 250 nmol/L) Toxicity >100 ng/mL (>250 nmol/L) Platelets bldOrdered By: Cristian Silveira on 10-24-2022 Platelets (Bld) [#/Vol] 271 10*3/uL 150-[address] [facility] Serum or plasma albumin rigoberto urement (mass/volume)Ordered By: Cristian Silveira on 10-24-2022 Albumin [Mass/Vol] 3.7 g/dL 3.2-5.0 [facility] Serum or plasma albumin/glob ulin mass ratioOrdered By: Cristian Silveira on 10-24-2022 Albumin/Globulin [Mass ratio] 1.1 {ratio} 0.9-2.[address] [facility] Serum or plasma calcium rigoberto urement (mass/volume)Ordered By: Cristian Silveira on 10-24-2022 Calcium [Mass/Vol] 9.1 mg/dL 8.5-10.1 [facility] Serum or plasma creatinine m easurement (mass/volume)Ordered By: Cristian Silveira on 10-24-2022 Creatinine [Mass/Vol] 0.63 mg/dL 0.55-1.[address] [facility] Comment on above: The validity of the calculated GFR & GFRAA in patients over 70 years has not been determined. Clinical correlation is essential. Serum or plasma urea nitroge n measurement (mass/volume)Ordered By: Cristian Silveira on 10-24-2022 Urea nitrogen [Mass/Vol] 15 mg/dL 7-[address] [facility] Thin prep Papanicolaou smear with manual screeningOrdered By: Cristian Silveira on 10-24-2022 Thin prep Papanicolaou smear with manual screening 23 U/L 15-[address] [facility] Thin prep Papanicolaou smear with manual screening 10 5-[address] [facility] COVID-19 virus antigen assay Ordered By: Dr. Silveira on 07-04-2022 SARS-CoV-2 (COVID-19) Ag IA.rapid Ql (Resp) Detected Not Detect [facility] Comment on above: Normal Reference Ran ge: Not DetectedMethod:(RT-PCR) real-time reverse transcriptase PCRLuminex CHASE Instrument*The Food and Drug Administration (FDA) has issued an Emergency Use Authorization (EAU) for the CHASE SARS-CoV-2 Assay for the rapid detection of the virus that causes COVID-19. This test has been validated, but the FDAs independent review of this validation is pending.*Negative results do not preclude infection and should not be used as the sole basis for treatment or patient management. Optimum specimen types and timing for peak viral levels during infections caused by SARS-CoV-2 have not been determined. Collection of multiple specimens from the same patient may be necessary to detect the virus. The possibility of a false negative result should be considered if the patient has clinical presentation or has had recent exposure. No Panel InformationOrdered By: Cristian Silveira on 07-04-2022 Influenza Types A,B Direct FA ([facility]) [facility] No Panel InformationOrdered By: Dr. Silveira on 07-04-2022 Influenza Types A,B Direct FA ([facility]) [facility] RSV Ag EIAOrdered By: Cristian carey on 07-04-2022 RSV Ag Immune stain Ql (Tiss) [facility] RSV Ag EIAOrdered By: Dr. Bekah carey on 07-04-2022 RSV Ag Immune stain Ql (Tiss) [facility] Absolute lymphocyte countOrd ered By: Dr. Silveira on 04-27-2022 Lymphocytes Auto (Unsp spec) [#/Vol] 1.65 10*3/uL 0.83-4.[address] [facility] Basophil percentageOrdered B y: Dr. Silveira on 04-27-2022 Basophils/100 WBC (Bld) 0.7 % 0-1 [facility] Bilirubin [Mass/Vol] 0.80 mg/dL 0.20-1.00 [facility] Comment on above: For patients on eltr ombopag therapy, use of Dim[place] TBIL is not recommended. Chloride [Moles/Vol] 103 mmol/L 98-107 [facility] Eosinophils/100 WBC (Bld) 1.7 % 0-[address] [facility] Glucose [Mass/Vol] 57 mg/dL 74-106 [facility] Neutrophils (Bld) [#/Vol] 5.3 10*3/uL 2.0-7.[address] [facility] Neutrophils/100 WBC (Bld) 65.6 % 47-[address] [facility] Potassium [Moles/Vol] 3.5 mmol/L 3.5-5.[address] [facility] Comment on above: Slight Hemolysis, Re sult may be falsely increased. Protein [Mass/Vol] 7.5 g/dL 6.4-8.2 [facility] Sodium [Moles/Vol] 138 mmol/L 136-145 [facility] WBC (Bld) [#/Vol] 8.1 10*3/uL 4.4-11.0 [facility] Blood erythrocytes count (nu mber/volume)Ordered By: Dr. Silveira on 04-27-2022 RBC (Bld) [#/Vol] 5.37 10*6/uL 4.2-5.4 [facility] Blood hemoglobin measurement (mass/volume)Ordered By: Dr. Silveira on 04-27-2022 Hemoglobin (Bld) [Mass/Vol] 16.3 g/dL 12.0-15.[address] [facility] Blood lymphocytes/100 leukoc ytesOrdered By: Dr. Silveira on 04-27-2022 Lymphocytes/100 WBC (Bld) 20.4 % 19-[address] [facility] Blood monocytes/100 leukocyt esOrdered By: Dr. Silveira on 04-27-2022 Monocytes/100 WBC (Bld) 11.2 % 0-10 [facility] Blood platelet mean volumeOr dered By: Dr. Silveira on 04-27-2022 Platelet mean volume (Bld) [Entitic vol] 10.3 fL 6.2-12.[address] [facility] Determination of erythrocyte mean corpuscular volume (MCV)Ordered By: Dr. Silveira on 04-27-2022 MCV (RBC) [Entitic vol] 91.4 fL 81-99 [facility] Hematocrit Auto (Bld) [Volum e fraction]Ordered By: Dr. Silveira on 04-27-2022 Hematocrit (Bld) [Volume fraction] 49.1 % 37-[address] [facility] Laboratory - Chemistry and C hemistry - challengeOrdered By: Dr. Silveira on 04-27-2022 ALP [Catalytic activity/Vol] 90 U/L 45-[address] [facility] ALT [Catalytic activity/Vol] 34 U/L 13-[address] [facility] CO2 [Moles/Vol] 27.0 mmol/L 21.0-32.[address] [facility] Globulin (S) [Mass/Vol] 3.3 g/dL 2.2-4.2 [facility] Urea nitrogen/Creatinine [Mass ratio] 23.5 mg/mg 10-[address] [facility] Laboratory - Hematology and Cell countsOrdered By: Dr. Silveira on 04-27-2022 Erythrocyte distribution width (RBC) [Entitic vol] 43.1 fL 35.1-43.9 [facility] Erythrocyte distribution width (RBC) [Ratio] 13.0 % 11.6-14.[address] [facility] Immature granulocytes/100 WBC (Bld) 0.400 % 0.0-0.[address] [facility] Comment on above: IG% - Immature Granu locytes (promyelocytes, myelocytes and metamyelocytes) > 1% indicates that a LEFT SHIFT is Present. MCH (RBC) [Entitic mass] 30.4 pg 27.0-32.[address] [facility] Nucleated RBC/100 WBC (Bld) [Ratio] 0 % 0-[address] [facility] MCHC Auto (RBC) [Mass/Vol]Or dered By: Dr. Silveira on 04-27-2022 MCHC (RBC) [Mass/Vol] 33.2 g/dL 32-[address] [facility] No Panel InformationOrdered By: Dr. Silveira on 04-27-2022 Estimated GFR (MDRD) Amer 119 mL/min >[address] [facility] Comment on above: GFR Calc Estimated GFR (MDRD) Non-Af Amer 98 mL/min >[address] [facility] Comment on above: Non- GFR Calc Thyroid Stimulating Hormone (TSH) 2.18 uIU/mL 0.358-3.[address] [facility] Vitamin D 25-Hydroxy 64.2 ng/mL [facility] Comment on above: Vitamin D 25(OH) Sta tus Range Deficiency <20 ng/mL (50nmol/L) Insufficiency 20 - 30 ng/mL (50 - 75 nmol/L) Sufficiency 30 - 100 ng/mL (75 - 250 nmol/L) Toxicity >100 ng/mL (>250 nmol/L) Platelets bldOrdered By: Dr. Silveira on 04-27-2022 Platelets (Bld) [#/Vol] 347 10*3/uL 150-[address] [facility] Serum or plasma albumin rigoberto urement (mass/volume)Ordered By: Dr. Silveira on 04-27-2022 Albumin [Mass/Vol] 4.2 g/dL 3.2-5.0 [facility] Serum or plasma albumin/glob ulin mass ratioOrdered By: Dr. Silveira on 04-27-2022 Albumin/Globulin [Mass ratio] 1.3 {ratio} 0.9-2.[address] [facility] Serum or plasma calcium rigoberto urement (mass/volume)Ordered By: Dr. Silveira on 04-27-2022 Calcium [Mass/Vol] 9.7 mg/dL 8.5-10.1 [facility] Serum or plasma creatinine m easurement (mass/volume)Ordered By: Dr. Silveira on 04-27-2022 Creatinine [Mass/Vol] 0.64 mg/dL 0.55-1.[address] [facility] Comment on above: The validity of the calculated GFR & GFRAA in patients over 70 years has not been determined. Clinical correlation is essential. Serum or plasma urea nitroge n measurement (mass/volume)Ordered By: Dr. Silveira on 04-27-2022 Urea nitrogen [Mass/Vol] 15 mg/dL 7-[address] [facility] Thin prep Papanicolaou smear with manual screeningOrdered By: Dr. Silveira on 04-27-2022 Thin prep Papanicolaou smear with manual screening 21 U/L 15-[address] [facility] Comment on above: Slight Hemolysis, Re sult may be falsely increased. Thin prep Papanicolaou smear with manual screening 8 5-[address] [facility] Absolute lymphocyte counton 01-03-2022 Lymphocytes Auto (Unsp spec) [#/Vol] 2.80 10*3/uL 0.83-4.[address] [facility] Work Phone: Basophil percentageon 2021 Amylase [Catalytic activity/Vol] 53 U/L 25-[address] [facility] Work Phone: [phone] Basophils/100 WBC (Bld) 0.8 % 0-1 [facility] Work Phone: Bilirubin [Mass/Vol] 0.70 mg/dL 0.20-1.00 [facility] Work Phone: Comment on above: For patients on eltr ombopag therapy, use of Dim[employer] [place] TBIL is not recommended. Chloride [Moles/Vol] 104 mmol/L 98-107 [facility] Work Phone: [phone] Eosinophils/100 WBC (Bld) 1.5 % 0-[address] [facility] Work Phone: [phone] Glucose [Mass/Vol] 96 mg/dL 74-106 [facility] Work Phone: Neutrophils (Bld) [#/Vol] 5.7 10*3/uL 2.0-7.[address] [facility] Work Phone: [phone] Neutrophils/100 WBC (Bld) 60.4 % 47-[address] [facility] Work Phone: [phone] Potassium [Moles/Vol] 3.6 mmol/L 3.5-5.[address] [facility] Work Phone: [phone] Protein [Mass/Vol] 7.1 g/dL 6.4-8.2 [facility] Work Phone: [phone] Sodium [Moles/Vol] 140 mmol/L 136-145 [facility] Work Phone: [phone] WBC (Bld) [#/Vol] 9.5 10*3/uL 4.4-11.0 [facility] Work Phone: Blood erythrocytes count (nu mber/volume)on 01-03-2022 RBC (Bld) [#/Vol] 5.20 10*6/uL 4.2-5.4 [facility] Work Phone: [phone] Blood hemoglobin measurement (mass/volume)on 01-03-2022 Hemoglobin (Bld) [Mass/Vol] 16.0 g/dL 12.0-15.[address] [facility] Work Phone: [phone] Blood lymphocytes/100 leukoc yteson 01-03-2022 Lymphocytes/100 WBC (Bld) 29.5 % 19-[address] [facility] Work Phone: Blood monocytes/100 leukocyt eson 01-03-2022 Monocytes/100 WBC (Bld) 7.3 % 0-10 [facility] Work Phone: Blood platelet mean volumeon 01-03-2022 Platelet mean volume (Bld) [Entitic vol] 10.3 fL 6.2-12.[address] [facility] Work Phone: Determination of erythrocyte mean corpuscular volume (MCV)on 01-03-2022 MCV (RBC) [Entitic vol] 92.1 fL 81-99 [facility] Work Phone: Hematocrit Auto (Bld) [Volum e fraction]on 01-03-2022 Hematocrit (Bld) [Volume fraction] 47.9 % 37-[address] [facility] Work Phone: Laboratory - Chemistry and C hemistry - challengeon 01-03-2022 ALP [Catalytic activity/Vol] 83 U/L 45-[address] [facility] Work Phone: ALT [Catalytic activity/Vol] 43 U/L 13-[address] [facility] Work Phone: CO2 [Moles/Vol] 29.0 mmol/L 21.0-32.[address] [facility] Work Phone: Globulin (S) [Mass/Vol] 3.2 g/dL 2.2-4.2 [facility] Work Phone: Lipase [Catalytic activity/Vol] 146 U/L 73-[address] [facility] Work Phone: Urea nitrogen/Creatinine [Mass ratio] 17.1 mg/mg 10-[address] [facility] Work Phone: Laboratory - Hematology and Cell countson 01-03-2022 Erythrocyte distribution width (RBC) [Entitic vol] 41.1 fL 35.1-43.9 [facility] Work Phone: [phone] Erythrocyte distribution width (RBC) [Ratio] 12.0 % 11.6-14.[address] [facility] Work Phone: Immature granulocytes/100 WBC (Bld) 0.500 % 0.0-0.[address] [facility] Work Phone: Comment on above: IG% - Immature Granu locytes (promyelocytes, myelocytes and metamyelocytes) > 1% indicates that a LEFT SHIFT is Present. MCH (RBC) [Entitic mass] 30.8 pg 27.0-32.[address] [facility] Work Phone: Nucleated RBC/100 WBC (Bld) [Ratio] 0 % 0-[address] [facility] Work Phone: MCHC Auto (RBC) [Mass/Vol]on 01-03-2022 MCHC (RBC) [Mass/Vol] 33.4 g/dL 32-[address] [facility] Work Phone: No Panel Informationon 01-03 Estimated GFR (MDRD) Amer 107 mL/min >[address] [facility] Work Phone: Comment on above: GFR Calc Estimated GFR (MDRD) Non-Af Amer 88 mL/min >[address] [facility] Work Phone: Comment on above: Non- GFR Calc Platelets bldon 01-03-2022 Platelets (Bld) [#/Vol] 314 10*3/uL 150-[address] [facility] Work Phone: Serum or plasma albumin rigoberto urement (mass/volume)on 01-03-2022 Albumin [Mass/Vol] 3.9 g/dL 3.2-5.0 [facility] Work Phone: Serum or plasma albumin/glob ulin mass ratioon 01-03-2022 Albumin/Globulin [Mass ratio] 1.2 {ratio} 0.9-2.[address] [facility] Work Phone: Serum or plasma calcium rigoberto urement (mass/volume)on 01-03-2022 Calcium [Mass/Vol] 9.4 mg/dL 8.5-10.1 [facility] Work Phone: Serum or plasma creatinine m easurement (mass/volume)on 01-03-2022 Creatinine [Mass/Vol] 0.70 mg/dL 0.55-1.[address] [facility] Work Phone: Comment on above: The validity of the calculated GFR & GFRAA in patients over 70 years has not been determined. Clinical correlation is essential. Serum or plasma urea nitroge n measurement (mass/volume)on 01-03-2022 Urea nitrogen [Mass/Vol] 12 mg/dL 7-[address] [facility] Work Phone: Thin prep Papanicolaou smear with manual screeningon 01-03-2022 Thin prep Papanicolaou smear with manual screening 20 U/L 15-[address] [facility] Work Phone: Thin prep Papanicolaou smear with manual screening 7 5-[address] [facility] Work Phone: Absolute lymphocyte counton 10-22-2021 Lymphocytes Auto (Unsp spec) [#/Vol] 2.47 10*3/uL 0.83-4.[address] [facility] Work Phone: Basophil percentageon 2021 Basophils/100 WBC (Bld) 0.8 % 0-1 [facility] Work Phone: Bilirubin [Mass/Vol] 0.90 mg/dL 0.20-1.00 [facility] Work Phone: Comment on above: For patients on eltr ombopag therapy, use of Dim[place] TBIL is not recommended. Chloride [Moles/Vol] 105 mmol/L 98-107 [facility] Work Phone: Eosinophils/100 WBC (Bld) 2.1 % 0-[address] [facility] Work Phone: Glucose [Mass/Vol] 94 mg/dL 74-106 [facility] Work Phone: Neutrophils (Bld) [#/Vol] 5.2 10*3/uL 2.0-7.[address] [facility] Work Phone: Neutrophils/100 WBC (Bld) 59.4 % 47-[address] [facility] Work Phone: Potassium [Moles/Vol] 3.7 mmol/L 3.5-5.[address] [facility] Work Phone: Protein [Mass/Vol] 7.1 g/dL 6.4-8.2 [facility] Work Phone: Sodium [Moles/Vol] 139 mmol/L 136-145 [facility] Work Phone: [phone] WBC (Bld) [#/Vol] 8.7 10*3/uL 4.4-11.0 [facility] Work Phone: Blood erythrocytes count (nu mber/volume)on 10-22-2021 RBC (Bld) [#/Vol] 5.02 10*6/uL 4.2-5.4 [facility] Work Phone: Blood hemoglobin measurement (mass/volume)on 10-22-2021 Hemoglobin (Bld) [Mass/Vol] 15.9 g/dL 12.0-15.[address] [facility] Work Phone: Blood lymphocytes/100 leukoc yteson 10-22-2021 Lymphocytes/100 WBC (Bld) 28.3 % 19-[address] [facility] Work Phone: Blood monocytes/100 leukocyt eson 10-22-2021 Monocytes/100 WBC (Bld) 8.9 % 0-10 [facility] Work Phone: Blood platelet mean volumeon 10-22-2021 Platelet mean volume (Bld) [Entitic vol] 10.0 fL 6.2-12.[address] [facility] Work Phone: Determination of erythrocyte mean corpuscular volume (MCV)on 10-22-2021 MCV (RBC) [Entitic vol] 92.6 fL 81-99 [facility] Work Phone: Hematocrit Auto (Bld) [Volum e fraction]on 10-22-2021 Hematocrit (Bld) [Volume fraction] 46.5 % 37-[address] [facility] Work Phone: Laboratory - Chemistry and C hemistry - challengeon 10-22-2021 ALP [Catalytic activity/Vol] 81 U/L 45-[address] [facility] Work Phone: [phone] ALT [Catalytic activity/Vol] 46 U/L 13-[address] [facility] Work Phone: [phone] CO2 [Moles/Vol] 26.0 mmol/L 21.0-32.[address] [facility] Work Phone: [phone] Globulin (S) [Mass/Vol] 3.3 g/dL 2.2-4.2 [facility] Work Phone: [phone] Urea nitrogen/Creatinine [Mass ratio] 19.0 mg/mg 10-[address] [facility] Work Phone: Laboratory - Hematology and Cell countson 10-22-2021 Erythrocyte distribution width (RBC) [Entitic vol] 42.3 fL 35.1-43.9 [facility] Work Phone: [phone] Erythrocyte distribution width (RBC) [Ratio] 12.5 % 11.6-14.[address] [facility] Work Phone: [phone] Immature granulocytes/100 WBC (Bld) 0.500 % 0.0-0.[address] [facility] Work Phone: Comment on above: IG% - Immature Granu locytes (promyelocytes, myelocytes and metamyelocytes) > 1% indicates that a LEFT SHIFT is Present. MCH (RBC) [Entitic mass] 31.7 pg 27.0-32.[address] [facility] Work Phone: [phone] Nucleated RBC/100 WBC (Bld) [Ratio] 0 % 0-5 [facility] Work Phone: [phone] MCHC Auto (RBC) [Mass/Vol]on 10-22-2021 MCHC (RBC) [Mass/Vol] 34.2 g/dL 32-36 [facility] Work Phone: No Panel Informationon 10-22 Estimated GFR (MDRD) Amer 101 mL/min >[address] [facility] Work Phone: Comment on above: GFR Calc Estimated GFR (MDRD) Non-Af Amer 84 mL/min >[address] [facility] Work Phone: Comment on above: Non- GFR Calc Thyroid Stimulating Hormone (TSH) 2.00 uIU/mL 0.358-3.[address] [facility] Work Phone: Vitamin D 25-Hydroxy 46.4 ng/mL [facility] Work Phone: Comment on above: Vitamin D 25(OH) Sta tus Range Deficiency <20 ng/mL (50nmol/L) Insufficiency 20 - 30 ng/mL (50 - 75 nmol/L) Sufficiency 30 - 100 ng/mL (75 - 250 nmol/L) Toxicity >100 ng/mL (>250 nmol/L) Platelets bldon 10-22-2021 Platelets (Bld) [#/Vol] 273 10*3/uL 150-[address] [facility] Work Phone: Serum or plasma albumin rigoberto urement (mass/volume)on 10-22-2021 Albumin [Mass/Vol] 3.8 g/dL 3.2-5.0 [facility] Work Phone: Serum or plasma albumin/glob ulin mass ratioon 10-22-2021 Albumin/Globulin [Mass ratio] 1.2 {ratio} 0.9-2.[address] [facility] Work Phone: Serum or plasma calcium rigoberto urement (mass/volume)on 10-22-2021 Calcium [Mass/Vol] 9.4 mg/dL 8.5-10.1 [facility] Work Phone: Serum or plasma creatinine m easurement (mass/volume)on 10-22-2021 Creatinine [Mass/Vol] 0.74 mg/dL 0.55-1.[address] [facility] Work Phone: Comment on above: The validity of the calculated GFR & GFRAA in patients over 70 years has not been determined. Clinical correlation is essential. Serum or plasma urea nitroge n measurement (mass/volume)on 10-22-2021 Urea nitrogen [Mass/Vol] 14 mg/dL 7-[address] [facility] Work Phone: Thin prep Papanicolaou smear with manual screeningon 10-22-2021 Thin prep Papanicolaou smear with manual screening 19 U/L 15-[address] [facility] Work Phone: Thin prep Papanicolaou smear with manual screening 8 5-[address] [facility] Work Phone: Laboratory - Microbiology an d Antimicrobial susceptibilityon 09-28-2021 SARS-CoV-2 (COVID-19) RNA LAURIE+probe Ql (Unsp spec) Detected Not Detect [facility] Work Phone: Comment on above: Normal Reference Ran ge: Not DetectedMethod:(RT-PCR) real-time reverse transcriptase PCRLuminex Big River Instrument*The Food and Drug Administration (FDA) has issued an Emergency Use Authorization (EAU) for the [place] River SARS-CoV-2 Assay for the rapid detection of the virus that causes COVID-19. This test has been validated, but the FDAs independent review of this validation is pending.*Negative results do not preclude infection and should not be used as the sole basis for treatment or patient management. Optimum specimen types and timing for peak viral levels during infections caused by SARS-CoV-2 have not been determined. Collection of multiple specimens from the same patient may be necessary to detect the virus. The possibility of a false negative result should be considered if the patient has clinical presentation or has had recent exposure. US ELASTOGRAPHY LIVER W/ABD LTDon 10-19-2019 US [...] No evidence of clinically significant liver fibrosis.. SRU Consensus of Suggested Thresholds in Patients with Hepatitis C (Based upon Siemens pSWE): Median Velocity: Recommendation: < 1.2 m/s (Siemens Minimal Risk of Clinically Significant Fibrosis: METAVIR Stage 2.2 m/s High Risk of Clinically Significant Fibrosis and/or Cirrhosis: METAVIR Stage F4 and Some F3 Clinically significant Fibrosis _ Elastography Assessment of Liver Fibrosis: Society of Radiologists in Ultrasound Consensus Conference Statement. Ocampo RG et al. Radiology 2015 276:3, [phone] I have personally reviewed the images of this examination and agree with the resident's findings and interpretation. Interpreted By: Wallace Martel MD Preliminary Report By: Abhay Byrne DO Electronically Signed By: Wallace Mratel MD Dictated Date: 10/18/2019 3:08:12 PM Prelim Date: 10/18/2019 3:20:27 PM Sign Date: 10/18/2019 11:34:23 PM Ordering Provider:[employer] [facility] (MD) No Panel Information Influenza Types A,B Direct FA ([facility]) [facility] Work Phone: Vital Signs Date Time Vital Sign Value Performing Clinician Faci bigg 07-31-2024 08:18-0400 Body mass index (BMI) [Ratio] 31.7 kg/m2 Dr. Cristian Silveira MD Work Phone: [facility] 07-31-2024 08:18-0400 Body weight 83.[address] Cristian Silveira MD Work Phone: [facility] 07-31-2024 08:18-0400 Diastolic blood pressure 86 mm[Hg] Dr. Cristian Silveira MD Work Phone: [facility] 07-31-2024 08:18-0400 Heart rate 102 /min Dr. Cristian Silveira MD Work Phone: [facility] 07-31-2024 08:18-0400 Respiratory rate 18 /min Dr. Cristian Silveira MD Work Phone: [facility] 07-31-2024 08:18-0400 Systolic blood pressure 146 mm[Hg] Dr. Cristian Silveira MD Work Phone: [facility] 07-02-2024 07:24-0400 Body mass index (BMI) [Ratio] 31.7 kg/m2 Dr. Cristian Silveira MD Work Phone: 5(383)121-828488 [place] [address] 07-02-2024 07:24-0400 Body weight 83.[address] Cristian Silveira MD Work Phone: [facility] 07-02-2024 07:24-0400 Diastolic blood pressure 98 mm[Hg] Dr. Cristian Silveira MD Work Phone: [facility] 07-02-2024 07:24-0400 Heart rate 84 /min Dr. Cristian Silveira MD Work Phone: [facility] 07-02-2024 07:24-0400 Respiratory rate 14 /min Dr. Cristian Silveira MD Work Phone: [facility] 07-02-2024 07:24-0400 SaO2% (BldA) [Mass fraction] 96 % Dr. Cristian Silveira MD Work Phone: [facility] 07-02-2024 07:24-0400 Systolic blood pressure 152 mm[Hg] Dr. Cristian Silveira MD Work Phone: [facility] 03-19-2024 14:21-0500 Body temperature 97.9 [degF] Dr. Cristian Silveira MD Work Phone: 1(615)718-149988 [place] [address] 03-19-2024 14:21-0500 Diastolic blood pressure 70 mm[Hg] Dr. Cristian Silveira MD Work Phone: 6(526)180-126988 [place] [address] 03-19-2024 14:21-0500 Heart rate 78 /min Dr. Cristian Silveira MD Work Phone: 2(288)354-564348 [place] [address] 03-19-2024 14:21-0500 Respiratory rate 16 /min Dr. Cristian Silevira MD Work Phone: 2(627)305-632748 [place] [address] 03-19-2024 14:21-0500 SaO2% (BldA) [Mass fraction] 95 % Dr. Cristian Silveira MD Work Phone: 7(824)772-651148 [place] [address] 03-19-2024 14:21-0500 Systolic blood pressure 132 mm[Hg] Dr. Cristian Silveira MD Work Phone: 2(907)787-224148 [place] [address] 03-19-2024 11:36-0500 Body height 162.[address] Cristian Silveira MD Work Phone: 0(580)870-557748 [place] [address] 03-19-2024 11:36-0500 Body mass index (BMI) [Ratio] 31 kg/m2 Dr. Cristian Silveira MD Work Phone: 3(118)476-542048 [place] [address] 03-19-2024 11:36-0500 Body weight 82.[address] Cristian Silveira MD Work Phone: 0(695)504-607048 [place] [address] 03-15-2024 09:12-0500 Body mass index (BMI) [Ratio] 31.6 kg/m2 Dr. Cristian Silveira MD Work Phone: 5(498)396-451748 [place] [address] 03-15-2024 09:12-0500 Body weight 83.[address] Cristian Silveira MD Work Phone: 7(610)595-105348 [place] [address] 03-15-2024 09:12-0500 Diastolic blood pressure 88 mm[Hg] Dr. Cristian Silveira MD Work Phone: 1(335)171-747548 [place] [address] 03-15-2024 09:12-0500 Systolic blood pressure 158 mm[Hg] Dr. Cristian Silveira MD Work Phone: 7(037)875-714348 [place] [address] 08-10-2023 04:07-0400 Body temperature 97.6 [degF] Dr. Cristian Silveira Work Phone: 6(135)012-248548 [place] [address] 08-10-2023 04:07-0400 Diastolic blood pressure 72 mm[Hg] Dr. Cristian Silveira Work Phone: 5(848)371-615448 [place] [address] 08-10-2023 04:07-0400 Heart rate 66 /min Dr. Cristian Silveira Work Phone: 1(623)945-757348 [place] [address] 08-10-2023 04:07-0400 Respiratory rate 18 /min Dr. Cristian Silveira Work Phone: 7(146)668-712448 [place] [address] 08-10-2023 04:07-0400 SaO2% (BldA) [Mass fraction] 98 % Dr. Cristian Silveira Work Phone: 7(853)232-820548 [place] [address] 08-10-2023 04:07-0400 Systolic blood pressure 146 mm[Hg] Dr. Cristian Silveira Work Phone: 7(050)106-877648 [place] [address] 08-10-2023 01:45-0400 Body height 162.[address] Cristian Silveira Work Phone: 2(238)952-180948 [place] [address] 08-10-2023 01:45-0400 Body mass index (BMI) [Ratio] 32 kg/m2 Dr. Cristian Silveira Work Phone: 9(087)227-829848 [place] [address] 08-10-2023 01:45-0400 Body weight 84.[address] Cristian Silveira Work Phone: 0(868)690-694848 [place] [address] 07-05-2023 15:00-0400 Body mass index (BMI) [Ratio] 31.8 kg/m2 Dr. Cristian Silveira Work Phone: 0(298)740-762788 [place] [address] 07-05-2023 15:00-0400 Body weight 84.[address] Cristian Silveira Work Phone: 7(165)903-500748 [place] [address] 07-05-2023 15:00-0400 Diastolic blood pressure 76 mm[Hg] Dr. Cristian Silveira Work Phone: 7(288)703-833948 [place] [address] 07-05-2023 15:00-0400 Heart rate 66 /min Dr. Cristian Silveira Work Phone: [facility] 07-05-2023 15:00-0400 Respiratory rate 16 /min Dr. Cristian Silveira Work Phone: 0(664)978-813688 [place] [address] 07-05-2023 15:00-0400 Systolic blood pressure 150 mm[Hg] Dr. Cristian Silveira Work Phone: 5(737)933-810588 [place] [address] 05-27-2023 16:40-0500 Body temperature 97.3 [degF] Dr. Cristian Silveira Work Phone: 5(276)570-886188 [place] [address] 05-27-2023 16:40-0500 Diastolic blood pressure 80 mm[Hg] Dr. Cristian Silveira Work Phone: 9(616)291-630748 [place] [address] 05-27-2023 16:40-0500 Heart rate 75 /min Dr. Cristian Silveira Work Phone: 6(512)307-816188 [place] [address] 05-27-2023 16:40-0500 Respiratory rate 16 /min Dr. Cristian Silveira Work Phone: 6(019)157-926188 [place] [address] 05-27-2023 16:40-0500 SaO2% (BldA) [Mass fraction] 96 % Dr. Cristian Silveira Work Phone: 1(674)145-128988 [place] [address] 05-27-2023 16:40-0500 Systolic blood pressure 137 mm[Hg] Dr. Cristian Silveira Work Phone: 2(749)914-934495 [address] 05-27-2023 15:45-0500 Body mass index (BMI) [Ratio] 31.4 kg/m2 Dr. Cristian Silveira Work Phone: 3(259)925-188188 [place] [address] 05-27-2023 13:51-0500 Body height 162.[address] Cristian Silveira Work Phone: 8(954)614-079388 [place] [address] 05-27-2023 13:51-0500 Body weight [address] Cristian Silveira Work Phone: 2(277)783-536488 [place] [address] 05-27-2023 00:18-0500 Body temperature 97.8 [degF] [facility] 05-27-2023 00:18-0500 Diastolic blood pressure 79 mm[Hg] [facility] 05-27-2023 00:18-0500 Heart rate 78 /min [facility] 05-27-2023 00:18-0500 Respiratory rate 16 /min [facility] 05-27-2023 00:18-0500 SaO2% (BldA) [Mass fraction] 94 % [facility] 05-27-2023 00:18-0500 Systolic blood pressure 152 mm[Hg] [facility] 05-26-2023 20:03-0500 Body height 162.56 cm [facility] 05-26-2023 20:03-0500 Body mass index (BMI) [Ratio] 29.2 kg/m2 [facility] 05-26-2023 20:03-0500 Body weight 77.11 kg [facility] 11-02-2022 08:24-0400 Body height 163.[address] Cristian Silveira Work Phone: [facility] 11-02-2022 08:24-0400 Body mass index (BMI) [Ratio] 31.5 kg/m2 Dr. Cristian Silveira Work Phone: [facility] 11-02-2022 08:24-0400 Body temperature 98 [degF] Dr. Cristian Silveira Work Phone: [facility] 11-02-2022 08:24-0400 Body weight 84.[address] Cristian Silveira Work Phone: [facility] 11-02-2022 08:24-0400 Diastolic blood pressure 82 mm[Hg] Dr. Cristian Silveira Work Phone: [facility] 11-02-2022 08:24-0400 Heart rate 90 /min Dr. Cristian Silveira Work Phone: [facility] 11-02-2022 08:24-0400 Respiratory rate 18 /min Dr. Cristian Silveira Work Phone: [facility] 11-02-2022 08:24-0400 SaO2% (BldA) [Mass fraction] 94 % Dr. Cristian Silveira Work Phone: [facility] 11-02-2022 08:24-0400 Systolic blood pressure 138 mm[Hg] Dr. Cristian Silveira Work Phone: [facility] Encounters Encounter Date Encounter Type Care Provider Facility Start: 11-14-2024 ambulatory Cristian Delfino Silveira Facility:[facility] Start: 10-30-2024 End: 10-30-[address] Cristian Silveira MD Work Phone: -Laboratory Phy Office 3rd Flr Start: 10-30-2024 End: 10-30-[address] Cristian Silveira MD -Laboratory Phy Office 3rd Flr Start: 10-30-2024 End: 10-30-2024 ambulatory Cristian Delfino Godfreyok Facility:[facility] Start: 08-14-2024 End: 08-14-[address] Cristian Silveira MD Work Phone: [facility] Work Phone: Start: 08-14-2024 End: 08-14-[address] Cristian Silveira MD -Radiology, [facility] Work Phone: Start: 08-14-2024 End: 08-14-2024 ambulatory Cristian Silveira Facility:[facility] Start: 08-06-2024 End: 08-06-2024 Patient encounter procedure Bruno BERRY -Laboratory Work Phone: Start: 08-06-2024 End: 08-06-2024 ambulatory Cristian Silveira Facility:[facility] Start: 07-31-2024 End: 07-31-2024 Patient encounter procedure Bruno BERRY -[facility] Work Phone: Start: 07-31-2024 End: 07-31-2024 ambulatory Cristian Silveira Facility:[facility] Start: 07-19-2024 End: 07-19-[address] Cristian Silveira MD Work Phone: [facility] Work Phone: Start: 07-19-2024 End: 07-19-[address] Cristian Silveira MD -Laboratory, Specimen Work Phone: Start: 07-18-2024 End: 07-19-[address] Cristian Silveira MD Work Phone: [facility] Work Phone: Start: 07-18-2024 End: 07-18-[address] Cristian Silveira MD -Radiology, [facility] Work Phone: Start: 07-18-2024 End: 07-18-2024 ambulatory Cristian Silveira Facility:[facility] Start: 07-04-2024 ambulatory Cristian Silveira Facility:[facility] Start: 07-02-2024 End: 07-02-2024 Patient encounter procedure Hallie Ennis [place] -[facility] Work Phone: Start: 07-02-2024 End: 07-02-2024 ambulatory Cristian Delfino Raoul Facility:[facility] Start: 06-13-2024 End: 06-13-[address] Cristian Silveira MD Work Phone: [facility] Work Phone: Start: 06-13-2024 End: 06-13-[address] Cristian Silveira MD -Outpatient Breast Imaging Work Phone: Start: 06-13-2024 End: 06-13-2024 ambulatory Cristian Silveira Facility:[facility] Start: 05-15-2024 End: 05-15-[address] Cristian Silveira MD -Pulmonary Services/Neurology Work Phone: Start: 05-15-2024 End: 05-15-2024 ambulatory Cristian Silveira Facility:[facility] Start: 04-17-2024 End: 04-17-[address] Cristian Silveira MD -Laboratory Work Phone: Start: 04-17-2024 End: 04-17-2024 ambulatory Cristian Silveira Facility:[facility] Start: 04-11-2024 ambulatory Cristian Chi Raoul Facility:[facility] Start: 03-19-2024 ambulatory Cristian Chi Raoul Facility:[facility] Start: 03-19-2024 Non-patient / Non-visit Dr. Adolfo Butterfield DO -[facility] Start: 03-19-2024 End: 03-19-2024 Admission to same day surgery center Dr. Sammie Butterfield DO -Surgical Day Care Start: 03-19-2024 End: 03-19-2024 ambulatory Cristian Chi Raoul Facility:[facility] Start: 03-18-2024 End: 03-18-2024 ambulatory Cristian Chi Raoul Facility:[facility] Start: 03-18-2024 End: 03-18-2024 Non-patient / Non-visit Dr. Roscoe Alonzo MD -[facility] Work Phone: Start: 03-15-2024 End: 03-15-[address] Sammie Butterfield DO -[facility] Work Phone: Start: 03-15-2024 End: 03-15-2024 ambulatory Cristian Chi Raoul Facility:[facility] Start: 03-12-2024 End: 03-12-2024 ambulatory Cristian Chi Raoul Facility:[facility] Start: 03-12-[address] Cristian castillo MD -Physical Therapy Work Phone: Start: 02-12-2024 End: 02-12-2024 ambulatory Cristian Chi Raoul Facility:[facility] Start: 02-02-2024 End: 02-02-2024 ambulatory Cristian Chi Raoul Facility:[facility] Start: 02-01-2024 End: 02-01-2024 ambulatory Cristian Chi Raoul Facility:[facility] Start: 01-09-2024 End: 01-09-2024 ambulatory Cristian Chi Raoul Facility:[facility] Start: 12-26-2023 End: 12-26-2023 ambulatory Cristian Chi Raoul Facility:[facility] Start: 11-23-2023 End: 11-23-2023 ambulatory Cristian Chi Raoul Facility:[facility] Start: 08-10-2023 End: 08-10-2023 Emergency department patient visit Dr. Cristian Silveira Work Phone: [facility]-Emergency Department Work Phone: Start: 07-05-2023 End: 07-05-[address] Cristian Silveira Work Phone: [facility] Work Phone: Start: 06-19-[address] [facility] Start: 06-19-2023 Non-patient / Non-visit Dr. Vadim Silveira Work Phone: [facility] Work Phone: Start: 06-12-2023 End: 06-12-[address] Cristian Silveira Work Phone: [facility] Work Phone: Start: 06-12-2023 End: 06-12-[address] Cristian Silveira Work Phone: [facility]-Outpatient Breast Imaging Work Phone: Start: 06-01-2023 Non-patient / Non-visit Dr. Vadim Silveira Work Phone: [facility] Start: 06-01-2023 End: 06-01-[address] Cristian Silveira Work Phone: [facility] Work Phone: Start: 06-01-2023 End: 06-01-[address] [facility] Start: 05-30-2023 End: 05-30-[address] Cristian Silveira Work Phone: [facility] Work Phone: Start: 05-30-2023 End: 05-30-[address] Cristian Silveira Work Phone: [facility], [facility] Work Phone: Start: 05-27-2023 Non-patient / Non-visit Dr. Vadim Silveira Work Phone: [facility] Work Phone: Start: 05-27-2023 Non-patient / Non-visit Dr. Vadim Silveira Work Phone: [facility] Start: 05-27-2023 End: 05-27-2023 Evaluation and management of inpatient Dr. Cristian Silveira Work Phone: [facility]-Progressive Care Unit Work Phone: Start: 05-27-2023 End: 05-27-[address] Cristian Silveira Work Phone: [facility] Work Phone: Start: 05-27-2023 [facility] Start: 05-27-2023 observation encounter [facility] Work Phone: Start: 05-18-2023 End: 05-18-[address] [facility] Work Phone: Start: 05-18-2023 End: 05-18-2023 Patient encounter procedure [facility]-Outpatient Bone Densitometry Work Phone: Start: 05-15-2023 End: 05-15-[address] [facility] Work Phone: Start: 05-15-2023 End: 05-15-[address] [facility]-Physical Therapy Work Phone: Start: 04-26-2023 Registered Recurring [facility]-Physical Therapy Work Phone: Start: 04-26-2023 End: 04-26-[address] [facility] Work Phone: Start: 04-26-2023 End: 04-26-2023 Patient encounter procedure [facility]-Laboratory, Phy Office 3rd Flr Start: 04-13-2023 End: 04-13-[address] [facility] Work Phone: Start: 04-13-2023 End: 04-13-2023 Patient encounter procedure [facility]-Radiology, [facility] Work Phone: Start: 11-22-2022 End: 11-22-[address] Cristian Silveira Work Phone: [facility] Work Phone: Start: 11-22-2022 End: 11-22-[address] Cristian Silveira Work Phone: [facility]-Pulmonary Services/Neurology Work Phone: Start: 11-02-2022 End: 11-02-[address] Cristian Silveira Work Phone: [facility] Work Phone: Start: 10-24-2022 End: 10-24-[address] [facility] Work Phone: Start: 10-24-2022 End: 10-24-2022 Patient encounter procedure [facility]-Laboratory, Phy Office 3rd Flr Start: 07-04-2022 End: 07-04-[address] [facility] Work Phone: Start: 07-04-2022 End: 07-04-2022 Patient encounter procedure [facility]-Pulmonary Services/Neurology Start: 06-10-2022 End: 06-10-[address] [facility] Work Phone: Start: 06-10-2022 End: 06-10-2022 Discharged Recur[address] [facility]-Physical Therapy Start: 06-10-2022 Registered Recurring [facility]-Physical Therapy Start: 06-09-2022 End: 06-09-[address] [facility] Work Phone: Start: 06-09-2022 End: 06-09-2022 Patient encounter procedure [facility]-Outpatient Breast Imaging Start: 05-07-2022 End: 05-07-[address] [facility] Work Phone: Start: 05-07-2022 End: 05-07-2022 Patient encounter procedure [facility]-MRI - [facility] Start: 04-27-2022 End: 04-27-[address] [facility] Work Phone: Start: 04-27-2022 End: 04-27-2022 Patient encounter procedure [facility]-Laboratory, Phy Office 3rd Flr Start: 03-30-2022 End: 03-30-2022 Patient encounter procedure [facility]-Radiology, [facility] Start: 01-14-2022 End: 01-14-[address] [facility] Work Phone: Start: 01-14-2022 End: 01-14-2022 Patient encounter procedure [facility]-Ultrasound, [facility] Start: 01-06-2022 End: 01-06-[address] [facility] Work Phone: Start: 01-06-2022 End: 01-06-2022 Patient encounter procedure [facility]-Ultrasound, [facility] Start: 01-03-2022 End: 01-03-2022 Patient encounter procedure [facility]-Laboratory, Phy Office 3rd Flr Start: 10-22-2021 End: 10-22-2021 Patient encounter procedure [facility]-Laboratory, Phy Office 3rd Flr Start: 09-28-2021 End: 09-28-2021 Patient encounter procedure [facility]-Pulmonary Services/Neurology Start: 06-07-2021 Registered Recurring [facility] Start: 06-07-2021 End: 06-07-2021 Patient encounter procedure [facility]-Outpatient Breast Imaging Procedures Date Procedure Procedure Detail Performing Clinician Start: 10-30-2024 Vitamin D, 25-hydrox y measurement Dr. Cristian Silveira MD Work Phone: Comment on above: Vitamin D StatusDefi ciency: <20 ng/mL (50nmol/L)Insufficiency: 20-30 ng/mL (50-75 nmol/L)Sufficiency: 30-100 ng/mL (75-250 nmol/L)Toxicity: >100 ng/mL (>250 nmol/L) Start: 08-14-2024 X-ray of chest, PA a nd lateral views Dr. Cristian Silveira MD Work Phone: Start: 07-19-2024 Iadna-dna/rna gi pth gn multiplex probe tq 6-11 Dr. Cristian Silveira MD Work Phone: Start: 07-19-2024 Clostridium difficil e detection Dr. Cristian Silveira MD Work Phone: Start: 07-19-[address] Cristian Silveira MD Work Phone: Start: 07-19-2024 Measurement of occul t blood in stool specimen using immunoassay Dr. Cristian Silveira MD Work Phone: Start: 07-19-[address] Cristian Silveira MD Work Phone: Start: 07-19-2024 Ova OR parasites identification Dr. Cristian Silveira MD Work Phone: Start: 07-18-2024 Plain X-ray abdomen Dr. Cristian Silveira MD Work Phone: Start: 06-13-2024 Screening mammography D rJose De Jesus Silveira MD Work Phone: Start: 05-15-2024 SARS-CoV-2, Influenz a & RSV (PCR) Dr. Cristian Silveira MD Work Phone: Start: 06-12-2023 Screening mammography D rJose De Jesus Silveira Work Phone: Start: 05-30-2023 Ultrasound elastogra phy of liver Dr. Cristian Silveira Work Phone: Start: 05-27-2023 MRI of brain without contrast Dr. Cristian Silveira Work Phone: Start: 05-27-2023 Magnetic resonance angiography of neck without contrast Dr. Cristian Silveira Work Phone: Start: 05-26-2023 Plain chest X-ray Start: 05-26-2023 CT of head without contrast Start: 05-18-2023 Dual energy X-ray absorptiometry Start: 04-13-2023 X-ray of lumbosacral spine Start: 11-22-2022 Coronavirus COVID-[address] Cristian Silveira Work Phone: Start: 11-22-2022 Influenza Types A,B Direct FA (MARCELA) Dr. Cristian Silveira Work Phone: Start: 11-22-2022 Respiratory syncytia l virus antigen assay Dr. Cristian Silveira Work Phone: Start: 07-04-2022 Influenza Types A,B Direct FA (MARCELA) Start: 07-04-2022 Respiratory syncytia l virus antigen assay Start: 06-09-2022 Screening mammography Start: 05-07-2022 MRI of lumbar spine Start: 03-30-2022 X-ray of lumbosacral spine Start: 01-14-2022 Ultrasound elastography Start: 01-06-2022 Ultrasonography of abdomen Start: 06-07-2021 Screening mammography Influenza Types A,B Direct FA (MARCELA) Respiratory syncytia l virus antigen assay Plan of Treatment Date Care Activity Detail Author Start: 07-19-2024 Ova and Parasites Ova and Parasites [facility] Start: 03-19-[address] [facility] Start: 03-19-2024 Ambulation without limitation [facility] Start: 03-19-2024 Anes hysteroscopy&/hysterosalpi ngography w/bx ANESTH HYSTEROSCOPE/GRAPH [facility] Start: 03-19-2024 Hysteroscopy bx endometrium&/polypc w/wo d&c HYSTEROSCOPY BIOPSY [facility] Start: 03-19-2024 Medical regimen orders management [facility] Start: 03-19-2024 Medication [address] [facility] Start: 03-19-2024 Taking patient vital signs [facility] Start: 03-19-2024 Vital signs measurements [facility] Start: 03-19-[address] [facility] Start: 03-19-2024 Patient discharge [facility] Start: 08-10-[address] [facility] Start: 05-28-2023 Vital signs measurements [facility] Start: 05-27-2023 Patient discharge [facility] Start: 05-27-2023 Following clinical pathway protocol [facility] Start: 05-27-[address] [facility] Start: 05-27-2023 Catheterization of vein [facility] Start: 05-27-2023 Continuous pulse oximetry [facility] Start: 05-27-2023 Elevation of head of bed [facility] Start: 05-27-[address] [facility] Start: 05-27-2023 Implementation of planned interventions [facility] Start: 05-27-2023 Notification of physician [facility] Start: 05-27-[address] [facility] Start: 05-27-2023 Patient referral to dietitian [facility] Start: 05-27-2023 Referral to occupational therapist [facility] Start: 05-27-2023 Referral to service [facility] Start: 05-27-2023 Speech therapy assessment [facility] Start: 05-27-2023 Telemedicine consultation with patient [facility] Start: 05-27-2023 Tobacco use cessation education [facility] Start: 05-27-[address] [facility] Start: 05-27-2023 Vital signs measurements [facility] Start: 05-27-2023 Magnetic resonance angiography of neck without contrast MRA Neck without Contrast [facility] Start: 05-27-2023 Thyroid stimulating hormone measurement [facility] Start: 05-27-2023 Admission procedure [facility] Start: 05-27-2023 Hospital admission, emergency, from emergency room, medical nature [facility] Amphetamine [Mass/vo lume] in Urine [facility] Benzodiazepine measurement, urine [facility] Cocaine measurement, urine [facility] Ethanol [Mass/volume ] in Serum or Plasma [facility] Measurement of 3,4-methylenedioxymethamph etamine in urine [facility] Methadone measuremen t, urine [facility] Ova OR parasites identification [facility] Patient Education Your Heart's E lectrical System ED Palpitations [facility] Work Phone: Patient referral [facility] Work Phone: pH of Urine [facility] Phencyclidine [Prese nce] in Urine [facility] Thyroid stimulating hormone measurement [facility] Urine barbiturate measurement [facility] Urine cannabinoid measurement [facility] Urine opiate measurement [facility] Immunizations Immunization Date Immunization Notes Care Provider Fa cility 07-02-2020 Covid (Pfizer) [facility] 06-11-2020 Covid (Pfizer) [facility] Payers Date Payer Category Payer Self-pay [id number] 2018 Medicare [id number] 2015 Unknown [id number] Unknown [id number] 2.16.8 [id number] Unknown [id number] 2.16.8 40.1.445187.3.579.2.462 Unknown [id number] 2.16.8 40.1.204598.3.579.2.462 Unknown [id number] 2.16.8 40.1.068226.3.579.2.462 Unknown [id number] 2.16.8 40.1.098480.3.579.2.462 Unknown [id number] 2.16.8 40.1.960478.3.579.2.462 Unknown [id number] 2.16.8 40.1.671008.3.579.2.462 Unknown [id number] 2.16.8 40.1.006464.3.579.2.462 Unknown [id number] 2.16.8 40.1.713664.3.579.2.462 Unknown [id number] 2.16.8 40.1.849628.3.579.2.462 Unknown [id number] 2.16.8 40.1.505394.3.579.2.462 Unknown [id number] 2.16.8 40.1.152705.3.579.2.462 Unknown [id number] 2.16.8 40.1.348487.3.579.2.462 Unknown [id number] 2.16.8 40.1.850791.3.579.2.462 Unknown [id number] 2.16.8 40.1.403031.3.579.2.462 Unknown [id number] 2.16.8 40.1.651558.3.579.2.462 Unknown [id number] 2.16.8 40.1.485019.3.579.2.462 Unknown [id number] 2.16.8 40.1.437327.3.579.2.462 Unknown [id number] 2.16.8 40.1.412342.3.579.2.462 Unknown [id number] 2.16.8 40.1.376821.3.579.2.462 Unknown [id number] 2.16.8 40.1.940544.3.579.2.462 Unknown [id number] 2.16.8 40.1.920932.3.579.2.462 Unknown [id number] 2.16.8 40.1.281204.3.579.2.462 Unknown [id number] 2.16.8 40.1.551031.3.579.2.462 Social History Date Type Detail Facility Start: 01-06-2021 End: 11-02-2022 Tobacco smoking status NHIS Unknown if ever smoked [facility] Start: 1955 Sex Assigned At Female [facility] Start: 03-15-2024 End: 08-02-2024 Tobacco smoking status NHIS Never smoked tobacco (finding) [facility] Start: 06-25-2024 End: 07-24-2024 Sex Female (finding) [facility] NEGATED: Highlighted row Not [facility] Goals Date Patient Goal Desired Activity /State Functional Status Date Assessment Result Facility 05-27-2023 Functional status Ambulates;Bathroom Priv ilege [facility] Work Phone: Mental Status Date Assessment Result Facility 03-19-2024 Cognitive function Voice/Name [facility] Work Phone: 08-10-2023 Cognitive function Voice/Name [facility] Work Phone: 05-27-2023 Cognitive function Voice/Name [facility] Work Phone: Clinical Notes 06-10-2022 to 08-15-2024 Note Date & Type Note Facility 08-15-2024 Radiology Diagnostic study note [facility] Imaging Services [address] [place] [address] Chest PA and Lateral MR#: [id number] Acct: [id number] Name: MELISA EDOUARD Rep #: [id number] : 1955 F 69 From: Sai Lou MD PCP: Dr. Cristian Silveira MD Status: [facility] Study:Chest PA and Lateral Date of Exam: 08/14/24 Exam# [id number] Ordering Dr: Cristian Silveira MD PROCEDURE: CHEST PA AND LATERAL 08/14/2024 REASON FOR EXAM: PLEURISY TECHNIQUE: Frontal and lateral views of the chest. COMPARISON: 10/06/2023 FINDINGS: The lungs are clear. Status post right upper lobectomy again noted. No pneumothorax or pleural effusion. The cardiac and mediastinal contours appear within limits. The visualized osseous structures appear within limits. RAD/Chest PA and Lateral IMPRESSION: No evidence of acute disease. Reading Location: [id number] CC: Dr. Cristian Silveira MD ~ Combination Welder: Signed [facility] 07-31-2024 Evaluation note Diagnosis Onset Date Resolution Cryptogenic stroke chronic July 31, 2024 12:46pm Hypertension chronic July 31, 2024 12:46pm [facility] Work Phone: 1(599) 207-561304-11-2025 Radiology Diagnostic study note [facility] Imaging Services [address] [place] [address] Abd Inc Decub and/or Erect MR#: [id number] Acct: [id number] Name: MELISA EDOUARD Rep #: [id number] : 1955 F 69 From: Heather Hillman MD PCP: Dr. Cristian Silveira MD Status: REG [facility] Study:Abd Inc Decub and/or Erect Date of Exam : 07/18/24 Exam# [id number] Ordering Dr: Cristian Silveira MD PROCEDURE: ABD INC DECUB AND/OR ERECT 07/18/2024 REASON FOR EXAM: FDFECAL IMPACTION TECHNIQUE: Single view abdomen. COMPARISON: None available FINDINGS: Bowel gas: Nonobstructive bowel gas pattern Calcifications: Vascular phleboliths projecting over the pelvis. Bones: No acute displaced fracture or dislocation. Other: None RAD/Abd Inc Decub and/or Erect IMPRESSION: Nonobstructive bowel gas pattern Reading Location: [facility] CC: Dr. Cristian Silveira MD ~ Combination Welder: Signed [facility]03-25-2025 Evaluation note* Diagnosis Onset Date Resolution Status Admit Date Cryptogenic stroke acute July 02, 2024 11:20am Elevated blood pressure read ing without diagnosis of hypertension acute July 02, 2024 11:20am [facility] Work Phone: 1(520) 272-241003-25-2025 Evaluation note* Diagnosis Onset Date Resolution Status Admit Date Elevated blood pressure read ing without diagnosis of hypertension acute July 02, 2024 11:20am Cryptogenic stroke chronic July 02, 2024 11:20am Cryptogenic stroke chronic July 31, 2024 12:46pm Hypertension chronic July 31, 2024 12:46pm [facility] Work Phone: 1(754) 846-290612-10-2024 [facility] Medical Records Department [address] [place] [address] History Physical Exam 03/19/24 1233 MR#: [id number] Acct: [id number] Name: MELISA EDOUARD Rep #: [id number] : 1955 69 From: Sammie Butterfield DO PCP: Dr. Cristian Silveira MD Status:REG [facility] Location: [place] [address] History and Physical Date of Admission: 03/19/24 Intake Vital Signs 11/22/2408:59 03/15/2409:12 Height 5 ft 4 in 5 ft 4 in Weight: 184 lb 6 oz BMI 31.6 BP 158/88 H Intake Visit Reasons: FIBROID UTERUS (RAOUL) Inventory Control Coordinator Required: No Is patient in pain?: No Allergies ciprofloxacin (From Cipro) Allergy (Mild, Verified 03/15/24 09:13) itching atorvastatin Allergy (Verified 03/15/24 09:13) Hivessimvastatin Allergy (Verified 03/15/24 09:13) Rash Medications ???Medication ???Instructions ???Recorded ???Confirmed ???Type ivermectin 1 % topical cream 30 g TP DAILY skin care 11/07/16 03/15/24 History (Soolantra) linaclotide 72 mcg capsule 72 mcg PO DAILY bowel issues 11/07/16 03/15/24 History (Linzess) aspirin 81 mg capsule 81 mg PO DAILY #30 caps 05/27/23 03/15/24 Rx cholecalciferol (vitamin D3) 25 1,000 unit PO DAILY vitamin 05/27/23 03/15/24 History mcg (1,000 unit) capsule alendronate 70 mg tablet (Fosamax) 70 mg PO QWEEK 06/09/23 03/15/24 History calcium 600 mg (as 1 cap PO DAILY 06/09/23 03/15/24 History carbonate)-vitamin D3 5 mcg (200 unit) capsule (Calcium 600 + D(3)) loratadine 10 mg tablet (Allergy 10 mg PO DAILY Allergies 06/09/23 03/15/24 History Relief (loratadine)) multivitamin 1 tab PO DAILY 06/09/23 03/15/24 History tumeric root powder PO 06/09/23 03/15/24 History doxycycline monohydrate 40 mg 1 cap PO .QOD 08/23/23 03/15/24 History capsule,immediate - delay release rosuvastatin 10 mg tablet (Crestor) 20 mg PO DAILY 11/23/23 03/15/24 History gabapentin 100 mg capsule 100 mg PO TID 03/15/24 03/15/24 History Is last menstrual period known: No Post menopausal: Yes Patient : No : No [facility] Medical History Malignant neoplasm of unspecified part of unspecified bronchus or lung Chronic GERD Vitamin D deficiency Hepatic fibrosis Osteoporosis Hyperlipidemia Compression fracture of L4 vertebra Hypokalemia Elevated blood pressure reading without diagnosis of hypertension TIA (transient ischemic attack) DDD (degenerative disc disease), lumbar Segmental and somatic dysfunction of cervical region Segmental and somatic dysfunction of thoracic region Segmental and somatic dysfunction of lumbar region IBS (irritable bowel syndrome) History of lung cancer Environmental allergies Surgical History History of lobectomy of lung History of rotator cuff surgery Status post right foot surgery History of tubal ligation History of tonsillectomy Family History Other Asthma CVA (cerebral vascular accident) Cancer Diabetes Hypertension Social History (Updated 03/15/24 @ 09:24 by Avani Clay) Smoking Status: Never smoker alcohol intake: never substance use type: does not use caffeine: Yes what type of physical activity do you participate in: walking frequency: 3-4 times per week seatbelt use: always do you feel safe at home: Yes additional social history: - [place] HPI FIBROID UTERUS (RAOUL) Details: MELISA EDOUARD is a 69 year old who presents for discussion about incidental finding of uterine polyp. She had an MRI for low back pain and fracture of spine and they found the uterus to be enlarged. ultrasound showed the following: She denies postmenopausal bleeding and has never had any abnormal paps. She is a 10 year survivor of lung cancer (not related to smoking) She is surgically missing the top 2 lobes of her right lung. FINDINGS: The uterus is anteverted and is in a midline position. The uterus measures 6.8 cm x 4.7 cm x 3.4 cm. There is a Nabothian cyst of the cervix. The endometrium measures 1.7 mm in thickness, and is hyperechoic. Endometrial polyp is suspected. Fibroid uterus. The largest fibroid measures 2.4 cm x 2.3 cm x 1.8 cm. I.U.D. - The patient does not have an I.U.D. The right ovary is non-visualized. The left ovary is non-visualized. There is no fluid in the cul-de-sac. US/Transvaginal Non- IMPRESSION: Fibroid uterus. Findings suggestive of an endometrial polyp. History 2 Elective abortions Hx Para 2 Spontaneous abortions Hx # Term Pregnancies Ectopic pregnancies Hx # Pregnancies Multiple births # of living children Past Pregnancies Del. Date Nam (more content not included)...[facility]12-06-2024 Evaluation note* Diagnosis Onset Date Resolution Status Admit Date Endometrial thickening on ultrasound acute March 15 9:11am Endometrial thickening on ultrasound acute March 19 024 11:19am Malignant neoplasm of unspecified part of unspecified bronchus or lung acute Mar 11:19am [facility] Work Phone: 1(962) 487-735105-02-2024 Discharge summary Author Narendra Jarrell [facility] August 10, 2023 3:45am Note Date/Time August 10, 2023 2:[address] [facility] Medical Records Department [address] [place] [address] Emergency Department Summary 08/10/23 MR#: [id number] Acct: [id number] Name: MELISA EDOUARD Rep #:[id number] : 1955 68 From: Narendra Jarrell MD PCP: Dr. Cristian Silveira MD Status:REG E R Location: ED HPI History of Present Illness Chief Complaint: Palpitations Informant: patient and spouse/S.O. Narrative Narrative: Patient woke up less than an hour prior to evaluation with rapid palpitations inher chest feeling like her heart was racing. She has a Fitbit and she was usingit to detect her heart rate, it was as high as 120, and as low as low 100s. Shedid not feel like it suddenly went away, she states she feels a little shaky nowbut admits that she does not feel like her heart is racing right now. She denies any dyspnea, chest discomfort, lightheadedness near syncope or syncope. No recent illness. She went to bed feeling fine. She had a cryptogenic TIA in May, and had a cardiac workup that was unremarkable including a 1-week event monitor that showed no episodes of A-fib. She has no cardiac history. [facility] Medical History Chronic GERD Compression fracture of L4 vertebra DDD (degenerative disc disease), lumbar Elevated blood pressure reading without diagnosis of hypertension Environmental allergies Hepatic fibrosis History of lung cancer Hyperlipidemia Hypokalemia IBS (irritable bowel syndrome) Malignant neoplasm of unspecified part of unspecified bronchus or lung Osteoporosis Segmental and somatic dysfunction of cervical region Segmental and somatic dysfunction of lumbar region Segmental and somatic dysfunction of thoracic region TIA (transient ischemic attack) Vitamin D deficiency Home Medications ivermectin 1 % topical cream (Soolantra) 30 g TP DAILY skin care 11/07/16 [History Last Taken Unknown] linaclotide 72 mcg capsule (Linzess) 72 mcg PO DAILY bowel issues 11/07/16 [History Last Taken Unknown] aspirin 81 mg capsule 81 mg PO DAILY #30 caps 05/27/23 [Rx Last Taken Unknown] cholecalciferol (vitamin D3) 25 mcg (1,000 unit) capsule 1,000 unit PO DAILY vitamin 05/27/23 [History Last Taken Unknown] alendronate 70 mg tablet (Fosamax) 70 mg PO QWEEK 06/09/23 [History Last Taken Unknown] calcium carbonate 600 mg-vitamin D3 5 mcg (200 unit) capsule (Calcium 600 + D(3)) 1 cap PO DAILY 06/09/23 [History Last Taken Unknown] glucosamine PDa-Q6-Vwligaarj yan 1,500 mg-400 unit-100 mg tablet (Osteo Bi- Flex (5-Loxin)) 1 tab PO DAILY 06/09/23 [History Last Taken Unknown] loratadine 10 mg tablet (Allergy Relief (loratadine)) 10 mg PO DAILY Allergies 06/09/23 [History Last Taken Unknown] multivitamin 1 tab PO DAILY 06/09/23 [History Last Taken Unknown] rosuvastatin 10 mg tablet (Crestor) 10 mg PO DAILY 06/09/23 [History Last Taken Unknown] tumeric root powder PO 06/09/23 [History Last Taken Unknown] doxycycline monohydrate 40 mg capsule,immediate - delay release 1 cap PO QDAY 07/05/23 [History Last Taken Unknown] Allergy/AdvReac Type Severity Reaction Status Date / Time ciprofloxacin [From Cipro] Allergy Mild itching Verified 07/05/23 15:03 atorvastatin Allergy Hives Verified 07/05/23 15:03 simvastatin Allergy Rash Verified 07/05/23 15:03 Family History Other Asthma CVA (cerebral vascular accident) Cancer Diabetes Hypertension Surgical History History of lobectomy of lung History of rotator cuff surgery History of tonsillectomy History of tubal ligation Status post right foot surgery Social History Smoking Status: Never smoker alcohol intake: never substance use type: does not use what type of physical activity do you participate in: walking frequency: 3-4 times per week ROS ROS ED Constitutional Constitutional ED: Denies chills or fever(s) Eyes Eyes: Denies change in vision or diplopia ENT ENT ED: Denies rhinorrhea or sore throat Cardiovascular Cardiovascular: Reports palpitations and racing heartbeat; Denies chest pain, lightheadedness or syncope Respiratory/Chest Respiratory/Chest: Denies cough or dyspnea Gastrointestinal Gastrointestinal: Denies abdominal pain, diarrhea, nausea or vomiting Genitourinary Genitourinary ED: Denies dysuria or hematuria Musculoskeletal Musculoskeletal: Denies back pain or neck pain Integumentary Denies abscess or rash Neurologic Neurologic: Denies headache(s), paresthesias or weakness Psychiatric Psychiatric: Denies anxiety or suicidal thoughts EXAM Physical Exam Const Vital Signs: 08/10/23 01:45 08/10/23 01:45 08/10/23 02:45 Temperature 97.5 F L Temperature Source Oral Pulse Rate 78 69 Respiratory Rate 16 12 Respiratory Effort Normal Non-Labored Blood Pressure 180/91 H 143/69 H Blood Pressure Mean 120 93 Pulse Ox 98 95 Oxygen Delivery Method Room Air Room Air 08/10/23 03:00 Temperature Temperature Source Pulse Rate 73 Respiratory Rate 13 Respiratory Effort Blood Pressure 139/71 H Blood Pressure Mean 93 Pulse Ox 95 Oxygen Delivery Method Room Air Positive well nourished and well developed General Appearance ED: well developed and NAD HEENT Reports moist mucous membranes normocephalic and atraumatic Eyes PERRL and EOMs intact bilaterally Neck full ROM and supple Resp normal respiratory effort and clear to auscultation bilaterally Cardio regular rate, regular rhythm and no murmurs Rate: Negative for tachycardic GI non-tender and non-distended Auscultation: normoactive bowel sounds Palpation: soft Back/Spine no CVA tenderness General Back: other FROM Extremity normal to inspection General Extremety ED: Negative for edema, pulses abnormal or tenderness General Extremity: Negative for edema or pulses abnormal Neuro oriented x3, CN's II-XII intact bilaterally and no sensory deficits noted Sensorium / Orientation: awake and alert Motor Exam: strength 5/5 throughout Skin no rashes or lesions noted and no wounds MDM MDM MDM Narrative Medical decision making narrative: Workup unremarkable, and with several hour observation she had no recurrent symptoms and no dysrhythmias, ectopy, or tachycardia. At this time I think it is safer to be discharged home. In reviewing records from Dr. Alonzo, if she hadany symptoms such as this they would consider placing a loop recorder. Therefore I recommend following up with them in cardiology, or return to the ER immediately if she has recurrent symptoms. Of note her initial blood pressure in triage was 180/91, without treating it and observing her it is now 139/71, and the rest of her vital signs are normal. History & Record Review Additional record(s) reviewed:: Prior outpatient record (cardiology visit) Lab Data Attestation: I reviewed the patient's lab results. Labs: Laboratory Results - last 24 hr 08/10/23 02:09 WBC 8.7 RBC 5.18 Hgb 15.6 H Hct 47.2 H MCV 91.1 MCH 30.1 MCHC 33.1 RDW Std Deviation 40.9 RDW Coeff of Erin 12.2 Plt Count 277 MPV 9.6 Immature Gran % (Auto) 0.200 Neut % (Auto) 55.8 Lymph % (Auto) 32.5 [place] % (Auto) 8.6 Eos % (Auto) 2.0 Baso % (Auto) 0.9 Absolute Neuts (auto) 4.9 Absolute Lymphs (auto) 2.82 Nucleated RBC % 0 Sodium 141 Potassium 3.5 Chloride 110 H Carbon Dioxide 25.0 Anion Gap 6 BUN 12 Creatinine 0.68 Estim Creat Clear Calc 69.88 Est GFR (MDRD) Af Amer 109 Est GFR (MDRD) Non-Af 90 BUN/Creatinine Ratio 17.5 Glucose 139 H Calcium 9.2 Troponin I High Sens 6 Rhythm Strip Rhythm Strip: Sinus Rhythm Rate: 87 Ectopy: None EKG Initial EKG: Attestation: I personally reviewed and interpreted this EKG as follows: Interpretation: Sinus Rhythm and No Acute Injury Pattern Comments: Normal EKG Prior EKG tracings: available for review Prior: Unchanged Discharge Plan Triage Chief Complaint: Palpitations ED Provider: Narendra Jarrell Dx/Rx/DC Orders Clinical Impression: Palpitations Instructions: Your Heart's Electrical System, ED Palpitations Prescriptions: No Action multivitamin Tablet 1 tab PO DAILY [id number] [Osteo Bi-Flex (5-Loxin)] 1,500-400-100 mg-unit-mg tablet 1 tab PO DAILY Rx Instructions: give after food/meal Calcium 600 + D(3) 600 mg-5 mcg (200 unit) capsule 1 cap PO DAILY tumeric root powder PO rosuvastatin [Crestor] 10 mg tablet 10 mg PO DAILY alendronate [Fosamax] 70 mg tablet 70 mg PO QWEEK doxycycline monohydrate 40 mg capsule,IR - delay rel,biphase 1 cap PO QDAY ivermectin [Soolantra] 30 GM cream 30 g TP DAILY Linzess 72 MCG capsule 72 mcg PO DAILY loratadine [Allergy Relief (loratadine)] 10 mg tablet 10 mg PO DAILY cholecalciferol (vitamin D3) 25 mcg (1,000 unit) capsule 1,000 unit PO DAILY Patient Comments: take 1 capsule by mouth once daily aspirin 81 mg capsule 81 mg PO DAILY Qty: 30 0RF Primary Care Provider: Cristian Silveira Chi Referrals: Roscoe Alonzo MD [Med Staff - Active Staff] - As soon as possible Cristian Silveira Chi, MD [Primary Care Provider] - Disposition Disposition: Home, Self Care What to do if you have Problems For any increased pain, shortness of breath, bleeding, nausea or vomiting, chestpain, or any unexpected problems, contact your Primary Care Provider. Call [facility] ([phone]) or report to the closest Emergency Room. Call 911 if necessary. 08/10/23 8839 <Electronically signed by Narendra Jarrell MD> Cosigner Signature (if applicable): CC: Dr. Roscoe Alonzo MD; Dr. Cristian Silveira MD ~ Signed [facility] Work Phone: [phone]) 506-721302-17-2024 Consult note Author Ilda Miller [facility] May 27, 2023 11:09am Note Date/Time May 27, 2023 11:04am [facility] Medical Records Department [address] [place] [address] Consultation - Neurology 05/27/23 1103 MR#: [id number] Acct: [id number] Name: MELISA EDOUARD Rep #:[id number] : 1955 68 From: Ilda romero MD PCP: Dr. Cristian Silveira MD Status:ADM I NO Location: [place] [address] Assessment and Plan: Neuro Assessment/Plan MELISA EDOUARD is a 68 F with a past medical history of HLD being evaluated by Teleneurology for TIA. she presented with a brief episode of right arm abnormal movement and slurred speech which resolved spontaneously CT head: no acute changes Diagnosis: TIA Plan: stroke/ TIA work up MRI brain with out cont MRA head and neck TTE hba1c, lipid panel Aspirin high intensity statin vascular risk modification Transfer to [facility] for the following reasons: I personally attended this patient and spent a total time of minutes evaluating this patient including clinical assessment, review of chart, medical history imaging, and determining appropriate treatment and workup. HPI Consult Data Date of Consult: 05/27/23 HPI Narrative HPI Narrative: MELISA EDOUARD, is a 68 F who presents with a brief episode of abnormal arm movement. she reports working on her computer when her right arm started moving strangley,she decriebs as having mind of its own she also reports right facialdrop, no slurred speech, vision disturbance or numbness. the episode lasted for 5-10 seconds and resoled [facility] Medical History COVID-19 DDD (degenerative disc disease), lumbar Environmental allergies History of lung cancer IBS (irritable bowel syndrome) Home Medications ivermectin 1 % topical cream (Soolantra) 30 g TP DAILY 11/07/16 [History Last Taken Unknown] linaclotide 72 mcg capsule (Linzess) 72 mcg PO DAILY 11/07/16 [History Last Taken Unknown] loratadine 10 mg tablet (Allergy Relief (loratadine)) 10 mg PO PRN PRN [id number]/31/17 [History Last Taken Unknown] cholecalciferol (vitamin D3) 25 mcg (1,000 unit) capsule 1,000 unit PO DAILY 05/27/23 [History Last Taken Unknown] doxycycline monohydrate 40 mg capsule,immediate - delay release 40 mg PO DAILY 05/27/23 [History Last Taken Unknown] Allergy/AdvReac Type Severity Reaction Status Date / Time ciprofloxacin [From Cipro] Allergy Mild itching Verified 05/26/23 20:07 atorvastatin Allergy Hives Verified 05/26/23 20:07 simvastatin Allergy Rash Verified 05/26/23 20:07 Family History Other Asthma CVA (cerebral vascular accident) Cancer Diabetes Surgical History History of lobectomy of lung History of rotator cuff surgery History of tonsillectomy History of tubal ligation Status post right foot surgery Social History Smoking Status: Never smoker alcohol intake: never substance use type: does not use what type of physical activity do you participate in: walking frequency: 3-4 times per week Vital Signs Vital Signs Vital Signs: 05/26/23 20:03 05/26/23 21:42 05/27/23 00:18 Temperature 97.6 F L 97.8 F Temperature Source Temporal Pulse Rate 94 95 78 Pulse Strength Respiratory Rate 16 12 16 Respiratory Effort Respiratory Depth Respiratory Pattern Blood Pressure 162/72 H 184/79 H 152/79 H Blood Pressure Mean 102 114 103 Blood Pressure Source Blood Pressure Position Blood Pressure Location Pulse Ox 99 95 94 Oxygen Delivery Method Room Air 05/27/23 02:55 05/27/23 04:07 05/27/23 06:00 Temperature 97.6 F L Temperature Source Oral Pulse Rate 72 Pulse Strength Respiratory Rate 18 Respiratory Effort Normal Non-Labored Respiratory Depth Normal Respiratory Pattern Normal Blood Pressure 162/76 H Blood Pressure Mean 104 Blood Pressure Source Monitor Blood Pressure Position Semi-Fowlers Blood Pressure Location Right Arm Pulse Ox 96 95 Oxygen Delivery Method Room Air Room Air Room Air 05/27/23 06:00 05/27/23 08:40 05/27/23 08:00 Temperature 97.6 F L 96.7 F L Temperature Source Oral Temporal Pulse Rate 72 83 Pulse Strength Respiratory Rate 18 18 Respiratory Effort Respiratory Depth Respiratory Pattern Blood Pressure 162/76 H 153/78 H Blood Pressure Mean 104 103 Blood Pressure Source Monitor Monitor Blood Pressure Position Semi-Fowlers Semi-Fowlers Blood Pressure Location Right Arm Right Arm Pulse Ox 95 95 96 Oxygen Delivery Method Room Air Room Air Room Air 05/27/23 08:48 05/27/23 08:50 Temperature Temperature Source Pulse Rate Pulse Strength Normal (2+) Respiratory Rate Respiratory Effort Normal Non-Labored Respiratory Depth Normal Respiratory Pattern Normal Blood Pressure Blood Pressure Mean Blood Pressure Source Blood Pressure Position Blood Pressure Location Pulse Ox 95 Oxygen Delivery Method Room Air Weight Weight: 83 kg Body Mass Index (BMI) 31.4 EEG Results Procedure Details EEG Procedure Details: MELISA EDOUARD is a 68 year old F with a past medical history of , who presents for evaluation of Electroencephalogram on DATE at TIME NIHSS NIHSS Nursing Documentation NIHSS Nursing Documentation: NIH Stroke Scale Start: 05/26/23 21:34 Freq: Status: Discharge Protocol: Activity Type Activity Date Activity User E-sign Co-sign Detail Recorded Client Recorded Date Recorded By Document 05/26/23 21:34 ET Desktop 05/26/23 21:35 ET 05/26/23 21:34 NIH Stroke Scale [NIHSS] A score of 0 is normal or asymptomatic . Total possible score is 42. Inpatient: RN or Physician to activate a stroke alert for onset of new stroke symptoms or with NIHSS increase >/= 3 points. Following change in neurological status, NIHSS will be performed per physician order or more frequently PRN. -1a. Level of Consciousness Alert; keenly responsive -1b. LOC Questions Answers BOTH questions correctly. -1c. LOC Commands Performs both tasks correctly . -2. Best Gaze Normal -3. Visual No visual loss -4. Facial Palsy Normal symmetrical movements -5a. Left Arm No drift; arm holds 90 (or 45 ) degrees for full 10 seconds -5b. Right Arm No drift; arm holds 90 (or 45 ) degrees for full 10 seconds -6a. Left Leg No drift; leg holds 30-degree position for full 5 seconds -6b. Right Leg No drift; leg holds 30-degree position for full 5 seconds -7. Limb Ataxia Absent -8. Sensory Normal; no sensory loss -9. Best Language No aphasia; normal -10. Dysarthria Normal -11. Extinction and Inattention No abnormality -Total 0 Query Text:A score of 0 is normal or asymptomatic. Total possible score is 42 . ED: Notify Physician for NIHSS increase by > / = 3 points. Inpatient: RN or Physician to activate a stroke alert for NIHSS increase of > / = 3 points. NIHSS: Ischemic Stroke/TIA Start: 05/27/23 02:11 Text: For PCU Patients: NIH and Neuro Check every 4 Status: Active hours and PRN Freq: [id number] Protocol: Activity Type Activity Date Activity User E-sign Co-sign Detail Recorded Client Recorded Date Recorded By Document 05/27/23 08:41 HS Desktop 05/27/23 08:41 HS 05/27/23 08:41 -1a. Level of Consciousness Alert; keenly responsive -1b. LOC Questions Answers BOTH questions correctly. -1c. LOC Commands Performs both tasks correctly . -2. Best Gaze Normal -3. Visual No visual loss -4. Facial Palsy Normal symmetrical movements -5a. Left Arm No drift; arm holds 90 (or 45 ) degrees for full 10 seconds -5b. Right Arm No drift; arm holds 90 (or 45 ) degrees for full 10 seconds -6a. Left Leg No drift; leg holds 30-degree position for full 5 seconds -6b. Right Leg No drift; leg holds 30-degree position for full 5 seconds -7. Limb Ataxia Absent -8. Sensory Normal; no sensory loss -9. Best Language No aphasia; normal -10. Dysarthria Normal -11. Extinction and Inattention No abnormality -Total 0 Query Text:A score of 0 is normal or asymptomatic. Total possible score is 42 . ED: Notify Physician for NIHSS increase by > / = 3 points. Inpatient: RN or Physician to activate a stroke alert for NIHSS increase of > / = 3 points. Coma Scale [Assess] -Eye Opening Spontaneous -Motor Obeys Commands -Verbal Oriented [Total] -Coma Scale Total 15 Physical Exam Neuro Yo Coma Scale: GCS not evaluated Cranial Nerves: CN normal except as noted Sensory Exam: double simultaneous stimulation for sensation normal Motor Exam: strength 5/5 throughout Lab / Micro Data 05/26/23 21:15 05/26/23 21:15 Labs: Laboratory Results - last 24 hr 05/26/23 21:15: WBC 9.4, RBC 5.02, Hgb 15.5 H, Hct 44.7, MCV 89.0, MCH 30.9, MCHC 34.7, RDW Std Deviation 40.2, RDW Coeff of Erin 12.3, Plt Count 267, MPV 9.5, Immature Gran % (Auto) 0.200, Neut % (Auto) 61.4, Lymph % (Auto) 27.6, [place] % (Auto) 8.6, Eos % (Auto) 1.5, Baso % (Auto) 0.7, Absolute Neuts (auto) 5.8, Absolute Lymphs (auto) 2.61, Nucleated RBC % 0, PT 13.3, INR 1.0, APTT 25.8, Sodium 139, Potassium 3.4 L, Chloride 106, Carbon Dioxide 26.0, Anion Gap 7, BUN 13, Creatinine 0.84, Estim Creat Clear Calc 63.53, Est GFR (MDRD) Af Amer 87, Est GFR (MDRD) Non-Af 72, BUN/Creatinine Ratio 15.5, Glucose 212 H, Calcium 9.6, Troponin I High Sens 6 05/26/23 23:28: Troponin I High Sens 7, Triglycerides 216 H, Cholesterol 223 H, LDL Cholesterol 130, VLDL Cholesterol 43 H, HDL Cholesterol 50, TSH 1.85 05/27/23 01:58: Ethyl Alcohol < 3.0 Imaging Radiology Impression Brain CT 05/26/23 20:50 IMPRESSION: Normal unenhanced CT scan of the brain. Electronically Signed: Dmitry Birmingham MD at 21:55 EST , Chest X-Ray 05/26/23 21:20 IMPRESSION: Normal x-ray examination of the chest. Electronically Signed: Dmitry Birmingham MD at 22:01 EST , Active Medications Active Medications Active Medications: Current Medications Generic Name Dose Route Start Last Admin Trade Name Freq PRN Reason Stop Dose Admin Acetaminophen 650 mg 05/27/23 02:11 Acetaminophen 325 Mg Tablet PO Q4H PRN PRN Pain 1-10 Or Fever>99.6 Aspirin 162 mg 05/27/23 03:00 05/27/23 02:51 Aspirin 81 Mg Tab.Chew PO 162 mg DAILYCM JAN Administration Cholecalciferol 25 mcg 05/27/23 10:00 05/27/23 08:34 Cholecalciferol (Vit D3) 25 Mcg Tablet (1,000 Units) PO 25 mcg DAILY JAN Administration Clarify Med Order 1 each 05/27/23 03:00 05/27/23 02:58 Clarify Order NOTE 1 each CLARIFY JAN Administration Sodium Chloride 1,000 mls @ 70 mls/hr 05/27/23 02:11 05/27/23 02:56 IV 70 mls/hr .[id number] JAN Administration Sodium Chloride 250 mls @ 15 mls/hr 05/27/23 02:28 IV .[id number] PRN Additional IVPB Infusion Sodium Chloride 250 mls @ 15 mls/hr 05/27/23 02:28 IV .[id number] PRN Saline Flush Loratadine 10 mg 05/27/23 10:00 Loratadine 10 Mg Tablet PO DAILY PRN PRN Allergies Non-Formulary Medication 40 mg 05/27/23 10:00 Doxycycline Monohydrate PO DAILY JAN Non-Formulary Medication 30 gm 05/27/23 10:00 Ivermectin [Soolantra] TP DAILY JAN Non-Formulary Medication 72 mcg 05/27/23 10:00 Linaclotide [Linzess] PO DAILY JAN Sodium Chloride 10 - 40 ml 05/27/23 02:28 05/27/23 02:58 0.9% Saline Lock 10 Ml Syringe IV 10 ml UD PRN Administration SALINE FLUSH 05/27/23 1109 <Electronically signed by Ilda Miller MD> Cosigner Signature (if applicable): CC: Odilia Duke; Lynn Perez; Ion Eden; Argelia Briceno MD; Reena Diza MD; Matt Young MD; Dr. Cassia Del Rosario MD; Dr. Abhay Sullivan DO; Dr. Rodney Holman MD; Dr. Ariadna Lindsey MD; Dr. Stevo Moreno MD; Dr. Ryan Martini MD; Dr. Giovani Fontenot DO; Dr. Ilda Miller MD; Dr. Viviana Hanson MD; Dr. Coby Vail MD; Dr. Mateo Rogers MD; Dr. Cristian Silveira MD; Dr. Kay Moya MD; Cece Liriano DO; Marta Sinclair MD~ Signed [facility] Work Phone: [phone]) 300-613602-17-2024 History and physical note Author Abhay Yusuf [facility] May 27, 2023 7:43am Note Date/Time May 26, 2023 11:54pm [facility] Medical Records Department [address] [place] [address] H&P Exam - Hospitalist 05/26/23 2353 MR#: [id number] Acct: [id number] Name: MELISA EDOUARD Rep #:[id number] : 1955 68 From: Abhay Nguyen DO PCP: Dr. Cristian Silveira MD Status:ADM I NO Location: [place] [address] HPI - General General Date of Admission: 05/26/23 Date of Service: 05/26/23 Chief Complaint: Transient right arm weakness/tingling and slurred speech HPI Narrative MELISA EDOUARD, is a 68 F with a past medical history of hyperlipidemia; with intolerance to statins, obesity; with BMI of 31.4 this admission, irritable bowel syndrome; of constipation type on Linzess, history of lung cancer; s/p bilateralupper lobectomies, history of COVID-19, history of allergy to ciprofloxacin (itching), DDD of the lumbar spine, history of L4 compression fracture and osteoarthritis who presents to [facility] ER complaining of transient right arm weakness/tingling and slurred speech. Mrs. Edouard reports her symptoms began approximately 1 hour prior to arrival while she was sitting in her recliner using her laptop when she suddenly developed paresthesias in herright arm. She then noticed difficulty moving her right arm and had to reach over with her left arm to move her right arm. She adds that she also had some questionable right facial weakness and questionable slurred speech that lasted for only 5 to 10 seconds. She denies a history of TIA or CVA or similar previous episodes but she does admit to a positive family history of CVA. She also denies associated fever, chills, nausea, vomiting, chest pain, shortness ofbreath, recent illness or recent/relevant traumatic injury. In the ER her CTA scan of the head and neck was negative for acute pathologic changes but she did have an ABCD2 score 4 placing her at moderate risk for further stroke. She was also noted to have laboratory evidence of mild hypokalemia of 3.4 mmol/L presenton admission. Therefore, the ER physician contacted the hospitalist group to arrange admission to the CDU under observation status for TIA/CVA workup that isexpected to be less than 48 hours. [facility] Medical History COVID-19 DDD (degenerative disc disease), lumbar Environmental allergies History of lung cancer IBS (irritable bowel syndrome) Home Medications ivermectin 1 % topical cream (Soolantra) 30 g TP DAILY 11/07/16 [History Last Taken Unknown] linaclotide 72 mcg capsule (Linzess) 72 mcg PO DAILY 11/07/16 [History Last Taken Unknown] loratadine 10 mg tablet (Allergy Relief (loratadine)) 10 mg PO PRN PRN Dwzourubn98/31/17 [History Last Taken Unknown] cholecalciferol (vitamin D3) 25 mcg (1,000 unit) capsule 1,000 unit PO DAILY 05/27/23 [History Last Taken Unknown] doxycycline monohydrate 40 mg capsule,immediate - delay release 40 mg PO DAILY 05/27/23 [History Last Taken Unknown] Allergy/AdvReac Type Severity Reaction Status Date / Time ciprofloxacin [From Cipro] Allergy Mild itching Verified 05/26/23 20:07 atorvastatin Allergy Hives Verified 05/26/23 20:07 simvastatin Allergy Rash Verified 05/26/23 20:07 Family History Other Asthma CVA (cerebral vascular accident) Cancer Diabetes Surgical History History of lobectomy of lung History of rotator cuff surgery History of tonsillectomy History of tubal ligation Status post right foot surgery Social History Smoking Status: Never smoker alcohol intake: never substance use type: does not use what type of physical activity do you participate in: walking frequency: 3-4 times per week ROS ROS Narrative Review of systems: General: Patient denies fever or chills HENT: Denies headache, denies stuffy nose, denies sore throat EYES: Denies changes in vision or discharge from eyes Resp: Denies cough, denies shortness of breath Cardiac: Denies chest pain or palpitations GI: Denies abdominal pain, denies changes in bowel, denies nausea or vomiting : Denies changes in urination Extremity: Denies swelling Musculoskeletal: Patient admits to back pain but denies neck pain. Neuro: Patient admits to numbness, tingling and weakness of the right upper extremity that lasted only a few seconds as per HPI Heme: Denies any bleeding or bruising Skin: Denies rashes Psychiatric: No complaints voiced related to uncontrolled depression or anxiety Endocrine: No polyuria, polydipsia or polyphagia The rest of the 14 point ROS was negative except for positives in HPI. Vital Signs Vital Signs Vital Signs: 05/26/23 20:03 05/26/23 21:42 Temperature 97.6 F L Temperature Source Temporal Pulse Rate 94 95 Respiratory Rate 16 12 Blood Pressure 162/72 H 184/79 H Blood Pressure Mean 102 114 Pulse Ox 99 95 Oxygen Delivery Method Room Air Weight Weight: 170 lb Body Mass Index (BMI) 29.2 Physical Exam Const alert, oriented x3, no apparent distress, average body habitus, healthy appearing and well nourished General Appearance: cooperative HEENT normocephalic, head/scalp atraumatic, hearing grossly normal bilaterally, moist oral mucous membranes and oropharynx normal Eyes PERRL, EOMs intact bilaterally and conjunctivae normal Neck no lymphadenopathy and supple Resp normal respiratory effort, no retractions, no use of accessory muscles and clearto auscultation bilaterally Cardio regular rate and regular rhythm GI normal to inspection, nondistended, normoactive bowel sounds, soft to palpation,non-tender and non-distended Extremity normal to inspection and full ROM Skin Skin Narrative: Patient has no evidence of rash or abscess at this time. Neuro oriented x3, CN's II-XII intact bilaterally, moves all extremities and no focal motor deficits Sensorium / Orientation: awake, alert, oriented to person, oriented to place andoriented to time Speech: speech normal Motor Exam: strength 5/5 throughout Psych affect normal Results Medical Records Data Attestation: I reviewed the patient's medical records Lab / Micro Data Attestation: I reviewed the patient's lab results. 05/26/23 21:15 05/26/23 21:15 Labs: Laboratory Results - last 24 hr 05/26/23 21:15: WBC 9.4, RBC 5.02, Hgb 15.5 H, Hct 44.7, MCV 89.0, MCH 30.9, MCHC 34.7, RDW Std Deviation 40.2, RDW Coeff of Erin 12.3, Plt Count 267, MPV 9.5, Immature Gran % (Auto) 0.200, Neut % (Auto) 61.4, Lymph % (Auto) 27.6, [place]% (Auto) 8.6, Eos % (Auto) 1.5, Baso % (Auto) 0.7, Absolute Neuts (auto) 5.8, Absolute Lymphs (auto) 2.61, Nucleated RBC % 0, PT 13.3, INR 1.0, APTT 25.8, Sodium 139, Potassium 3.4 L, Chloride 106, Carbon Dioxide 26.0, Anion Gap 7, BUN13, Creatinine 0.84, Estim Creat Clear Calc 63.53, Est GFR (MDRD) Af Amer 87, Est GFR (MDRD) Non-Af 72, BUN/Creatinine Ratio 15.5, Glucose 212 H, Calcium 9.6,Troponin I High Sens 6 05/26/23 23:28: Troponin I High Sens 7 Imaging Radiology Impression Brain CT 05/26/23 20:50 IMPRESSION: Normal unenhanced CT scan of the brain. Electronically Signed: Dmitry Birmingham MD at 21:55 EST , Chest X-Ray 05/26/23 21:20 IMPRESSION: Normal x-ray examination of the chest. Electronically Signed: Dmitry Birmingham MD at 22:01 EST Reading Location ID and State: [address] [place] [address] Tel , Service support , Assessment & Plan Assessment/Plan (1) TIA (transient ischemic attack): (2) Hypokalemia: (3) Compression fracture of L4 vertebra: QUALIFIERS: Encounter type: sequela Qualified Code(s): S32.040S -Wedge compression fracture of fourth lumbar vertebra, sequela PLAN: Plan 1. TIA versus CVA with transient right upper extremity weakness/tingling, facial droop and slurred speech - Admit to CDU under observation status. Proceed with full TIA/CVA workup including: MRI of the brain without contrast, carotid Doppler to evaluate for stenosis and echocardiogram to evaluate left ventricular ejection fraction. Check MRI of the cervical spine to evaluate for possible cervical radiculopathy mimicking symptoms of CVA. Finally, we will start baby aspirin and avoid statin with listed allergy plus consult [facility] teleneurology for further recommendations with help appreciated in advance. 2. Hypokalemia of 3.4 mmol/L present on admission complicating #1 - Give supplemental potassium chloride and then recheck BMP in the a.m. to ensure improvement. 3. DDD of the lumbar spine with history of subacute L4 compression fracture andosteoarthritis - Give Tylenol as needed. 4. Hyperlipidemia; with intolerance to statins - Check lipid profile this admission in light of #1. 5. Obesity; with BMI of 31.4 this admission - Weight loss will be recommended. Check TSH. 6. Irritable bowel syndrome; of constipation type on Linzess - Stable. Resume home regimen. 7. History of lung cancer; s/p bilateral upper lobectomies - Noted. 8. History of COVID-19 - Noted. 9. History of allergy to ciprofloxacin (itching) - Noted. 10. DVT prophylaxis - Lovenox 40 mg subcu daily. Total time: Approximately 45 minutes. Charges/Coding Visit Charges OBSV E&M: 27769 Observ/hosp same date L1 05/27/23 0743 <Electronically signed by Abhay Sullivan DO> Cosigner Signature (if applicable): CC: Dr. Abhay Sullivan DO; Dr. Cristian Silveira MD~ Signed [facility] Work Phone: [phone]) 947-777602-17-2024 Discharge summary Author Mike Rivera [facility] May 27, 2023 12:49am Note Date/Time May 26, 2023 8:26pm [facility] Medical Records Department [address] [place] [address] Emergency Department Summary 05/26/23 MR#: [id number] Acct: [id number] Name: MELISA EDOUARD Rep #:[id number] : 1955 68 From: Mike Mae PCP: Dr. Cristian Silveira MD Status:ADM I NO Location: [place] [address] HPI History of Present Illness HPI Narrative: Patient presents with paresthesias and weakness to her right arm that occurred tonight while she was sitting in her recliner. Patient states she was using herlaptop. Patient states that she had some paresthesias in her right arm. Patient states she had difficulty moving her right arm. Patient states she had to reach over with her left arm and move her right arm. Patient states that shealso had some questionable right facial weakness and questionable slurred speech. Patient states this lasted for only 5 to 10 seconds. Patient denies any chest pain. Patient denies any shortness of breath. Patient denies any nausea or vomiting. Patient states she does have a history of recent L4 compression fracture but only has minimal pain with this. Chief Complaint: Upper Extremity Injury Informant: patient Onset/Context/Timing Onset: Today Context: Sudden Onset Timing: Intermittent and Lasts (5 to 10 seconds) Location: Right upper extremity Worsened by: Nothing Relieved by: Nothing Associated Symptoms Associated Symptoms: Positive for Parasthesia and Weakness [facility] Medical History COVID-19 DDD (degenerative disc disease), lumbar Environmental allergies History of lung cancer IBS (irritable bowel syndrome) Home Medications calcium carbonate 600 mg calcium (1,500 mg) tablet 1,200 mg PO DAILY 11/07/16 [History Last Taken Unknown] ivermectin 1 % topical cream (Soolantra) 30 g TP DAILY 11/07/16 [History Last Taken Unknown] linaclotide 72 mcg capsule (Linzess) 72 mcg PO DAILY 11/07/16 [History Last Taken Unknown] loratadine 10 mg tablet (Allergy Relief (loratadine)) 10 mg PO PRN PRN [id number]/31/17 [History Last Taken Unknown] multivitamin (Multiple Vitamins tablet) 1 ea PO DAILY 11/07/16 [History Last Taken Unknown] Allergy/AdvReac Type Severity Reaction Status Date / Time ciprofloxacin [From Cipro] Allergy Mild itching Verified 05/26/23 20:07 atorvastatin Allergy Hives Verified 05/26/23 20:07 simvastatin Allergy Rash Verified 05/26/23 20:07 Family History Other Asthma CVA (cerebral vascular accident) Cancer Diabetes Surgical History History of lobectomy of lung History of rotator cuff surgery History of tonsillectomy History of tubal ligation Status post right foot surgery Social History Smoking Status: Never smoker alcohol intake: never substance use type: does not use what type of physical activity do you participate in: walking frequency: 3-4 times per week ROS ROS ED Constitutional Constitutional ED: Denies chills or fever(s) Eyes Eyes: Denies blurry vision or change in vision ENT ENT ED: Denies rhinorrhea or sore throat Cardiovascular Cardiovascular: Denies chest pain or palpitations Respiratory/Chest Respiratory/Chest: Denies cough or dyspnea Gastrointestinal Gastrointestinal: Denies nausea or vomiting Genitourinary Genitourinary ED: Denies dysuria or hematuria Musculoskeletal Musculoskeletal: Reports back pain; Denies neck pain Integumentary Denies abscess or rash Neurologic Neurologic: Reports paresthesias and weakness; Denies headache(s) Allergic/Immunologic Allergic/Immunologic ED: Denies mouth swelling or urticaria EXAM Physical Exam Const Vital Signs: 05/26/23 20:03 Temperature 97.6 F L Temperature Source Temporal Pulse Rate 948 H Respiratory Rate 16 Blood Pressure 162/72 H Blood Pressure Mean 102 Pulse Ox 99 Positive well nourished and well developed General Appearance ED: well developed and NAD HEENT Reports moist mucous membranes Eyes PERRL Neck full ROM and supple Resp normal respiratory effort and clear to auscultation bilaterally Cardio regular rate and regular rhythm GI non-tender and non-distended Palpation: soft Extremity normal to inspection and full ROM Neuro oriented x3, CN's II-XII intact bilaterally, moves all extremities, no focal motor deficits and no sensory deficits noted Sensorium / Orientation: alert Motor Exam: strength 5/5 throughout Psych mental status grossly normal MDM MDM MDM Narrative Medical decision making narrative: Differential diagnosis includes TIA, paresthesias, electrolyte abnormality, stroke, intracranial bleeding, cardiac dysrhythmia, and cardiac ischemia. EKG will be obtained to assess for cardiac dysrhythmia and cardiac ischemia. CT scan of the brain will be obtained to assess for intracranial bleeding and stroke. Chest x-ray will be obtained to assess for pneumonia and pneumothorax. CBC will be obtained to assess for leukocytosis and anemia. Basic metabolic profile will be obtained to assess for electrolyte abnormality and renal function. High-sensitivity troponin will be obtained to assess for cardiac ischemia. 2-hour repeat high-sensitivity troponin will be obtained to assess forongoing cardiac ischemia. PT with INR and PTT will be obtained to assess for coagulopathy. Lab Data Attestation: I reviewed the patient's lab results. Lab results narrative: CBC was reviewed and was within normal limits. Basic metabolic profile was reviewed and showed an elevated glucose of 212. Anion gap was normal. Potassium was slightly low at 3.4. PT with INR and PTT were reviewed and were within normal limits. Initial high-sensitivity troponin was reviewed and was normal at 6. 2-hour repeat high-sensitivity troponin was reviewed and was normal at 7. Radiography Chest X-Ray - ED: 2 View, Read by ED Physician, Read by Radiologist and No AcuteDisease Diagnostic Testing: PA and lateral chest x-ray was obtained. There are 2 views. On my independent interpretation, lung morocho are clear. There is normal cardiac silhouette. Bony thorax is normal. There is no acute process noted. Radiologist also interpreted the x-ray and agrees. EKG Initial EKG: Attestation: I personally reviewed and interpreted this EKG as follows: Interpretation: Sinus Rhythm (91) and No Acute Injury Pattern Comments: EKG was obtained. On my independent interpretation, it showed anormal sinus rhythm with a rate of 91. GA interval, QRS interval, and QTc intervals were all normal. [place] was normal. There are no acute ST or T wave changes. Prior EKG tracings: available for review Prior: Unchanged (09/20/2017) Treatment and Re-Evaluation Narrative: Patient is feeling better on reevaluation. Patient was advised of her findings. Patient has an ABCD2 score of 4. This puts her at moderate risk for further stroke. Because of this, I recommended admission to the hospital for TIA workup. Patient is agreeable with this. Case was discussed with the hospitalist. He will admit the patient for observation. Patient understood and was agreeable with the plan. All questions were answered. Discharge Plan Triage Chief Complaint: Upper Extremity Injury ED Provider: Mike Rivera Dx/Rx/DC Orders Clinical Impression: TIA (transient ischemic attack), Elevated blood pressure reading without diagnosis of hypertension Prescriptions: No Action multivitamin [Multiple Vitamins] 1 EACH tablet 1 ea PO DAILY calcium carbonate 600 MG tablet 1,200 mg PO DAILY loratadine [Allergy Relief (loratadine)] 10 MG tablet 10 mg PO PRN PRN (Reason: Allergies) ivermectin [Soolantra] 30 GM cream 30 g TP DAILY Linzess 72 MCG capsule 72 mcg PO DAILY Primary Care Provider: Cristian Silveira Chi Referrals: Cristian Silveira Chi, MD [Primary Care Provider] - Disposition Disposition: Acute Care Hospital [facility] What to do if you have Problems For any increased pain, shortness of breath, bleeding, nausea or vomiting, chestpain, or any unexpected problems, contact your Primary Care Provider. Call [facility] ([phone]) or report to the closest Emergency Room. Call 911 if necessary. 05/27/23 0049 <Electronically signed by Mike Rivera DO> Cosigner Signature (if applicable): CC: Dr. Cristian Silveira MD ~ Signed [facility] Work Phone: 1(384) 267-878302-16-2024 Discharge summary Author Mike Rivera [facility] May 27, 2023 12:49am Note Date/Time May 26, 2023 8:26pm [facility] Medical Records Department [address] [place] [address] Emergency Department Summary 05/26/23 MR#: [id number] Acct: [id number] Name: MELISA EDOUARD Rep #:[id number] : 1955 68 From: Mike Mae PCP: Dr. Cristian Silveira MD Status:ADM I NO Location: [place] [address] HPI History of Present Illness HPI Narrative: Patient presents with paresthesias and weakness to her right arm that occurred tonight while she was sitting in her recliner. Patient states she was using herlaptop. Patient states that she had some paresthesias in her right arm. Patient states she had difficulty moving her right arm. Patient states she had to reach over with her left arm and move her right arm. Patient states that shealso had some questionable right facial weakness and questionable slurred speech. Patient states this lasted for only 5 to 10 seconds. Patient denies any chest pain. Patient denies any shortness of breath. Patient denies any nausea or vomiting. Patient states she does have a history of recent L4 compression fracture but only has minimal pain with this. Chief Complaint: Upper Extremity Injury Informant: patient Onset/Context/Timing Onset: Today Context: Sudden Onset Timing: Intermittent and Lasts (5 to 10 seconds) Location: Right upper extremity Worsened by: Nothing Relieved by: Nothing Associated Symptoms Associated Symptoms: Positive for Parasthesia and Weakness [facility] Medical History COVID-19 DDD (degenerative disc disease), lumbar Environmental allergies History of lung cancer IBS (irritable bowel syndrome) Home Medications calcium carbonate 600 mg calcium (1,500 mg) tablet 1,200 mg PO DAILY 11/07/16 [History Last Taken Unknown] ivermectin 1 % topical cream (Soolantra) 30 g TP DAILY 11/07/16 [History Last Taken Unknown] linaclotide 72 mcg capsule (Linzess) 72 mcg PO DAILY 11/07/16 [History Last Taken Unknown] loratadine 10 mg tablet (Allergy Relief (loratadine)) 10 mg PO PRN PRN [id number]/31/17 [History Last Taken Unknown] multivitamin (Multiple Vitamins tablet) 1 ea PO DAILY 11/07/16 [History Last Taken Unknown] Allergy/AdvReac Type Severity Reaction Status Date / Time ciprofloxacin [From Cipro] Allergy Mild itching Verified 05/26/23 20:07 atorvastatin Allergy Hives Verified 05/26/23 20:07 simvastatin Allergy Rash Verified 05/26/23 20:07 Family History Other Asthma CVA (cerebral vascular accident) Cancer Diabetes Surgical History History of lobectomy of lung History of rotator cuff surgery History of tonsillectomy History of tubal ligation Status post right foot surgery Social History Smoking Status: Never smoker alcohol intake: never substance use type: does not use what type of physical activity do you participate in: walking frequency: 3-4 times per week ROS ROS ED Constitutional Constitutional ED: Denies chills or fever(s) Eyes Eyes: Denies blurry vision or change in vision ENT ENT ED: Denies rhinorrhea or sore throat Cardiovascular Cardiovascular: Denies chest pain or palpitations Respiratory/Chest Respiratory/Chest: Denies cough or dyspnea Gastrointestinal Gastrointestinal: Denies nausea or vomiting Genitourinary Genitourinary ED: Denies dysuria or hematuria Musculoskeletal Musculoskeletal: Reports back pain; Denies neck pain Integumentary Denies abscess or rash Neurologic Neurologic: Reports paresthesias and weakness; Denies headache(s) Allergic/Immunologic Allergic/Immunologic ED: Denies mouth swelling or urticaria EXAM Physical Exam Const Vital Signs: 05/26/23 20:03 Temperature 97.6 F L Temperature Source Temporal Pulse Rate 948 H Respiratory Rate 16 Blood Pressure 162/72 H Blood Pressure Mean 102 Pulse Ox 99 Positive well nourished and well developed General Appearance ED: well developed and NAD HEENT Reports moist mucous membranes Eyes PERRL Neck full ROM and supple Resp normal respiratory effort and clear to auscultation bilaterally Cardio regular rate and regular rhythm GI non-tender and non-distended Palpation: soft Extremity normal to inspection and full ROM Neuro oriented x3, CN's II-XII intact bilaterally, moves all extremities, no focal motor deficits and no sensory deficits noted Sensorium / Orientation: alert Motor Exam: strength 5/5 throughout Psych mental status grossly normal MDM MDM MDM Narrative Medical decision making narrative: Differential diagnosis includes TIA, paresthesias, electrolyte abnormality, stroke, intracranial bleeding, cardiac dysrhythmia, and cardiac ischemia. EKG will be obtained to assess for cardiac dysrhythmia and cardiac ischemia. CT scan of the brain will be obtained to assess for intracranial bleeding and stroke. Chest x-ray will be obtained to assess for pneumonia and pneumothorax. CBC will be obtained to assess for leukocytosis and anemia. Basic metabolic profile will be obtained to assess for electrolyte abnormality and renal function. High-sensitivity troponin will be obtained to assess for cardiac ischemia. 2-hour repeat high-sensitivity troponin will be obtained to assess forongoing cardiac ischemia. PT with INR and PTT will be obtained to assess for coagulopathy. Lab Data Attestation: I reviewed the patient's lab results. Lab results narrative: CBC was reviewed and was within normal limits. Basic metabolic profile was reviewed and showed an elevated glucose of 212. Anion gap was normal. Potassium was slightly low at 3.4. PT with INR and PTT were reviewed and were within normal limits. Initial high-sensitivity troponin was reviewed and was normal at 6. 2-hour repeat high-sensitivity troponin was reviewed and was normal at 7. Radiography Chest X-Ray - ED: 2 View, Read by ED Physician, Read by Radiologist and No AcuteDisease Diagnostic Testing: PA and lateral chest x-ray was obtained. There are 2 views. On my independent interpretation, lung morocho are clear. There is normal cardiac silhouette. Bony thorax is normal. There is no acute process noted. Radiologist also interpreted the x-ray and agrees. EKG Initial EKG: Attestation: I personally reviewed and interpreted this EKG as follows: Interpretation: Sinus Rhythm (91) and No Acute Injury Pattern Comments: EKG was obtained. On my independent interpretation, it showed anormal sinus rhythm with a rate of 91. GA interval, QRS interval, and QTc intervals were all normal. [place] was normal. There are no acute ST or T wave changes. Prior EKG tracings: available for review Prior: Unchanged (09/20/2017) Treatment and Re-Evaluation Narrative: Patient is feeling better on reevaluation. Patient was advised of her findings. Patient has an ABCD2 score of 4. This puts her at moderate risk for further stroke. Because of this, I recommended admission to the hospital for TIA workup. Patient is agreeable with this. Case was discussed with the hospitalist. He will admit the patient for observation. Patient understood and was agreeable with the plan. All questions were answered. Discharge Plan Triage Chief Complaint: Upper Extremity Injury ED Provider: Mike Rivera Dx/Rx/DC Orders Clinical Impression: TIA (transient ischemic attack), Elevated blood pressure reading without diagnosis of hypertension Prescriptions: No Action multivitamin [Multiple Vitamins] 1 EACH tablet 1 ea PO DAILY calcium carbonate 600 MG tablet 1,200 mg PO DAILY loratadine [Allergy Relief (loratadine)] 10 MG tablet 10 mg PO PRN PRN (Reason: Allergies) ivermectin [Soolantra] 30 GM cream 30 g TP DAILY Linzess 72 MCG capsule 72 mcg PO DAILY Primary Care Provider: Cristian Silveira Chi Referrals: Cristian Silveira Chi, MD [Primary Care Provider] - Disposition Disposition: Acute Care Hospital [facility] What to do if you have Problems For any increased pain, shortness of breath, bleeding, nausea or vomiting, chestpain, or any unexpected problems, contact your Primary Care Provider. Call [facility] ([phone]) or report to the closest Emergency Room. Call 911 if necessary. 05/27/23 0049 <Electronically signed by Mike Rivera DO> Cosigner Signature (if applicable): CC: Dr. Cristian Silveira MD ~ Signed [facility] Work Phone: 1(914) 609-720002-05-2024 Discharge summary Author Deidre Haines [facility] May 15, 2023 12:59pm Note Date/Time May 15, 2023 1 2:59pm [facility] Physical Therapy [address] [place] [address] / REHABILITATION SERVICES DISCHARGE SUMMARY MR#: [id number] Acct: [id number] Name: MELISA EDOUARD Rep #: [id number] : 1955 68 From: Deidre Ferrara Referring DrJose De Jesus: Dr. Cristian Silveira MD Status: REG RCR Insurance: MEDICARE PART A B ANTHEM Discharge Summary D/C summary: It has been my pleasure to treat MELISA EDOUARD referred by Dr. Cristian Silveira MD,with the diagnosis of L4 Compression Fracture for a total of 7 visit(s). Discharge Date: Please see the following information for a summary of their discharge status. Subjective Subjective: She has been feeling really good and making progress and then on Monday she walked on the TM for 15 min- Monday went to [employer]- sang in the choir- went for a walk outside- 12 min walk her left hip was really sore in the middle of the buttock- ice/heat/ibuprofen- still a little touch -05/20. First time she has been outside walking. She had no pain doing the machines today. She feels confident with what she is doing currently. Pain Low back: Pain Intensity (Out of 10): 1 Overall Improvement % Improvement: 60 Objective Objective/Function: Posture: improved- good throughout session sitting on plinthwithout back support Gait: good- no decrease in trunk rotation Sensation: WFL to gross touch bilateral LE Reflex: 2+ to patella ROM: Lumbar: WFL mild discomfort with SB to the left Hip/Knee/Ankle: WNL Strength: Core: fair minus, Hip: 4+/5 throughout, Knee: 5/5, Ankle: 5/5 Flex: HS: mild, Gastroc: mild Dural Signs: negative bilateral Palpation: not tender to touch Goals Goal 1:: Patient will report participation in home exercise program activities aminimum of 5 days per week, as adjunct to skilled physical therapy intervention in preparation for independent home management upon discharge. Goal Progress: Goal Met Goal 2:: Patient will maintain proper posture t/o tx session to demo increased core strength/stabilization Goal Progress: Goal Met Goal 3:: Patient will report no pain for 1 week Goal Progress: Progressing Goal 4:: Patient will report 80% improvement Goal Progress: Progressing Plan Plan: Discharge to independent home exercise program- encouraged to call if questions or concerns. D/C Information d/c sentence: If there are questions or concerns regarding this patient's physical therapy, please feel free to call me at [phone]. Thank you for the referral of thispatient. Sincerely, Deidre Haines, DPT Balance/Gait/Functional tests Balance/Special Test Scores Oswestry Low Back Score: 14 Improvement % Improvement: 60 <Electronically signed by Deidre Haines DPT> 05/15/23 3078 CC: Dr. Cristian Silveira MD ~ ELR Signed [facility] Work Phone: 1(211) 746-810303-03-2023 Discharge summary Author Yudi Sen [facility] June 10, 2022 2:27pm Note Date/Time June 10, 2022 2:[address] [facility] Physical Therapy [facility] [address] [facility] [facility] [place] [address] / REHABILITATION SERVICES DISCHARGE SUMMARY MR#: [id number] Acct: [id number] Name: MELISA EDOUARD Rep #: [id number] : 1955 67 From: Yudi Sen PT, Cert. MDT Referring Dr.: Dr. Devin Van MD Status: REG RCR Insurance: MEDICARE PART A B ANTHEM It has been my pleasure to treat MELISA EDOUARD referred by Dr. Devin Van MD,with the diagnosis of BACK PAIN for a total of 10 visit(s). Discharge Date: Please see the following information for a summary of their discharge status. Subjective: PATIENT REPORTS HER BACK FEELS STRONGER AND THE PAIN IS GONE. I THINK I JUST NEEDED TO GET BACK INTO EX'S AND LEARN THE RIGHT WAY. HAS BEEN TAKING IT EASY OVER ALL BUT ABLE TO DO SOME HOUSEWORK INCLUDING DUSTING AND VACUUMING YESTERDAY. NOT ABLE TO DO QUITE MUCH BEFORE BECAUSE COULD STARTTO FEEL IT IN HER BACK BEFORE DONE YESTERDAY. L rib Pain Intensity (Out of 10): 0 LB Pain Intensity (Out of 10): 0 % Improvement: 99 Objective/Function: PATIENT WAS SEEN TODAY FOR RE-ASSESSMENT OF PROGRESS TOWARD THE SET PT GOALS AND THE NEED FOR FURTHER PHYSICAL THERAPY VS READINESS FOR DISCHARGE. PATIENT REPORTS 99% IMPROVEMENT AND SHE IS INDEP WITH HOME AND GYM EX'S PROGRAMS BUT SHE STILL HAS SIGNIFICANT BACK ROM LIMITATION PER BELOW AND L LOW BACK SX'S ARE EASILY PROVOKED WITH ONE REP OF L SG TESTING ALTHOUGH MILD. ALSO STILL LIMITED IN ADL'S. PHYSICIAN RE-ASSESSMENT RECOMMENDED. PATIENT AGREEABLE. FOLLOW UP PENDING [facility] DR. VAN 07/11/[address] SILVEIRA IN SEPTEMBER. UPON EXAM TODAY: NEGATIVE PRASHANT LE DURAL TESTING. Lumbar mvmt loss: flex - NIL. ext - MOD. R SG - LARISSA. L SG - LARISSA. PATIENT C/O INCRASED SQUEEZING FEELING LLB AT THE END OF THE AVAILABLE ROM WITH L SB TESTING. OTHERWISE PATIENT DENIES DISCOMFORT/PAIN WITH TESTING. [ End ] Goal 1:: DECRASE C/O LEFT LOW BACK PAIN Goal Progress: Goal Met Goal 2:: IMPROVE BENDING AND LIFTING FUNCTION Goal Progress: Goal Met Goal 3:: INSTRUCT IN PROPHYLAXIS Goal Progress: Goal Met Plan: D/C TO INDEP EX. LEAVING FOR VACATION NEXT WEEK. If there are questions or concerns regarding this patient's physical therapy, please feel free to call me at [phone]. Thank you for the referral of thispatient. Sincerely, Yudi Sen, PT, Cert MDT Balance/Gait/Functional tests - Balance/Special Test Scores Oswestry Low Back Score: 3 <Electronically signed by Cayla Noe PT. MDT> 06/10/22 1427 CC: Dr. Devin Van MD; Dr. Cristian Silveira MD ~ LIOR Signed [facility] Work Phone: Discharge summary Author Jamey Mistry [facility] May 27, 2023 3:52pm Note Date/Time May 27, 2023 3:48pm [facility] Medical Records Department [address] [place] [address] Instructions for Home/Discharge Instructions 05/27/23 1547 MR#: [id number] Acct: [id number] Name: MELISA EDOUARD Rep #:[id number] : 1955 68 From: Jamey roberts MD PCP: Dr. Cristian Silveira MD Status:ADM I NO Discharge Instructions Diet Discharge Diet: Low fat / Low cholesterol Activity Discharge Activity: Return to Normal Activity Dressing / Incision Call your doctor if you observe: Fever of 101 or Higher, Shortness of breath, Dizziness, Fainting spells, Swelling in the ankles, Chest pain and Increased palpitations (irregular heartbeat) Follow Up Care Test Results: Test results from this visit will be discussed in further detail at your follow- up appointment, if applicable. Discharge Plan Admission Admit Date/Time: 05/27/23 01:42 Attending Provider: Jamey Mistry Primary Care Provider: Cristian Silveira Chi Consulting Providers: Matt Young; Cassia Del Rosario; Reena Diaz; Odilia Duke; Argelia Briceno; Rodney Holman; Ariadna Lindsey; Ryan Martini; Stevo Moreno; Cece Liriano; Giovani Fontenot; Lynn Perez; Viviana Hanson; Ilda Miller; Ion Teixeira; Coby Vail; Mateo Rogers; Kay Moya; Marta Sinclair;Abhay Sullivan Discharge Orders/Prescriptions Prescriptions: New aspirin 81 mg capsule 81 mg PO DAILY Qty: 30 0RF Continued loratadine [Allergy Relief (loratadine)] 10 MG tablet 10 mg PO PRN PRN (Reason: Allergies) ivermectin [Soolantra] 30 GM cream 30 g TP DAILY Linzess 72 MCG capsule 72 mcg PO DAILY doxycycline monohydrate 40 mg capsule,IR - delay rel,biphase 40 mg PO DAILY cholecalciferol (vitamin D3) 25 mcg (1,000 unit) capsule 1,000 unit PO DAILY Patient Comments: take 1 capsule by mouth once daily Referrals / Follow Up: Cristian Silveira Chi, MD [Primary Care Provider] - Within 1 Week Disposition Disposition (needs filled in before D/C Order can be placed): Home, Self Care 05/27/23 1552<Electronically signed by Jamey Mistry MD>Jamey Mistry MD CC: Odilia Duke; Lynn Perez; Ion Eden; Argelia Briceno MD; Reena Diaz MD; Matt Young MD; Dr. Cassia Del Rosario MD; Dr. Abhay Sullivan DO; Dr. Rodney Holman MD; Dr. Ariadna Lindsey MD; Dr. Stevo Moreno MD; Dr. Ryan Martini MD;Dr. Giovani Fontenot DO; Dr. Ilda Miller MD; Dr. Viviana Hanson MD; Dr.Rami Yared MD; Dr. Mateo Rogers MD; Dr. Cristian Silveira MD; Dr. Kay Moya MD; Cece Liriano DO; Marta Sinclair MD ~ Signed [facility] Work Phone: Discharge summary Author Jamey Mistry [facility] May 27, 2023 3:57pm Note Date/Time May 27, 2023 3:57pm [facility] Medical Records Department [address] [place] [address] Discharge Summary 05/27/23 1552 MR#: [id number] Acct: [id number] Name: MELISA EDOUARD Rep #:[id number] : [id number] 68 From: Jamey roberts MD PCP: Dr. Cristian Silveira MD Status:ADM I NO Location: [place] [address] Providers Date of Admission: 05/27/23 Primary Care Physician: Dr. Cristian Silveira MD Consultations 05/27/23 02:11 Consult: Tele-Neurology Routine Consulting Provider: [facility] Reason for Consult: Acute Ischemic Stroke/TIA EMERGENT Consult: No MD Notified: Yes Date Notified: 05/27/23 Time Notified: 03:56 Method of Notification: Answering Service Comments:: Transient right upper extremity weakness + facial droop Nursing Unit Staff Notify [facility] of Tele-Neurology Consult: Yes Reason For Visit: TIA VERSUS CVA WITH HYPOKALEMIA Diagnosis Discharge Diagnosis (1) TIA (transient ischemic attack): Status: Acute Code(s): G45.9 - Transient cerebral ischemic attack, unspecified (2) Hypokalemia: Status: Acute Code(s): E87.6 - Hypokalemia (3) Compression fracture of L4 vertebra: Status: Acute Code(s): S32.040A - Wedge compression fracture of fourth lumbar vertebra, initial encounter for closed fracture Qualifiers: Encounter type: sequela Qualified Code(s): S32.040S - Wedge compressionfracture of fourth lumbar vertebra, sequela Medications at Discharge Home Medications ivermectin 1 % topical cream (Soolantra) 30 g TP DAILY 11/07/16 linaclotide 72 mcg capsule (Linzess) 72 mcg PO DAILY 11/07/16 loratadine 10 mg tablet (Allergy Relief (loratadine)) 10 mg PO PRN PRN Fybwykheu39/31/17 aspirin 81 mg capsule 81 mg PO DAILY #30 caps 05/27/23 cholecalciferol (vitamin D3) 25 mcg (1,000 unit) capsule 1,000 unit PO DAILY 05/27/23 doxycycline monohydrate 40 mg capsule,immediate - delay release 40 mg PO DAILY 05/27/23 Hospital Course Operations None Procedures 2-D Echocardiogram Summary of Care Provided Minutes Spent on Discharge: 40 Hospital Course: Per HPI: MELISA EDOUARD, is a 68 F with a past medical history of hyperlipidemia;with intolerance to statins, obesity; with BMI of 31.4 this admission, irritablebowel syndrome; of constipation type on Linzess, history of lung cancer; s/p bilateral upper lobectomies, history of COVID-19, history of allergy to ciprofloxacin (itching), DDD of the lumbar spine, history of L4 compression fracture and osteoarthritis who presents to [facility] ER complaining of transient right arm weakness/tingling and slurred speech. Mrs. Edouard reports her symptoms began approximately 1 hour prior to arrival while she was sitting in her recliner using her laptop when she suddenly developed paresthesias in her right arm. She then noticed difficulty moving her right ana had to reach over with her left arm to move her right arm. She adds that she also had some questionable right facial weakness and questionable slurred speech that lasted for only 5 to 10 seconds. She denies a history of TIA or CVAor similar previous episodes but she does admit to a positive family history of CVA. She also denies associated fever, chills, nausea, vomiting, chest pain, shortness of breath, recent illness or recent/relevant traumatic injury. In theER her CTA scan of the head and neck was negative for acute pathologic changes but she did have an ABCD2 score 4 placing her at moderate risk for further stroke. She was also noted to have laboratory evidence of mild hypokalemia of 3.4 mmol/L present on admission. Therefore, the ER physician contacted the hospitalist group to arrange admission to the CDU under observation status for TIA/CVA workup that is expected to be less than 48 hours. Hospital Course: 1. TIA versus CVA?68-year-old female presented to the hospital with right upperextremity weakness as well as right facial droop and slurred speech which resolved within minutes of starting. NIH is 0. Had an MRI of the brain today on the day of discharge which demonstrated a right occipital lobe lesion that was about 4 mm however there is no corresponding physical deficit and she has noblurry vision and there is no findings in the part of the brain to explain her right facial droop and her right arm weakness. Given that it is the weekend shewould prefer to go home and given the fact that the MRI was essentially negativefor explaining her symptoms I feel that the rest of the workup could be completed as an outpatient. A carotid Doppler has been ordered however this does not happen on Monday, so this can be obtained as an outpatient. The echowas unremarkable with a normal EF. MRA of her neck did not demonstrate any bonyabnormalities to explain his pinched nerve. She unfortunate is also had hives to atorvastatin and simvastatin therefore we will hold off on any further statins but can proceed with aspirin. I discussed with her and her the plan for possible discharge today and expressed understanding of the risk and benefits of going home and would like to go today. Physical Exam Narrative General: Alert, Oriented x3, Cooperative, No apparent distress HEENT: Atraumatic, PERRLA, EOMI, Normocephalic Oral: Moist Mucosa Neck: Supple, No JVD Lungs: Clear to auscultation, Normal air movement, No rhonchi, No wheeze, No rales Cardiovascular: Regular rate, Regular Rhythm, Normal S1, Normal S2, No murmurs Abdomen: Soft, Non Tender, Non-Distended, No Hepato-splenomegaly Extremities: No edema, Capillary Refill Less than 3 Seconds Skin: No rashes, No breakdown Musculoskeletal: No Tenderness to Palpation of Joints or Extremities Neurological: No focal neurological deficits, Motor Exam 5/5 strength throughout, Sensory exam intact to light touch and pain Psych/Mental Status: Normal Affect, Appropriate Weight / BMI Weight Weight: 182 lb 15.739 oz Body Mass Index (BMI) 31.4 ABG / Lab / Microbiology Data 05/26/23 21:15 05/26/23 21:15 Laboratory: Laboratory Results - last 24 hr 05/26/23 21:15: WBC 9.4, RBC 5.02, Hgb 15.5 H, Hct 44.7, MCV 89.0, MCH 30.9, MCHC 34.7, RDW Std Deviation 40.2, RDW Coeff of Erin 12.3, Plt Count 267, MPV 9.5, Immature Gran % (Auto) 0.200, Neut % (Auto) 61.4, Lymph % (Auto) 27.6, [place]% (Auto) 8.6, Eos % (Auto) 1.5, Baso % (Auto) 0.7, Absolute Neuts (auto) 5.8, Absolute Lymphs (auto) 2.61, Nucleated RBC % 0, PT 13.3, INR 1.0, APTT 25.8, Sodium 139, Potassium 3.4 L, Chloride 106, Carbon Dioxide 26.0, Anion Gap 7, BUN13, Creatinine 0.84, Estim Creat Clear Calc 63.53, Est GFR (MDRD) Af Amer 87, Est GFR (MDRD) Non-Af 72, BUN/Creatinine Ratio 15.5, Glucose 212 H, Calcium 9.6,Troponin I High Sens 6 05/26/23 23:28: Troponin I High Sens 7, Triglycerides 216 H, Cholesterol 223 H, LDL Cholesterol 130, VLDL Cholesterol 43 H, HDL Cholesterol 50, TSH 1.85 05/27/23 01:58: Ethyl Alcohol < 3.0 Radiography Diagnostic Testing: Radiology Impression Brain CT 05/26/23 20:50 IMPRESSION: Normal unenhanced CT scan of the brain. Electronically Signed: Dmitry Birmingham MD at 21:55 EST Reading Location ID and State: [id number] / [employer] , Service support , Chest X-Ray 05/26/23 21:20 IMPRESSION: Normal x-ray examination of the chest. Electronically Signed: Dmitry Birmingham MD at 22:01 EST , Echocardiogram 05/27/23 01:50 Interpretation Summary The estimated ejection fraction is 70 %. No evidence for diastolic dysfunction. Ordering Physician: Abhay Sullivan Referring Physician: Cristian Silveira Chi Performed By: Renetta Mustafa, NICHELLE, RVT Neck MRA 05/27/23 01:50 IMPRESSION: Normal non-contrast MRA of the Neck. Electronically Signed: Joe Fowler MD at 13:27 EST Reading Location ID and State: [id number] / [employer] Tel , Service support , Brain MRI 05/27/23 02:11 IMPRESSION: 4 mm focus of acute ischemic change right occipital lobe. Otherwise normal MRI brain. Electronically Signed: Joe Fowler MD at 12:47 EST Reading Location ID and State: [id number] / [employer] Tel , Service support , ADDENDUM: 05/27/23 1305 IMPRESSION: 4 mm focus of acute ischemic change right occipital lobe. Otherwise normal MRI brain. N.B. : The above Results were Read Back by Joe Fowler MD to Jewels Varma RN, and understanding confirmed on 05/27/2023 12:58:25 (ET). Electronically Signed: Joe Fowler MD at 12:47 EST Reading Location ID and State: [id number] / [employer] Tel , Service support , D/C Instructions Discharge Diet: Low fat / Low cholesterol Call your doctor if you observe: Fever of 101 or Higher, Shortness of breath, Dizziness, Fainting spells, Swelling in the ankles, Chest pain and Increased palpitations (irregular heartbeat) Meaningful Use Info Meaningful Use Diagnoses (Choose all that apply): None applicable Discharge Plan Admission Admit Date/Time: 05/27/23 01:42 Attending Provider: Jamey Mistry Primary Care Provider: Cristian Sliveira Chi Consulting Providers: Matt Young; Cassia Del Rosario; Reena Diaz; Odilia Duke; Argelia Briceno; Rodney Holman; Ariadna Lindsey; Ryan Martini; Stevo Moreno; Cece Liriano; Giovani Fontenot; Lynn Perez; Viviana Hanson; Ilda Miller; Ion Teixeira; Coby [place]; Mateo Rogers; Kay Moya; Marta Sinclair;Abhay Sullivan Discharge Orders/Prescriptions Prescriptions: New aspirin 81 mg capsule 81 mg PO DAILY Qty: 30 0RF Continued loratadine [Allergy Relief (loratadine)] 10 MG tablet 10 mg PO PRN PRN (Reason: Allergies) ivermectin [Soolantra] 30 GM cream 30 g TP DAILY Linzess 72 MCG capsule 72 mcg PO DAILY doxycycline monohydrate 40 mg capsule,IR - delay rel,biphase 40 mg PO DAILY cholecalciferol (vitamin D3) 25 mcg (1,000 unit) capsule 1,000 unit PO DAILY Patient Comments: take 1 capsule by mouth once daily Referrals / Follow Up: Cristian Silveira Chi, MD [Primary Care Provider] - Within 1 Week Disposition Disposition (needs filled in before D/C Order can be placed): Home, Self Care Charges/Coding Visit Charges Inpatient E&M: 56019 Disch Hosp >30min 05/27/23 1557 <Electronically signed by Jamey Mistry MD> Cosigner Signature (if applicable): CC: Dr. Jamey Mistry MD; Dr. Cristian Silveira MD~ Signed [facility] Work Phone: Evaluation noteNo assessment information available [facility] Work Phone: Evaluation note* Diagnosis Onset Date Resolution Status Acute sinusitis acute [facility] Work Phone: Evaluation note* Diagnosis Onset Date Resolution Status Elevated blood pressure read ing without diagnosis of hypertension acute TIA (transient ischemic attack) acute [facility] Work Phone: Evaluation note* Diagnosis Onset Date Resolution Status Compression fracture of L4 vertebra acute Elevated blood pressure read ing without diagnosis of hypertension acute Hypokalemia acute TIA (transient ischemic attack) acute [facility] Work Phone: Evaluation note* Diagnosis Onset Date Resolution Status Compression fracture of L4 vertebra acute Elevated blood pressure read ing without diagnosis of hypertension acute Hypokalemia acute TIA (transient ischemic attack) acute Cryptogenic stroke acute [facility] Work Phone: Reason for referral (narrative)No reason for referral information availableWWVUMed[facility] Work Phone: Summary Purpose Family History No Family History Records Found Relationship Condition Age at Onset Recorded Date/T ebony Not Specified Diabetes mellitus Unknown Malignant neoplasm Unknown Cerebrovascular accident (CVA) Unknown Asthma Unknown Relationship Condition Age at Onset Recorded Date/T ebony Not Specified Diabetes mellitus Unknown Malignant neoplasm Unknown Hypertension Unknown Cerebrovascular accident (CVA) Unknown Asthma Unknown Advance Directives No Advanced Directives Records Found Advance Directive Response Recorded Date/ Time Living Will No August 31, 2018 9 :51am Power of Wind Up Worker No August 31, 2018 9:51am Advance Directive Response Recorded Date/ Time Living Will No August 31, 2018 8 :51am Power of Wind Up Worker No August 31, 2018 8:51am Advance Directive Response Recorded Date/ Time Name of Medical Power of Wind Up Worker May 26, 2023 9:33pm Living Will Yes May 26 9:33pm Power of Wind Up Worker Yes May 26, 2023 9:33pm Advance Directive Response Recorded Date/ Time Name of Medical Power of Wind Up Worker stephen edouard, May 27, 2023 2:13am Living Will Yes May 27 2:13am Power of Wind Up Worker Yes May 27, 2023 2:13am Advance Directive Response Recorded Date/ Time Name of Medical Power of Wind Up Worker stephen edouard, May 27, 2023 3:13am Name of Medical Power of Wind Up Worker mitchell August 10, 2023 1:45am Living Will Yes August 10, 2023 1: 45am Power of Wind Up Worker Yes August 10, 2023 1:45am Advance Directive Response Recorded Date/ Time Living Will Yes March 15 3:45pm Power of Wind Up Worker Yes March 15, 2024 3:45pm Name of Medical Power of Wind Up Worker SPOUSE March 15, 2024 3:45pm Living Will Yes August 10, 2023 1: 45am Power of Wind Up Worker Yes August 10, 2023 1:45am Advance Directive Response Recorded Date/ Time Living Will Yes May 27 3:13am Do you have a Healthcare Power of Wind Up Worker? Yes May 27, 2023 3:13am Chief Complaint and Reason for Visit Chief Complaint SCREENING GC VIRAL SYMPTOMS Chief Complaint VIRAL SYMPTOMS Chief Complaint VIRAL SYMPTOMS ABDOMINAL PAIN Chief Complaint VIRAL SYMPTOMS ABDOMINAL PAIN FATTY LIVER Chief Complaint ABDOMINAL PAIN FATTY LIVER Chief Complaint FATTY LIVER Malignant neoplasm of unspecified main bronchus Chief Complaint Malignant neoplasm o f unspecified main bronchus Chief Complaint Malignant neoplasm o f unspecified main bronchus SCREENING BACK PAIN RX HERE Chief Complaint Malignant neoplasm o f unspecified main bronchus SCREENING BACK PAIN RX HERE VIRAL SYMPTOMS Chief Complaint SINUS CONGESTION chills Reason for Visit Acute sinusitis Chief Complaint FX OF 4TH LUMBAR EVE TEBRA. RX HERE Chief Complaint FX OF 4TH LUMBAR EVE TEBRA. RX HERE Menopausal and female climacteric states Chief Complaint FX OF 4TH LUMBAR EVE TEBRA. RX HERE Menopausal and female climacteric states TIA Reason for Visit Elevated blood press ure reading without diagnosis of hypertension TIA (transient ischemic attack) Chief Complaint FX OF 4TH LUMBAR EVE TEBRA. RX HERE Menopausal and female climacteric states TIA VERSUS CVA WITH HYPOKALEMIA TIA VERSUS CVA WITH HYPOKALEMIA Reason for Visit Compression fracture of L4 vertebra Elevated blood pressure reading without diagnosis of hypertension Hypokalemia TIA (transient ischemic attack) Chief Complaint FX OF 4TH LUMBAR EVE TEBRA. 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 SCREEN Reason for Visit Compression fracture of L4 vertebra Elevated blood pressure reading without diagnosis of hypertension Hypokalemia TIA (transient ischemic attack) Chief Complaint FX OF 4TH LUMBAR EVE TEBRA. 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 SCREEN 30 DAY MONITOR TIA/CVA TIA HX (RAOUL) palpitation Reason for Visit Compression fracture of L4 vertebra Elevated blood pressure reading without diagnosis of hypertension Hypokalemia TIA (transient ischemic attack) Cryptogenic stroke Chief Complaint Admit Date LUMBAR STENOSIS RX HERE March 12 10:00am FIBROID UTERUS (RAOUL) March 15, 2024 9:11am PREOP March 18, 2024 7 :24am SURGICAL CLEARANCE March 19, 2024 11:19am SURGICAL CLEARANCE March 19, 2024 12:33pm CHILLS May 15, 2024 1 1:55am SCREENING June 13, 2024 11:5 2am Reason for Visit Admit Date Endometrial thickening on ultrasound Mar emb2023 9:11am Endometrial thickening on ultrasound Dec ember 2023 11:19am Malignant neoplasm of unspec ified part of unspecified bronchus or lung March 19, 2024 11:19am Chief Complaint Admit Date CHILLS May 15, 2024 1 1:55am SCREENING June 13, 2024 11:5 2am 1 Y FU July 02, 2024 11: 20am Reason for Visit Admit Date Cryptogenic stroke July 02, 2024 11: 20am Elevated blood pressure read ing without diagnosis of hypertension July 02, 2024 11:20am Chief Complaint Admit Date CHILLS May 15, 2024 1 1:55am SCREENING June 13, 2024 11:5 2am 1 Y FU July 02, 2024 11: 20am 1 M FU/OK PER MMM July 31, 2024 12: 46pm INT LABS August 06, 2024 7:0 2am Reason for Visit Admit Date Elevated blood pressure read ing without diagnosis of hypertension July 02, 2024 11:20am Cryptogenic stroke July 02, 2024 11: 20am Cryptogenic stroke July 31, 2024 12: 46pm Hypertension July 31, 2024 12: 46pm Chief Complaint Admit Date 1 M FU/OK PER MMM July 31, 2024 12: 46pm INT LABS August 06, 2024 7:0 2am Reason for Visit Admit Date Cryptogenic stroke July 31, 2024 12: 46pm Hypertension July 31, 2024 12: 46pm Additional Source Comments INFORMATION SOURCE (unrecogn ized section and content) DATE CREATED AUTHOR 10/31/2019 [facility] ([place]) DATE CREATED AUTHOR AUTHOR'S ORGANIZ ATION 11/08/2024 [facility] Care Teams (unrecognized sec tion and content) Team Status: Active Member Role Status Dates Dr. Cristian Silveira MD Primary Care Provider Active Team Status: Inactive Member Role Status Dates Dr. Cristian Silveira MD Primary Care Provider Active Start: April 17, 2024 End: April 17, 2024 Dr. Cristian Silveira MD Attending Provider Active Start: April 17, 2024 End: April 17, 2024 Dr. Cristian Silveira MD Referring Provider Active Start: April 17, 2024 End: April 17, 2024 Team Status: Inactive Member Role Status Dates Dr. Cristian Silveira MD Primary Care Provider Active Start: May 15, 2024 End: May 15, 2024 Dr. Cristian Silveira MD Attending Provider Active Start: May 15, 2024 End: May 15, 2024 Dr. Cristian Silveira MD Referring Provider Active Start: May 15, 2024 End: May 15, 2024 Team Status: Inactive Member Role Status Dates Dr. Cristian Silveira MD Primary Care Provider Active Start: June 13, 2024 End: June 13, 2024 Dr. Cristian Silveira MD Attending Provider Active Start: June 13, 2024 End: June 13, 2024 Dr. Cristian Silveira MD Referring Provider Active Start: June 13, 2024 End: June 13, 2024 Team Status: Inactive Member Role Status Dates Dr. Cristian Silveira MD Primary Care Provider Active Start: July 02, 2024 End: July 02, 2024 Dr. Cristian Silveira MD Referring Provider Active Start: July 02, 2024 End: July 02, 2024 Hallie Ennis PA, PA Attending Provider Active Start: July 02, 2024 End: July 02, 2024 Team Status: Inactive Member Role Status Dates Dr. Cristian Silveira MD Primary Care Provider Active Start: July 18, 2024 End: July 18, 2024 Dr. Cristian Silveira MD Attending Provider Active Start: July 18, 2024 End: July 18, 2024 Dr. Cristian Silveira MD Referring Provider Active Start: July 18, 2024 End: July 18, 2024 Team Status: Active Member Role Status Dates Dr. Cristian Silveira MD Primary Care Provider Active Start: July 19, 2024 Dr. Cristian Silveira MD Attending Provider Active Start: July 19, 2024 Dr. Cristian Silveira MD Referring Provider Active Start: July 19, 2024 Team Status: Active Member Role Status Dates Dr. Cristian Silveira MD Family Provider Active Dr. Cristian Silveira MD Primary Care Provider Active Team Status: Inactive Member Role Status Dates Dr. Cristian Silveira MD Primary Care Provi roxana, Attending Provider, Referring Provider Active Team Status: Inactive Member Role Status Dates Dr. Cristian Silveira MD Primary Care Provider, Attending Provider Active Team Status: Active Member Role Status Dates Dr. Cristian Silveira MD Primary Care Provider Active Dr. Devin Van MD Attending Provider, Referring Pr ovider Active Team Status: Inactive Member Role Status Dates Dr. Cristian Silveira MD Primary Care Provider Active Dr. Devin Van MD Attending Provider, Referring Pr ovider Active Team Status: Inactive Member Role Status Dates Dr. Cristian Silveira MD Primary Care Provider, Referring Provider Active Alan BERRY, PA Attending Provider Active Team Status: Active Member Role Status Dates Dr. Cristian Silveira MD Primary Care Provider Active Dr. Mike Rivera DO Emergency Provider Active Dr. Abhay Sullivan , DO Admit Provider, Attending Pr ovider Active Team Status: Active Member Role Status Dates Dr. Cristian Silveira MD Primary Care Provider Active Dr. Murphy Montes De Oca MD Attending Provider Activ e Team Status: Active Member Role Status Dates Dr. Cristian Silveira MD Primary Care Provider Active Dr. Mike Rivera DO Emergency Provider Active Dr. Abhay Sullivan , DO Admit Provider, Other Provid er Active Matt Young MD Other Provider Active Dr. Cassia Del Rosario MD Other Provider Active Reena Diaz MD Other Provider Active Dr. Odilia Duke DO Other Provider Active Dr. Argelia Briceno MD Other Provider Active Dr. Rodney Holman MD Other Provider Active Dr. Ariadna Lindsey MD Other Provider Active Dr. Ryan Martini MD Other Provider Active Dr. Stevo Moreno MD Other Provider Active Cece Liriano MD Other Provider Active Dr. Giovani Fontenot MD Other Provider Active Dr. Lynn Perez MD Other Provider Active Dr. Viviana Hanson MD Other Provider Active Dr. Ilda Miller MD Other Provider Active Dr. Ion Teixeira MD Other Provider Active Dr. Coby [place] MD Other Provider Active Dr. Mateo Rogers MD Other Provider Active Dr. Kay Moya MD Other Provider Active Marta Sinclair MD Other Provider Active Dr. Jamey Mistry MD Attending Provider, Other Provider Active Team Status: Inactive Member Role Status Dates Dr. Cristian Silveira MD Primary Care Provider Active Dr. Mike Rivera , Emergency Provider Active Dr. Abhay Sullivan , DO Admit Provider, Other Provid er Active Matt Young MD Other Provider Active Dr. Cassia Del Rosario MD Other Provider Active Reena Diaz MD Other Provider Active Dr. Odilia Duke DO Other Provider Active Dr. Argelia Briceno MD Other Provider Active Dr. Rodney Holman MD Other Provider Active Dr. Ariadna Lindsey MD Other Provider Active Dr. Ryan Martini MD Other Provider Active Dr. Stevo Moreno MD Other Provider Active Cece Liriano MD Other Provider Active Dr. Giovani Fontenot MD Other Provider Active Dr. Lynn Perez MD Other Provider Active Dr. Viviana Hanson MD Other Provider Active Dr. lIda Miller MD Other Provider Active Dr. Ion Teixeira MD Other Provider Active Dr. Coby [place] MD Other Provider Active Dr. Mateo Rogers MD Other Provider Active Dr. Kay Moya MD Other Provider Active Marta Sinclair MD Other Provider Active Dr. Jamey Mistry MD Attending Provider Active Team Status: Active Member Role Status Dates Dr. Crisitan Silveira MD Primary Care Provider Active Dr. Mike Rosa MD Attending Provider Active Team Status: Active Member Role Status Dates Dr. Cristian Silveira MD Primary Care Provi roxana, Attending Provider, Referring Provider Active Team Status: Active Member Role Status Dates Dr. Cristian Silveira MD Primary Care Provider, Referring Provider Active Dr. Mike Rosa MD Attending Provider Active Team Status: Inactive Member Role Status Dates Dr. Cristian Silveira MD Primary Care Provider, Referring Provider Active Dr. Roscoe Alonzo MD Attending Provider Active Team Status: Active Member Role Status Dates Dr. Cristian Silveira MD Primary Care Provider, Referring Provider Active Dr. Jean Law MD Attending Provider Active Team Status: Inactive Member Role Status Dates Dr. Cristian Silveira MD Primary Care Provider Active Dr. Narendra Jarrell MD Emergency Provider Active Team Status: Active Member Role Status Dates Dr. Cristian Silveira MD Primary Care Provider Active Start: March 12, 2024 Dr. Cristian Silveira MD Attending Provider Active Start: March 12, 2024 Dr. Cristian Silveira MD Referring Provider Active Start: March 12, 2024 Team Status: Inactive Member Role Status Dates Dr. Cristian Silveira MD Primary Care Provider Active Start: March 15, 2024 End: March 15, 2024 Dr. Cristian Silveira MD Referring Provider Active Start: March 15, 2024 End: March 15, 2024 Dr. Sammie Butterfield DO Attending Provider Activ e Start: March 15, 2024 End: March 15, 2024 Team Status: Active Member Role Status Dates Dr. Cristian Silveira MD Primary Care Provider Active Start: March 18, 2024 End: March 18, 2024 Dr. Roscoe Alonzo MD Attending Provider Active S tart: March 18, 2024 End: March 18, 2024 Dr. Sammie Butterfield DO Referring Provider Activ e Start: March 18, 2024 End: March 18, 2024 Team Status: Inactive Member Role Status Dates Dr. Cristian Silveira MD Primary Care Provider Active Start: March 19, 2024 End: March 19, 2024 Dr. Sammie Buttrefield DO Attending Provider Activ e Start: March 19, 2024 End: March 19, 2024 Dr. Sammie Butterfield DO Referring Provider Activ e Start: March 19, 2024 End: March 19, 2024 Team Status: Active Member Role Status Dates Dr. Cristian Silveira MD Primary Care Provider Active Start: March 19, 2024 Dr. Sammie Butterfield DO Attending Provider Activ e Start: March 19, 2024 Dr. Sammie Butterfield DO Referring Provider Activ e Start: March 19, 2024 Dr. Sammie Butterfield DO Other Provider Active Start: March 19, 2024 Team Status: Inactive Member Role Status Dates Dr. Cristian Silveira MD Primary Care Provider Active Start: July 19, 2024 End: July 19, 2024 Dr. Cristian Silveira MD Attending Provider Active Start: July 19, 2024 End: July 19, 2024 Dr. Cristian Silveira MD Referring Provider Active Start: July 19, 2024 End: July 19, 2024 Team Status: Inactive Member Role Status Dates Dr. Cristian Silveira MD Primary Care Provider Active Start: July 31, 2024 End: July 31, 2024 Dr. Cristian Silveira MD Referring Provider Active Start: July 31, 2024 End: July 31, 2024 KRISTI Lew Attending Provider Active St art: July 31, 2024 End: July 31, 2024 Team Status: Inactive Member Role Status Dates Dr. Cristian Silveira MD Primary Care Provider Active Start: August 06, 2024 End: August 06, 2024 KRISTI Lew Attending Provider Active St art: August 06, 2024 End: August 06, 2024 KRISTI Lew Referring Provider Active St art: August 06, 2024 End: August 06, 2024 Team Status: Inactive Member Role Status Dates Dr. Cristian Silveira MD Primary Care Provider Active Start: August 14, 2024 End: August 14, 2024 Dr. Cristian Silveira MD Attending Provider Active Start: August 14, 2024 End: August 14, 2024 Dr. Cristian Silveira MD Referring Provider Active Start: August 14, 2024 End: August 14, 2024 Team Status: Active Member Role/Relationship Status Dates Dr. Cristian Silveira MD Primary Care Provider Active Team Status: Inactive Member Role/Relationship Status Dates Dr. Cristian Silveira MD Primary Care Provider Active Start: July 18, 2024 End: July 18, 2024 Dr. Cristian Silveira MD Attending Provider Active Start: July 18, 2024 End: July 18, 2024 Dr. Cristian Silveira MD Referring Provider Active Start: July 18, 2024 End: July 18, 2024 Team Status: Inactive Member Role/Relationship Status Dates Dr. Cristian Silveira MD Primary Care Provider Active Start: July 19, 2024 End: July 19, 2024 Dr. Cristian Silveira MD Attending Provider Active Start: July 19, 2024 End: July 19, 2024 Dr. Cristian Silveira MD Referring Provider Active Start: July 19, 2024 End: July 19, 2024 Team Status: Inactive Member Role/Relationship Status Dates Dr. Cristian Silveira MD Primary Care Provider Active Start: July 31, 2024 End: July 31, 2024 Dr. Cristian Silveira MD Referring Provider Active Start: July 31, 2024 End: July 31, 2024 KRISTI Lew Attending Provider Active St art: July 31, 2024 End: July 31, 2024 Team Status: Inactive Member Role/Relationship Status Dates Dr. Cristian Silveira MD Primary Care Provider Active Start: August 06, 2024 End: August 06, 2024 KRISTI Lew Attending Provider Active St art: August 06, 2024 End: August 06, 2024 KRISTI Lew Referring Provider Active St art: August 06, 2024 End: August 06, 2024 Team Status: Inactive Member Role/Relationship Status Dates Dr. Cristian Silveira MD Primary Care Provider Active Start: August 14, 2024 End: August 14, 2024 Dr. Cristian Silveira MD Attending Provider Active Start: August 14, 2024 End: August 14, 2024 Dr. Cristian Silveira MD Referring Provider Active Start: August 14, 2024 End: August 14, 2024 Team Status: Inactive Member Role/Relationship Status Dates Dr. Cristian Silveira MD Primary Care Provider Active Start: October 30, 2024 End: October 30, 2024 Dr. Cristian Silveira MD Attending Provider Active Start: October 30, 2024 End: October 30, 2024 FOR RECORDS PERTAINING TO PATIENTS WHO ARE [...] BE BASED ON THE PRIMARY CLINICAL RECORDS. [facility]. provides no warranty or guarantee of the accuracy or completeness of information in this document.
== END | disposition home or self-care (01) ==
LOC: US 07:51
PROVIDERS: PCP Family Medicine Geriatric Medicine; Referring Provider Family Medicine Geriatric Medicine; Visit Provider Family Medicine Geriatric Medicine
DX: K74.00 Hepatic fibrosis, unspecified (principal)
CPT/HCPCS: 76705; 76981

== ENCOUNTER → 2024-12-16 | Outpatient (CLI) | payer MEDICARE, BC, SELFPAY ==
[2024-12-16 19:12] LABS: Ferritin 328 ng/mL (22-378)
[2024-12-18 13:08] LABS: ANTINUCLEAR ANTIBODIES DIRECT Negative (Negative); Alpha Antitrypsin Serum 153 mg/dL (101-187)
[2024-12-18 15:08] LABS: Anti-Smooth Muscle ABS 4 Units (0-19)
== END | disposition home or self-care (01) ==
LOC: MTLAB 14:48
PROVIDERS: PCP Family Medicine Geriatric Medicine; Referring Provider Internal Medicine Gastroenterology; Visit Provider Internal Medicine Gastroenterology
DX: K74.00 Hepatic fibrosis, unspecified (principal)
CPT/HCPCS: 36415; 82103; 82728; 83516; 86038

== ENCOUNTER → 2024-12-19 | Outpatient (CLI) | payer MEDICARE, BC, SELFPAY ==
--- NOTE | 2024-12-19 10:59 | MRI_ITS ---
PROCEDURE: MRI ABD WITH AND W/O CONTRAST 12/19/2024 REASON FOR EXAM: FATTY LIVER, ABDOMINAL PAIN TECHNIQUE: Procedure Code: [id number] Modality: MR Procedure: MRI ABD WITH AND W/O CONTRAST Multiplanar and multisequence images were obtained. CONTRAST: Clariscan VOLUME: 50 mL COMPARISON: Abdominal ultrasound. FINDINGS: Liver: In and out of phase images of the liver negative. No fatty liver. No liver masses. Specifically no evidence of nodules or masses of the liver. Biliary: Gallbladder contracted. No definitive gallstones or filling defects. Pancreas: Negative Spleen: Negative Adrenals: And out of phase images show no evidence of fatty infiltration. Kidneys: Small renal cysts no renal masses. Kidneys otherwise negative. Peritoneum / Retroperitoneum: Negative. Lymph Nodes: No adenopathy Major Vessels: Negative Bones: Degenerative changes and Schmorl's nodes noted in the lumbar spine. MRI/MRI Abd WITH and W/O Contrast IMPRESSION: Negative for hepatic masses or lesions. Small simple renal cysts. Reading Location: [id number]
--- OUTSIDE RECORDS SUMMARY | 2024-12-19 18:58 | XMS RPT_ITS | CCD ---
Author Organization [facility] Care Team Providers Care Anchorman Name Role Phone Dr. Cristian Silveira Chi Primary Care Provider Dr. Cristian Silveira Chi Referring Provider [phone] KRISTI Mcwilliams Attending Provider Dr. Cristian Silveira Chi Primary Care Provider Dr. Murphy Montes De Oca Attending Provider [phone] Dr. Mike Rivera Emergency Provider [phone] Dr. Abhay Sullivan Admit Provider Unavailabl e [...] Other Provider MD Cece Liriano Other Provider [phone] Giovani Fontenot Other Provider [phone] Lynn Perez Other Provider Dr. Viviana Hanson Other Provider [phone] Ilda Miller Other Provider Dr. [...] Chi Primary Care Provider Dr. Murphy Montes De Oca Attending Provider [...] Raoul VÁZQUEZ, Dr. Cristian Saleh Attending Provider [phone] Raoul VÁZQUEZ, Dr. Cristian Saleh Referring Provider [phone] Dr. Cristian Silveira MD, Chi Primary Care Provider [phone] Raoul VÁZQUEZ, Dr. Cristian Saleh Referring Provider Raoul VÁZQUEZ, Dr. Cristian Saleh Attending Provider Raoul, Cristian Chi Attending Unavailable Raoul, Cristian [...] e Sammie Butterfield Attending Unavailabl e Raoul, Cristian Chi Referring Unavailable Raoul, Cristian Chi Attending Unavailable Raoul, Cristian Chi Primary Care Unavailable Raoul, Cristian Chi Referring Unavailable Raoul, Cristian Chi Attending Unavailable Raoul, Cristian Chi Primary Care Unavailable Raoul, Cristian Chi Attending Unavailable Raoul, Cristian Chi Primary Care Unavailable Raoul, Cristian Chi Primary Care Unavailable Jabour, Vincent Referring Unavailable Jabour, Vincent Attending Unavailable Raoul, Cristian Chi Attending Unavailable [...] Unavailable Raoul, Cristian Chi Primary Care Unavailable Demiter, Bruno Referring Unavailable Demiter, Bruno Attending Unavailable Raoul, Cristian Chi Attending Unavailable Raoul, Cristian Chi Primary Care Unavailable Raoul, Cristian Chi Referring Unavailable Roaul, Cristian Chi Primary Care Unavailable Sammie Butterfield Attending Unavailabl e Raoul, Cristian Chi Referring Unavailable Raoul, Cristian Chi Primary Care Unavailable Sammie Butterfield Referring Unavailabl e Rsocoe Alonzo Attending Unavailable Raoul, Cristian Chi Attending Unavailable Raoul, Cristian Chi Referring Unavailable Raoul, Cristian Chi Primary Care Unavailable Raoul, Cristian Chi Attending Unavailable Raoul, Cristian Chi Primary Care Unavailable Raoul, Cristian Chi Primary Care Unavailable Sammie Butterfield Consulting UnavailSammie Rios Referring Unavailabl e Sammie Butterfield Attending Unavailabl e Raoul, Cristian Chi Referring Unavailable Raoul, Cristian Chi Primary Care Unavailable Hallie Tong Attending Unavail able Raoul, Cristian Chi Referring Unavailable Raoul, Cristian Chi Primary Care Unavailable Bruno Little Attending Unavailable Raoul, Cristian Chi Primary Care Unavailable Raoul, Cristian Chi Referring Unavailable Vande Sammie Garland Attending Unavailabl e Raoul, Cristian Chi Referring Unavailable Raoul, Cristian Chi Primary Care Unavailable Cordelia Atwood NP Attending Unavailable Raoul, Cristian Chi Attending Unavailable Raoul, Cristian Chi Primary Care Unavailable Raoul, Cristian Chi Referring Unavailable Allergies Allergy Classification Reported Allergen(s) Allergy Type Date of Onset Reaction(s) Facility HMG-CoA Reductase Inhibitors (statins) (2 sources) atorvastatin Drug Allergy 11-02-2022 [facility] Quinolones (antibiotic) (1 source) Ciprofloxacin Drug Allergy 11-02-2022 [facility] (20 sources) atorvastatin Drug Allergy 08-31-2018 [facility] (20 sources) Ciprofloxacin Drug Allergy 08-31-2018 [facility] (20 sources) Simvastatin Drug Allergy 08-31-2018 [facility] (1 source) atorvastatin Drug Allergy 07-31-2024 [facility] (1 source) Ciprofloxacin Drug Allergy 07-31-2024 [facility] (1 source) Simvastatin Drug Allergy 07-31-2024 [facility] Medications Current Medications Medication Drug Class(es) Dates Sig (Normalized) Sig (Original) [id number] 200 actuat albuterol 0.09 mg/actuat metered dose inhaler (7 sources) beta2-Adrenergic Agonist Start: 03-15-2024 Albuterol Sulfate 90 mcg/actuation HFA aerosol inhaler Active 2 NMA INHALATION NEEDED as needed for BRONCHITIS March 15, 2024 1:00am alendronic acid 70 mg oral tablet (9 sources) Bisphosphonate Start: 06-09-2023 take 1 tablet by mouth every week Alendronate (Fosamax) 70 mg tablet Active 70 mg PO EVERY WEEK June 09, 2023 1:00am aspirin 81 mg oral tablet (12 sources) Platelet Aggregation Inhibitor, Nonsteroidal Anti-inflammatory Drug Start: 05-27-2023 take 1 capsule by mouth once daily Aspirin 81 mg capsule Active 81 mg PO DAILY 30 0 May 27, 2023 1:00am calcium carbonate 1500 mg / cholecalciferol 200 unt oral capsule (9 sources) Vitamin D Start: 06-09-2023 Calcium Carbonate-Vitamin D3 (Calcium 600 + D(3)) 600 mg-5 mcg (200 unit) capsule Active 1 NMA PO DAILY June 09, 2023 1:00am cholecalciferol 0.025 mg oral capsule (13 sources) Vitamin D Start: 05-27-2023 take 1 [...] Start: 07-05-2023 take [address] [facility] once daily Doxycycline Monohydrate Active 1 CAP [...] 2022 8:24am gabapentin 100 mg oral capsule (14 sources) Anti-epileptic Agent Start: 11-23-2023 End: 03-15-2024 [...] bowel issues lisinopril 2.5 mg oral tablet (6 sources) Angiotensin Converting Enzyme Inhibitor Start: 07-31-2024 End: 08-23-2024 take 1 tablet by mouth once daily Lisinopril 2.5 mg tablet Active 2.5 mg PO daily 3 August 23, 2024 10:23am loratadine 10 [...] DAILY June 09, 2023 12:00am Multivitamin tablet (7 sources) Start: 06-09-2023 Multivitamin t ablet Active 1 {tbl} PO DAILY June 09, 2023 1:00am rosuvastatin calcium 10 mg oral tablet (16 sources) HMG-CoA Reductase Inhibitor Start: 11-23-2023 take 2 tablets by mouth once daily Rosuvastatin (Crestor) 10 mg tablet Active 20 mg PO DAILY November 23, 2023 9:57am Start: 06-09-2023 End: 11-23-2023 take 1 tablet by mouth once daily Rosuvastatin (Crestor) 10 mg tablet Discontinued 10 mg PO DAILY June 09, 2023 1:00am November 23, 2023 9:57am vancomycin 125 mg oral capsule (6 sources) Glycopeptide Antibacterial Start: 07-19-2024 take 1 capsule by mouth every six hours Vancomycin 125 mg capsule Active 125 mg PO EVERY 6 HOURS 40 10 0 July 19, 2024 12:00am Completed/Discontinued Medications Medication Drug Class(es) Dates Sig (Normalized) Sig (Original) amoxicillin 875 mg / clavulanate 125 mg oral tablet (6 sources) Penicillin-class Antibacterial Start: 07-02-2024 End: 07-02-2024 [...] Monohydrate 40 mg capsule,IR - delay rel,biphase (7 sources) Start: 07-05-2023 End: 08-23-2023 Doxycycline Monohydrate 40 mg capsule,IR - delay rel,biphase Discontinued 1 NMA PO daily July 05, 2023 12:00am August 23, 2023 2:14pm Micfuukdtjo-I8-Xpwjsfhu a Serr (Osteo Bi-Flex (5-Loxin)) 1,500-400-100 mg-unit-mg tablet (9 sources) Start: 06-09-2023 End: 03-15-2024 take 1 tablet by mouth once daily at mealtime Mkjmcipdfim-O5-Ujkduxda a Serr (Osteo Bi-Flex (5-Loxin)) 1,500-400-100 mg-unit-mg tablet Discontinued 1 {tbl} PO DAILY June 09, 2023 1:00am March 15, 2024 10:23am give after food/meal Start: 06-09-2023 take 1 tablet by [place] once daily at mealtime Rzteddkdhna-P5-Oudbvqawe Serr (Osteo Bi-Flex (5-Loxin)) 1,500-400-100 mg-unit-mg tablet Active 1 TABLET PO DAILY June 09, 2023 1:00am give after food/meal Start: 06-09-2023 take 1 tablet by [place] th once daily at mealtime Uhhjqjmmpof-S1-Bsujpsgao Serr (Osteo Bi-Flex (5-Loxin)) 1,500-400-100 mg-unit-mg tablet Active 1 TABLET PO DAILY June 09, 2023 12:00am give after food/meal methylPREDNISolone 4 mg oral tablet (18 sources) Corticosteroid Start: 11-02-2022 End: 11-08-2022 take 1 tablet by mouth once Methylprednisolone (Medrol (Fede)) 4 mg tablets,dose pack Discontinued 4 mg PO per package directions 21 6 0 November 02, 2022 12:00am November 07, 2022 12:00am November 08, 2022 12:04am metroNIDAZOLE 500 mg oral tablet (6 sources) Nitroimidazole Antimicrobial Start: 07-02-2024 End: 07-02-2024 [...] pantoprazole 40 mg delayed release oral tablet (9 sources) Proton Pump Inhibitor Start: 06-09-2023 End: 07-05-2023 take 1 tablet by mouth once daily Pantoprazole 40 mg tablet,delayed release (DR/EC) Discontinued 40 mg PO DAILY June 09, 2023 1:00am July 05, 2023 3:05pm tumeric root powder (9 sources) Start: 06-09-2023 End: 03-15-2024 tumeric root powder Discontinued PO June 09, 2023 1:00am March 15, 2024 3:42pm Start: 06-09-2023 tumeric root p owder Active PO June 09, 2023 1:00am Start: 06-09-2023 tumeric root p owder Active PO June 09, 2023 12:00am Problems Active Problems Problem Classification Problem Date Documented Da te Episodic/Chronic Acute cerebrovascular disease (20 sources) Cerebral infarction, unspecified; Translations: [Stroke of unknown etiology] Onset: 4 06-15-2023 Chronic Cancer of bronchus; lung (10 sources) Malignant neoplasm of lower respiratory tract; Translations: [Malignant neoplasm of unspecified part of unspecified bronchus or lung] 06-09-2023 Chronic Cancer of bronchus; lung (9 sources) History of malignant neoplasm of thoracic cavity structure; Translations: [Personal history of other malignant neoplasm of bronchus and lung] 06-09-2023 Episodic Cardiac dysrhythmias (8 sources) Palpitations; Translations: [Palpitations] 08-10-2023 Episodic Diabetes mellitus without complication (1 source) Type 2 diabetes mellitus without complications; Translations: [Type 2 diabetes mellitus without complications] Onset: Chronic Disorders of lipid metabolism (11 sources) Hyperlipidemia; Translations: [Hyperlipidemia, unspecified] Onset: 5 06-09-2023 Chronic Esophageal disorders (9 sources) Gastroesophageal reflux disease; Translations: [Gastro-esophageal reflux disease without esophagitis] 06-09-2023 Chronic Essential hypertension (9 sources) Hypertensive disorder; Translations: [Essential (primary) hypertension] Onset: 5 08-02-2024 Chronic Immunizations and screening for infectious disease (20 sources) Contact with or exposure to other viral diseases; Translations: [Exposure to COVID-19 virus] 01-06-2021 Episodic Nutritional deficiencies (9 sources) Vitamin D deficiency; Translations: [Vitamin D deficiency, unspecified] 06-09-2023 Chronic Osteoporosis (9 sources) Osteoporosis; Translations: [Age-related osteoporosis without current pathological fracture] 06-09-2023 Chronic Other bone disease and musculoskeletal deformities (20 sources) Segmental and somatic dysfunction; Translations: [Segmental and somatic dysfunction of cervical region] 11-28-2017 Episodic Other circulatory disease (17 sources) Elevated blood-pressure reading without diagnosis of hypertension; Translations: [Elevated blood-pressure reading, without diagnosis of hypertension] 05-27-2023 Episodic Other fractures (12 sources) Compression fracture of lumbar spine; Translations: [Wedge compression fracture of fourth lumbar vertebra, initial encounter for closed fracture] 05-27-2023 Episodic Other gastrointestinal disorders (9 sources) Irritable bowel syndrome; Translations: [Irritable bowel syndrome without diarrhea] 06-09-2023 Chronic Other liver diseases (9 sources) Hepatic fibrosis; Translations: [Hepatic fibrosis] 06-09-2023 Chronic Other screening for suspected conditions (not mental disorders or infectious disease) (11 sources) Endometrium thickened; Translations: [Abnormal findings on diagnostic imaging of other specified body structures] Onset: 5 03-15-2024 Chronic Other upper respiratory infections (10 sources) Acute sinusitis; Translations: [Acute sinusitis, unspecified] 11-02-2022 Episodic Spondylosis; intervertebral disc disorders; other back [...] years of age or older] 01-06-2021 Unclassified (2 sources) Hepatic fibrosis, unspecified; Translations: [Hepatic fibrosis, unspecified] Onset: 5 Unclassified (1 source) Low back pain, unspecified; Translations: [Low back pain, unspecified] Onset: 4 Viral infection (20 sources) Disease caused by 2019-nCoV; Translations: [COVID-19] 09-29-2021 Episodic Past or Other Problems Problem Classification Problem Date Documented Da te Episodic/Chronic Deficiency and other anemia (1 source) Folate deficiency anemia, unspecified; Translations: [Folate deficiency anemia, unspecified] Onset: 03-02-2024 Episodic Fluid and electrolyte disorders (19 sources) Hypokalemia; Translations: [Hypokalemia] Onset: 03-15-2024 05-27-2023 [...] malignant neoplasm of breast] Onset: 06-25-2024 Episodic Pleurisy; pneumothorax; pulmonary collapse (1 source) Pleurisy; Translations: [Pleurisy] Onset: 08-19-2024 Episodic Residual codes; unclassified (1 source) Chills (without fever); Translations: [Chills (without fever)] Onset: 07-15-2024 Episodic Results Test Name Value Interpretation Reference Range Facility Ferritinon 12-16-2024 Ferritin [Mass/Vol] 328 ng/mL Normal 22-378 [facility] Comment on above: Performed By: #### M [id number] #### [facility] [address] [place], [place], [id number] ABD Limited w/ Elastographyo n 11-14-2024 ABD Limited w/ Elastography [facility] Services [address] [place], [place] [id number] ABD Limited w/ Elastography MR#: [id number] Acct: [id number] Name: MELISA EDOUARD Rep #: [id number] : 1955 F 69 From: Rishabh cerna MD PCP: Dr. Cristian Sliveira MD Status: REG CLI Study: ABD Limited w/ Elastography Date of Exam: 11/01 Exam# [id number] Ordering Dr: Cristian Silveira MD PROCEDURE: ABD LIMITED W/ ELASTOGRAPHY REASON FOR EXAM: HEPATIC FIBROSIS COMPARISON: None. TECHNIQUE: Right upper quadrant abdominal ultrasound. [employer] ElastQ Imaging shear wave elastography for non- invasive assessment of liver tissue stiffness. [employer] EPIQ Elite. FINDINGS: LIVER: Size: Unremarkable Length: 13.6 cm Echotexture: Diffusely echogenic suggesting fatty infiltration Contour: Normal Lesions: None identified Elastography: EQI Med: 11.7 kPa EQI Med Jr: 1.9 cm m/s IQR/Med: 26 %* GALLBLADDER: No stones sludge wall thickening or tenderness. COMMON BILE DUCT: Normal measuring 4 mm . PANCREAS: Normal Visualized portions of the right kidney are unremarkable. No right upper quadrant ascites. US/ABD Limited w/ Elastography IMPRESSION: SEVERE HEPATIC FIBROSIS / CIRRHOSIS Diffuse fatty infiltration of the liver. Reference Values: SRU <1.37 m/s (5.7kPa): No to mild fibrosis 1.37 m/s - 2.2 m/s: Moderate to severe fibrosis >2.2 m/s (15kPa): Significant fibrosis / cirrhosis METAVIR Score F2 or higher: 1.34 m/s (5.7kPa) F3 or higher: 1.55 m/s (7.3kPa) F4: 1.80 m/s (10kPa) * If the IQR/Med is >30%, the variance in the measurements is a large and the accuracy of the measurement may be in question. Reading Location: [facility] CC: Dr. Cristian Silveira MD Dag Sprayer: Signed Normal [facility] Absolute lymphocyte countOrd ered By: Cristian Silveira on 10-30-2024 Lymphocytes Auto (Unsp spec) [#/Vol] 2.36 10*3/uL 0.83-4.51 [facility] Absolute neutrophil countOrd ered By: Cristian Silveira on 10-30-2024 Neutrophils (Bld) [#/Vol] 6.1 10*3/uL 2.0-7.7 [facility] Anion gap in Serum or Plasma Ordered By: Cristian Silveira on 10-30-2024 Anion gap [Moles/Vol] 13 mmol/L 5-15 [facility] Automated lymphocyte count a s percentage of total leukocytesOrdered By: Cristian Raoul on 10-30-2024 Lymphocytes/100 WBC Auto (Unsp spec) 25.1 % - [facility] BUN/creatinine ratioOrdered By: Cristian Silveira on 10-30-2024 Urea nitrogen/Creatinine [Mass ratio] 17.8 mg/mg - [facility] Basophil percentageOrdered B y: Cristian Raoul on 10-30-2024 Basophils/100 WBC (Bld) 0.7 % 0-1 [facility] Bilirubin, totalOrdered By: Cristian Raoul on 10-30-2024 Bilirubin [Mass/Vol] 0.66 mg/dL 0.00-1.30 [facility] CBC W/Diff, Automatedon 10-09 Absolute Lymph 2.36 X10 3/uL Normal 0.83-4.51 [facility] Comment on above: Performed By: #### M 100.6795, M100.637, M100.7900, M100.6796, M600.5000, M100.0605 #### [facility] [address] [place], [address] Absolute Neut 6.1 X10 3/uL Normal 2.0-7.7 [facility] Comment on above: Performed By: #### M 100.6795, M100.637, M100.7900, M100.6796, M600.5000, M100.0605 #### [facility] [address] [place], [address] Basophils/100 WBC (Bld) 0.7 % Normal 0-1 [facility] Comment on above: Performed By: #### M 100.6795, M100.637, M100.7900, M100.6796, M600.5000, M100.0605 #### [facility] [address] [place], [address] Eosinophils/100 WBC (Bld) 1.0 % Normal 0-5 [facility] Comment on above: Performed By: #### M 100.6795, M100.637, M100.7900, M100.6796, M600.5000, M100.0605 #### [facility] [address] [place], [address] Erythrocyte distribution width (RBC) [Ratio] 12.8 % Normal 11.6-14.6 [facility] Comment on above: Performed By: #### M 100.6795, M100.637, M100.7900, M100.6796, M600.5000, M100.0605 #### [facility] [address] [place], [address] Hematocrit (Bld) [Volume fraction] 46.7 % Normal 37-47 [facility] Comment on above: Performed By: #### M 100.6795, M100.637, M100.7900, M100.6796, M600.5000, M100.0605 #### [facility] [address] [place], [address] Hemoglobin (Bld) [Mass/Vol] 15.8 g/dL High 12.0-15.0 [facility] Comment on above: Performed By: #### M 100.6795, M100.637, M100.7900, M100.6796, M600.5000, M100.0605 #### [facility] [address] [place], [address] IG% 0.600 Normal 0.0-0.9 [facility] Comment on above: Result Comment: IG% - Immature Granulocytes (promyelocytes, myelocytes and metamyelocytes) > 1% indicates that a LEFT SHIFT is Present. Performed By: #### M 100.6795, M100.637, M100.7900, M100.6796, M600.5000, M100.0605 #### [facility] [address] [place], [address] Lymphocytes/100 WBC (Bld) 25.1 % Normal 19-41 [facility] Comment on above: Performed By: #### M 100.6795, M100.637, M100.7900, M100.6796, M600.5000, M100.0605 #### [facility] [address] [place], [address] MCH (RBC) [Entitic mass] 31.0 pg Normal 27.0-32.0 [facility] Comment on above: Performed By: #### M 100.6795, M100.637, M100.7900, M100.6796, M600.5000, M100.0605 #### [facility] [address] [place], [address] MCHC (RBC) [Mass/Vol] 33.8 g/dL Normal 32-36 [facility] Comment on above: Performed By: #### M 100.6795, M100.637, M100.7900, M100.6796, M600.5000, M100.0605 #### [facility] [address] [place], [address] MCV (RBC) [Entitic vol] 91.7 fL Normal 81-99 [facility] Comment on above: Performed By: #### M 100.6795, M100.637, M100.7900, M100.6796, M600.5000, M100.0605 #### [facility] [address] [place], [address] Monocytes/100 WBC (Bld) 7.5 % Normal 0-10 [facility] Comment on above: Performed By: #### M 100.6795, M100.637, M100.7900, M100.6796, M600.5000, M100.0605 #### [facility] [address] [place], [address] Neutrophils/100 WBC (Bld) 65.1 % Normal 47-70 [facility] Comment on above: Performed By: #### M 100.6795, M100.637, M100.7900, M100.6796, M600.5000, M100.0605 #### [facility] [address] [place], [address] Nucleated RBC (Bld) [#/Vol] 0 10*3/uL Normal 0-5 [facility] Comment on above: Performed By: #### M 100.6795, M100.637, M100.7900, M100.6796, M600.5000, M100.0605 #### [facility] [address] [place], [address] Platelet mean volume (Bld) [Entitic vol] 9.7 fL Normal 6.2-12.0 [facility] Comment on above: Performed By: #### M 100.6795, M100.637, M100.7900, M100.6796, M600.5000, M100.0605 #### [facility] [address] [place], [address] Platelets (Bld) [#/Vol] 319 10*3/uL Normal 150-450 [facility] Comment on above: Performed By: #### M 100.6795, M100.637, M100.7900, M100.6796, M600.5000, M100.0605 #### [facility] [address] [place], [address] RBC (Bld) [#/Vol] 5.09 10*6/uL Normal 4.2-5.4 [facility] Comment on above: Performed By: #### M 100.6795, M100.637, M100.7900, M100.6796, M600.5000, M100.0605 #### [facility] [address] [place], [address] RDW SD 43.0 fl Normal 35.1-43.9 [facility] Comment on above: Performed By: #### M 100.6795, M100.637, M100.7900, M100.6796, M600.5000, M100.0605 #### [facility] [address] [place], [address] WBC (Bld) [#/Vol] 9.4 10*3/uL Normal 4.4-11.0 [facility] Comment on above: Performed By: #### M 100.6795, M100.637, M100.7900, M100.6796, M600.5000, M100.0605 #### [facility] [address] [place], [address] Carbon dioxide, total [Moles /volume] in Central venous bloodOrdered By: Cristian Silveira on 10-30-2024 CO2 [Moles/Vol] 22.2 mmol/L 21.0-32.0 [facility] Chloride assayOrdered By: Vadim Silveira on 10-30-2024 Chloride [Moles/Vol] 104 mmol/L 98-108 [facility] Comprehensive Metabolic Prof ilon 10-30-2024 Albumin [Mass/Vol] 4.3 g/dL Normal 3.4-4.8 [facility] Comment on above: Performed By: #### M 100.6795, M100.637, M100.7900, M100.6796, M600.5000, M100.0605 #### [facility] [address] [place], [address] Albumin/Globulin [Mass ratio] 1.9 {ratio} Normal 0.9-2.4 [facility] Comment on above: Performed By: #### M 100.6795, M100.637, M100.7900, M100.6796, M600.5000, M100.0605 #### [facility] [address] [place], [address] ALK PHOS 52 U/L Normal 35-104 [facility] Comment on above: Performed By: #### M 100.6795, M100.637, M100.7900, M100.6796, M600.5000, M100.0605 #### [facility] [address] [place], [address] ALT [Catalytic activity/Vol] 34 U/L Normal <=34 [facility] Comment on above: Performed By: #### M 100.6795, M100.637, M100.7900, M100.6796, M600.5000, M100.0605 #### [facility] [address] [place], [address] AST [Catalytic activity/Vol] 21 U/L Normal <=31 [facility] Comment on above: Performed By: #### M 100.6795, M100.637, M100.7900, M100.6796, M600.5000, M100.0605 #### [facility] [address] [place], [address] Bilirubin [Mass/Vol] 0.66 mg/dL Normal 0.00-1.30 [facility] Comment on above: Performed By: #### M 100.6795, M100.637, M100.7900, M100.6796, M600.5000, M100.0605 #### [facility] [address] [place], [address] BUN/CRE 17.8 RATIO Normal 10-20 [facility] Comment on above: Performed By: #### M 100.6795, M100.637, M100.7900, M100.6796, M600.5000, M100.0605 #### [facility] [address] [place], [address] Calcium [Mass/Vol] 9.6 mg/dL Normal 7.6-11.0 [facility] Comment on above: Performed By: #### M 100.6795, M100.637, M100.7900, M100.6796, M600.5000, M100.0605 #### [facility] [address] [place], [address] Chloride [Moles/Vol] 104 mmol/L Normal 98-108 [facility] Comment on above: Performed By: #### M 100.6795, M100.637, M100.7900, M100.6796, M600.5000, M100.0605 #### [facility] [address] [place], [address] CO2 [Moles/Vol] 22.2 mmol/L Normal 21.0-32.0 [facility] Comment on above: Performed By: #### M 100.6795, M100.637, M100.7900, M100.6796, M600.5000, M100.0605 #### [facility] [address] [place], [address] Creatinine [Mass/Vol] 0.64 mg/dL Low 0.70-1.20 [facility] Comment on above: Performed By: #### M 100.6795, M100.637, M100.7900, M100.6796, M600.5000, M100.0605 #### [facility] [address] [place], [address] GAP 13 Normal 5-15 [facility] Comment on above: Performed By: #### M 100.6795, M100.637, M100.7900, M100.6796, M600.5000, M100.0605 #### [facility] [address] [place], [address] GFR/1.73 sq M.predicted among non-blacks MDRD (S/P/Bld) [Vol rate/Area] 95 mL/min/{1.73_m2} Normal >60 [facility] Comment on above: Result Comment: mL/m in/1.73m2 CKD-EPI Creatinine Equation (2020) Performed By: #### M 100.6795, M100.637, M100.7900, M100.6796, M600.5000, M100.0605 #### [facility] [address] [place], [address] Globulin (S) [Mass/Vol] 2.3 g/dL Normal 2.2-4.2 [facility] Comment on above: Performed By: #### M 100.6795, M100.637, M100.7900, M100.6796, M600.5000, M100.0605 #### [facility] [address] [place], [address] Glucose [Mass/Vol] 133 mg/dL High 70-99 [facility] Comment on above: Performed By: #### M 100.6795, M100.637, M100.7900, M100.6796, M600.5000, M100.0605 #### [facility] [address] [place], [address] Potassium [Moles/Vol] 3.6 mmol/L Normal 3.3-5.1 [facility] Comment on above: Performed By: #### M 100.6795, M100.637, M100.7900, M100.6796, M600.5000, M100.0605 #### [facility] [address] [place], [address] Sodium [Moles/Vol] 139 mmol/L Normal 133-145 [facility] Comment on above: Performed By: #### M 100.6795, M100.637, M100.7900, M100.6796, M600.5000, M100.0605 #### [facility] [address] [place], [address] T PROT 6.6 g/dL Normal 5.9-8.4 [facility] Comment on above: Performed By: #### M 100.6795, M100.637, M100.7900, M100.6796, M600.5000, M100.0605 #### [facility] [address] [place], [address] Urea nitrogen [Mass/Vol] 11 mg/dL Normal 4-19 [facility] Comment on above: Performed By: #### M 100.6795, M100.637, M100.7900, M100.6796, M600.5000, M100.0605 #### [facility] [address] [place], [address] Eosinophil percentageOrdered By: Cristian Silveira on 10-30-2024 Eosinophils/100 WBC (Bld) 1.0 % 0-5 [facility] Erythrocyte distribution wid th ratioOrdered By: Cristian Silveira on 10-30-2024 Erythrocyte distribution width (RBC) [Ratio] 12.8 % 11.6-14.6 [facility] Erythrocyte distribution wid th standard deviationOrdered By: Cristian Silveira on 10-30-2024 Erythrocyte distribution width (RBC) [Ratio] 43.0 fl 35.1-43.9 [facility] Glomerular filtration rate ( GFR) estimation/1.73 sq m using serum, plasma, or whole bOrdered By: Cristian Silveira on 10-30-2024 GFR/1.73 sq M.predicted among non-blacks MDRD (S/P/Bld) [Vol rate/Area] 95 mL/min/{1.73_m2} >60 [facility] Comment on above: mL/min/1.73m2 CKD-EP I Creatinine Equation (2020) Hematocrit Auto (Bld) [Volum e fraction]Ordered By: Cristian Silveira on 10-30-2024 Hematocrit (Bld) [Volume fraction] 46.7 % 37-47 [facility] Hemoglobin measurementOrdere d By: Cristian Silveira on 10-30-2024 Hemoglobin (Bld) [Mass/Vol] 15.8 g/dL High 12.0-15.0 [facility] Immature granulocytes/100 WB C Auto (Bld)Ordered By: Cristian Silveira on 10-30-2024 Immature granulocytes/100 WBC (Bld) 0.600 % 0.0-0.9 [facility] Comment on above: IG% - Immature Granu locytes (promyelocytes, myelocytes and metamyelocytes) > 1% indicates that a LEFT SHIFT is Present. Laboratory - Chemistry and C hemistry - challengeOrdered By: Cristian Silveira 10-30-2024 AST [Catalytic activity/Vol] 21 U/L <32 [facility] MCV (mean corpuscular volume ) determinationOrdered By: Cristian Silveira 10-30-2024 MCV (RBC) [Entitic vol] 91.7 fL 81-99 [facility] Mean corpuscular hemoglobin (MCH) determinationOrdered By: Cristian Silveira 10-30-2024 MCH (RBC) [Entitic mass] 31.0 pg 27.0-32.0 [facility] Mean corpuscular hemoglobin concentration (MCHC) determinationOrdered By: Cristian Silveira 10-30-2024 MCHC (RBC) [Mass/Vol] 33.8 g/dL 32-36 [facility] Mean platelet volume determi nationOrdered By: Cristian Silveira 10-30-2024 Platelet mean volume (Bld) [Entitic vol] 9.7 fL 6.2-12.0 [facility] Monocyte percentageOrdered B y: Cristian Silveira on 10-30-2024 Monocytes/100 WBC (Bld) 7.5 % 0-10 [facility] Neutrophil percentageOrdered By: Cristian Silveira 10-30-2024 Neutrophils/100 WBC (Bld) 65.1 % 47-70 [facility] Nucleated red blood cell per centageOrdered By: Cristian Silveira on 10-30-2024 Nucleated RBC/100 WBC (Bld) [Ratio] 0 % 0-5 [facility] Platelet countOrdered By: Vadim Silveira on 10-30-2024 Platelets (Bld) [#/Vol] 319 10*3/uL 150-450 [facility] Potassium measurement (mass/ volume)Ordered By: Cristian Silveira on 10-30-2024 Potassium (Unsp spec) [Mass/Vol] 3.6 mmol/L 3.3-5.1 [facility] RBC Auto (Bld) [#/Vol]Ordere d By: Cristian Silveira on 10-30-2024 RBC (Bld) [#/Vol] 5.09 10*6/uL 4.2-5.4 [facility] Serum creatinine measurement (mass/volume)Ordered By: Cristian Silveira on 10-30-2024 Creatinine [Mass/Vol] 0.64 mg/dL Low 0.70-1.20 [facility] Serum globulin measurementOr dered By: Cristian Silveira 10-30-2024 Globulin (S) [Mass/Vol] 2.3 g/dL 2.2-4.2 [facility] Serum glucose measurement (m ass/volume)Ordered By: Cristian Silveira 10-30-2024 Glucose [Mass/Vol] 133 mg/dL High 70-99 [facility] Serum or plasma alanine mederos otransferase (ALT) measurementOrdered By: Cristian Silveira 10-30-2024 ALT [Catalytic activity/Vol] 34 U/L <35 [facility] Serum or plasma albumin rigoberto urement (mass/volume)Ordered By: Cristian Silveira 10-30-2024 Albumin [Mass/Vol] 4.3 g/dL 3.4-4.8 [facility] Serum or plasma albumin/glob ulin mass ratioOrdered By: Cristian Silveira 10-30-2024 Albumin/Globulin [Mass ratio] 1.9 {ratio} 0.9-2.4 [facility] Serum or plasma alkaline luis sphatase measurementOrdered By: Cristian Silveira 10-30-2024 ALP [Catalytic activity/Vol] 52 U/L 35-104 [facility] Serum or plasma calcium rigoberto urement (mass/volume)Ordered By: Cristian Silveira on 10-30-2024 Calcium [Mass/Vol] 9.6 mg/dL 7.6-11.0 [facility] Serum or plasma urea nitroge n measurement (mass/volume)Ordered By: Cristian Silveira on 10-30-2024 Urea nitrogen [Mass/Vol] 11 mg/dL 4-19 [facility] Sodium levelOrdered By: Cristian Sivleira on 10-30-2024 Sodium [Moles/Vol] 139 mmol/L 133-145 [facility] TSH DL <= 0.005 mIU/L QnOrde red By: Cristian Silveira on 10-30-2024 TSH Qn 1.610 uIU/mL 0.300-4.200 [facility] Thyroid Stim Hormone (TSH)on 10-30-2024 TSH 1.610 uIU/mL Normal 0.300-4.200 [facility] Comment on above: Performed By: #### M 100.6795, M100.637, M100.7900, M100.6796, M600.5000, M100.0605 #### [facility] [address] [place], [place], [id number] Total proteinOrdered By: Cristian Silveira on 10-30-2024 Protein [Mass/Vol] 6.6 g/dL 5.9-8.4 [facility] Vitamin D,25 Hydroxyon 10-30 Vitamin D 25-OH 88.2 ng/mL Normal 30-100 [facility] Comment on above: Result Comment: Nery min D Status Deficiency: <20 ng/mL (50nmol/L) Insufficiency: 20-30 ng/mL (50-75 nmol/L) Sufficiency: 30-100 ng/mL (75-250 nmol/L) Toxicity: >100 ng/mL (>250 nmol/L) Performed By: #### M 100.6795, M100.637, M100.7900, M100.6796, M600.5000, M100.0605 #### [facility] [address] [place], [address] White blood cell (WBC) count Ordered By: Cristian Silveira on 10-30-2024 WBC (Bld) [#/Vol] 9.4 10*3/uL 4.4-11.0 [facility] Chest PA and Lateralon 08-14 Chest PA and Lateral [facility] Imaging Services [address] [place], [place] [address] Chest PA and Lateral MR#: [id number] Acct: [id number] Name: MELISA EDOUARD Rep #: [id number] : 1955 F 69 From: Pio Lou MD PCP: Dr. Cristian Silveira MD Status: REG CLI Study: Chest PA and Lateral Date of Exam: 08/14/24 Exam# [id number] Ordering Dr: Cristian Silveira MD PROCEDURE: CHEST [...] No evidence of acute disease. Reading Location: [facility] CC: Dr. Cristian Silveira MD Dag Sprayer: Signed Normal [facility] Anion gap in Serum or Plasma Ordered By: Bruno Little on 08-06-2024 Anion gap [Moles/Vol] 12 mmol/L 08-22 [facility] BUN/creatinine ratioOrdered By: Bruno Little on 08-06-2024 Urea nitrogen/Creatinine [Mass ratio] 17.1 mg/mg - [facility] Basic Metabolic Profile (BMP )on 08-06-2024 BUN/CRE 17.1 RATIO Normal 01-27 [facility] Comment on above: Performed By: #### M 100.678 #### [facility] [address] [place], [place], [address] Calcium [Mass/Vol] 9.2 mg/dL Normal 7.6-11.0 [facility] Comment on above: Performed By: #### M 100.678 #### [facility] [address] [place], [address] Chloride [Moles/Vol] 105 mmol/L Normal 98-108 [facility] Comment on above: Performed By: #### M 100.678 #### [facility] [address] [place], [address] CO2 [Moles/Vol] 23.9 mmol/L Normal 21.0-32.0 [facility] Comment on above: Performed By: #### M 100.678 #### [facility] [address] [place], [address] Creatinine [Mass/Vol] 0.64 mg/dL Low 0.70-1.20 [facility] Comment on above: Performed By: #### M 100.678 #### [facility] [address] [place], [address] GAP 12 Normal 5-15 [facility] Comment on above: Performed By: #### M 100.678 #### [facility] [address] [place], [address] GFR/1.73 sq M.predicted among non-blacks MDRD (S/P/Bld) [Vol rate/Area] 95 mL/min/{1.73_m2} Normal >60 [facility] Comment on above: Result Comment: mL/m in/1.73m2 CKD-EPI Creatinine Equation (2020) Performed By: #### M 100.678 #### [facility] [address] [place], [address] Glucose [Mass/Vol] 118 mg/dL High 70-99 [facility] Comment on above: Performed By: #### M 100.678 #### [facility] [address] [place], [address] Potassium [Moles/Vol] 3.8 mmol/L Normal 3.3-5.1 [facility] Comment on above: Performed By: #### M 100.678 #### [facility] [address] [place], [address] Sodium [Moles/Vol] 140 mmol/L Normal 133-145 [facility] Comment on above: Performed By: #### M 100.678 #### [facility] [address] [place], [address] Urea nitrogen [Mass/Vol] 11 mg/dL Normal 4-19 [facility] Comment on above: Performed By: #### M 100.678 #### [facility] [address] [place], [place], [id number] Bilirubin directOrdered By: Bruno Little on 08-06-2024 Bilirubin.direct [Mass/Vol] 0.32 mg/dL High 0.00-0.30 [facility] Bilirubin, totalOrdered By: Bruno Little on 08-06-2024 Bilirubin [Mass/Vol] 0.72 mg/dL 0.00-1.30 [facility] Calculated very low density lipoprotein (VLDL) cholesterol measurementOrdered By: Bruno Little on 08-06-2024 Calculated very low density lipoprotein (VLDL) cholesterol measurement 16 mg/dL 5-40 [facility] Carbon dioxide, total [Moles /volume] in Central venous bloodOrdered By: Bruno Little on 08-06-2024 CO2 [Moles/Vol] 23.9 mmol/L 21.0-32.0 [facility] Chloride assayOrdered By: Jeremy Little on 08-06-2024 Chloride [Moles/Vol] 105 mmol/L 98-108 [facility] Glomerular filtration rate ( GFR) estimation/1.73 sq m using serum, plasma, or whole bOrdered By: Bruno Little on 08-06-2024 GFR/1.73 sq M.predicted among non-blacks MDRD (S/P/Bld) [Vol rate/Area] 95 mL/min/{1.73_m2} >60 [facility] Comment on above: mL/min/1.73m2 CKD-EP I Creatinine Equation (2020) LDL calc ser/plasOrdered By: Bruno Little on 08-06-2024 Cholesterol in LDL [Mass/Vol] 94 mg/dL [facility] Comment on above: Mzlqxoyfnl=332-465 m g/dL & Higher Nywk=614 mg/dL or greater Laboratory - Chemistry and C hemistry - challengeOrdered By: Bruno Little on 08-06-2024 AST [Catalytic activity/Vol] 23 U/L <32 [facility] Lipid Profileon 08-06-2024 CHOL:HDL 2.77 Normal [facility] Comment on above: Performed By: #### L 500.3400, L500.4100, L500.2500 #### [facility] [address] [place], [address] Cholesterol [Mass/Vol] 172 mg/dL Normal <=200 [facility] Comment on above: Result Comment: Chol esterol level, Desirable <200 mg/dL Borderline high cholesterol 200-239 mg/dL High cholesterol >=240 mg/dL Recommendations of the NCEP Adult Treatment Panel for the following risk-cutoff thresholds for the [place] population. Performed By: #### L 500.3400, L500.4100, L500.2500 #### [facility] [address] [place], [address] Cholesterol in HDL [Mass/Vol] 62 mg/dL Normal [facility] Comment on above: Result Comment: Cate onal Cholesterol Education Program (NCEP) guidelines: <40 mg/dL: Low HDL-cholesterol (major risk factor for CHD) >= 60 mg/dL: High HDL-cholesterol (negative risk factor for CHD) HDL-cholesterol is affected by a number of factors, e.g. smoking, exercise, hormones, sex and age. Performed By: #### L 500.3400, L500.4100, L500.2500 #### [facility] [address] [place], [address] Cholesterol in LDL [Mass/Vol] 94 mg/dL Normal [facility] Comment on above: Result Comment: Bord jnfrpu=150-307 mg/dL Higher Xjxd=238 mg/dL or greater Performed By: #### L 500.3400, L500.4100, L500.2500 #### [facility] [address] [place], [address] Cholesterol in VLDL [Mass/Vol] 16 mg/dL Normal 5-40 [facility] Comment on above: Performed By: #### L 500.3400, L500.4100, L500.2500 #### [facility] [address] [place], [address] Triglyceride [Mass/Vol] 79 mg/dL Normal [facility] Comment on above: Result Comment: The drugs N-Acetylcysteine and Metamizole may falsely depress this assay. Normal range: <150 mg/dL Borderline High: 150-199 mg/dL High: 200-499 mg/dL Very High: >500 mg/dL Performed By: #### L 500.3400, L500.4100, L500.2500 #### [facility] [address] [place], [address] Liver Profileon 08-06-2024 Albumin [Mass/Vol] 4.3 g/dL Normal 3.4-4.8 [facility] Comment on above: Performed By: #### M 100.678 #### [facility] [address] [place], [address] ALK PHOS 49 U/L Normal 35-104 [facility] Comment on above: Performed By: #### M 100.678 #### [facility] [address] [place], [address] ALT [Catalytic activity/Vol] 35 U/L Normal <=34 [facility] Comment on above: Performed By: #### M 100.678 #### [facility] [address] [place], [address] AST [Catalytic activity/Vol] 23 U/L Normal <=31 [facility] Comment on above: Performed By: #### M 100.678 #### [facility] [address] [place], [address] Bilirubin [Mass/Vol] 0.72 mg/dL Normal 0.00-1.30 [facility] Comment on above: Performed By: #### M 100.678 #### [facility] [address] [place], [address] Bilirubin.direct [Mass/Vol] 0.32 mg/dL High 0.00-0.30 [facility] Comment on above: Performed By: #### M 100.678 #### [facility] [address] [place], [address] Globulin (S) [Mass/Vol] 2.3 g/dL Normal 2.2-4.2 [facility] Comment on above: Performed By: #### M 100.678 #### [facility] [address] [place], [address] T PROT 6.6 g/dL Normal 5.9-8.4 [facility] Comment on above: Performed By: #### M 100.678 #### [facility] [address] [place], [address] Potassium measurement (mass/ volume)Ordered By: Bruno Little on 08-06-2024 Potassium (Unsp spec) [Mass/Vol] 3.8 mmol/L 3.3-5.1 [facility] Screening total cholesterol/ high density lipoprotein (HDL) cholesterol ratioOrdered By: Bruno Little on 08-06-2024 Cholesterol.total/Cholest mckenna in HDL [Mass ratio] 2.77 {ratio} [facility] Serum creatinine measurement (mass/volume)Ordered By: Bruno Little on 08-06-2024 Creatinine [Mass/Vol] 0.64 mg/dL Low 0.70-1.20 [facility] Serum globulin measurementOr dered By: Bruno Sidney on 08-06-2024 Globulin (S) [Mass/Vol] 2.3 g/dL 2.2-4.2 [facility] Serum glucose measurement (m ass/volume)Or[facility]: [facility] on 08-[facility]-2024 Glucose [Mass/Vol] 118 mg/dL High 70-99 [facility] Serum or plasma alanine mederos otransferase (ALT) measurementOrdered By: [facility] on 08-06-2024 ALT [Catalytic activity/Vol] 35 U/L <35 [facility] Serum or plasma albumin rigoberto urement (mass/volume)Ordered By: [facility] on 08-06-2024 Albumin [Mass/Vol] 4.3 g/dL 3.4-4.8 [facility] Serum or plasma alkaline luis sphatase measurementOrdered By: [facility] on 08-06-2024 ALP [Catalytic activity/Vol] 49 U/L 35-104 [facility] Serum or plasma calcium rigoberto urement (mass/volume)Ordered By: [facility] on 08-06-2024 Calcium [Mass/Vol] 9.2 mg/dL 7.6-11.0 [facility] Serum or plasma cholesterol in HDL measurement (mass/volume)Ordered By: [facility] on 08-06-2024 Cholesterol in HDL [Mass/Vol] 62 mg/dL >40 [facility] Comment on above: National Cholesterol Education Program (NCEP) guidelines:<40 mg/dL: Low HDL-cholesterol (major risk factor for CHD)>= 60 mg/dL: High HDL-cholesterol (negative risk factor for CHD)HDL-cholesterol is affected by a number of factors, e.g. smoking, exercise, hormones, sex and age. Serum or plasma cholesterol measurement (mass/volume)Ordered By: [facility] on 08-06-2024 Cholesterol [Mass/Vol] 172 mg/dL <201 [facility] Comment on above: Cholesterol level, D esirable <200 mg/dLBorderline high cholesterol 200-239 mg/dLHigh cholesterol >=240 mg/dLRecommendations of the NCEP Adult Treatment Panel for the following risk-cutoff thresholds for the [place] population. Serum or plasma urea nitroge n measurement (mass/volume)Ordered By: Bruno Little on 08-06-2024 Urea nitrogen [Mass/Vol] 11 mg/dL 4-19 [facility] Sodium levelOrdered By: Xuan Little on 08-06-2024 Sodium [Moles/Vol] 140 mmol/L 133-145 [facility] Total proteinOrdered By: Joseph Little on 08-06-2024 Protein [Mass/Vol] 6.6 g/dL 5.9-8.4 [facility] Triglycerides measurementOrd ered By: Bruno Little on 08-06-2024 Triglyceride [Mass/Vol] 79 mg/dL <199 [facility] Comment on above: The drugs N-Acetylcy steine and Metamizole may falsely depress this assay. Normal range: <150 mg/dLBorderline High: 150-199 mg/dLHigh: 200-499 mg/dLVery High: >500 mg/dL Cardiology Visit Reporton Cardiology Visit Report [facility] 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 Normal [facility] Ova and Parasites 8623on OP OVA AND PARASITES EXAM, ROUTINE These results were obtained using wet preparation(s) and trichrome stained smear. This test does not include testing for Crytosporidium parvum, Cyclospora, or Microsporidia. One negative specimen does not rule out the possibility of a parasitic infection. TESTING PERFORMED AT [facility]. ORIGINAL REPORT ON FILE IN LAB CONTAINS ADDITIONAL TEST SITE INFORMATION. Ova/Parasite Exam NO OVA, CYSTS, OR PARASITES FOUND. Normal [facility] Comment on above: Performed By: #### M 100.6795, M100.637, M100.7900, M100.6796, M600.5000, M100.0605 #### [facility] [address] [place], [place], [id number] C. difficile DNA LAURIE+probe Q l (Unsp spec)Ordered By: Cristian Silveira on 07-19-2024 Clostridioides difficile (PCR) [facility] C. difficile Ql (Stl)Ordered By: Cristian Silveira on 07-19-2024 C. difficile GDH Antigen & Toxins Toxigenic C. difficile Abnormal [facility] CDIFF (PCR)on 07-19-2024 CDIFF A positive C. difficile molecular test does not differentiate between an active C. difficile infection and C. difficile colonization. Use clinical judgement and paired toxin/antigen testing to identify true infection and need for treatment. C diff DNA Spec Ql LAURIE+probe Reference Range: Negative Cepheid GeneXpert: polymerase chain reaction (PCR) 027 027 [id number] Presumptive Negative *for epidemiolologic???u se C. Diff PCR A Positive-Toxigenic C. Difficile Detected A Normal [facility] Comment on above: Performed By: #### M 100.6795, M100.637, M100.7900, M100.6796, M600.5000, M100.0605 #### [facility] [address] [place], [place], [id number] Clostridium Diff Toxin/Agon 07-19-2024 CDIFF (EIA) Copy of report sent to Infection Control Printer MS#[id number] 07/19/24 1624 JPIECHUTA. Interpretation of C. diff by EIA Method POS Antigen and POS Toxin = Positive for Toxigenic C. difficile gene and active toxin production IS detected. Consistent with true infection. C. difficile Antigen A Positive C. diff A/B Antigen A C. difficile Toxin A Positive-Toxigenic C. Difficile (EIA) A Toxigenic C. difficile Normal [facility] Comment on above: Performed By: #### M 100.6795, M100.637, M100.7900, M100.6796, M600.5000, M100.0605 #### [facility] [address] [place], [address] Clostridium difficile detect ion by polymerase chain reactionOrdered By: Cristian Silveira on 07-19-2024 C. difficile DNA LAURIE+probe Ql (Unsp spec) [facility] ENTERIC PATHOGEN PANEL STOOL on 07-19-2024 EP PANEL Copy of report sent to Infection Control Printer MS#[id number] 07/19/24 1624 JPIECHUTA. RESULTS CALLED TO DR. CRISTIAN SILVEIRA 07/19/24 1627 Maru Vargas. REPORT READ BACK BY . [...] VIBRIO Not Detected Yersinia Not Detected Normal [facility] Comment on above: Performed By: #### M 100.6795, M100.637, M100.7900, M100.6796, M600.5000, M100.0605 #### [facility] [address] [place], [address] Lactoferrin IA Ql (Stl)Order ed By: Cristian Silveira on 07-19-2024 Stool Lactoferrin [facility] Lower GI hemoglobin IA Ql (S tl)Ordered By: Cristian Silveira on 07-19-2024 Stool Occult Blood (MARCELA) [facility] Stool Clostridium difficile detectionOrdered By: Cristian Silveira on 07-19-2024 C. difficile Ql (Stl) Toxigenic C. difficile Abnormal [facility] Stool Lactoferrin/WBCon 07-09 WBCST Normal Reference Range = Negative Fecal WBC Lactoferrin Negative: No Fecal WBC Lactoferrin present Normal [facility] Comment on above: Performed By: #### M 100.6795, M100.637, M100.7900, M100.6796, M600.5000, M100.0605 #### [facility] [address] [place], [place], [id number] (262) Stool Occult Blood iFOBon STOB Negative Normal [facility] Comment on above: Performed By: #### M 100.6795, M100.637, M100.7900, M100.6796, M600.5000, M100.0605 #### [facility] [address] [place], [place], [id number] (341) Stool enteric pathogen panel by probe and target amplification methodOrdered By: Cristian Silveira on 07-19-2024 Enteric Bacteriology [facility] Stool gastrointestinal hemog lobin detection by immunologic methodOrdered By: Cristian Silveira on 07-19-2024 Lower GI hemoglobin IA Ql (Stl) [facility] Stool lactoferrin detection by immunoassayOrdered By: Cristian Silveira on 07-19-2024 Lactoferrin IA Ql (Stl) [facility] Abd Inc Decub and/or Erecton 07-18-2024 Abd Inc Decub and/or Erect [facility] Imaging Services [address] [place], [place] [id number] Abd Inc Decub and/or Erect MR#: [id number] Acct: [id number] Name: MELISA EDOUARD Rep #: [id number] : 1955 F 69 From: Shelley Aguilar MD PCP: Dr. Cristian Silveira MD Status: REG CLI Study: Abd Inc Decub and/or Erect Date of Exam: 07/18 Exam# [id number] Ordering Dr: Cristian Silveira MD PROCEDURE: ABD INC DECUB AND/OR ERECT 07/18/2024 REASON FOR EXAM: FDFECAL IMPACTION TECHNIQUE: Single view abdomen. COMPARISON: None available FINDINGS: Bowel gas: Nonobstructive bowel gas pattern Calcifications: Vascular phleboliths projecting over the pelvis. Bones: No acute displaced fracture or dislocation. Other: None RAD/Abd Inc Decub and/or Erect IMPRESSION: Nonobstructive bowel gas pattern Reading Location: [facility] CC: Dr. Cristian Silveira MD Dag Sprayer: Signed Normal [facility] Absolute lymphocyte countOrd ered By: Cristian Silveira on 07-18-2024 Lymphocytes Auto (Unsp spec) [#/Vol] 2.46 10*3/uL 0.83-4.51 [facility] Absolute neutrophil countOrd ered By: Cristian Silveira on 07-18-2024 Neutrophils (Bld) [#/Vol] 7.9 10*3/uL High 2.0-7.7 [facility] Anion gap in Serum or Plasma Ordered By: Cristian Silveira on 07-18-2024 Anion gap [Moles/Vol] 12 mmol/L 5-15 [facility] Automated lymphocyte count a s percentage of total leukocytesOrdered By: Cristian Silveira on 07-18-2024 Lymphocytes/100 WBC Auto (Unsp spec) 21.0 % 19-41 [facility] BUN/creatinine ratioOrdered By: Cristian Silveira on 07-18-2024 Urea nitrogen/Creatinine [Mass ratio] 20.1 mg/mg High 10- [facility] Basic Metabolic Profile (BMP )on 07-18-2024 BUN/CRE 20.1 RATIO High 01-27 [facility] Comment on above: Performed By: #### M 100.6795, M100.637, M100.7900, M100.6796, M600.5000, M100.0605 #### [facility] [address] [place], [address] Calcium [Mass/Vol] 10.1 mg/dL Normal 7.6-11.0 [facility] Comment on above: Performed By: #### M 100.6795, M100.637, M100.7900, M100.6796, M600.5000, M100.0605 #### [facility] [address] [place], [address] Chloride [Moles/Vol] 101 mmol/L Normal 98-108 [facility] Comment on above: Performed By: #### M 100.6795, M100.637, M100.7900, M100.6796, M600.5000, M100.0605 #### [facility] [address] [place], [address] CO2 [Moles/Vol] 25.1 mmol/L Normal 21.0-32.0 [facility] Comment on above: Performed By: #### M 100.6795, M100.637, M100.7900, M100.6796, M600.5000, M100.0605 #### [facility] [address] [place], [address] Creatinine [Mass/Vol] 0.65 mg/dL Low 0.70-1.20 [facility] Comment on above: Performed By: #### M 100.6795, M100.637, M100.7900, M100.6796, M600.5000, M100.0605 #### [facility] [address] [place], [address] GAP 12 Normal 5-15 [facility] Comment on above: Performed By: #### M 100.6795, M100.637, M100.7900, M100.6796, M600.5000, M100.0605 #### [facility] [address] [place], [address] GFR/1.73 sq M.predicted among non-blacks MDRD (S/P/Bld) [Vol rate/Area] 95 mL/min/{1.73_m2} Normal >60 [facility] Comment on above: Result Comment: mL/m in/1.73m2 CKD-EPI Creatinine Equation (2020) Performed By: #### M 100.6795, M100.637, M100.7900, M100.6796, M600.5000, M100.0605 #### [facility] [address] [place], [address] Glucose [Mass/Vol] 118 mg/dL High 70-99 [facility] Comment on above: Performed By: #### M 100.6795, M100.637, M100.7900, M100.6796, M600.5000, M100.0605 #### [facility] [address] [place], [address] Potassium [Moles/Vol] 3.7 mmol/L Normal 3.3-5.1 [facility] Comment on above: Performed By: #### M 100.6795, M100.637, M100.7900, M100.6796, M600.5000, M100.0605 #### [facility] [address] [place], [address] Sodium [Moles/Vol] 138 mmol/L Normal 133-145 [facility] Comment on above: Performed By: #### M 100.6795, M100.637, M100.7900, M100.6796, M600.5000, M100.0605 #### [facility] [address] [place], [address] Urea nitrogen [Mass/Vol] 13 mg/dL Normal 4-19 [facility] Comment on above: Performed By: #### M 100.6795, M100.637, M100.7900, M100.6796, M600.5000, M100.0605 #### [facility] [address] [place], [address] Basophil percentageOrdered B y: Cristian Silveira on 07-18-2024 Basophils/100 WBC (Bld) 0.6 % 0-1 [facility] CBC W/Diff, Automatedon 07-09 0-2024 Absolute Lymph 2.46 X10 3/uL Normal 0.83-4.51 [facility] Comment on above: Performed By: #### M 100.6795, M100.637, M100.7900, M100.6796, M600.5000, M100.0605 #### [facility] [address] [place], [address] Absolute Neut 7.9 X10 3/uL High 2.0-7.7 [facility] Comment on above: Performed By: #### M 100.6795, M100.637, M100.7900, M100.6796, M600.5000, M100.0605 #### [facility] [address] [place], [address] Basophils/100 WBC (Bld) 0.6 % Normal 0-1 [facility] Comment on above: Performed By: #### M 100.6795, M100.637, M100.7900, M100.6796, M600.5000, M100.0605 #### [facility] [address] [place], [address] Eosinophils/100 WBC (Bld) 1.2 % Normal 0-5 [facility] Comment on above: Performed By: #### M 100.6795, M100.637, M100.7900, M100.6796, M600.5000, M100.0605 #### [facility] [address] [place], [address] Erythrocyte distribution width (RBC) [Ratio] 12.7 % Normal 11.6-14.6 [facility] Comment on above: Performed By: #### M 100.6795, M100.637, M100.7900, M100.6796, M600.5000, M100.0605 #### [facility] [address] [place], [address] Hematocrit (Bld) [Volume fraction] 49.2 % High 37-47 [facility] Comment on above: Performed By: #### M 100.6795, M100.637, M100.7900, M100.6796, M600.5000, M100.0605 #### [facility] [address] [place], [address] Hemoglobin (Bld) [Mass/Vol] 16.5 g/dL High 12.0-15.0 [facility] Comment on above: Performed By: #### M 100.6795, M100.637, M100.7900, M100.6796, M600.5000, M100.0605 #### [facility] [address] [place], [address] IG% 0.500 Normal 0.0-0.9 [facility] Comment on above: Result Comment: IG% - Immature Granulocytes (promyelocytes, myelocytes and metamyelocytes) > 1% indicates that a LEFT SHIFT is Present. Performed By: #### M 100.6795, M100.637, M100.7900, M100.6796, M600.5000, M100.0605 #### [facility] [address] [place], [address] Lymphocytes/100 WBC (Bld) 21.0 % Normal 19-41 [facility] Comment on above: Performed By: #### M 100.6795, M100.637, M100.7900, M100.6796, M600.5000, M100.0605 #### [facility] [address] [place], [address] MCH (RBC) [Entitic mass] 30.4 pg Normal 27.0-32.0 [facility] Comment on above: Performed By: #### M 100.6795, M100.637, M100.7900, M100.6796, M600.5000, M100.0605 #### [facility] [address] [place], [address] MCHC (RBC) [Mass/Vol] 33.5 g/dL Normal 32-36 [facility] Comment on above: Performed By: #### M 100.6795, M100.637, M100.7900, M100.6796, M600.5000, M100.0605 #### [facility] [address] [place], [address] MCV (RBC) [Entitic vol] 90.6 fL Normal 81-99 [facility] Comment on above: Performed By: #### M 100.6795, M100.637, M100.7900, M100.6796, M600.5000, M100.0605 #### [facility] [address] [place], [address] Monocytes/100 WBC (Bld) 8.8 % Normal 0-10 [facility] Comment on above: Performed By: #### M 100.6795, M100.637, M100.7900, M100.6796, M600.5000, M100.0605 #### [facility] [address] [place], [address] Neutrophils/100 WBC (Bld) 67.9 % Normal 47-70 [facility] Comment on above: Performed By: #### M 100.6795, M100.637, M100.7900, M100.6796, M600.5000, M100.0605 #### [facility] [address] [place], [address] Nucleated RBC (Bld) [#/Vol] 0 10*3/uL Normal 0-5 [facility] Comment on above: Performed By: #### M 100.6795, M100.637, M100.7900, M100.6796, M600.5000, M100.0605 #### [facility] [address] [place], [address] Platelet mean volume (Bld) [Entitic vol] 9.7 fL Normal 6.2-12.0 [facility] Comment on above: Performed By: #### M 100.6795, M100.637, M100.7900, M100.6796, M600.5000, M100.0605 #### [facility] [address] [place], [address] Platelets (Bld) [#/Vol] 306 10*3/uL Normal 150-450 [facility] Comment on above: Performed By: #### M 100.6795, M100.637, M100.7900, M100.6796, M600.5000, M100.0605 #### [facility] [address] [place], [address] RBC (Bld) [#/Vol] 5.43 10*6/uL High 4.2-5.4 [facility] Comment on above: Performed By: #### M 100.6795, M100.637, M100.7900, M100.6796, M600.5000, M100.0605 #### [facility] [address] [place], [address] RDW SD 42.3 fl Normal 35.1-43.9 [facility] Comment on above: Performed By: #### M 100.6795, M100.637, M100.7900, M100.6796, M600.5000, M100.0605 #### [facility] [address] [place], [address] WBC (Bld) [#/Vol] 11.7 10*3/uL High 4.4-11.0 [facility] Comment on above: Performed By: #### M 100.6795, M100.637, M100.7900, M100.6796, M600.5000, M100.0605 #### [facility] [address] [place] [place], [address] Carbon dioxide, total [Moles /volume] in Central venous bloodOrdered By: Cristian Silveira on 07-18-2024 CO2 [Moles/Vol] 25.1 mmol/L 21.0-32.0 [facility] Chloride assayOrdered By: Vadim Silveira on 07-18-2024 Chloride [Moles/Vol] 101 mmol/L 98-108 [facility] Eosinophil percentageOrdered By: Cristian Silveira on 07-18-2024 Eosinophils/100 WBC (Bld) 1.2 % 0-5 [facility] Erythrocyte distribution wid th (RBC) [Ratio]Ordered By: Cristian Silveira on 07-18-2024 Erythrocyte distribution width (RBC) [Entitic vol] 42.3 fL 35.1-43.9 [facility] Erythrocyte distribution wid th ratioOrdered By: Cristian Silveira 07-18-2024 Erythrocyte distribution width (RBC) [Ratio] 12.7 % 11.6-14.6 [facility] Erythrocyte distribution wid th standard deviationOrdered By: Cristian Silveira 07-18-2024 Erythrocyte distribution width (RBC) [Ratio] 42.3 fl 35.1-43.9 [facility] GFR/1.73 sq M.predicted lilian g non-blacks MDRD (S/P/Bld) [Vol rate/Area]Ordered By: Cristian Silveira on 07-18-2024 Estimated GFR (MDRD) Non-Af Amer 95 >60 [facility] Comment on above: mL/min/1.73m2 CKD-EP I Creatinine Equation (2020) Glomerular filtration rate ( GFR) estimation/1.73 sq m using serum, plasma, or whole bOrdered By: Cristian Silveira on 07-18-2024 GFR/1.73 sq M.predicted among non-blacks MDRD (S/P/Bld) [Vol rate/Area] 95 mL/min/{1.73_m2} >60 [facility] Comment on above: mL/min/1.73m2 CKD-EP I Creatinine Equation (2020) Hematocrit Auto (Bld) [Volum e fraction]Ordered By: Cristian Silveira 07-18-2024 Hematocrit (Bld) [Volume fraction] 49.2 % High 37-47 [facility] Hemoglobin measurementOrdere d By: Cristian Silveira 07-18-2024 Hemoglobin (Bld) [Mass/Vol] 16.5 g/dL High 12.0-15.0 [facility] Immature granulocytes/100 WB C Auto (Bld)Ordered By: Cristian Silveira 07-18-2024 Immature granulocytes/100 WBC (Bld) 0.500 % 0.0-0.9 [facility] Comment on above: IG% - Immature Granu locytes (promyelocytes, myelocytes and metamyelocytes) > 1% indicates that a LEFT SHIFT is Present. Lymphocytes Auto (Unsp spec) [#/Vol]Ordered By: Cristian Silveira 07-18-2024 Lymphocytes (Bld) [#/Vol] 2.46 10*3/uL 0.83-4.5 1 [facility] Lymphocytes/100 WBC Auto (Un sp spec)Ordered By: Cristian Silveira 07-18-2024 Lymphocytes/100 WBC (Bld) 21.0 % 19-41 [facility] MCV (mean corpuscular volume ) determinationOrdered By: Cristian Silveira 07-18-2024 MCV (RBC) [Entitic vol] 90.6 fL 81-99 [facility] Mean corpuscular hemoglobin (MCH) determinationOrdered By: Cristian Silveira 07-18-2024 MCH (RBC) [Entitic mass] 30.4 pg 27.0-32.0 [facility] Mean corpuscular hemoglobin concentration (MCHC) determinationOrdered By: Cristian Silveira 07-18-2024 MCHC (RBC) [Mass/Vol] 33.5 g/dL 32-36 [facility] Mean platelet volume determi nationOrdered By: Cristian Silveira on 07-18-2024 Platelet mean volume (Bld) [Entitic vol] 9.7 fL 6.2-12.0 [facility] Monocyte percentageOrdered B y: Cristian Silveira on 07-18-2024 Monocytes/100 WBC (Bld) 8.8 % 0-10 [facility] Neutrophil percentageOrdered By: Cristian Silveira on 07-18-2024 Neutrophils/100 WBC (Bld) 67.9 % 47-70 [facility] Nucleated red blood cell per centageOrdered By: Cristian Silveira on 07-18-2024 Nucleated RBC/100 WBC (Bld) [Ratio] 0 % 0-5 [facility] Platelet countOrdered By: Vadim Silveira on 07-18-2024 Platelets (Bld) [#/Vol] 306 10*3/uL 150-450 [facility] Potassium (Unsp spec) [Mass/ Vol]Ordered By: Cristian Silveira on 07-18-2024 Potassium [Moles/Vol] 3.7 mmol/L 3.3-5.1 [facility] Potassium measurement (mass/ volume)Ordered By: Cristian Silveira on 07-18-2024 Potassium (Unsp spec) [Mass/Vol] 3.7 mmol/L 3.3-5.1 [facility] RBC Auto (Bld) [#/Vol]Ordere d By: Cristian Silveira on 07-18-2024 RBC (Bld) [#/Vol] 5.43 10*6/uL High 4.2-5.4 [facility] Serum creatinine measurement (mass/volume)Ordered By: Cristian Silveira 07-18-2024 Creatinine [Mass/Vol] 0.65 mg/dL Low 0.70-1.20 [facility] Serum glucose measurement (m ass/volume)Ordered By: Cristian Silveira 07-18-2024 Glucose [Mass/Vol] 118 mg/dL High 70-99 [facility] Serum or plasma calcium rigoberto urement (mass/volume)Ordered By: Cristian Silveira 07-18-2024 Calcium [Mass/Vol] 10.1 mg/dL 7.6-11.0 [facility] Serum or plasma urea nitroge n measurement (mass/volume)Ordered By: Cristian Silveira 5 Urea nitrogen [Mass/Vol] 13 mg/dL 4-19 [facility] Sodium levelOrdered By: Cristian Silveira on 07-18-2024 Sodium [Moles/Vol] 138 mmol/L 133-145 [facility] White blood cell (WBC) count Ordered By: Cristian Silveira on 07-18-2024 WBC (Bld) [#/Vol] 11.7 10*3/uL High 4.4-11.0 [facility] Cardiology Visit Reporton Cardiology Visit Report [facility] [address] [place] [address] OFFICE VISIT Date of Service: 07/02/24 MR#: [id number] Acct: [id number] Name: MELISA EDOUARD Rep #: [id number] : 1955 Provider: KRISTI Tang Age/Sex: 69/F Location: [facility] Status: Signed HPI HPI History of Present [...] air Intake Visit Reasons: 1 Y FU [employer]er Connector Required: No Accompanied by: Is patient in [...] somatic dysfunct (more content not included)... Normal [facility] Breast imaging reportOrdered By: Rishabh Camara on 06-13-2024 Study report [facility] Imaging Services [address] [place] [address] SCRN MAMM (CAD)W/SERAFIN BILAT MR#: [id number] Acct: [id number] Name: MELISA EDOUARD Rep #: [id number] : 1955 F 69 From: Diogenes Camara MD PCP: Dr. Cristian Silveira MD Status: ROSALBA MERAZ Study:SCRN MAMM (CAD)W/SERAFIN BILAT Date of Exa m: 06/13/24 Exam# [id number] Ordering Dr: Cristian Silveira MD PROCEDURE: SCRN [...] of the results by letter. Reading Location: [id number] CC: Dr. Cristian Silveira MD ~ Dag Sprayer: Signed [facility] SCRN MAMM (CAD)W/SERAFIN BILATo n 06-13-2024 SCRN MAMM (CAD)W/SERAFIN BILAT [facility] Imaging Services [address] [place] [id number] SCRN MAMM (CAD)W/SERAFIN BILAT MR#: [id number] Acct: [id number] Name: MELISA EDOUARD Rep #: [id number] : 1955 F 69 From: Rishabh cerna MD PCP: Dr. Cristian Silveira MD Status: [facility] Study: SCRN MAMM (CAD)W/SERAFIN BILAT Date of Exam: 10/02 Exam# [id number] Ordering Dr: Cristian Silveira MD PROCEDURE: SCRN [...] of the results by letter. Reading Location: [id number] CC: Dr. Cristian Silveira MD Dag Sprayer: Signed Normal [facility] Influenza virus A and B and SARS-CoV-2 (COVID-19) and Respiratory syncytial virus RNAOrdered By: Cristian Silveira on 05-15-2024 SARS-CoV-2 (COVID-19) RNA LAURIE+probe Ql (Unsp spec) RSV Abnormal [facility] M100.678on 05-15-2024 M100.678 SARS-CoV-2 (COVID 19) Negative INFLUENZA A Negative INFLUENZA B Negative RSV PCR A Positive A RSV Normal [facility] Comment on above: Performed By: #### M 100.678 #### [facility] [address] [place] [address], [id number] DOrdered By: Josias Silveira on 04-17-2024 Vitamin D 25-Hydroxy 79.6 ng/mL [facility] Comment on above: Vitamin D 25(OH) Sta tus Range Deficiency <20 ng/mL (50nmol/L) Insufficiency 20 - 30 ng/mL (50 - 75 nmol/L) Sufficiency 30 - 100 ng/mL (75 - 250 nmol/L) Toxicity >100 ng/mL (>250 nmol/L) Absolute neutrophil countOrd ered By: Cristian Silveira on 04-17-2024 Neutrophils (Bld) [#/Vol] 6.3 10*3/uL 2.0-7.7 [facility] Albumin to globulin ratioOrd ered By: Cristian Silveira on 04-17-2024 Albumin/Globulin [Mass ratio] 1.2 {ratio} 0.9-2.4 [facility] Basophil percentageOrdered B y: Cristian Silveira on 04-17-2024 Basophils/100 WBC (Bld) 0.8 % 0-1 [facility] Bilirubin, totalOrdered By: Cristian Silveira on 04-17-2024 Bilirubin [Mass/Vol] 1.00 mg/dL 0.20-1.00 [facility] Comment on above: For patients on eltr ombopag therapy, use of Dimension [place] TBIL is not recommended. Blood urea nitrogen (BUN)/cr eatinine ratioOrdered By: Cristian Silveira on 04-17-2024 Urea nitrogen/Creatinine [Mass ratio] 22.4 mg/mg High 10-20 [facility] CBC W/Diff, Automatedon Absolute Lymph 2.42 X10 3/uL Normal 0.83-4.51 [facility] Comment on above: Performed By: #### M 100.678 #### [facility] [address] [place], [address] Absolute Neut 6.3 X10 3/uL Normal 2.0-7.7 [facility] Comment on above: Performed By: #### M 100.678 #### [facility] [address] [place], [address] Basophils/100 WBC (Bld) 0.8 % Normal 0-1 [facility] Comment on above: Performed By: #### M 100.678 #### [facility] [address] [place], [address] Eosinophils/100 WBC (Bld) 1.0 % Normal 0-5 [facility] Comment on above: Performed By: #### M 100.678 #### [facility] [address] [place], [address] Erythrocyte distribution width (RBC) [Ratio] 12.7 % Normal 11.6-14.6 [facility] Comment on above: Performed By: #### M 100.678 #### [facility] [address] [place], [address] Hematocrit (Bld) [Volume fraction] 46.4 % Normal 37-47 [facility] Comment on above: Performed By: #### M 100.678 #### [facility] [address] [place], [address] Hemoglobin (Bld) [Mass/Vol] 16.0 g/dL High 12.0-15.0 [facility] Comment on above: Performed By: #### M 100.678 #### [facility] [address] [place], [address] IG% 0.500 Normal 0.0-0.9 [facility] Comment on above: Result Comment: IG% - Immature Granulocytes (promyelocytes, myelocytes and metamyelocytes) > 1% indicates that a LEFT SHIFT is Present. Performed By: #### M 100.678 #### [facility] [address] [place], [address] Lymphocytes/100 WBC (Bld) 24.9 % Normal 19-41 [facility] Comment on above: Performed By: #### M 100.678 #### [facility] [address] [place], [address] MCH (RBC) [Entitic mass] 30.8 pg Normal 27.0-32.0 [facility] Comment on above: Performed By: #### M 100.678 #### [facility] [address], [address] MCHC (RBC) [Mass/Vol] 34.5 g/dL Normal 32-36 [facility] Comment on above: Performed By: #### M 100.678 #### [facility] [address] [place], [address] MCV (RBC) [Entitic vol] 89.2 fL Normal 81-99 [facility] Comment on above: Performed By: #### M 100.678 #### [facility] [address] [place], [address] Monocytes/100 WBC (Bld) 8.2 % Normal 0-10 [facility] Comment on above: Performed By: #### M 100.678 #### [facility] [address] [place], [address] Neutrophils/100 WBC (Bld) 64.6 % Normal 47-70 [facility] Comment on above: Performed By: #### M 100.678 #### [facility] [address] [place], [address] Nucleated RBC (Bld) [#/Vol] 0 10*3/uL Normal 0-5 [facility] Comment on above: Performed By: #### M 100.678 #### [facility] [address] [place], [address] Platelet mean volume (Bld) [Entitic vol] 9.6 fL Normal 6.2-12.0 [facility] Comment on above: Performed By: #### M 100.678 #### [facility] [address] [place], [address] Platelets (Bld) [#/Vol] 290 10*3/uL Normal 150-450 [facility] Comment on above: Performed By: #### M 100.678 #### [facility] [address] [place], [address] RBC (Bld) [#/Vol] 5.20 10*6/uL Normal 4.2-5.4 [facility] Comment on above: Performed By: #### M 100.678 #### [facility] [address] [place], [address] RDW SD 41.7 fl Normal 35.1-43.9 [facility] Comment on above: Performed By: #### M 100.678 #### [facility] [address] [place], [address] WBC (Bld) [#/Vol] 9.7 10*3/uL Normal 4.4-11.0 [facility] Comment on above: Performed By: #### M 100.678 #### [facility] [address] [place], [address] Carbon dioxide measurementOr dered By: Cristian Silveira on 04-17-2024 CO2 [Moles/Vol] 25.0 mmol/L 21.0-32.0 [facility] Chloride measurementOrdered By: Cristian Silveira on 04-17-2024 Chloride [Moles/Vol] 106 mmol/L 98-107 [facility] Comprehensive Metabolic Prof ilon 04-17-2024 Albumin [Mass/Vol] 3.6 g/dL Normal 3.2-5.0 [facility] Comment on above: Performed By: #### M 100.678 #### [facility] [address] [place], [address] Albumin/Globulin [Mass ratio] 1.2 {ratio} Normal 0.9-2.4 [facility] Comment on above: Performed By: #### M 100.678 #### [facility] [address] [place], [address] ALK P 54 U/L Normal 45-117 [facility] Comment on above: Performed By: #### M 100.678 #### [facility] [address] [place], [address] ALT [Catalytic activity/Vol] 40 U/L Normal 13-56 [facility] Comment on above: Performed By: #### M 100.678 #### [facility] [address] [place], [address] AST [Catalytic activity/Vol] 19 U/L Normal 15-37 [facility] Comment on above: Performed By: #### M 100.678 #### [facility] [address] [place], [address] Bilirubin [Mass/Vol] 1.00 mg/dL Normal 0.20-1.00 [facility] Comment on above: Result Comment: For patients on eltrombopag therapy, use of Dimension [place] TBIL is not recommended. Performed By: #### M 100.678 #### [facility] [address] [place], [address] BUN/CRE 22.4 RATIO High 10-20 [facility] Comment on above: Performed By: #### M 100.678 #### [facility] [address] [place], [address] CA,Total 9.2 mg/dL Normal 8.5-10.1 [facility] Comment on above: Performed By: #### M 100.678 #### [facility] [address] [place], [address] Chloride [Moles/Vol] 106 mmol/L Normal 98-107 [facility] Comment on above: Performed By: #### M 100.678 #### [facility] [address] [place], [address] CO2 [Moles/Vol] 25.0 mmol/L Normal 21.0-32.0 [facility] Comment on above: Performed By: #### M 100.678 #### [facility] [address] [place], [address] Creatinine [Mass/Vol] 0.63 mg/dL Normal 0.55-1.02 [facility] Comment on above: Result Comment: The validity of the calculated GFR GFRAA in patients over 70 years has not been determined. Clinical correlation is essential. Performed By: #### M 100.678 #### [facility] [address] [place], [address] EST GFR - AA 121 mL/min Normal >60 [facility] Comment on above: Result Comment: Afri can [place] GFR Calc Performed By: #### M 100.678 #### [facility] [address] [place], [address] GAP 8 Normal 5-15 [facility] Comment on above: Performed By: #### M 100.678 #### [facility] [address] [place], [address] GFR/1.73 sq M.predicted among non-blacks MDRD (S/P/Bld) [Vol rate/Area] 100 mL/min/{1.73_m2} Normal >60 [facility] Comment on above: Result Comment: Non- GFR Calc Performed By: #### M 100.678 #### [facility] [address] [place], [address] Globulin (S) [Mass/Vol] 3.1 g/dL Normal 2.2-4.2 [facility] Comment on above: Performed By: #### M 100.678 #### [facility] [address] [place], [address] Glucose [Mass/Vol] 121 mg/dL High 74-106 [facility] Comment on above: Result Comment: Fast ing Glucose result from 100 to 125 mg/dL suggests IMPAIRED HOMEOSTASIS per A.D.A. criteria. Performed By: #### M 100.678 #### [facility] [address] [place], [address] Potassium [Moles/Vol] 3.5 mmol/L Normal 3.5-5.1 [facility] Comment on above: Performed By: #### M 100.678 #### [facility] [address] [place], [address] Sodium [Moles/Vol] 139 mmol/L Normal 136-145 [facility] Comment on above: Performed By: #### M 100.678 #### [facility] [address] [place], [address] T PROT 6.7 g/dL Normal 6.4-8.2 [facility] Comment on above: Performed By: #### M 100.678 #### [facility] [address] [place], [place], [address] Urea nitrogen [Mass/Vol] 14 mg/dL Normal 7-18 [facility] Comment on above: Performed By: #### M 100.678 #### [facility] [address] [place], [address] Eosinophil percentageOrdered By: Cristian Silveira on 04-17-2024 Eosinophils/100 WBC (Bld) 1.0 % 0-5 [facility] Erythrocyte distribution wid th ratioOrdered By: Cristian Raoul on 04-17-2024 Erythrocyte distribution width (RBC) [Ratio] 12.7 % 11.6-14.6 [facility] Erythrocyte distribution wid th standard deviationOrdered By: Cristian Raoul on 04-17-2024 Erythrocyte distribution width (RBC) [Entitic vol] 41.7 fL 35.1-43.9 [facility] Estimated glomerular filtrat ion rate (GFR) AmericanOrdered By: Cristian Silveira on 04-17-2024 Estimated GFR (MDRD) Amer 121 mL/min >60 [facility] Comment on above: GFR Calc Glomerular filtration rate ( GFR) estimationOrdered By: Cristian Silveira on 04-17-2024 Estimated GFR (MDRD) Non-Af Amer 100 mL/min >60 [facility] Comment on above: Non- GFR Calc Glucose measurementOrdered B y: Cristian Raoul on 04-17-2024 Glucose [Mass/Vol] 121 mg/dL High 74-106 [facility] Comment on above: Fasting Glucose resu lt from 100 to 125 mg/dL suggests IMPAIRED HOMEOSTASIS per A.D.A. criteria. Hematocrit Auto (Bld) [Volum e fraction]Ordered By: Cristian Silveira on 04-17-2024 Hematocrit (Bld) [Volume fraction] 46.4 % 37-47 [facility] Hemoglobin measurementOrdere d By: Cristian Silveira on 04-17-2024 Hemoglobin (Bld) [Mass/Vol] 16.0 g/dL High 12.0-15.0 [facility] Immature granulocytes/100 WB C Auto (Bld)Ordered By: Cristian Silveira on 01-08-2025 Immature granulocytes/100 WBC (Bld) 0.500 % 0.0-0.9 [facility] Comment on above: IG% - Immature Granu locytes (promyelocytes, myelocytes and metamyelocytes) > 1% indicates that a LEFT SHIFT is Present. Laboratory - Chemistry and C hemistry - challengeOrdered By: Cristian Silveira on 04-17-2024 AST [Catalytic activity/Vol] 19 U/L 15-37 [facility] Lymphocytes Auto (Unsp spec) [#/Vol]Ordered By: Cristian Silveira on 04-17-2024 Lymphocytes (Bld) [#/Vol] 2.42 10*3/uL 0.83-4.5 1 [facility] Lymphocytes/100 WBC Auto (Un sp spec)Ordered By: Cristian Silveira on 04-17-2024 Lymphocytes/100 WBC (Bld) 24.9 % 19-41 [facility] MCV (mean corpuscular volume ) determinationOrdered By: Cristian Silveira on 04-17-2024 MCV (RBC) [Entitic vol] 89.2 fL 81-99 [facility] Mean corpuscular hemoglobin (MCH) determinationOrdered By: Cristian Silveira 04-17-2024 MCH (RBC) [Entitic mass] 30.8 pg 27.0-32.0 [facility] Mean corpuscular hemoglobin concentration (MCHC) determinationOrdered By: Cristian Silveira 04-17-2024 MCHC (RBC) [Mass/Vol] 34.5 g/dL 32-36 [facility] Mean platelet volume determi nationOrdered By: Cristian Silveira 04-17-2024 Platelet mean volume (Bld) [Entitic vol] 9.6 fL 6.2-12.0 [facility] Monocyte percentageOrdered B y: Cristian Silveira on 04-17-2024 Monocytes/100 WBC (Bld) 8.2 % 0-10 [facility] Neutrophil percentageOrdered By: Cristian Silveira on 04-17-2024 Neutrophils/100 WBC (Bld) 64.6 % 47-70 [facility] Nucleated red blood cell per centageOrdered By: Cristian Silveira 04-17-2024 Nucleated RBC/100 WBC (Bld) [Ratio] 0 % 0-5 [facility] Platelet countOrdered By: Vadim Silveira on 04-17-2024 Platelets (Bld) [#/Vol] 290 10*3/uL 150-450 [facility] Potassium measurementOrdered By: Cristian Silveira on 04-17-2024 Potassium [Moles/Vol] 3.5 mmol/L 3.5-5.1 [facility] RBC Auto (Bld) [#/Vol]Ordere d By: Cristian Silveira on 04-17-2024 RBC (Bld) [#/Vol] 5.20 10*6/uL 4.2-5.4 [facility] Serum anion gap measurementO rdered By: Cristian Silveira on 04-17-2024 Anion gap [Moles/Vol] 8 mmol/L 5-15 [facility] Serum globulin measurementOr dered By: Cristian Silveira 04-17-2024 Globulin (S) [Mass/Vol] 3.1 g/dL 2.2-4.2 [facility] Serum or plasma alanine mederos otransferase (ALT) measurementOrdered By: Cristian Silveira 04-17-2024 ALT [Catalytic activity/Vol] 40 U/L 13-56 [facility] Serum or plasma albumin rigoberto urement (mass/volume)Ordered By: Cristian Silveira 04-17-2024 Albumin [Mass/Vol] 3.6 g/dL 3.2-5.0 [facility] Serum or plasma alkaline luis sphatase measurementOrdered By: Cristian Silveira 04-17-2024 ALP [Catalytic activity/Vol] 54 U/L 45-117 [facility] Serum or plasma calcium rigoberto urement (mass/volume)Ordered By: Cristian Silveira 04-17-2024 Calcium [Mass/Vol] 9.2 mg/dL 8.5-10.1 [facility] Serum or plasma creatinine m easurement (mass/volume)Ordered By: Cristian Silveira 04-17-2024 Creatinine [Mass/Vol] 0.63 mg/dL 0.55-1.02 [facility] Comment on above: The validity of the calculated GFR & GFRAA in patients over 70 years has not been determined. Clinical correlation is essential. Serum or plasma urea nitroge n measurement (mass/volume)Ordered By: Cristian Silveira on 04-17-2024 Urea nitrogen [Mass/Vol] 14 mg/dL 7-18 [facility] Sodium levelOrdered By: Cristian Silveira on 04-17-2024 Sodium [Moles/Vol] 139 mmol/L 136-145 [facility] TSH QnOrdered By: Cristian Silveira o n 04-17-2024 Thyroid Stimulating Hormone (TSH) 1.310 uIU/mL 0.358-3.740 [facility] Thyroid Stim Hormone (TSH)on 04-17-2024 TSH 1.310 uIU/mL Normal 0.358-3.740 [facility] Comment on above: Performed By: #### M 100.678 #### [facility] [address] [place], [place], [address] Total proteinOrdered By: Cristian Silveira on 04-17-2024 Protein [Mass/Vol] 6.7 g/dL 6.4-8.2 [facility] Vitamin D,25 Hydroxyon 04-17 Vitamin D 25-OH 79.6 ng/mL Normal [facility] Comment on above: Result Comment: Nery min D 25(OH) Status Range Deficiency <20 ng/mL (50nmol/L) Insufficiency 20 - 30 ng/mL (50 - 75 nmol/L) Sufficiency 30 - 100 ng/mL (75 - 250 nmol/L) Toxicity >100 ng/mL (>250 nmol/L) Performed By: #### M 100.678 #### [facility] [address] [place], [place], [address] White blood cell (WBC) count Ordered By: Cristian Silveira on 04-17-2024 WBC (Bld) [#/Vol] 9.7 10*3/uL 4.4-11.0 [facility] Discharge Instructionon 03-10 Discharge Instruction [facility] Medical Records Department [address] [place] [address] Instructions for Home/Discharge Instructions 03/19/24 1317 MR#: [id number] Acct: [id number] Name: MELISA EDOUARD Rep #: [id number] : 1955 69 From: Sammie Butterfield DO PCP: Dr. Cristian Silveira MD Status:REG [facility] Discharge Instructions Diet Discharge Diet: No restrictions [...] Up With: Sammie Butterfield DO When: Call [phone] to schedule appointment. Test Results: Test results from this visit will be discussed in further detail at your follow-up appointment, if applicable. Discharge Plan Admission Primary Reason for Your Visit: hysteroscopy D C Attending Provider: Sammie Butterfield Primary Care Provider: Cristian Silveira Chi Instructions Print Language: Sami Discharge Orders/Prescription s Prescriptions: No Action multivitamin [...] cc: Dr. Cristian Silveira MD * Signed [facility] MR/POSTOP.ANE 03-19-2024 MR/POSTOP.[facility] Medical Records Department [address] [place] [address] Anesthesia Postop Eval I 03/19/24 1355 MR#: [id number] Acct: [id number] Name: MELISA EDOUARD Rep #: [id number] : 1955 69 From: Latoya Vega CRNA PCP: Dr. Cristian Silveira MD Status:REG [facility] Y Race: C Location: [place] [address] Anesthesia: Postop Eval I Current Vital Signs [...] completed: Yes 03/19/24 1356 Date Latoya Vega MONITOR TECH Cosigner Signature: Date CC: Signed [facility] MR/[id number] 03-19-2024 MR/POSTOPAN2 [facility] Medical Records Department [address] [place] [address] Anesthesia Postop Eval II 03/19/24 1649 MR#: [id number] Acct: [id number] Name: MELISA EDOUARD Rep #: [id number] : 1955 69 From: Solo Peacock MD PCP: Dr. Cristian Silveira MD Status:DEP [facility] Y Race: C Location: [facility] Anesthesia Postop Eval I Sum Postop Eval Completion status Anesthesia document: Postop Eval 1 completed: Yes Anesthesia Postop Eval I Summary Anesthesia Postop Eval I Summary: Anesthesia Postop Eval I: Assessment Summary Airway patent Yes 03/19/24 13:56 MONITOR [email or web address] Spontaneous unlabored Yes 03/19/24 13:56 MONITOR [email or web address].[email or web address] respirations Mental status Awake,Calm 03/19/24 13:56 MONITOR [email or web address].[email or web address] nausea No 03/19/24 13:56 MONITOR [email or web address].SKOBY Vomiting No 03/19/24 13:56 MONITOR [email or web address].[email or web address] Anesthesia Postop Eval I: Fluid Summary Crystalloid volume administer 10 03/19/24 13:56 MONITOR [email or web address].[email or web address] (ml) Colloids volume administered ( ml) Blood Product volume administered (ml) Total IV fluid infused 10 03/19/24 13:56 MONITOR [email or web address] Anesthesia Postop Eval I: Summary Notes Anesthesia Complication No 03/19/24 13:56 MONITOR [email or web address].[email or web address] Anesthesia Complication Comment: Post-operative progress note Anesthesia: Postop Eval II Evaluation Mental status: Awake and Calm Pain Level: 1 nausea: No Vomiting: No Complications Anesthesia Complication: No 03/19/241648 Date Solo Peacock MD Cosigner Signature: Date CC: Signed [facility] Operative Reporton 4 Operative Report [facility] Medical Records Department [address] [place] [address] Operative Report 03/19/24 1354 MR#: [id number] Acct: [id number] Name: MELISA EDOUARD Rep #: [id number] : 1955 69 From: Sammie Butterfield DO PCP: Dr. Cristian Silveira MD Status:[facility] Location: [place] [address] Problems Associated Problem List Diagnoses (1) Endometrial thickening on ultrasound: (2) Malignant neoplasm of unspecified part of unspecified bronchus or lung: Multi Select Codes Urinary/Genital Urinary/Genital CPT Codes: 70592 Hysteroscopy,EMC, Polypectomy Operative Report (Standard) Operative Information Date of Procedure: 03/19/24 Pre-Operative Diagnosis: thickened endometrium, postmenopausal Post-Operative Diagnosis: thickened endometrium, postmenopausal Surgery/Procedure Performed: hysteroscopy D C tracer powder blender: No Type of Anesthesia: Local MAC RN [...] DO; Dr. Cristian Silveira MD Signed Normal [facility] Surgery Specimen Level Yakov 03-19-2024 Surgery Specimen Level IV ----- Patient Age/Sex Location Account Attending Physician MELISA EDOUARD 69/F [facility] [id number] Rahat Shahid Specimen: [id number] Received: 03/19/24 Status: [place] Num: [id number] Spec Type: ENDOM BX/C Subm Dr: Dr. Sammie Butterfield DO HEADER OPERATION: Hysteroscopy, Rahat Jackman PRE-OP DIAGNOSIS: Endometrial thickening on ultrasound TISSUE SUBMITTED: Endometrial curettings MICROSCOPIC DIAGNOSIS Endometrial curettings: Fragments of benign endometrial tissue with inactive endometrium and focal cystic changes. . 03/21/2024 MICROSCOPIC DESCRIPTION Slides are reviewed. GROSS DESCRIPTION Received in fixative is one container labeled with the patient's name and designated Endometrial curettings. The specimen consists of multiple irregular fragments of light angulo soft tissue that in aggregate measure 1.5 x 0.2 x 0.1 cm. The specimen is totally submitted in one cassette. . 03/20/2024 TC:5 CPT:51585 Patient Age/Sex Location Account Attending Physician MELISA EDOUARD 69/F [facility] [id number] Rahat Shahid Signed (signatur e on file) Dr. Jame Morgan MD 03/21/24 1140 Normal [facility] Comment on above: Performed By: #### M 100.6795, M100.637, M100.7900, M100.6796, M600.5000, M100.0605 #### [facility] [address] [place], [address] 12 Lead EKGon 03-18-2024 12 Lead EKG [facility] Cardiovascular Services [address] [place] [address] 12 Lead EKG 03/18/24 0724 MR#: [id number] Acct: [id number] Name: MELISA EDOUARD Rep #: [id number] : 1955 69 From: Roscoe Alonzo MD Attending Dr: Dr. Sammie Butterfield DO Statu s: PRE SDC Ordering Dr: Sammie Butterfield DO Date: 4 Location: [facility] Sex: F C Admitted: Test Reason : [...] Borderline ECG Confirmed by CHERI VÁZQUEZ, ROSCOE ([id number]), pictures editor HERB BURTON ([id number]) on 03/18/2024 2:12:35 PM Referred By: Sammie Butterfield Confirmed By: ROSCOE ALONZO MD 03/18/24 141 Date Roscoe Alonzo MD CC: Dr. Sammie Butterfield DO; Dr. Cristian Silveira MD Signed Normal [facility] Albumin to globulin ratioOrd ered By: Sammie Garland on 03-18-2024 Albumin/Globulin [Mass ratio] 1.4 {ratio} 0.9-2.4 [facility] Bilirubin, totalOrdered By: Sammie Garland on 03-18-2024 Bilirubin [Mass/Vol] 0.70 mg/dL 0.20-1.00 [facility] Comment on above: For patients on eltr ombopag therapy, use of Dimension [place] TBIL is not recommended. Blood urea nitrogen (BUN)/cr eatinine ratioOrdered By: Sammie Garland on 03-18-2024 Urea nitrogen/Creatinine [Mass ratio] 17.8 mg/mg 10-20 [facility] CBC-Complete Blood Cnt No Di ffon 03-18-2024 Erythrocyte distribution width (RBC) [Ratio] 13.0 % Normal 11.6-14.6 [facility] Comment on above: Performed By: #### M 100.678 #### [facility] [address] [place], [place], [id number] (859) Hematocrit (Bld) [Volume fraction] 47.1 % High 37-47 [facility] Comment on above: Performed By: #### M 100.678 #### [facility] [address] [place], [place], [address] (467) Hemoglobin (Bld) [Mass/Vol] 15.9 g/dL High 12.0-15.0 [facility] Comment on above: Performed By: #### M 100.678 #### [facility] [address] [place], [address] MCH (RBC) [Entitic mass] 31.2 pg Normal 27.0-32.0 [facility] Comment on above: Performed By: #### M 100.678 #### [facility] [address] [place], [address] MCHC (RBC) [Mass/Vol] 33.8 g/dL Normal 32-36 [facility] Comment on above: Performed By: #### M 100.678 #### [facility] [address] [place], [address] MCV (RBC) [Entitic vol] 92.4 fL Normal 81-99 [facility] Comment on above: Performed By: #### M 100.678 #### [facility] [address] [place], [address] Platelet mean volume (Bld) [Entitic vol] 9.5 fL Normal 6.2-12.0 [facility] Comment on above: Performed By: #### M 100.678 #### [facility] [address] [place], [address] Platelets (Bld) [#/Vol] 259 10*3/uL Normal 150-450 [facility] Comment on above: Performed By: #### M 100.678 #### [facility] [address] [place], [address] RBC (Bld) [#/Vol] 5.10 10*6/uL Normal 4.2-5.4 [facility] Comment on above: Performed By: #### M 100.678 #### [facility] [address] [place], [address] RDW SD 43.9 fl Normal 35.1-43.9 [facility] Comment on above: Performed By: #### M 100.678 #### [facility] [address] [place], [address] WBC (Bld) [#/Vol] 9.6 10*3/uL Normal 4.4-11.0 [facility] Comment on above: Performed By: #### M 100.678 #### [facility] [address] [place], [address] Carbon dioxide measurementOr dered By: Sammie Garland on 03-18-2024 CO2 [Moles/Vol] 29.0 mmol/L 21.0-32.0 [facility] Chloride measurementOrdered By: Sammie Garland on 03-18-2024 Chloride [Moles/Vol] 108 mmol/L High 98-107 [facility] Comprehensive Metabolic Prof ilon 03-18-2024 Albumin [Mass/Vol] 3.8 g/dL Normal 3.2-5.0 [facility] Comment on above: Performed By: #### M 100.678 #### [facility] [address] [place], [address] Albumin/Globulin [Mass ratio] 1.4 {ratio} Normal 0.9-2.4 [facility] Comment on above: Performed By: #### M 100.678 #### [facility] [address] [place], [address] ALK P 49 U/L Normal 45-117 [facility] Comment on above: Performed By: #### M 100.678 #### [facility] [address] [place], [address] ALT [Catalytic activity/Vol] 38 U/L Normal 13-56 [facility] Comment on above: Performed By: #### M 100.678 #### [facility] [address] [place], [address] AST [Catalytic activity/Vol] 16 U/L Normal 15-37 [facility] Comment on above: Performed By: #### M 100.678 #### [facility] [address] [place], [address] Bilirubin [Mass/Vol] 0.70 mg/dL Normal 0.20-1.00 [facility] Comment on above: Result Comment: For patients on eltrombopag therapy, use of Dimension [place] TBIL is not recommended. Performed By: #### M 100.678 #### [facility] [address] [place], [address] BUN/CRE 17.8 RATIO Normal 10-20 [facility] Comment on above: Performed By: #### M 100.678 #### [facility] [address] [place], [address] CA,Total 9.3 mg/dL Normal 8.5-10.1 [facility] Comment on above: Performed By: #### M 100.678 #### [facility] [address] [place], [address] Chloride [Moles/Vol] 108 mmol/L High 98-107 [facility] Comment on above: Performed By: #### M 100.678 #### [facility] [address] [place], [address] CO2 [Moles/Vol] 29.0 mmol/L Normal 21.0-32.0 [facility] Comment on above: Performed By: #### M 100.678 #### [facility] [address] [place], [address] Creatinine [Mass/Vol] 0.56 mg/dL Normal 0.55-1.02 [facility] Comment on above: Result Comment: The validity of the calculated GFR GFRAA in patients over 70 years has not been determined. Clinical correlation is essential. Performed By: #### M 100.678 #### [facility] [address] [place], [address] EST GFR - AA 137 mL/min Normal >60 [facility] Comment on above: Result Comment: Afri can [place] GFR Calc Performed By: #### M 100.678 #### [facility] [address] [place], [address] GAP 4 Low 5-15 [facility] Comment on above: Performed By: #### M 100.678 #### [facility] [address] [place], [address] GFR/1.73 sq M.predicted among non-blacks MDRD (S/P/Bld) [Vol rate/Area] 113 mL/min/{1.73_m2} Normal >60 [facility] Comment on above: Result Comment: Non- GFR Calc Performed By: #### M 100.678 #### [facility] [address] [place], [address] Globulin (S) [Mass/Vol] 2.8 g/dL Normal 2.2-4.2 [facility] Comment on above: Performed By: #### M 100.678 #### [facility] [address] [place], [address] Glucose [Mass/Vol] 115 mg/dL High 74-106 [facility] Comment on above: Result Comment: Fast ing Glucose result from 100 to 125 mg/dL suggests IMPAIRED HOMEOSTASIS per A.D.A. criteria. Performed By: #### M 100.678 #### [facility] [address] [place], [address] Potassium [Moles/Vol] 3.6 mmol/L Normal 3.5-5.1 [facility] Comment on above: Performed By: #### M 100.678 #### [facility] [address] [place], [address] Sodium [Moles/Vol] 141 mmol/L Normal 136-145 [facility] Comment on above: Performed By: #### M 100.678 #### [facility] [address] [place], [place], [address] T PROT 6.6 g/dL Normal 6.4-8.2 [facility] Comment on above: Performed By: #### M 100.678 #### [facility] [address] [place], [place], [address] Urea nitrogen [Mass/Vol] 10 mg/dL Normal 7-18 [facility] Comment on above: Performed By: #### M 100.678 #### [facility] [address] [place], [place], [address] Erythrocyte distribution wid th ratioOrdered By: Sammie Garland on 03-18-2024 Erythrocyte distribution width (RBC) [Ratio] 13.0 % 11.6-14.6 [facility] Erythrocyte distribution wid th standard deviationOrdered By: Sammie Garland on 03-18-2024 Erythrocyte distribution width (RBC) [Entitic vol] 43.9 fL 35.1-43.9 [facility] Estimated glomerular filtrat ion rate (GFR) AmericanOrdered By: Sammie Garland on 03-18-2024 Estimated GFR (MDRD) Amer 137 mL/min >60 [facility] Comment on above: GFR Calc Glomerular filtration rate ( GFR) estimationOrdered By: Sammie Garland on 03-18-2024 Estimated GFR (MDRD) Non-Af Amer 113 mL/min >60 [facility] Comment on above: Non- GFR Calc Glucose measurementOrdered B y: Sammie Garland on 03-18-2024 Glucose [Mass/Vol] 115 mg/dL High 74-106 [facility] Comment on above: Fasting Glucose resu lt from 100 to 125 mg/dL suggests IMPAIRED HOMEOSTASIS per A.D.A. criteria. Hematocrit Auto (Bld) [Volum e fraction]Ordered By: Sammie Garland on 03-18-2024 Hematocrit (Bld) [Volume fraction] 47.1 % High 37-47 [facility] Hemoglobin measurementOrdere d By: Sammie Garland on 03-18-2024 Hemoglobin (Bld) [Mass/Vol] 15.9 g/dL High 12.0-15.0 [facility] - Chemistry and C hemistry - challengeOrdered By: Sammie Garland on 03-18-2024 AST [Catalytic activity/Vol] 16 U/L 15-37 [facility] MCV (mean corpuscular volume ) determinationOrdered By: Sammie Garland on 03-18-2024 MCV (RBC) [Entitic vol] 92.4 fL 81-99 [facility] Mean corpuscular hemoglobin (MCH) determinationOrdered By: Sammie Garland on 03-18-2024 MCH (RBC) [Entitic mass] 31.2 pg 27.0-32.0 [facility] Mean corpuscular hemoglobin concentration (MCHC) determinationOrdered By: Sammie Garland on 03-18-2024 MCHC (RBC) [Mass/Vol] 33.8 g/dL 32-36 [facility] Mean platelet volume determi nationOrdered By: Sammie Garland on 03-18-2024 Platelet mean volume (Bld) [Entitic vol] 9.5 fL 6.2-12.0 [facility] Platelet countOrdered By: Adolfo Garland on 03-18-2024 Platelets (Bld) [#/Vol] 259 10*3/uL 150-450 [facility] Potassium measurementOrdered By: Sammie Garland on 03-18-2024 Potassium [Moles/Vol] 3.6 mmol/L 3.5-5.1 [facility] RBC Auto (Bld) [#/Vol]Ordere d By: Sammie Garland on 03-18-2024 RBC (Bld) [#/Vol] 5.10 10*6/uL 4.2-5.4 [facility] Serum anion gap measurementO rdered By: Sammie Garland on 03-18-2024 Anion gap [Moles/Vol] 4 mmol/L Low 5-15 [facility] Serum globulin measurementOr dered By: Sammie Garland on 03-18-2024 Globulin (S) [Mass/Vol] 2.8 g/dL 2.2-4.2 [facility] Serum or plasma alanine mederos otransferase (ALT) measurementOrdered By: Sammie Garland on 03-18-2024 ALT [Catalytic activity/Vol] 38 U/L 13-56 [facility] Serum or plasma albumin rigoberto urement (mass/volume)Ordered By: Sammie Garland on 03-18-2024 Albumin [Mass/Vol] 3.8 g/dL 3.2-5.0 [facility] Serum or plasma alkaline luis sphatase measurementOrdered By: Sammie Garland on 03-18-2024 ALP [Catalytic activity/Vol] 49 U/L 45-117 [facility] Serum or plasma calcium rigoberto urement (mass/volume)Ordered By: Sammie Garland on 03-18-2024 Calcium [Mass/Vol] 9.3 mg/dL 8.5-10.1 [facility] Serum or plasma creatinine m easurement (mass/volume)Ordered By: Sammie Garland on 03-18-2024 Creatinine [Mass/Vol] 0.56 mg/dL 0.55-1.02 [facility] [facility] Comment on above: The validity of the calculated GFR & GFRAA in patients over 70 years has not been determined. Clinical correlation is essential. Serum or plasma urea nitroge n measurement (mass/volume)Ordered By: Sammie Garland on 03-18-2024 Urea nitrogen [Mass/Vol] 10 mg/dL 7-18 [facility] Sodium levelOrdered By: Mia Garland on 03-18-2024 Sodium [Moles/Vol] 141 mmol/L 136-145 [facility] Total proteinOrdered By: Grace Garland on 03-18-2024 Protein [Mass/Vol] 6.6 g/dL 6.4-8.2 [facility] Type AND Screen - PAT ONLYon 03-18-2024 Ab SCREEN GEL Negative [facility] Comment on above: Order Comment: Reaso n for Exam: surgerySurgery Date: [id number] D CPREOP Performed By: #### M 100.850 #### [facility] [place], [address] ABO and Rh group Nom (Bld) Blood group A Rh(D) negative [facility] Comment on above: Order Comment: Reaso n for Exam: surgerySurgery Date: [id number] D CPREOP Performed By: #### M 100.678 #### [facility] [address] [place], [address] White blood cell (WBC) count Ordered By: Sammie Garland on 03-18-2024 WBC (Bld) [#/Vol] 9.6 10*3/uL 4.4-11.0 [facility] Rn First Assistant Office Visit Reporton 03-15-2024 Rn First Assistant Office Visit Report [facility] [address], [address] [place] [address] OFFICE VISIT Date of Service: 03/15/24 MR#: [id number] Acct: [id number] Name: MELISA EDOUARD Rep #: [id number] : 1955 Provider: Dr. Sammie Brooks DO Age/Sex: 69/F [place] 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 [facility] Re-Evaluation - PT (1)on Re-Evaluation - PT (1) [facility] [address] [place] [address]. [address] [place] [address] / REEVALUATION / MEDICARE RECERTIFICATION PHYSICAL THERAPY MR#: [id number] Acct: [id number] Name: MELISA EDOUARD Rep #: [id number] : 1955 69 From: Iam Zarco DPT [...] do not hesitate to contact me at [phone] by phone or if you have questions or concerns regarding this new plan of care! Sincerely, Iam Zarco DPT 03/12/24 1553 CC: Dr. Cristian Silveira MD CLS Signed For Medicare only, by signing this I certify the plan of care. _ Physicians Signature Date [facility] Inital Evaluation (1) - PTon 02-20-2024 Inital Evaluation (1) - PT [facility]. [address] [place] [address] / REHABILITATION SERVICES INITIAL EVALUATION MR#: [id number] Acct: [id number] Name: MELISA EDOUARD Rep #: [id number] : 1955 69 From: Iam Zarco DPT Referring Dr.: Dr. Cristian Silveira MD Status: REG RCR Insurance: MEDICARE PART A B ANTH Patient's Visit Information Visit Information Visit Information: MELISA EDOUARD is a 69 year old F referred to Physical Therapy by Dr. Cristian Silveira MD with a diagnosis of Spinal stenosis of lumbar spine. Date of Evaluation: 02/15/24 Physical Therapist: Iam Zraco DPT Visit Plan Frequency: 2x /Week Duration: [...] to be FAXED BACK to us at [phone] for Medicare purposes. For Medicare only, by signing this I certify the plan of care. Please let me know if there are questions or concerns regarding this plan of care. Physician Signature: __Date: 02/20/24 0904 CC: Dr. Cristian Silveira MD CLS Signed [facility] Transvaginal Non-on 02-12-2024 Transvaginal Non- [facility] Services [address] [place], [place] [id number] Transvaginal Non- MR#: [id number] Acct: [id number] Name: MELISA EDOUARD Rep #: [id number] : 1955 F 69 From: Rishabh cerna MD PCP: Dr. Cristian Silveira MD Status: REG CLI Study: Transvaginal Non- Date of Exam: Exam# [id number] Ordering Dr: Cristian Silveira MD -[id number] STUDY: ULTRASOUND OF THE FEMALE PELVIS [...] Signed: Rishabh Camara MD at 14:18 EST Reading Location ID and State: [address] [place] [address] , Service support , CC: Dr. Cristian Silveira MD Dag Sprayer: Signed [facility] Pelvis (Routine)on Pelvis (Routine) [facility] Imaging Services [address] [place] [address] Pelvis (Routine) MR#: [id number] Acct: [id number] Name: MELISA EDOUARD Rep #: [id number] : 1955 F 69 From: Radha redding MD PCP: Dr. Cristian Silveira MD Status: REG CLI Study: Pelvis (Routine) Date of Exam: 02/02/24 Exam# [id number] Ordering Dr: Cristian Silveira MD -[id number] HISTORY: Prior fall, L4 compression fracture, [...] Signed: Radha Rosales MD at 13:00 EDT Reading Location ID and State: [facility] / ID Tel , Service support , CC: Dr. Cristian Silveira MD Dag Sprayer: Signed [facility] Spine Lumbar (Routine)on Spine Lumbar (Routine) [facility] Imaging Services [address] [place] [address] Spine Lumbar (Routine) MR#: [id number] Acct: [id number] Name: MELISA EDOUARD Rep #: [id number] : 1955 F 69 From: Farzad Peguero MD PCP: Dr. Cristian Silveira MD Status: REG CLI Study: Spine Lumbar (Routine) Date of Exam: 02/02/24 Exam# [id number] Ordering Dr: Cristian Silveira MD -[id number] INDICATION: COMPRESSION FX EXAMINATION: MRI - [...] Signed: Farzad Peguero MD at 19:57 EDT , CC: Dr. Cristian Silveira MD Dag Sprayer: Signed [facility] M100.678on 02-01-2024 M100.678 Pending SARS-CoV-2 (COVID 19) Negative INFLUENZA A Negative INFLUENZA B Negative RSV PCR Negative [facility] Comment on above: Performed By: #### M 100.6795, M100.637, M100.7900, M100.6796, M600.5000, M100.0605 #### [facility] [address] [place], [address] L/S Spine Min 4 Viewson L/S Spine Min 4 Views [facility] Imaging Services [address] [place] [address] L/S Spine Min 4 Views MR#: [id number] Acct: [id number] Name: MELISA EDOUARD Rep #: [id number] : 1955 F 69 From: Coco Giang PCP: Dr. Cristian Silveira MD Status: [facility] Study: L/S Spine Min 4 Views Date of Exam: 01/09/24 Exam# [id number] Ordering Dr: Cristian Silveira MD ADDENDUM by Dr. Coco High MD on 01/10/24 at 0813 [id number] INDICATION: Low back pain, unspecified EXAMINATION/TECHNIQ [...] No paravertebral soft tissue mass identified. 01/10/24 0813 Date cc: Dr. Cristian Silveira MD * Signed ADDENDUM by Dr. Coco High MD on 01/10/24 at 0813 RAD/L/S Spine Min 4 Views IMPRESSION: L4 moderate vertebral body compression fracture of uncertain age but greater degree of compression compared to prior study. MRI may be helpful for further evaluation. Degenerative changes otherwise stable. N.B. : Anaid Valladares (MA) , OT, confirmed on 01/11/2024 15:22:50 (ET) that the healthcare facility has received the radiology report. Electronically Signed: Coco High MD at 8:13 EDT , 01/11/24 1529 Date cc: Dr. Cristian Silveira MD * Signed ACR Level 3 findings have been noted. An addendum which confirms receipt of the report will follow. [id number] INDICATION: Low back pain, unspecified EXAMINATION/TECHNIQ [...] EDT , CC: Dr. Cristian Silveira MD Dag Sprayer: Signed [facility] M100.678on 12-26-2023 M100.678 Copy of report sent to Infection Control Printer [id number] 12/26/23 1054 MLOLLO. SARS-CoV-2 (COVID 19) A Positive A INFLUENZA A Negative INFLUENZA B Negative RSV PCR Negative SARS-CoV-2 (COVID 19 PCR) [facility] Comment on above: Performed By: #### M 100.678 #### [facility] [place], [address] Absolute lymphocyte countOrd ered By: Narendra Jarrell on 08-10-2023 Lymphocytes Auto (Unsp spec) [#/Vol] 2.82 10*3/uL 0.83-4.51 [facility] Automated lymphocyte count a s percentage of total leukocytesOrdered By: Narendra Jarrell on 08-10-2023 Lymphocytes/100 WBC Auto (Unsp spec) 32.5 % 19-41 [facility] Basophil percentageOrdered B y: Narendra Jarrell on 08-10-2023 Basophils/100 WBC (Bld) 0.9 % 0-1 [facility] Chloride [Moles/Vol] 110 mmol/L 98-107 [facility] Eosinophils/100 WBC (Bld) 2.0 % 0-5 [facility] Glucose [Mass/Vol] 139 mg/dL 74-106 [facility] Comment on above: Fasting Glucose resu lt greater than or equal to 126 mg/dL suggests DIABETES MELLITUS per A.D.A. criteria. Hemoglobin (Bld) [Mass/Vol] 15.6 g/dL 12.0-15.0 [facility] Monocytes/100 WBC (Bld) 8.6 % 0-10 [facility] Neutrophils (Bld) [#/Vol] 4.9 10*3/uL 2.0-7.7 [facility] Neutrophils/100 WBC (Bld) 55.8 % 47-70 [facility] Potassium [Moles/Vol] 3.5 mmol/L 3.5-5.1 [facility] Sodium [Moles/Vol] 141 mmol/L 136-145 [facility] WBC (Bld) [#/Vol] 8.7 10*3/uL 4.4-11.0 [facility] Determination of erythrocyte mean corpuscular volume (MCV)Ordered By: Narendra Jarrell on 08-10-2023 MCV (RBC) [Entitic vol] 91.1 fL 81-99 [facility] Erythrocyte distribution wid th ratioOrdered By: Narendraguillermina Jarrell on 08-10-2023 Erythrocyte distribution width (RBC) [Ratio] 12.2 % 11.6-14.6 [facility] Erythrocyte distribution wid th standard deviationOrdered By: Narendra Jarrell on 08-10-2023 Erythrocyte distribution width (RBC) [Entitic vol] 40.9 fL 35.1-43.9 [facility] Hematocrit Auto (Bld) [Volum e fraction]Ordered By: Narendra Jarrell on 08-10-2023 Hematocrit (Bld) [Volume fraction] 47.2 % 37-47 [facility] Immature granulocytes/100 WB C Auto (Bld)Ordered By: Narendra Jarrell on 08-10-2023 Immature granulocytes/100 WBC (Bld) 0.200 % 0.0-0.9 [facility] Comment on above: IG% - Immature Granu locytes (promyelocytes, myelocytes and metamyelocytes) > 1% indicates that a LEFT SHIFT is Present. Laboratory - Chemistry and C hemistry - challengeOrdered By: Narendra Jarrell on 08-10-2023 CO2 [Moles/Vol] 25.0 mmol/L 21.0-32.0 [facility] Urea nitrogen/Creatinine [Mass ratio] 17.5 mg/mg 10-20 [facility] - Hematology and Cell countsOrdered By: Narnedra Jarrell on 08-10-2023 MCH (RBC) [Entitic mass] 30.1 pg 27.0-32.0 [facility] MCHC (RBC) [Mass/Vol] 33.1 g/dL 32-36 [facility] Nucleated RBC/100 WBC (Bld) [Ratio] 0 % 0-5 [facility] Platelet mean volume (Bld) [Entitic vol] 9.6 fL 6.2-12.0 [facility] Platelets (Bld) [#/Vol] 277 10*3/uL 150-450 [facility] No Panel InformationOrdered By: Narendra Jarrell on 08-10-2023 Estimated Creatinine Clearance Calc 69.88 ml/min [facility] Estimated GFR (MDRD) Amer 109 mL/min >60 [facility] Comment on above: GFR Calc Estimated GFR (MDRD) Non-Af Amer 90 mL/min >60 [facility] Comment on above: Non- GFR Calc Troponin I High Sensitivity 6 pg/mL 3.0-54.0 [facility] Comment on above: Please Note: New Stephie t Units and Gender Specific Reference Ranges. For more information see Policy Stat Procedure [place] High Sensitivity Troponin (TNIH) and attachments. RBC Auto (Bld) [#/Vol]Ordere d By: Narendra Jarrell on 08-10-2023 RBC (Bld) [#/Vol] 5.18 10*6/uL 4.2-5.4 [facility] Serum or plasma calcium rigoberto urement (mass/volume)Ordered By: Narendra Jarrell on 08-10-2023 Calcium [Mass/Vol] 9.2 mg/dL 8.5-10.1 [facility] Serum or plasma creatinine m easurement (mass/volume)Ordered By: Narendra Jarrell on 08-10-2023 Creatinine [Mass/Vol] 0.68 mg/dL 0.55-1.02 [facility] Comment on above: The validity of the calculated GFR & GFRAA in patients over 70 years has not been determined. Clinical correlation is essential. Serum or plasma urea nitroge n measurement (mass/volume)Ordered By: Narendra Jarrell on 08-10-2023 Urea nitrogen [Mass/Vol] 12 mg/dL 7-18 [facility] Thin prep Papanicolaou smear with manual screeningOrdered By: Narendra Jarrell on 08-10-2023 Thin prep Papanicolaou smear with manual screening 6 5-15 [facility] No Panel InformationOrdered By: Abhay Yusuf on 02-17-2024 Ethyl Alcohol Level < 3.0 mg/dL [facility] Comment on above: The serum:whole bloo d ethanol ratio is approximately 1.14and varies slightly with hematocrit. Medical Alcohol reference interval and critical value innon-tolerant individuals; 50 - 100 Impairment 100 Intoxication 100 - 250 Severe Poisoning 250 - 400 Deep/possible fatal coma Absolute lymphocyte countOrd ered By: Mike Rivera on 05-26-2023 Lymphocytes Auto (Unsp spec) [#/Vol] 2.61 10*3/uL 0.83-4.51 [facility] Activated partial thrombopla stin time (aPTT) in platelet poor plasma by coagulation aOrdered By: Mike Rivera on 05-26-2023 aPTT Coag (PPP) [Time] 25.8 s 24.1-36.2 [facility] Automated lymphocyte count a s percentage of total leukocytesOrdered By: Mike Rivera on 05-26-2023 Lymphocytes/100 WBC Auto (Unsp spec) 27.6 % 19-41 [facility] Basophil percentageOrdered B y: Abhay Yusuf on 05-26-2023 Cholesterol [Mass/Vol] 223 mg/dL <200 [facility] Comment on above: <200 mg/dL Desirable 200-240 mg/dL Borderline >240 mg/dL High Risk Triglyceride [Mass/Vol] 216 mg/dL <199 [facility] Comment on above: The drugs N-Acetylcy steine and Metamizole may falsely depress this assay.Serum Triglycerides Reference Interval Normal <150 mg/dL Borderline high 150 - 199 mg/dL High 200 - 499 mg/dL Very High > or = 500 mg/dL Basophil percentageOrdered B y: Mike Rivera on 05-26-2023 Basophils/100 WBC (Bld) 0.7 % 0-1 [facility] Chloride [Moles/Vol] 106 mmol/L 98-107 [facility] Eosinophils/100 WBC (Bld) 1.5 % 0-5 [facility] Glucose [Mass/Vol] 212 mg/dL 74-106 [facility] Comment on above: Glucose result great er than or equal to 200 mg/dLsuggests DIABETES MELLITUS per A.D.A. criteria. Hemoglobin (Bld) [Mass/Vol] 15.5 g/dL 12.0-15.0 [facility] Monocytes/100 WBC (Bld) 8.6 % 0-10 [facility] Neutrophils (Bld) [#/Vol] 5.8 10*3/uL 2.0-7.7 [facility] Neutrophils/100 WBC (Bld) 61.4 % 47-70 [facility] Potassium [Moles/Vol] 3.4 mmol/L 3.5-5.1 [facility] Sodium [Moles/Vol] 139 mmol/L 136-145 [facility] WBC (Bld) [#/Vol] 9.4 10*3/uL 4.4-11.0 [facility] Determination of erythrocyte mean corpuscular volume (MCV)Ordered By: Mike Rivera on 05-26-2023 MCV (RBC) [Entitic vol] 89.0 fL 81-99 [facility] Erythrocyte distribution wid th ratioOrdered By: Mike Rivera on 05-26-2023 Erythrocyte distribution width (RBC) [Ratio] 12.3 % 11.6-14.6 [facility] Erythrocyte distribution wid th standard deviationOrdered By: Mike Rivera on 05-26-2023 Erythrocyte distribution width (RBC) [Entitic vol] 40.2 fL 35.1-43.9 [facility] Hematocrit Auto (Bld) [Volum e fraction]Ordered By: Mike Rivera on 05-26-2023 Hematocrit (Bld) [Volume fraction] 44.7 % 37-47 [facility] Immature granulocytes/100 WB C Auto (Bld)Ordered By: Mike Rivera on 05-26-2023 Immature granulocytes/100 WBC (Bld) 0.200 % 0.0-0.9 [facility] Comment on above: IG% - Immature Granu locytes (promyelocytes, myelocytes and metamyelocytes) > 1% indicates that a LEFT SHIFT is Present. Laboratory - Chemistry and C hemistry - challengeOrdered By: Abhay Yusuf on 05-26-2023 Cholesterol in HDL [Mass/Vol] 50 mg/dL >40 [facility] Comment on above: The drugs N-Acetylcy steine and Metamizole may falsely depress this assay. Reference Range HDL <40 mg/dL Low HDL Cholesterol HDL >or= 60 mg/dL High HDL Cholesterol Cholesterol in LDL [Mass/Vol] 130 mg/dL 0-130 [facility] - Chemistry and C hemistry - challengeOrdered By: Mike Rivera on 05-26-2023 CO2 [Moles/Vol] 26.0 mmol/L 21.0-32.0 [facility] Urea nitrogen/Creatinine [Mass ratio] 15.5 mg/mg 10-20 [facility] - CoagulationOrde red By: Mike Rivera on 05-26-2023 INR Coag (Bld) [Relative time] 1.0 {INR} [facility] PT Coag (PPP) [Time] 13.3 s 11.7-14.9 [facility] Laboratory - Hematology and Cell countsOrdered By: Mike Rivera on 05-26-2023 MCH (RBC) [Entitic mass] 30.9 pg 27.0-32.0 [facility] MCHC (RBC) [Mass/Vol] 34.7 g/dL 32-36 [facility] Nucleated RBC/100 WBC (Bld) [Ratio] 0 % 0-5 [facility] Platelet mean volume (Bld) [Entitic vol] 9.5 fL 6.2-12.0 [facility] Platelets (Bld) [#/Vol] 267 10*3/uL 150-450 [facility] No Panel InformationOrdered By: Mike Rivera on 05-26-2023 Troponin I High Sensitivity 7 pg/mL 3.0-54.0 [facility] Comment on above: Please Note: New Stephie t Units and Gender Specific Reference Ranges. For more information see Policy Stat Procedure [place] High Sensitivity Troponin (TNIH) and attachments. Estimated Creatinine Clearance Calc 63.53 ml/min [facility] Estimated GFR (MDRD) Amer 87 mL/min >60 [facility] Comment on above: GFR Calc Estimated GFR (MDRD) Non-Af Amer 72 mL/min >60 [facility] Comment on above: Non- GFR Calc No Panel InformationOrdered By: Abhay Yusuf on 05-26-2023 VLDL Cholesterol 43 mg/dL 5-40 [facility] RBC Auto (Bld) [#/Vol]Ordere d By: Mike Rivera on 05-26-2023 RBC (Bld) [#/Vol] 5.02 10*6/uL 4.2-5.4 [facility] Serum or plasma calcium rigoberto urement (mass/volume)Ordered By: Mike Rivera on 05-26-2023 Calcium [Mass/Vol] 9.6 mg/dL 8.5-10.1 [facility] Serum or plasma creatinine m easurement (mass/volume)Ordered By: Mike Rivera on 05-26-2023 Creatinine [Mass/Vol] 0.84 mg/dL 0.55-1.02 [facility] Comment on above: The validity of the calculated GFR & GFRAA in patients over 70 years has not been determined. Clinical correlation is essential. Serum or plasma thyroid stim ulating hormone (TSH) measurement (units/volume)Ordered By: Abhay Yusuf on 05-26-2023 TSH Qn 1.85 uIU/mL 0.358-3.74 [facility] Serum or plasma urea nitroge n measurement (mass/volume)Ordered By: Mike Rivera on 05-26-2023 Urea nitrogen [Mass/Vol] 13 mg/dL 7-18 [facility] Thin prep Papanicolaou smear with manual screeningOrdered By: Mike Rivera on 05-26-2023 Thin prep Papanicolaou smear with manual screening 7 5-15 [facility] Absolute lymphocyte countOrd ered By: Cristian Silveira on 04-26-2023 Lymphocytes Auto (Unsp spec) [#/Vol] 2.37 10*3/uL 0.83-4.51 [facility] Automated lymphocyte count a s percentage of total leukocytesOrdered By: Cristian Silveira on 04-26-2023 Lymphocytes/100 WBC Auto (Unsp spec) 25.3 % 19-41 [facility] Basophil percentageOrdered B y: Cristian Silveira on 04-26-2023 Basophils/100 WBC (Bld) 0.9 % 0-1 [facility] Bilirubin [Mass/Vol] 0.80 mg/dL 0.20-1.00 [facility] Comment on above: For patients on eltr ombopag therapy, use of Dimension [place] TBIL is not recommended. Chloride [Moles/Vol] 106 mmol/L 98-107 [facility] Eosinophils/100 WBC (Bld) 2.0 % 0-5 [facility] Glucose [Mass/Vol] 126 mg/dL 74-106 [facility] Comment on above: Fasting Glucose resu lt greater than or equal to 126 mg/dL suggests DIABETES MELLITUS per A.D.A. criteria. Hemoglobin (Bld) [Mass/Vol] 16.1 g/dL 12.0-15.0 [facility] Monocytes/100 WBC (Bld) 7.7 % 0-10 [facility] Neutrophils (Bld) [#/Vol] 6.0 10*3/uL 2.0-7.7 [facility] Neutrophils/100 WBC (Bld) 63.5 % 47-70 [facility] Potassium [Moles/Vol] 3.7 mmol/L 3.5-5.1 [facility] Protein [Mass/Vol] 6.8 g/dL 6.4-8.2 [facility] Sodium [Moles/Vol] 136 mmol/L 136-145 [facility] WBC (Bld) [#/Vol] 9.4 10*3/uL 4.4-11.0 [facility] Determination of erythrocyte mean corpuscular volume (MCV)Ordered By: Cristian Silveira on 04-26-2023 MCV (RBC) [Entitic vol] 90.5 fL 81-99 [facility] Erythrocyte distribution wid th ratioOrdered By: Cristian Silveira on 04-26-2023 Erythrocyte distribution width (RBC) [Ratio] 12.4 % 11.6-14.6 [facility] Erythrocyte distribution wid th standard deviationOrdered By: Cristian Silveira on 04-26-2023 Erythrocyte distribution width (RBC) [Entitic vol] 41.1 fL 35.1-43.9 [facility] Hematocrit Auto (Bld) [Volum e fraction]Ordered By: Cristian Silveira on 04-26-2023 Hematocrit (Bld) [Volume fraction] 47.8 % 37-47 [facility] Immature granulocytes/100 WB C Auto (Bld)Ordered By: Cristian Silveira on 04-26-2023 Immature granulocytes/100 WBC (Bld) 0.600 % 0.0-0.9 [facility] Comment on above: IG% - Immature Granu locytes (promyelocytes, myelocytes and metamyelocytes) > 1% indicates that a LEFT SHIFT is Present. Laboratory - Chemistry and C hemistry - challengeOrdered By: Cristian Silveira on 04-26-2023 Albumin/Globulin [Mass ratio] 1.2 {ratio} 0.9-2.4 [facility] ALP [Catalytic activity/Vol] 157 U/L 45-117 [facility] ALT [Catalytic activity/Vol] 40 U/L 13-56 [facility] CO2 [Moles/Vol] 23.0 mmol/L 21.0-32.0 [facility] Globulin (S) [Mass/Vol] 3.1 g/dL 2.2-4.2 [facility] Urea nitrogen/Creatinine [Mass ratio] 23.8 mg/mg 10-20 [facility] - Hematology and Cell countsOrdered By: Cristian Silveira on 04-26-2023 MCH (RBC) [Entitic mass] 30.5 pg 27.0-32.0 [facility] MCHC (RBC) [Mass/Vol] 33.7 g/dL 32-36 [facility] Nucleated RBC/100 WBC (Bld) [Ratio] 0 % 0-5 [facility] Platelets (Bld) [#/Vol] 265 10*3/uL 150-450 [facility] No Panel InformationOrdered By: Cristian Silveira on 04-26-2023 Estimated GFR (MDRD) Amer 120 mL/min >60 [facility] Comment on above: GFR Calc Estimated GFR (MDRD) Non-Af Amer 100 mL/min >60 [facility] Comment on above: Non- GFR Calc Vitamin D 25-Hydroxy 69.6 ng/mL [facility] Comment on above: Vitamin D 25(OH) Sta tus Range Deficiency <20 ng/mL (50nmol/L) Insufficiency 20 - 30 ng/mL (50 - 75 nmol/L) Sufficiency 30 - 100 ng/mL (75 - 250 nmol/L) Toxicity >100 ng/mL (>250 nmol/L) Platelet mean volume Luciano-Ec ker (Bld) [Entitic vol]Ordered By: Cristian Silveira on 04-26-2023 Platelet mean volume (Bld) [Entitic vol] 10.2 fL 6.2-12.0 [facility] RBC Auto (Bld) [#/Vol]Ordere d By: Cristian Silveira on 04-26-2023 RBC (Bld) [#/Vol] 5.28 10*6/uL 4.2-5.4 [facility] Serum or plasma calcium rigoberto urement (mass/volume)Ordered By: Cristian Silveira on 04-26-2023 Calcium [Mass/Vol] 9.3 mg/dL 8.5-10.1 [facility] Serum or plasma creatinine m easurement (mass/volume)Ordered By: Cristian Silveira on 04-26-2023 Creatinine [Mass/Vol] 0.63 mg/dL 0.55-1.02 [facility] Comment on above: The validity of the calculated GFR & GFRAA in patients over 70 years has not been determined. Clinical correlation is essential. Serum or plasma thyroid stim ulating hormone (TSH) measurement (units/volume)Ordered By: Cristian Silveira on 04-26-2023 TSH Qn 1.53 uIU/mL 0.358-3.74 [facility] Serum or plasma urea nitroge n measurement (mass/volume)Ordered By: Cristian Silveira on 04-26-2023 Urea nitrogen [Mass/Vol] 15 mg/dL 7-18 [facility] Thin prep Papanicolaou smear with manual screeningOrdered By: Cristian Silveira on 04-26-2023 Thin prep Papanicolaou smear with manual screening 3.7 g/dL 3.2-5.0 [facility] Thin prep Papanicolaou smear with manual screening 14 U/L 15-37 [facility] Thin prep Papanicolaou smear with manual screening 7 5-15 [facility] - Microbiology an d Antimicrobial susceptibilityOrdered By: Cristian Silveira on 11-22-2022 SARS-CoV-2 (COVID-19) RNA LAURIE+probe Ql (Unsp spec) [facility] No Panel InformationOrdered By: Cristian Silveira on 11-22-2022 Influenza Types A,B Direct FA (MARCELA) [facility] RSV Ag EIAOrdered By: Cristian carey on 11-22-2022 RSV Ag Immune stain Ql (Tiss) [facility] Absolute lymphocyte countOrd ered By: Cristian Silveira on 10-24-2022 Lymphocytes Auto (Unsp spec) [#/Vol] 2.21 10*3/uL 0.83-4.51 [facility] Basophil percentageOrdered B y: Cristian Silveira on 10-24-2022 Basophils/100 WBC (Bld) 1.0 % 0-1 [facility] [facility] Bilirubin [Mass/Vol] 0.50 mg/dL 0.20-1.00 [facility] Comment on above: For patients on eltr ombopag therapy, use of Dimension [place] TBIL is not recommended. Chloride [Moles/Vol] 108 mmol/L 98-107 [facility] Eosinophils/100 WBC (Bld) 1.8 % 0-5 [facility] Glucose [Mass/Vol] 121 mg/dL 74-106 [facility] Comment on above: Fasting Glucose resu lt from 100 to 125 mg/dL suggests IMPAIRED HOMEOSTASIS per A.D.A. criteria. Neutrophils (Bld) [#/Vol] 4.0 10*3/uL 2.0-7.7 [facility] Neutrophils/100 WBC (Bld) 56.6 % 47-70 [facility] Potassium [Moles/Vol] 3.7 mmol/L 3.5-5.1 [facility] Protein [Mass/Vol] 7.1 g/dL 6.4-8.2 [facility] Sodium [Moles/Vol] 139 mmol/L 136-145 [facility] WBC (Bld) [#/Vol] 7.1 10*3/uL 4.4-11.0 [facility] Blood erythrocytes count (nu mber/volume)Ordered By: Cristian Silveira on 10-24-2022 RBC (Bld) [#/Vol] 5.10 10*6/uL 4.2-5.4 [facility] Blood hemoglobin measurement (mass/volume)Ordered By: Cristian Silveira on 10-24-2022 Hemoglobin (Bld) [Mass/Vol] 15.7 g/dL 12.0-15.0 [facility] Blood lymphocytes/100 leukoc ytesOrdered By: Cristian Silveira on 10-24-2022 Lymphocytes/100 WBC (Bld) 31.3 % 19-41 [facility] Blood monocytes/100 leukocyt esOrdered By: Cristian Silveira on 10-24-2022 Monocytes/100 WBC (Bld) 8.9 % 0-10 [facility] Blood platelet mean volumeOr dered By: Cristian Silveira on 10-24-2022 Platelet mean volume (Bld) [Entitic vol] 10.4 fL 6.2-12.0 [facility] Determination of erythrocyte mean corpuscular volume (MCV)Ordered By: Cristian Silveira on 10-24-2022 MCV (RBC) [Entitic vol] 91.6 fL 81-99 [facility] Hematocrit Auto (Bld) [Volum e fraction][facility] Hematocrit (Bld) [Volume fraction] 46.7 % 37-47 [facility] - Chemistry and C hemistry - challengeOrdered By: [facility] Raoul 10-24-2022 ALP [Catalytic activity/Vol] 84 U/L 45-117 [facility] ALT [Catalytic activity/Vol] 47 U/L 13-56 [facility] CO2 [Moles/Vol] 21.0 mmol/L 21.0-32.0 [facility] Globulin (S) [Mass/Vol] 3.4 g/dL 2.2-4.2 [facility] Urea nitrogen/Creatinine [Mass ratio] 23.7 mg/mg 10-20 [facility] - Hematology and Cell countsOrdered By: Cristian Silveira 10-24-2022 Erythrocyte distribution width (RBC) [Entitic vol] 40.5 fL 35.1-43.9 [facility] Erythrocyte distribution width (RBC) [Ratio] 12.0 % 11.6-14.6 [facility] Immature granulocytes/100 WBC (Bld) 0.400 % 0.0-0.9 [facility] Comment on above: IG% - Immature Granu locytes (promyelocytes, myelocytes and metamyelocytes) > 1% indicates that a LEFT SHIFT is Present. MCH (RBC) [Entitic mass] 30.8 pg 27.0-32.0 [facility] Nucleated RBC/100 WBC (Bld) [Ratio] 0 % 0-5 [facility] MCHC Auto (RBC) [Mass/Vol]Or dered By: Cristian Silveira on 10-24-2022 MCHC (RBC) [Mass/Vol] 33.6 g/dL 32-36 [facility] No Panel InformationOrdered By: Cristian Silveira on 10-24-2022 Estimated GFR (MDRD) Amer 120 mL/min >60 [facility] Comment on above: GFR Calc Estimated GFR (MDRD) Non-Af Amer 99 mL/min >60 [facility] Comment on above: Non- GFR Calc Thyroid Stimulating Hormone (TSH) 1.71 uIU/mL 0.358-3.74 [facility] Vitamin D 25-Hydroxy 77.0 ng/mL [facility] Comment on above: Vitamin D 25(OH) Sta tus Range Deficiency <20 ng/mL (50nmol/L) Insufficiency 20 - 30 ng/mL (50 - 75 nmol/L) Sufficiency 30 - 100 ng/mL (75 - 250 nmol/L) Toxicity >100 ng/mL (>250 nmol/L) Platelets bldOrdered By: Cristian Silveira on 10-24-2022 Platelets (Bld) [#/Vol] 271 10*3/uL 150-450 [facility] Serum or plasma albumin rigoberto urement (mass/volume)Ordered By: Cristian Silveira on 10-24-2022 Albumin [Mass/Vol] 3.7 g/dL 3.2-5.0 [facility] Serum or plasma albumin/glob ulin mass ratioOrdered By: Cristian Silveira 10-24-2022 Albumin/Globulin [Mass ratio] 1.1 {ratio} 0.9-2.4 [facility] Serum or plasma calcium rigoberto urement (mass/volume)Ordered By: Cristian Silveira on 10-24-2022 Calcium [Mass/Vol] 9.1 mg/dL 8.5-10.1 [facility] Serum or plasma creatinine m easurement (mass/volume)Ordered By: Cristian Silveira 10-24-2022 Creatinine [Mass/Vol] 0.63 mg/dL 0.55-1.02 [facility] Comment on above: The validity of the calculated GFR & GFRAA in patients over 70 years has not been determined. Clinical correlation is essential. Serum or plasma urea nitroge n measurement (mass/volume)Ordered By: Cristian Silveira on 10-24-2022 Urea nitrogen [Mass/Vol] 15 mg/dL 7-18 [facility] Thin prep Papanicolaou smear with manual screeningOrdered By: Cristian Silveira on 10-24-2022 Thin prep Papanicolaou smear with manual screening 23 U/L 15-37 [facility] Thin prep Papanicolaou smear with manual screening 10 5-15 [facility] COVID-19 virus antigen assay Ordered By: Dr. Silveira on 07-04-2022 SARS-CoV-2 (COVID-19) Ag IA.rapid Ql (Resp) Detected Not Detect [facility] Comment on above: Normal Reference Ran ge: Not DetectedMethod:(RT-PCR) real-time reverse transcriptase PCRLuminex [email or web address] Instrument*The Food and Drug Administration (FDA) has [...] on 07-04-2022 Influenza Types A,B Direct FA (MARCELA) [facility] No Panel InformationOrdered By: Dr. Silveira on 07-04-2022 Influenza Types A,B Direct FA (MARCELA) [facility] RSV Ag EIAOrdered By: Cristian carey on 07-04-2022 RSV Ag Immune stain Ql (Tiss) [facility] RSV Ag EIAOrdered By: Dr. Bekah carey on 07-04-2022 RSV Ag Immune stain Ql (Tiss) [facility] Absolute lymphocyte countOrd ered By: Dr. Silveira on 04-27-2022 Lymphocytes Auto (Unsp spec) [#/Vol] 1.65 10*3/uL 0.83-4.51 [facility] Basophil percentageOrdered B y: Dr. Silveira on 04-27-2022 Basophils/100 WBC (Bld) 0.7 % 0-1 [facility] Bilirubin [Mass/Vol] 0.80 mg/dL 0.20-1.00 [facility] Comment on above: For patients on eltr ombopag therapy, use of Dimension [place] TBIL is not recommended. Chloride [Moles/Vol] 103 mmol/L 98-107 [facility] Eosinophils/100 WBC (Bld) 1.7 % 0-5 [facility] Glucose [Mass/Vol] 57 mg/dL 74-106 [facility] Neutrophils (Bld) [#/Vol] 5.3 10*3/uL 2.0-7.7 [facility] Neutrophils/100 WBC (Bld) 65.6 % 47-70 [facility] Potassium [Moles/Vol] 3.5 mmol/L 3.5-5.1 [facility] Comment on above: Slight Hemolysis, Re sult may be falsely increased. Protein [Mass/Vol] 7.5 g/dL 6.4-8.2 [facility] Sodium [Moles/Vol] 138 mmol/L 136-145 [facility] WBC (Bld) [#/Vol] 8.1 10*3/uL 4.4-11.0 [facility] Blood erythrocytes count (nu mber/volume)Ordered By: Dr. Silveira on 04-27-2022 RBC (Bld) [#/Vol] 5.37 10*6/uL 4.2-5.4 [facility] Blood hemoglobin measurement (mass/volume)Ordered By: Dr. Silveira on 04-27-2022 Hemoglobin (Bld) [Mass/Vol] 16.3 g/dL 12.0-15.0 [facility] Blood lymphocytes/100 leukoc ytesOrdered By: Dr. Silveira on 04-27-2022 Lymphocytes/100 WBC (Bld) 20.4 % 19-41 [facility] Blood monocytes/100 leukocyt esOrdered By: Dr. Silveira on 04-27-2022 Monocytes/100 WBC (Bld) 11.2 % 0-10 [facility] Blood platelet mean volumeOr dered By: Dr. Silveira on 04-27-2022 Platelet mean volume (Bld) [Entitic vol] 10.3 fL 6.2-12.0 [facility] Determination of erythrocyte mean corpuscular volume (MCV)Ordered By: Dr. Silveira on 04-27-2022 MCV (RBC) [Entitic vol] 91.4 fL 81-99 [facility] Hematocrit Auto (Bld) [Volum e fraction]Ordered By: Dr. Silveira on 04-27-2022 Hematocrit (Bld) [Volume fraction] 49.1 % 37-47 [facility] - Chemistry and C hemistry - challengeOrdered By: Dr. Silveira on 04-27-2022 ALP [Catalytic activity/Vol] 90 U/L 45-117 [facility] ALT [Catalytic activity/Vol] 34 U/L 13-56 [facility] CO2 [Moles/Vol] 27.0 mmol/L 21.0-32.0 [facility] Globulin (S) [Mass/Vol] 3.3 g/dL 2.2-4.2 [facility] Urea nitrogen/Creatinine [Mass ratio] 23.5 mg/mg 10-20 [facility] - Hematology and Cell countsOrdered By: Dr. Silveira on 04-27-2022 Erythrocyte distribution width (RBC) [Entitic vol] 43.1 fL 35.1-43.9 [facility] Erythrocyte distribution width (RBC) [Ratio] 13.0 % 11.6-14.6 [facility] Immature granulocytes/100 WBC (Bld) 0.400 % 0.0-0.9 [facility] Comment on above: IG% - Immature Granu locytes (promyelocytes, myelocytes and metamyelocytes) > 1% indicates that a LEFT SHIFT is Present. MCH (RBC) [Entitic mass] 30.4 pg 27.0-32.0 [facility] Nucleated RBC/100 WBC (Bld) [Ratio] 0 % 0-5 [facility] MCHC Auto (RBC) [Mass/Vol]Or dered By: Dr. Silveira on 04-27-2022 MCHC (RBC) [Mass/Vol] 33.2 g/dL 32-36 [facility] No Panel InformationOrdered By: Dr. Silveira on 04-27-2022 Estimated GFR (MDRD) Amer 119 mL/min >60 [facility] Comment on above: GFR Calc Estimated GFR (MDRD) Non-Af Amer 98 mL/min >60 [facility] Comment on above: Non- GFR Calc Thyroid Stimulating Hormone (TSH) 2.18 uIU/mL 0.358-3.74 [facility] Vitamin D 25-Hydroxy 64.2 ng/mL [facility] Comment on above: Vitamin D 25(OH) Sta tus Range Deficiency <20 ng/mL (50nmol/L) Insufficiency 20 - 30 ng/mL (50 - 75 nmol/L) Sufficiency 30 - 100 ng/mL (75 - 250 nmol/L) Toxicity >100 ng/mL (>250 nmol/L) Platelets bldOrdered By: Dr. Silveira on 04-27-2022 Platelets (Bld) [#/Vol] 347 10*3/uL 150-450 [facility] Serum or plasma albumin rigoberto urement (mass/volume)Ordered By: Dr. Silveira on 04-27-2022 Albumin [Mass/Vol] 4.2 g/dL 3.2-5.0 [facility] Serum or plasma albumin/glob ulin mass ratioOrdered By: Dr. Silveira on 04-27-2022 Albumin/Globulin [Mass ratio] 1.3 {ratio} 0.9-2.4 [facility] Serum or plasma calcium rigoberto urement (mass/volume)Ordered By: Dr. Silveira on 04-27-2022 Calcium [Mass/Vol] 9.7 mg/dL 8.5-10.1 [facility] Serum or plasma creatinine m easurement (mass/volume)Ordered By: Dr. Silveira on 04-27-2022 Creatinine [Mass/Vol] 0.64 mg/dL 0.55-1.02 [facility] Comment on above: The validity of the calculated GFR & GFRAA in patients over 70 years has not been determined. Clinical correlation is essential. Serum or plasma urea nitroge n measurement (mass/volume)Ordered By: Dr. Silveira on 04-27-2022 Urea nitrogen [Mass/Vol] 15 mg/dL -18 [facility] Thin prep Papanicolaou smear with manual screeningOrdered By: Dr. Silveira on 04-27-2022 Thin prep Papanicolaou smear with manual screening 21 U/L 15-37 [facility] Comment on above: Slight Hemolysis, Re sult may be falsely increased. Thin prep Papanicolaou smear with manual screening 8 5-15 [facility] Absolute lymphocyte counton 01-03-2022 Lymphocytes Auto (Unsp spec) [#/Vol] 2.80 10*3/uL 0.83-4.51 [facility] Work Phone: Basophil percentageon 2021 Amylase [Catalytic activity/Vol] 53 U/L 25-115 [facility] Work Phone: Basophils/100 WBC (Bld) 0.8 % 0-1 [facility] Work Phone: Bilirubin [Mass/Vol] 0.70 mg/dL 0.20-1.00 [facility] Work Phone: Comment on above: For patients on eltr ombopag therapy, use of Dimension [place] TBIL is not recommended. Chloride [Moles/Vol] 104 mmol/L 98-107 [facility] Work Phone: Eosinophils/100 WBC (Bld) 1.5 % 0-5 [facility] Work Phone: Glucose [Mass/Vol] 96 mg/dL 74-106 [facility] Work Phone: Neutrophils (Bld) [#/Vol] 5.7 10*3/uL 2.0-7.7 [facility] Work Phone: Neutrophils/100 WBC (Bld) 60.4 % 47-70 [facility] Work Phone: Potassium [Moles/Vol] 3.6 mmol/L 3.5-5.1 [facility] Work Phone: Protein [Mass/Vol] 7.1 g/dL 6.4-8.2 [facility] Work Phone: Sodium [Moles/Vol] 140 mmol/L 136-145 [facility] Work Phone: WBC (Bld) [#/Vol] 9.5 10*3/uL 4.4-11.0 [facility] Work Phone: Blood erythrocytes count (nu mber/volume)on 01-03-2022 RBC (Bld) [#/Vol] 5.20 10*6/uL 4.2-5.4 [facility]: Blood hemoglobin measurement (mass/volume)on 01-03-2022 Hemoglobin (Bld) [Mass/Vol] 16.0 g/dL 12.0-15.0 [facility] Work Phone: Blood lymphocytes/100 leukoc yteson 01-03-2022 Lymphocytes/100 WBC (Bld) 29.5 % 19-41 [facility] Work Phone: Blood monocytes/100 leukocyt eson 01-03-2022 Monocytes/100 WBC (Bld) 7.3 % 0-10 [facility] Work Phone: Blood platelet mean volumeon 01-03-2022 Platelet mean volume (Bld) [Entitic vol] 10.3 fL 6.2-12.0 [facility] Work Phone: Determination of erythrocyte mean corpuscular volume (MCV)on 01-03-2022 MCV (RBC) [Entitic vol] 92.1 fL 81-99 [facility] Work Phone: Hematocrit Auto (Bld) [Volum e fraction]on 01-03-2022 Hematocrit (Bld) [Volume fraction] 47.9 % 37-47 [facility] Work Phone: Laboratory - Chemistry and C hemistry - challengeon 01-03-2022 ALP [Catalytic activity/Vol] 83 U/L 45-117 [facility] Work Phone: ALT [Catalytic activity/Vol] 43 U/L 13-56 [facility] Work Phone: CO2 [Moles/Vol] 29.0 mmol/L 21.0-32.0 [facility] Work Phone: Globulin (S) [Mass/Vol] 3.2 g/dL 2.2-4.2 [facility] Work Phone: Lipase [Catalytic activity/Vol] 146 U/L 73-393 [facility] Work Phone: Urea nitrogen/Creatinine [Mass ratio] 17.1 mg/mg 10-20 [facility] Work Phone: Laboratory - Hematology and Cell countson 01-03-2022 Erythrocyte distribution width (RBC) [Entitic vol] 41.1 fL 35.1-43.9 [facility] Work Phone: Erythrocyte distribution width (RBC) [Ratio] 12.0 % 11.6-14.6 [facility] Work Phone: Immature granulocytes/100 WBC (Bld) 0.500 % 0.0-0.9 [facility] Work Phone: Comment on above: IG% - Immature Granu locytes (promyelocytes, myelocytes and metamyelocytes) > 1% indicates that a LEFT SHIFT is Present. MCH (RBC) [Entitic mass] 30.8 pg 27.0-32.0 [facility] Work Phone: Nucleated RBC/100 WBC (Bld) [Ratio] 0 % 0-5 [facility] Work Phone: MCHC Auto (RBC) [Mass/Vol]on 01-03-2022 MCHC (RBC) [Mass/Vol] 33.4 g/dL 32-36 [facility] Work Phone: No Panel Informationon 01-03 Estimated GFR (MDRD) Amer 107 mL/min >60 [facility] Work Phone: Comment on above: GFR Calc Estimated GFR (MDRD) Non-Af Amer 88 mL/min >60 [facility] Work Phone: Comment on above: Non- GFR Calc Platelets bldon 01-03-2022 Platelets (Bld) [#/Vol] 314 10*3/uL 150-450 [facility] Work Phone: Serum or plasma albumin rigoberto urement (mass/volume)on 01-03-2022 Albumin [Mass/Vol] 3.9 g/dL 3.2-5.0 [facility] Work Phone: Serum or plasma albumin/glob ulin mass ratioon 01-03-2022 Albumin/Globulin [Mass ratio] 1.2 {ratio} 0.9-2.4 [facility] Work Phone: Serum or plasma calcium rigoberto urement (mass/volume)on 01-03-2022 Calcium [Mass/Vol] 9.4 mg/dL 8.5-10.1 [facility] Work Phone: Serum or plasma creatinine m easurement (mass/volume)on 01-03-2022 Creatinine [Mass/Vol] 0.70 mg/dL 0.55-1.02 [facility] Work Phone: Comment on above: The validity of the calculated GFR & GFRAA in patients over 70 years has not been determined. Clinical correlation is essential. Serum or plasma urea nitroge n measurement (mass/volume)on 01-03-2022 Urea nitrogen [Mass/Vol] 12 mg/dL 7-18 [facility] Work Phone: Thin prep Papanicolaou smear with manual screeningon 01-03-2022 Thin prep Papanicolaou smear with manual screening 20 U/L 15-37 [facility] Work Phone: Thin prep Papanicolaou smear with manual screening 7 5-15 [facility] Work Phone: Absolute lymphocyte counton 10-22-2021 Lymphocytes Auto (Unsp spec) [#/Vol] 2.47 10*3/uL 0.83-4.51 [facility] Work Phone: Basophil percentageon 2021 Basophils/100 WBC (Bld) 0.8 % 0-1 [facility] Work Phone: Bilirubin [Mass/Vol] 0.90 mg/dL 0.20-1.00 [facility] Work Phone: [phone] Comment on above: For patients on eltr ombopag therapy, use of Dimension [place] TBIL is not recommended. Chloride [Moles/Vol] 105 mmol/L 98-107 [facility] Work Phone: [phone] Eosinophils/100 WBC (Bld) 2.1 % 0-5 [facility] Work Phone: Glucose [Mass/Vol] 94 mg/dL 74-106 [facility] Work Phone: [phone] Neutrophils (Bld) [#/Vol] 5.2 10*3/uL 2.0-7.7 [facility] Work Phone: [phone] Neutrophils/100 WBC (Bld) 59.4 % 47-70 [facility] Work Phone: [phone] Potassium [Moles/Vol] 3.7 mmol/L 3.5-5.1 [facility] Work Phone: [phone] Protein [Mass/Vol] 7.1 g/dL 6.4-8.2 [facility] Work Phone: [phone] Sodium [Moles/Vol] 139 mmol/L 136-145 [facility] Work Phone: [phone] WBC (Bld) [#/Vol] 8.7 10*3/uL 4.4-11.0 [facility] Work Phone: [phone] Blood erythrocytes count (nu mber/volume)on 10-22-2021 RBC (Bld) [#/Vol] 5.02 10*6/uL 4.2-5.4 [facility] Work Phone: [phone] Blood hemoglobin measurement (mass/volume)on 10-22-2021 Hemoglobin (Bld) [Mass/Vol] 15.9 g/dL 12.0-15.0 [facility] Work Phone: [phone] Blood lymphocytes/100 leukoc yteson 10-22-2021 Lymphocytes/100 WBC (Bld) 28.3 % 19-41 [facility] Work Phone: Blood monocytes/100 leukocyt eson 10-22-2021 Monocytes/100 WBC (Bld) 8.9 % 0-10 [facility] Work Phone: Blood platelet mean volumeon 10-22-2021 Platelet mean volume (Bld) [Entitic vol] 10.0 fL 6.2-12.0 [facility] Work Phone: Determination of erythrocyte mean corpuscular volume (MCV)on 10-22-2021 MCV (RBC) [Entitic vol] 92.6 fL 81-99 [facility] Work Phone: Hematocrit Auto (Bld) [Volum e fraction]on 10-22-2021 Hematocrit (Bld) [Volume fraction] 46.5 % 37-47 [facility] Work Phone: Laboratory - Chemistry and C hemistry - challengeon 10-22-2021 ALP [Catalytic activity/Vol] 81 U/L 45-117 [facility] Work Phone: ALT [Catalytic activity/Vol] 46 U/L 13-56 [facility] Work Phone: CO2 [Moles/Vol] 26.0 mmol/L 21.0-32.0 [facility] Work Phone: Globulin (S) [Mass/Vol] 3.3 g/dL 2.2-4.2 [facility] Work Phone: Urea nitrogen/Creatinine [Mass ratio] 19.0 mg/mg 10-20 [facility] Work Phone: Laboratory - Hematology and Cell countson 10-22-2021 Erythrocyte distribution width (RBC) [Entitic vol] 42.3 fL 35.1-43.9 [facility] Work Phone: Erythrocyte distribution width (RBC) [Ratio] 12.5 % 11.6-14.6 [facility] Work Phone: Immature granulocytes/100 WBC (Bld) 0.500 % 0.0-0.9 [facility] Work Phone: Comment on above: IG% - Immature Granu locytes (promyelocytes, myelocytes and metamyelocytes) > 1% indicates that a LEFT SHIFT is Present. MCH (RBC) [Entitic mass] 31.7 pg 27.0-32.0 [facility] Work Phone: Nucleated RBC/100 WBC (Bld) [Ratio] 0 % 0-5 [facility] Work Phone: MCHC Auto (RBC) [Mass/Vol]on 10-22-2021 MCHC (RBC) [Mass/Vol] 34.2 g/dL 32-36 [facility] Work Phone: No Panel Informationon 10-22 Estimated GFR (MDRD) Amer 101 mL/min >60 [facility] Work Phone: Comment on above: GFR Calc Estimated GFR (MDRD) Non-Af Amer 84 mL/min >60 [facility] Work Phone: Comment on above: Non- GFR Calc Thyroid Stimulating Hormone (TSH) 2.00 uIU/mL 0.358-3.74 [facility] Work Phone: Vitamin D 25-Hydroxy 46.4 ng/mL [facility] Work Phone: Comment on above: Vitamin D 25(OH) Sta tus Range Deficiency <20 ng/mL (50nmol/L) Insufficiency 20 - 30 ng/mL (50 - 75 nmol/L) Sufficiency 30 - 100 ng/mL (75 - 250 nmol/L) Toxicity >100 ng/mL (>250 nmol/L) Platelets bldon 10-22-2021 Platelets (Bld) [#/Vol] 273 10*3/uL 150-450 [facility] Work Phone: Serum or plasma albumin rigoberto urement (mass/volume)on 10-22-2021 Albumin [Mass/Vol] 3.8 g/dL 3.2-5.0 [facility] Work Phone: Serum or plasma albumin/glob ulin mass ratioon 10-22-2021 Albumin/Globulin [Mass ratio] 1.2 {ratio} 0.9-2.4 [facility] Work Phone: Serum or plasma calcium rigoberto urement (mass/volume)on 10-22-2021 Calcium [Mass/Vol] 9.4 mg/dL 8.5-10.1 [facility] Work Phone: Serum or plasma creatinine m easurement (mass/volume)on 10-22-2021 Creatinine [Mass/Vol] 0.74 mg/dL 0.55-1.02 [facility] Work Phone: Comment on above: The validity of the calculated GFR & GFRAA in patients over 70 years has not been determined. Clinical correlation is essential. Serum or plasma urea nitroge n measurement (mass/volume)on 10-22-2021 Urea nitrogen [Mass/Vol] 14 mg/dL 7-18 [facility] Work Phone: Thin prep Papanicolaou smear with manual screeningon 10-22-2021 Thin prep Papanicolaou smear with manual screening 19 U/L 15-37 [facility] Work Phone: Thin prep Papanicolaou smear with manual screening 8 5-15 [facility] Work Phone: Laboratory - Microbiology an d Antimicrobial susceptibilityon 09-28-2021 SARS-CoV-2 (COVID-19) RNA LAURIE+probe Ql (Unsp spec) Detected Not Detect [facility] Work Phone: Comment on above: Normal Reference [...] Radiologists in Ultrasound Consensus Conference Statement. Damaris DSOUZA et al. Radiology 2015 276:3, [phone] I have personally reviewed the images of this examination and agree with the resident's findings and interpretation. Interpreted By: Wallace Martel MD Preliminary Report By: Abhay Byrne DO Electronically Signed By: Wallace Martel MD Dictated Date: 10/18/2019 3:08:12 PM Prelim Date: 10/18/2019 3:20:27 PM Sign Date: 10/18/2019 11:34:23 PM Ordering Provider:Bhupinder Matamoros [facility] ([place]) No Panel Information Influenza Types A,B Direct FA ([facility]) [facility] Work Phone: Vital Signs Date Time Vital Sign Value Performing Clinician Jose pride 07-31-2024 08:18-0400 Body mass index (BMI) [Ratio] 31.7 kg/m2 Dr. Cristian Silveira MD Work Phone: [facility] 07-31-2024 08:18-0400 Body weight 83.[address] Cristian Silveira MD Work Phone: [facility] 07-31-2024 08:18-0400 Diastolic blood pressure 86 mm[Hg] Dr. Cristian Silveira MD Work Phone: [facility] 07-31-2024 08:18-0400 Heart rate 102 /min Dr. Cristian Silveira MD Work Phone: [facility] 07-31-2024 08:18-0400 Respiratory rate 18 /min Dr. Cristian Silveira MD Work Phone: [facility] 07-31-2024 08:18-0400 Systolic blood pressure 146 mm[Hg] Dr. Cristian Silveira MD Work Phone: [facility] 07-02-2024 07:24-0400 Body mass index (BMI) [Ratio] 31.7 kg/m2 Dr. Cristian Silveira MD Work Phone: [facility] 07-02-2024 07:24-0400 Body weight 83.[address] Cristian Silveira MD Work Phone: [facility] 07-02-2024 07:24-0400 Diastolic blood pressure 98 mm[Hg] Dr. Cristian Silveira MD Work Phone: [facility] 07-02-2024 07:24-0400 Heart rate 84 /min Dr. Cristian Silveira MD Work Phone: [facility] 07-02-2024 07:24-0400 Respiratory rate 14 /min Dr. Cristian Silveira MD Work Phone: [phone] [place] [address] 07-02-2024 07:24-0400 SaO2% (BldA) [Mass fraction] 96 % Dr. Cristian Silveira MD Work Phone: [phone] [place] [address] 07-02-2024 07:24-0400 Systolic blood pressure 152 mm[Hg] Dr. Cristian Silveira MD Work Phone: [phone] [place] [address] 03-19-2024 14:21-0500 Body temperature 97.9 [degF] Dr. Cristian Silveira MD Work Phone: [phone] [place] [address] 03-19-2024 14:21-0500 Diastolic blood pressure 70 mm[Hg] Dr. Cristian Silveira MD Work Phone: [phone] [place] [address] 03-19-2024 14:21-0500 Heart rate 78 /min Dr. Cristian Silveira MD Work Phone: [phone] [place] [address] 03-19-2024 14:21-0500 Respiratory rate 16 /min Dr. Cristian Silveira MD Work Phone: [phone] [place] [address] 03-19-2024 14:21-0500 SaO2% (BldA) [Mass fraction] 95 % Dr. Cristian Silveira MD Work Phone: [phone] [place] [address] 03-19-2024 14:21-0500 Systolic blood pressure 132 mm[Hg] Dr. Cristian Silveira MD Work Phone: [phone] [place] [address] 03-19-2024 11:36-0500 Body height 162.[address] Cristian Silveira MD Work Phone: [phone] [address] [place] [address] 03-19-2024 11:36-0500 Body mass index (BMI) [Ratio] 31 kg/m2 Dr. Cristian Silveira MD Work Phone: 2(679)136-537091 [place] [address] 03-19-2024 11:36-0500 Body weight 82.[address] Cristian Silveira MD Work Phone: [facility] 03-15-2024 09:12-0500 Body mass index (BMI) [Ratio] 31.6 kg/m2 Dr. Cristian Silveira MD Work Phone: [facility] 03-15-2024 09:12-0500 Body weight 83.[address] Cristian Silveira MD Work Phone: [facility] 03-15-2024 09:12-0500 Diastolic blood pressure 88 mm[Hg] Dr. Cristian Silveira MD Work Phone: [facility] 03-15-2024 09:12-0500 Systolic blood pressure 158 mm[Hg] Dr. Cristian Silveira MD Work Phone: 5(322)563-763722 [place] [address] 08-10-2023 04:07-0400 Body temperature 97.6 [degF] Dr. Cristian Silveira Work Phone: 6(667)915-531122 [place] [address] 08-10-2023 04:07-0400 Diastolic blood pressure 72 mm[Hg] Dr. Cristian Silveira Work Phone: [facility] 08-10-2023 04:07-0400 Heart rate 66 /min Dr. Cristian Silveira Work Phone: [facility] 08-10-2023 04:07-0400 Respiratory rate 18 /min Dr. Cristian Silveira Work Phone: [facility] 08-10-2023 04:07-0400 SaO2% (BldA) [Mass fraction] 98 % Dr. Cristian Silveira Work Phone: [facility] 08-10-2023 04:07-0400 Systolic blood pressure 146 mm[Hg] Dr. Cristian Silveira Work Phone: [facility] 08-10-2023 01:45-0400 Body height 162.[address] Cristian Silveira Work Phone: [facility] 08-10-2023 01:45-0400 Body mass index (BMI) [Ratio] 32 kg/m2 Dr. Cristian Silveira Work Phone: [facility] 08-10-2023 01:45-0400 Body weight 84.[address] Cristian Silveira Work Phone: 6(085)712-515622 [place] [address] 07-05-2023 15:00-0400 Body mass index (BMI) [Ratio] 31.8 kg/m2 Dr. Cristian Silveira Work Phone: 8(009)945-353122 [place] [address] 07-05-2023 15:00-0400 Body weight 84.[address] Cristian Silveira Work Phone: 8(211)614-443422 [place] [address] 07-05-2023 15:00-0400 Diastolic blood pressure 76 mm[Hg] Dr. Cristian Silveira Work Phone: 3(837)045-105422 [place] [address] 07-05-2023 15:00-0400 Heart rate 66 /min Dr. Cristian Silveira Work Phone: 0(262)347-383422 [place] [address] 07-05-2023 15:00-0400 Respiratory rate 16 /min Dr. Cristian Silveira Work Phone: 7(029)512-742022 [place] [address] 07-05-2023 15:00-0400 Systolic blood pressure 150 mm[Hg] Dr. Cristian Silveira Work Phone: 6(223)335-657422 [place] [address] 05-27-2023 16:40-0500 Body temperature 97.3 [degF] Dr. Cristian Silveira Work Phone: 7(993)466-271722 [place] [address] 05-27-2023 16:40-0500 Diastolic blood pressure 80 mm[Hg] Dr. Cristian Silveira Work Phone: 0(123)350-156522 [place] [address] 05-27-2023 16:40-0500 Heart rate 75 /min Dr. Cristian Silveira Work Phone: 1(610)371-009922 [place] [address] 05-27-2023 16:40-0500 Respiratory rate 16 /min Dr. Cristian Silveira Work Phone: 4(101)343-680622 [place] [address] 05-27-2023 16:40-0500 SaO2% (BldA) [Mass fraction] 96 % Dr. Cristian Silveira Work Phone: 9(041)605-632222 [place] [address] 05-27-2023 16:40-0500 Systolic blood pressure 137 mm[Hg] Dr. Cristian Silveira Work Phone: [facility] 05-27-2023 15:45-0500 Body mass index (BMI) [Ratio] 31.4 kg/m2 Dr. Cristian Silveira Work Phone: [facility] 05-27-2023 13:51-0500 Body height 162.[address] Cristian Silveira Work Phone: [facility] 05-27-2023 13:51-0500 Body weight [address] Cristian Silveira Work Phone: [facility] 05-27-2023 00:18-0500 Body temperature 97.8 [degF] [facility] 05-27-2023 00:18-0500 Diastolic blood pressure 79 mm[Hg] [facility] 05-27-2023 00:18-0500 Heart rate 78 /min [facility] 05-27-2023 00:18-0500 Respiratory rate 16 /min [facility] 05-27-2023 00:18-0500 SaO2% (BldA) [Mass fraction] 94 % [facility] 05-27-2023 00:18-0500 Systolic blood pressure 152 mm[Hg] [facility] 05-26-2023 20:03-0500 Body height 162.56 cm [facility] 05-26-2023 20:03-0500 Body mass index (BMI) [Ratio] 29.2 kg/m2 [facility] 05-26-2023 20:03-0500 Body weight 77.11 kg [facility] 11-02-2022 08:24-0400 Body height 163.[address] Cristian Silveira Work Phone: [facility] 11-02-2022 08:24-0400 Body mass index (BMI) [Ratio] 31.5 kg/m2 Dr. Cristian Silveira Work Phone: [facility] 11-02-2022 08:24-0400 Body temperature 98 [degF] Dr. Cristian Silveira Work Phone: [facility] 11-02-2022 08:24-0400 Body weight 84.[address] Cristian Silveira Work Phone: [facility] 11-02-2022 08:24-0400 Diastolic blood pressure 82 mm[Hg] Dr. Cristian Silveira Work Phone: [facility] 11-02-2022 08:24-0400 Heart rate 90 /min Dr. Cristian Silveira Work Phone: [facility] 11-02-2022 08:24-0400 Respiratory rate 18 /min Dr. Cristian Silveira Work Phone: [facility] 11-02-2022 08:24-0400 SaO2% (BldA) [Mass fraction] 94 % Dr. Cristian Silveira Work Phone: [facility] 11-02-2022 08:24-0400 Systolic blood pressure 138 mm[Hg] Dr. Cristian Silveira Work Phone: [facility] Encounters Encounter Date Encounter Type Care Provider Facility Start: 01-22-2025 ambulatory Cristian Chi Raoul Facility:[facility] Start: 12-25-2024 ambulatory Cristian Chi Raoul Facility:[facility] Start: 12-16-2024 ambulatory Cristian Chi Raoul Facility:[facility] Start: 11-14-2024 End: 11-14-[address] Cristian Silveira MD Work Phone: -Ultrasound [facility] Start: 11-14-2024 End: 11-14-[address] Cristian Silveira MD -Ultrasound [facility] Work Phone: Start: 11-14-2024 End: 11-14-2024 ambulatory Cristian Chi Raoul Facility:[facility] Start: 10-30-2024 End: 10-30-[address] Cristian Silveira MD Work Phone: -Laboratory Phy Office 3rd Flr Start: 10-30-2024 End: 10-30-[address] Cristian Silveira MD -Laboratory Phy Office 3rd Flr Start: 10-30-2024 End: 10-30-2024 ambulatory Cristian Delfino Silveira Facility:[facility] Start: 08-14-2024 End: 08-14-[address] Cristian Silveira MD Work Phone: [facility] Work Phone: Start: 08-14-2024 End: 08-14-[address] Cristian Silveira MD -Radiology, [facility] Work Phone: Start: 08-14-2024 End: 08-14-2024 ambulatory Cristian Delfino Silveira Facility:[facility] Start: 08-06-2024 End: 08-06-2024 Patient encounter procedure Bruno BERRY -Laboratory Work Phone: Start: 08-06-2024 End: 08-06-2024 ambulatory Cristian [facility] Raoul Facility:[facility] Start: 07-31-2024 End: 07-31-2024 Patient encounter procedure Bruno BERRY -[facility] Work Phone: Start: 07-31-2024 End: 07-31-2024 ambulatory Cristian Silveira Facility:[facility] Start: 07-19-2024 End: 07-19-[address] Cristian Silveira MD Work Phone: [facility] Work Phone: Start: 07-19-2024 End: 07-19-[address] Cristian Silveira MD -Laboratory, Specimen Work Phone: Start: 07-18-2024 End: 07-19-[address] Cristian Silveira MD Work Phone: [facility] Work Phone: Start: 07-18-2024 End: 07-18-[address] Cristian Silveira MD -Radiology, [facility] Work Phone: Start: 07-18-2024 End: 07-18-2024 ambulatory Cristian Chi Raoul Facility:[facility] Start: 07-04-2024 ambulatory Cristian [facility] Facility:[facility] Start: 07-02-2024 End: 07-02-2024 Patient encounter procedure Hallie BERRY -[facility] Work Phone: Start: 07-02-2024 End: 07-02-2024 ambulatory Cristian Chi Raoul Facility:[facility] Start: 06-13-2024 End: 06-13-[address] Cristian Silveira MD Work Phone: [facility] Work Phone: Start: 06-13-2024 End: 06-13-[address] Cristian Silveira MD -Outpatient Breast Imaging Work Phone: Start: 06-13-2024 End: 06-13-2024 ambulatory Cristian Chi Raoul Facility:[facility] Start: 05-15-2024 End: 05-15-[address] Cristian Silveira MD -Pulmonary Services/Neurology Work Phone: Start: 05-15-2024 End: 05-15-2024 ambulatory Cristian Chi Raoul Facility:[facility] Start: 04-17-2024 End: 04-17-[address] Cristian Silveira MD -Laboratory Work Phone: Start: 04-17-2024 End: 04-17-2024 ambulatory Cristian Chi Raoul Facility:[facility] Start: 04-11-2024 ambulatory Cristian Chi Raoul Facility:[facility] Start: 03-19-2024 ambulatory Cristian Chi Raoul Facility:[facility] Start: 03-19-2024 Non-patient / Non-visit Dr. Adolfo Butterfield DO -[facility] Start: 03-19-2024 End: 03-19-2024 Admission to same day surgery center Dr. Sammie Butterfield DO -[facility] Start: 03-19-2024 End: 03-19-2024 ambulatory Cristian Chi Raoul Facility:[facility] Start: 03-18-2024 End: 03-18-2024 ambulatory Cristian Chi Raoul Facility:[facility] Start: 03-18-2024 End: 03-18-2024 Non-patient / Non-visit Dr. Roscoe Alonzo MD -[facility] Work Phone: Start: 03-15-2024 End: 03-15-[address] Sammie Butterfield DO -[facility] Work Phone: Start: 03-15-2024 End: 03-15-2024 ambulatory Cristian Chi Raoul Facility:[facility] Start: 03-12-2024 End: 03-12-2024 ambulatory Cristian Chi Raoul Facility:[facility] Start: 03-12-[address] Cristian castillo MD -Physical Therapy Work Phone: Start: 02-12-2024 End: 02-12-2024 ambulatory Cristian Chi Raoul Facility:[facility] Start: 02-02-2024 End: 02-02-2024 ambulatory Cristian Chi Raoul Facility:[facility] Start: 02-01-2024 End: 02-01-2024 ambulatory Cristian Chi Raoul Facility:[facility] Start: 01-09-2024 End: 01-09-2024 ambulatory Cristian Chi Raoul Facility:[facility] Start: 12-26-2023 End: 12-26-2023 ambulatory Cristian Chi Raoul Facility:[facility] Start: 08-10-2023 End: 08-10-2023 Emergency department patient visit Dr. Cristian Silveira Work Phone: [facility]-Emergency Department Work Phone: Start: 07-05-2023 End: 07-05-[address] Cristian Silveira Work Phone: [facility] Work Phone: Start: 06-19-[address] Cristian carey Work Phone: [facility]-Cardiovascular Services Work Phone: Start: 06-19-2023 Non-patient / Non-visit Dr. Vadim Silveira Work Phone: [facility] Work Phone: Start: 06-12-2023 End: 06-12-[address] Cristian Silveira Work Phone: [facility] Work Phone: Start: 06-12-2023 End: 06-12-[address] Cristian Silveira Work Phone: [facility]-Outpatient Breast Imaging Work Phone: Start: 06-01-2023 Non-patient / Non-visit Dr. Vadim Silveira Work Phone: [facility] Start: 06-01-2023 End: 06-01-[address] Cristian Silviera Work Phone: [facility] Work Phone: Start: 06-01-2023 End: 06-01-[address] Cristian Silveira Work Phone: [facility]-Cardiovascular Services Work Phone: Start: 05-30-2023 End: 05-30-[address] Cristian Silveira Work Phone: [facility] Work Phone: Start: 05-30-2023 End: 05-30-[address] Cristian Silveira Work Phone: [facility], [facility] Work Phone: Start: 05-27-2023 Non-patient / Non-visit Dr. Vadim Silveira Work Phone: [facility] Work Phone: Start: 05-27-2023 Non-patient / Non-visit Dr. Vadim Silveira Work Phone: [facility] Start: 05-27-2023 End: 05-27-2023 Evaluation and management of inpatient Dr. Cristian Silveira Work Phone: [facility]-Progressive Care Unit Work Phone: Start: 05-27-2023 End: 05-27-[address] Cristian Silveira Work Phone: [facility] Work Phone: Start: 05-27-2023 Evaluation and management of inpatient [facility]-Progressive Care Unit Work Phone: Start: 05-27-2023 observation encounter [facility] Work Phone: Start: 05-18-2023 End: 05-18-2023 ambulatory [facility] Work Phone: Start: 05-18-2023 End: 05-18-2023 Patient encounter procedure [facility]-Outpatient Bone Densitometry Work Phone: Start: 05-15-2023 End: 05-15-2023 ambulatory [facility] Work Phone: Start: 05-15-2023 End: 05-15-2023 Discharged Recurring [facility]-Physical Therapy Work Phone: Start: 04-26-2023 Registered Recurring [facility]-Physical Therapy Work Phone: Start: 04-26-2023 End: 04-26-2023 ambulatory [facility] Work Phone: Start: 04-26-2023 End: 04-26-2023 Patient encounter procedure [facility]-Laboratory, Phy Office 3rd Flr Start: 04-13-2023 End: 04-13-2023 ambulatory [facility] Work Phone: Start: 04-13-2023 End: 04-13-2023 Patient encounter procedure [facility]-Radiology, [facility] Work Phone: Start: 11-22-2022 End: 11-22-[address] Cristian Silveira Work Phone: [facility] Work Phone: Start: 11-22-2022 End: 11-22-[address] Cristian Silveira Work Phone: [facility]-Pulmonary Services/Neurology Work Phone: Start: 11-02-2022 End: 11-02-[address] Cristian Silveira Work Phone: [facility] Work Phone: Start: 10-24-2022 End: 10-24-2022 ambulatory [facility] Work Phone: Start: 10-24-2022 End: 10-24-2022 Patient encounter procedure [facility]-Laboratory, Phy Office 3rd Flr Start: 07-04-2022 End: 07-04-2022 ambulatory [facility] Work Phone: Start: 07-04-2022 End: 07-04-2022 Patient encounter procedure [facility]-Pulmonary Services/Neurology Start: 06-10-2022 End: 06-10-2022 ambulatory [facility] Work Phone: Start: 06-10-2022 End: 06-10-2022 Discharged Recurring [facility]-Physical Therapy Start: 06-10-2022 Registered Recurring [facility]-Physical Therapy Start: 06-09-2022 End: 06-09-2022 ambulatory [facility] Work Phone: Start: 06-09-2022 End: 06-09-2022 Patient encounter procedure [facility]-Outpatient Breast Imaging Start: 05-07-2022 End: 05-07-2022 ambulatory [facility] Work Phone: Start: 05-07-2022 End: 05-07-2022 Patient encounter procedure [facility]-MRI - [facility] Start: 04-27-2022 End: 04-27-2022 ambulatory [facility] Work Phone: Start: 04-27-2022 End: 04-27-2022 Patient encounter procedure [facility]-Laboratory, Phy Office 3rd Flr Start: 03-30-2022 End: 03-30-2022 Patient encounter procedure [facility]-Radiology, [facility] Start: 01-14-2022 End: 01-14-2022 ambulatory [facility] Work Phone: Start: 01-14-2022 End: 01-14-2022 Patient encounter procedure [facility]-Ultrasound, [facility] Start: 01-06-2022 End: 01-06-2022 ambulatory [facility] Work Phone: Start: 01-06-2022 End: 01-06-2022 Patient encounter procedure [facility]-Ultrasound, [facility] Start: 01-03-2022 End: 01-03-2022 Patient encounter procedure [facility]-Laboratory, Phy Office 3rd Flr Start: 10-22-2021 End: 10-22-2021 Patient encounter procedure [facility]-Laboratory, Phy Office 3rd Flr Start: 09-28-2021 End: 09-28-2021 Patient encounter procedure [facility]-Pulmonary Services/Neurology Start: 06-07-2021 Registered Recurring [facility]-Massage Therapy, [address] Start: 06-07-2021 End: 06-07-2021 Patient encounter procedure [facility]-Outpatient Breast Imaging Procedures Date Procedure Procedure Detail Performing Clinician Start: 11-14-2024 Ultrasound elastogra phy of liver Dr. Cristian Silveira MD Work Phone: Start: 10-30-2024 Vitamin D, 25-hydrox y measurement [...] Work Phone: Start: 06-13-2024 Screening mammography D keturah Silveira MD Work Phone: Start: 05-15-2024 SARS-CoV-2, [...] 07-19-2024 Ova and Parasites Ova and Parasites [facility] Start: 03-19-2024 Procedure discontinued [facility] Start: 03-19-2024 Ambulation without limitation [facility] Start: 03-19-2024 Anes hysteroscopy&/hysterosalpi ngography w/bx ANESTH HYSTEROSCOPE/GRAPH [facility] Start: 03-19-2024 Hysteroscopy bx endometrium&/polypc w/wo d&c HYSTEROSCOPY BIOPSY [facility] Start: 03-19-2024 Medical regimen orders management [facility] Start: 03-19-2024 Medication education [facility] Start: 03-19-2024 Taking patient vital signs [facility] Start: 03-19-2024 Vital signs measurements [facility] Start: 03-19-2024 [facility] Start: 03-19-2024 Patient discharge [facility] Start: 08-10-2023 [facility] Start: 05-28-2023 Vital signs measurements [facility] Start: 05-27-2023 Patient discharge [facility] Start: 05-27-2023 Following clinical pathway protocol [facility] Start: 05-27-2023 Cardiac monitoring [facility] Start: 05-27-2023 Catheterization of vein [facility] Start: 05-27-2023 Continuous pulse oximetry [facility] Start: 05-27-2023 Elevation of head of bed [facility] Start: 05-27-2023 Exercises [facility] Start: 05-27-2023 Implementation of planned interventions [facility] Start: 05-27-2023 Notification of physician [facility] Start: 05-27-2023 Oxygen therapy [facility] Start: 05-27-2023 Patient referral to dietitian [facility] Start: 05-27-2023 Referral to occupational therapist [facility] Start: 05-27-2023 Referral to service [facility] Start: 05-27-2023 Speech therapy assessment [facility] Start: 05-27-2023 Telemedicine consultation with patient [facility] Start: 05-27-2023 Tobacco use cessation education [facility] Start: 05-27-2023 [facility] Start: 05-27-2023 Vital signs measurements [facility] Start: 05-27-2023 Magnetic resonance angiography of neck without contrast MRA Neck without Contrast [facility] Start: 05-27-2023 Thyroid stimulating hormone measurement [facility] Start: 05-27-2023 Admission procedure [facility] Start: 05-27-2023 Hospital admission, emergency, from emergency room, medical nature [facility] Amphetamine [Mass/vo lume] in Urine [facility] Benzodiazepine measurement, urine [facility] Cocaine measurement, urine [facility] Ethanol [Mass/volume ] in Serum or Plasma [facility] Measurement of 3,4-methylenedioxymethamph etamine in urine [facility] Methadone measuremen t, urine [facility] Ova OR parasites identification [facility] Patient Education [facility] ED Palpitations [facility] Work Phone: Patient referral [facility] Work Phone: pH of Urine [facility] Phencyclidine [Prese nce] in Urine [facility] Thyroid stimulating hormone measurement [facility] Urine barbiturate measurement [facility] Urine cannabinoid measurement [facility] Urine opiate measurement [facility] Immunizations Immunization Date Immunization Notes Care Provider Marcelina del angel 07-02-2020 Covid (Pfizer) [facility] 06-11-2020 Covid (Pfizer) [facility] Payers Date Payer Category Payer Self-pay [id number] 2018 Medicare [id number] 2015 Unknown [id number] Unknown [id number] 2.16.8 [id number] Unknown [id number] 2.16.8 40.1.300788.3.579.2.462 Unknown [id number] 2.16.8 40.1.484449.3.579.2.462 Unknown [id number] 2.16.8 40.1.597647.3.579.2.462 Unknown [id number] 2.16.8 40.1.751855.3.579.2.462 Unknown [id number] 2.16.8 40.1.064913.3.579.2.462 Unknown [id number] 2.16.8 40.1.680162.3.579.2.462 Unknown [id number] 2.16.8 40.1.061961.3.579.2.462 Unknown [id number] 2.16.8 40.1.570374.3.579.2.462 Unknown [id number] 2.16.8 40.1.968173.3.579.2.462 Unknown [id number] 2.16.8 40.1.722312.3.579.2.462 Unknown [id number] 2.16.8 40.1.924371.3.579.2.462 Unknown [id number] 2.16.8 40.1.480967.3.579.2.462 Unknown [id number] 2.16.8 40.1.714728.3.579.2.462 Unknown [id number] 2.16.8 40.1.240292.3.579.2.462 Unknown [id number] 2.16.8 40.1.619764.3.579.2.462 Unknown [id number] 2.16.8 40.1.681285.3.579.2.462 Unknown [id number] 2.16.8 40.1.807436.3.579.2.462 Unknown [id number] 2.16.8 40.1.340844.3.579.2.462 Unknown [id number] 2.16.8 40.1.633530.3.579.2.462 Unknown [id number] 2.16.8 40.1.446770.3.579.2.462 Unknown [id number] 2.16.8 40.1.570717.3.579.2.462 Unknown [id number] 2.16.8 40.1.157068.3.579.2.462 Unknown [id number] 2.16.8 40.1.674241.3.579.2.462 Unknown [id number] 2.16.8 40.1.249466.3.579.2.462 Unknown [id number] 2.16.8 40.1.050214.3.579.2.462 Social History Date Type Detail Facility Start: 01-06-2021 End: 11-02-2022 Tobacco smoking status NHIS Unknown if ever smoked [facility] Start: 1955 Sex Assigned At Female [facility] Start: 03-15-2024 End: 08-02-2024 Tobacco smoking status NHIS Never smoked tobacco (finding) [facility] Start: 06-25-2024 End: 07-24-2024 Sex Female (finding) [facility] NEGATED: Highlighted row Not [facility] Goals Date Patient Goal Desired Activity /State Functional Status Date Assessment Result Facility 05-27-2023 Functional status Ambulates;Bathroom Priv ilege [facility] Work Phone: Mental Status Date Assessment Result Facility 03-19-2024 Cognitive function Voice/Name [facility] Work Phone: 08-10-2023 Cognitive function Voice/Name [facility] Work Phone: 05-27-2023 Cognitive function Voice/Name [facility] Work Phone: Clinical Notes 06-10-2022 to 11-14-2024 Note Date & Type Note Facility 11-14-2024 Radiology Diagnostic study note [facility] Imaging Services [address] [place], [place] [address] ABD Limited w/ Elastography MR#: [id number] Acct: [id number] Name: MELISA EDOUARD Rep #: [id number] : 1955 F 69 From: Diogenes Camara MD PCP: Dr. Cristian Silveira MD Status: REG C LI Study:ABD Limited w/ Elastography Date of Exa m: 11/14/24 Exam# [id number] Ordering Dr: Cristian Silveira MD PROCEDURE: ABD LIMITED W/ ELASTOGRAPHY REASON FOR EXAM: HEPATIC FIBROSIS COMPARISON: None. TECHNIQUE: Right upper quadrant abdominal ultrasound. Iván ElastQ Imaging shear wave elastography for non-invasive assessment of liver tissue stiffness. Iván EPIQ Elite. FINDINGS: LIVER: Size: Unremarkable Length: 13.6 cm Echotexture: Diffusely echogenic suggesting fatty infiltration Contour: Normal Lesions: None identified Elastography: EQI Med: 11.7 kPa EQI Med Jr: 1.9 cm m/s IQR/Med: 26 %* GALLBLADDER: No stones sludge wall thickening or tenderness. COMMON BILE DUCT: Normal measuring 4 mm . PANCREAS: Normal Visualized portions of the right kidney are unremarkable. No right upper quadrant ascites. US/ABD Limited w/ Elastography IMPRESSION: SEVERE HEPATIC FIBROSIS / CIRRHOSIS Diffuse fatty infiltration of the liver. Reference Values: SRU <1.37 m/s (5.7kPa): No to mild fibrosis 1.37 m/s - 2.2 m/s: Moderate to severe fibrosis >2.2 m/s (15kPa): Significant fibrosis / cirrhosis METAVIR Score F2 or higher: 1.34 m/s (5.7kPa) F3 or higher: 1.55 m/s (7.3kPa) F4: 1.80 m/s (10kPa) * If the IQR/Med is >30%, the variance in the measurements is a large and the accuracy of the measurement may be in question. Reading Location: [id number] CC: Dr. Cristian Silveira MD ~ Dag Sprayer: Signed [facility] 08-15-2024 Radiology Diagnostic study note [facility] Imaging Services [address] [place] [id number] Chest PA and Lateral MR#: [id number] Acct: [id number] Name: MELISA EDOUARD Rep #: [id number] : 1955 F 69 From: Sai Lou MD PCP: Dr. Cristian Silveira MD Status: REG C LI Study:Chest PA and Lateral Date of Exam: 08/14/24 Exam# [id number] Ordering Dr: Cristian Silveira MD PROCEDURE: CHEST [...] No evidence of acute disease. Reading Location: [facility] CC: Dr. Cristian Silveira MD ~ Dag Sprayer: Signed [facility] 07-31-2024 Evaluation note Diagnosis Onset Date Resolution Cryptogenic stroke chronic July 31, 2024 12:46pm Hypertension chronic July 31, 2024 12:46pm [facility] Work Phone: 1(344) 688-768304-11-2025 Radiology Diagnostic study note [facility] Imaging Services [address] [place] [id number] Abd Inc Decub and/or Erect MR#: [id number] Acct: [id number] Name: MELISA EDOUARD Rep #: [id number] : 1955 F 69 From: Heather Hillman MD PCP: Dr. Cristian Silveira MD Status: REG C KT Study:Abd Inc Decub and/or Erect Date of Exam : 07/18/24 Exam# [id number] Ordering Dr: Cristian Silveira MD PROCEDURE: ABD INC DECUB AND/OR ERECT 07/18/2024 REASON FOR EXAM: FDFECAL IMPACTION TECHNIQUE: Single view abdomen. COMPARISON: None available FINDINGS: Bowel gas: Nonobstructive bowel gas pattern Calcifications: Vascular phleboliths projecting over the pelvis. Bones: No acute displaced fracture or dislocation. Other: None RAD/Abd Inc Decub and/or Erect IMPRESSION: Nonobstructive bowel gas pattern Reading Location: [id number] CC: Dr. Cristian Silveira MD ~ Dag Sprayer: Signed [facility]03-25-2025 Evaluation note* Diagnosis Onset Date Resolution Status Admit Date Cryptogenic stroke acute July 02, 2024 11:20am Elevated blood pressure read ing without diagnosis of hypertension acute July 02, 2024 11:20am [facility] Work Phone: 1(894) 663-199203-25-2025 Evaluation note* Diagnosis Onset Date Resolution Status Admit Date Elevated blood pressure read ing without diagnosis of hypertension acute July 02, 2024 11:20am Cryptogenic stroke chronic July 02, 2024 11:20am Cryptogenic stroke chronic July 31, 2024 12:46pm Hypertension chronic July 31, 2024 12:46pm [facility] Work Phone: 1(885) 246-513612-10-2024 [facility] Medical Records Department [address] [place] [address] History Physical Exam 03/19/24 1233 MR#: [id number] Acct: [id number] Name: MELISA EDOUARD Rep #: [id number] : 1955 69 From: Sammie Butterfield DO PCP: Dr. 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 Date Nam (more content not included)...[facility]12-06-2024 Evaluation note* Diagnosis Onset Date Resolution Status Admit Date Endometrial thickening on ultrasound acute March 15 9:11am Endometrial thickening on ultrasound acute March 19 024 11:19am Malignant neoplasm of unspecified part of unspecified bronchus or lung acute Mar 11:19am [facility] Work Phone: 1(999) 897-913105-02-2024 Discharge summary Author Narendra Jarrell [facility] August 10, 2023 3:45am Note Date/Time August 10, 2023 2:08am [facility] Medical Records Department [address] [place] [address] Emergency Department Summary 08/10/23 MR#: [id number] Acct: [id number] Name: MELISA EDOUARD Rep #:[id number] : 1955 68 From: Narendra Jarrell MD [...] of A-fib. She has no cardiac history. [facility] Medical History Chronic GERD Compression fracture of [...] DAILY 06/09/23 [History Last Taken Unknown] glucosamine GZv-O7-Gnlkfbbeg yan 1,500 mg-400 unit-100 mg tablet (Osteo [...] % (Auto) 55.8 Lymph % (Auto) 32.5 Stevens % (Auto) 8.6 Eos % (Auto) 2.0 [...] Action multivitamin Tablet 1 tab PO DAILY auvffaayysz-I6-Sigvtmhyu serr [Osteo Bi-Flex (5-Loxin)] 1,500-400-100 mg-unit-mg tablet [...] your Primary Care Provider. Call [facility] ([phone]) or report to the closest Emergency Room. Call 911 if necessary. 08/10/23 0345 <Electronically signed by Narendra Jarrell MD> Cosigner Signature (if applicable): CC: Dr. Roscoe Alonoz MD; Dr. Cristian Silveira MD ~ Signed [facility] Work Phone: 1(420) 915-176202-17-2024 Consult note Author Ilda Miller [facility] May 27, 2023 11:09am Note Date/Time May 27, 2023 11:04am [facility] Medical Records Department [facility] [place] [address] Consultation - Neurology 05/27/23 1103 MR#: [id number] Acct: [id number] Name: MELISA EDOUARD Rep #:[id number] : 1955 68 From: Ilda romero MD PCP: Dr. Cristian Silveira MD Status:ADM I NO Location: [place] [address] Assessment and Plan: Neuro Assessment/Plan MELISA EDOUARD [...] intensity statin vascular risk modification Transfer to [facility] for the following reasons: I personally [...] episode lasted for 5-10 seconds and resoled [facility] Medical History COVID-19 DDD (degenerative disc disease), lumbar Environmental allergies History of lung cancer IBS (irritable bowel syndrome) Home Medications ivermectin 1 % topical cream (Soolantra) 30 g TP DAILY 11/07/16 [History Last Taken Unknown] linaclotide 72 mcg capsule (Linzess) 72 mcg PO DAILY 11/07/16 [History Last Taken Unknown] loratadine 10 mg tablet (Allergy Relief (loratadine)) 10 mg PO PRN PRN Rscnvdxgx76/31/17 [History Last Taken Unknown] cholecalciferol (vitamin D3) [...] 4 Status: Active hours and PRN Freq: [id number] Protocol: Activity Type Activity Date Activity User [...] % (Auto) 61.4, Lymph % (Auto) 27.6, Stevens % (Auto) 8.6, Eos % (Auto) 1.5, [...] 05/27/23 02:11 05/27/23 02:56 IV 70 mls/hr .[id number] JAN Administration Sodium Chloride 250 mls @ 15 mls/hr 05/27/23 02:28 IV .[id number] PRN Additional IVPB Infusion Sodium Chloride 250 mls @ 15 mls/hr 05/27/23 02:28 IV .[id number] PRN Saline Flush Loratadine 10 mg 05/27/23 [...] Cece Liriano DO; Marta Sinclair MD~ Signed [facility] Work Phone: 1(258) 408-504702-17-2024 History and physical note Author Abhay Yusuf [facility] May 27, 2023 7:43am Note Date/Time May 26, 2023 11:54pm [facility] Medical Records Department [address] [place] [address] H&P Exam - Hospitalist 05/26/23 2353 MR#: [id number] Acct: [id number] Name: MELISA EDOUARD Rep #:[id number] : 1955 68 From: Abhay Nguyen DO PCP: Dr. Cristian Silveira MD Status:ADM I NO Location: [place] [address] HPI - General General Date of Admission: [...] compression fracture and osteoarthritis who presents to [facility] ER complaining of transient right arm weakness/tingling [...] isexpected to be less than 48 hours. [facility] Medical History COVID-19 DDD (degenerative disc disease), lumbar Environmental allergies History of lung cancer IBS (irritable bowel syndrome) Home Medications ivermectin 1 % topical cream (Soolantra) 30 g TP DAILY 11/07/16 [History Last Taken Unknown] linaclotide 72 mcg capsule (Linzess) 72 mcg PO DAILY 11/07/16 [History Last Taken Unknown] loratadine 10 mg tablet (Allergy Relief (loratadine)) 10 mg PO PRN PRN Coinljlrl45/31/17 [History Last Taken Unknown] cholecalciferol (vitamin D3) [...] % (Auto) 61.4, Lymph % (Auto) 27.6, Stevens% (Auto) 8.6, Eos % (Auto) 1.5, Baso [...] Dmitry Birmingham MD at 22:01 EST , Assessment & Plan Assessment/Plan (1) TIA [...] 45 minutes. Charges/Coding Visit Charges OBSV E&M: 20974 Observ/hosp same date L1 05/27/23 0743 <Electronically signed by Abhay Sullivan DO> Cosigner Signature (if applicable): CC: Dr. Abhay Sullivan DO; Dr. Cristian Silveira MD~ Signed [facility] Work Phone: 1(926) 451-798002-17-2024 Discharge summary Author Mike Rivera [facility] May 27, 2023 12:49am Note Date/Time May 26, 2023 8:26pm [facility] Medical Records Department [address] [place] [address] Emergency Department Summary 05/26/23 MR#: [id number] Acct: [id number] Name: MELISA EDOUARD Rep #:[id number] : 1955 68 From: Mike Mae PCP: Dr. Cristian Silveira MD Status:ADM I NO Location: [place] [address] HPI History of Present Illness HPI Narrative: [...] Associated Symptoms: Positive for Parasthesia and Weakness [facility] Medical History COVID-19 DDD (degenerative disc disease), [...] Relief (loratadine)) 10 mg PO PRN PRN Bcwsmjata39/31/17 [History Last Taken Unknown] multivitamin (Multiple Vitamins [...] sinus rhythm with a rate of 91. DC interval, QRS interval, and QTc intervals were all normal. [place] was normal. There are no acute ST [...] Provider] - Disposition Disposition: Acute Care Hospital [facility] What to do if you have Problems For any increased pain, shortness of breath, bleeding, nausea or vomiting, chestpain, or any unexpected problems, contact your Primary Care Provider. Call [facility] ([phone]) or report to the closest Emergency Room. Call 911 if necessary. 05/27/23 0049 <Electronically signed by Mike Rivera DO> Cosigner Signature (if applicable): CC: Dr. Cristian Silveira MD ~ Signed [facility] Work Phone: 1(409) 330-751102-16-2024 Discharge summary Author Mike Rivera [facility] May 27, 2023 12:49am Note Date/Time May 26, 2023 8:26pm [facility] Medical Records Department [address] [place] [address] Emergency Department Summary 05/26/23 MR#: [id number] Acct: [id number] Name: MELISA EDOUARD Rep #:[id number] : 1955 68 From: Mike Mae PCP: Dr. Cristian Silveira MD Status:ADM I NO Location: [place] [address] HPI History of Present Illness HPI Narrative: [...] Associated Symptoms: Positive for Parasthesia and Weakness PFSH [facility] Medical History COVID-19 DDD (degenerative disc disease), [...] Relief (loratadine)) 10 mg PO PRN PRN Yxrggjvie67/31/17 [History Last Taken Unknown] multivitamin (Multiple Vitamins [...] sinus rhythm with a rate of 91. DC interval, QRS interval, and QTc intervals were all normal. [place] was normal. There are no acute ST [...] Provider] - Disposition Disposition: Acute Care Hospital [facility] What to do if you have Problems For any increased pain, shortness of breath, bleeding, nausea or vomiting, chestpain, or any unexpected problems, contact your Primary Care Provider. Call [facility] ([phone]) or report to the closest Emergency Room. Call 911 if necessary. 05/27/2348 <Electronically signed by Mike Rivera DO> Cosigner Signature (if applicable): CC: Dr. Cristian Silveira MD ~ Signed [facility] Work Phone: 1(863) 294-500202-05-2024 Discharge summary Author Deidre Haines [facility] May 15, 2023 12:59pm Note Date/Time May 15, 2023 1 2:59pm [facility] Physical Therapy [facility] [address] [place] [address] [address] [place] [address] / REHABILITATION SERVICES DISCHARGE SUMMARY MR#: [id number] Acct: [id number] Name: MELISA EDOUARD Rep #: [id number] : 1955 68 From: Deidre Ferrara Referring Dr.: Dr. Cristian Silveira MD Status: REG RCR Insurance: MEDICARE PART A B [facility] Discharge Summary D/C summary: It has been [...] TM for 15 min- Monday went to [employer]- sang in the choir- went for a walk outside- 12 min walk her left hip was really sore in the middle of the buttock- ice/heat/ibuprofen- still a little touch 1-05/20. First time she has been outside walking. [...] please feel free to call me at [phone]. Thank you for the referral of thispatient. Sincerely, Deidre Haines DPT Balance/Gait/Functional tests Balance/Special Test Scores Oswestry Low Back Score: 14 Improvement % Improvement: 60 <Electronically signed by Deidre Haines DPT> 05/15/23 1259 CC: Dr. Cristian Silveira MD ~ ELR Signed [facility] Work Phone: 1(890) 372-773503-03-2023 Discharge summary Author Yudi Sen [facility] June 10, 2022 2:27pm Note Date/Time June 10, 2022 2:27 pm [facility] [address] [place] [address]. [address] [place] [address] / REHABILITATION SERVICES DISCHARGE SUMMARY MR#: [id number] Acct: [id number] Name: MELISA EDOUARD Rep #: [id number] : 1955 67 From: Yudi Sen PT, [...] RE-ASSESSMENT RECOMMENDED. PATIENT AGREEABLE. FOLLOW UP PENDING [facility] DR. VAN 07/11/[address] SILVEIRA IN [...] please feel free to call me at [phone]. Thank you for the referral of thispatient. Sincerely, Yudi eSn, PT, Cert MDT Balance/Gait/Functional tests - Balance/Special Test Scores Oswestry Low Back Score: 3 <Electronically signed by Yudi Sen PT, Cert. MDT> 06/10/22 1427 CC: Dr. Devin Van MD; Dr. Cristian Silveira MD ~ LIOR Signed [facility] Work Phone: Discharge summary Author Jamey Mistry [facility] May 27, 2023 3:52pm Note Date/Time May 27, 2023 3:48pm [facility] Medical Records Department [address] [place] [address] Instructions for Home/Discharge Instructions 05/27/23 1547 MR#: [id number] Acct: [id number] Name: MELISA EDOUARD Rep #:[id number] : 1955 68 From: Jamey roberts MD [...] Reena Diaz; Odilia Duke; Argelia Briceno; Rodney Holmna; Ariadna Lindsey; Ryan Martini; Stevo Moreno; Cece [...] can be placed): Home, Self Care 05/27/23 3171<Electronically signed by Jamey Mistry MD>Jamey Mistry MD [...] Liriano DO; Marta Sinclair MD ~ Signed [facility] Work Phone: Discharge summary Author Jamey Mistry [facility] May 27, 2023 3:57pm Note Date/Time May 27, 2023 3:57pm [facility] Medical Records Department [address] [place] [address] Discharge Summary 05/27/23 1552 MR#: [id number] Acct: [id number] Name: MELISA EDOUARD Rep #:[id number] : 1955 68 From: Jamey roberts MD PCP: Dr. Cristian Silveira MD Status:ADM I NO Location: [place] [address] Providers Date of Admission: 05/27/23 Primary Care [...] Relief (loratadine)) 10 mg PO PRN PRN Vpvmmzrxr12/31/17 aspirin 81 mg capsule 81 mg PO [...] compression fracture and osteoarthritis who presents to [facility] ER complaining of transient right arm weakness/tingling [...] % (Auto) 61.4, Lymph % (Auto) 27.6, Stevens% (Auto) 8.6, Eos % (Auto) 1.5, Baso [...] Reading Location ID and State: 994 / [place] [employer] , Service support , Chest X-Ray 05/26/23 21:20 IMPRESSION: Normal x-ray examination of the chest. Electronically Signed: Dmitry Birmingham MD at 22:01 EST Reading Location ID and State: 994 / [place] [employer] , Service support , Echocardiogram 05/27/23 01:50 Interpretation Summary The estimated ejection fraction is 70 %. No evidence for diastolic dysfunction. Ordering Physician: Abhay Sullivan Referring Physician: Cristian Silveira Chi Performed By: Renetta Mustafa, NICHELLE, RVT Neck MRA 05/27/23 01:50 IMPRESSION: Normal non-contrast MRA of the Neck. Electronically Signed: Joe Fowler MD at 13:27 EST , Brain MRI 05/27/23 02:11 IMPRESSION: 4 mm focus of acute ischemic change right occipital lobe. Otherwise normal MRI brain. Electronically Signed: Joe Fowler MD at 12:47 EST , ADDENDUM: 05/27/23 1305 IMPRESSION: 4 mm focus of acute ischemic change right occipital lobe. Otherwise normal MRI brain. N.B. : The above Results were Read Back by Joe Fowler MD to Jewels Vrama RN, and understanding confirmed on 05/27/2023 12:58:25 (ET). Electronically Signed: Joe Fowler MD at 12:47 EST , D/C Instructions Discharge Diet: Low fat [...] Duke; Argelia Briceno; Rodney Holman; Ariadna Lindsey; Ryna Martini; Stevo Moreno; Cece Liriano; Giovani Fontenot; [...] Self Care Charges/Coding Visit Charges Inpatient E&M: 56244 Disch Hosp >30min 05/27/23 1551 <Electronically signed by Jamey Mistry MD> Cosigner Signature (if applicable): CC: Dr. Jamey Mistry MD; Dr. Cristian Silveira MD~ Signed [facility] Work Phone: Evaluation noteNo assessment information available [facility] Work Phone: Evaluation note* Diagnosis Onset Date Resolution Status Acute sinusitis acute [facility] Work Phone: Evaluation note* Diagnosis Onset Date Resolution Status Elevated blood pressure read ing without diagnosis of hypertension acute TIA (transient ischemic attack) acute [facility] Work Phone: Evaluation note* Diagnosis Onset Date Resolution Status Compression fracture of L4 vertebra acute Elevated blood pressure read ing without diagnosis of hypertension acute Hypokalemia acute TIA (transient ischemic attack) acute [facility] Work Phone: Evaluation note* Diagnosis Onset Date Resolution Status Compression fracture of L4 vertebra acute Elevated blood pressure read ing without diagnosis of hypertension acute Hypokalemia acute TIA (transient ischemic attack) acute Cryptogenic stroke acute [facility] Work Phone: Reason for referral (narrative)No reason for referral [facility] Work Phone: Summary Purpose Family History [...] August 31, 2018 9 :51am Power of Assistant Warehouse Manager No August 31, 2018 9:51am Advance Directive Response Recorded Date/ Time Living Will No August 31, 2018 8 :51am Power of Assistant Warehouse Manager No August 31, 2018 8:51am Advance Directive Response Recorded Date/ Time Name of Medical Power of Assistant Warehouse Manager May 26, 2023 9:33pm Living Will Yes May 26, 024 9:33pm Power of Assistant Warehouse Manager Yes May 26, 2023 9:33pm Advance Directive Response Recorded Date/ Time Name of Medical Power of Assistant Warehouse Manager stephen edouard, May 27, 2023 2:13am Living Will Yes May 27, 2 024 2:13am Power of Assistant Warehouse Manager Yes May 27, 2023 2:13am Advance Directive Response Recorded Date/ Time Name of Medical Power of Assistant Warehouse Manager stephen edouard, May 27, 2023 3:13am Name of Medical Power of Assistant Warehouse Manager mitchell August 10, 2023 1:45am Living Will Yes August 10, 2023 1: 45am Power of Assistant Warehouse Manager Yes August 10, 2023 1:45am Advance Directive Response Recorded Date/ Time Living Will Yes March 15 3:45pm Power of Assistant Warehouse Manager Yes March 15, 2024 3:45pm Name of Medical Power of Assistant Warehouse Manager SPOUSE March 15, 2024 3:45pm Living Will Yes August 10, 2023 1: 45am Power of Assistant Warehouse Manager Yes August 10, 2023 1:45am Advance Directive Response Recorded Date/ Time Living Will Yes May 27, 2 024 3:13am Do you have a Healthcare Power of Assistant Warehouse Manager? Yes May 27, 2023 3:13am Chief Complaint [...] emb2023 9:11am Endometrial thickening on ultrasound Dec emb2023 11:19am Malignant neoplasm of unspec ified part [...] INT LABS August 06, 2024 7:0 2am HEPATIC FIBROSIS November 14, 2024 7:5 0am Additional Source Comments INFORMATION SOURCE (unrecogn ized section and content) DATE CREATED AUTHOR 10/31/2019 [facility]) DATE CREATED AUTHOR AUTHOR'S ORGANIZ ATION 12/17/2024 [facility] Care Teams (unrecognized sec tion and [...] DO Emergency Provider Active Dr. Abhay Sullivan DO Admit Provider, Attending Pr ovider Active Team Status: Active Member Role Status Dates Dr. Cristian Silveira MD Primary Care Provider Active Dr. Murphy Montes De Oca MD Attending Provider Activ e Team Status: Active Member Role Status Dates Dr. Cristian Silveira MD Primary Care Provider Active Dr. Mike Rivera DO Emergency Provider Active Dr. Abhay Sullivan DO Admit Provider, Other Provid er Active [...] , Emergency Provider Active Dr. Abhay Sullivan DO Admit Provider, Other Provid er Active [...] October 30, 2024 End: October 30, 2024 Team Status: Inactive Member Role/Relationship Status [...] October 30, 2024 End: October 30, 2024 Team Status: Inactive Member Role/Relationship Status Dates Dr. Cristian Silveira MD Primary Care Provider Active Start: November 14, 2024 End: November 14, 2024 Dr. Cristian Silveira MD Attending Provider Active Start: November 14, 2024 End: November 14, 2024 Dr. Cristian Silveira MD Referring Provider Active Start: November 14, 2024 End: November 14, 2024 FOR RECORDS PERTAINING TO PATIENTS WHO [...] BE BASED ON THE PRIMARY CLINICAL RECORDS. [facility] [employer] provides no warranty or guarantee of the accuracy or completeness of information in this document.
== END | disposition home or self-care (01) ==
PROVIDERS: PCP Family Medicine Geriatric Medicine; Referring Provider Family Medicine Geriatric Medicine; Visit Provider Family Medicine Geriatric Medicine
DX: K76.0 Fatty (change of) liver, not elsewhere classified (principal); N28.1 Cyst of kidney, acquired
CPT/HCPCS: 74183; A9575; A4216

== ENCOUNTER 2025-01-22 13:46 | Outpatient (RCR) | payer MEDICARE, BC, SELFPAY | END 2025-02-07 23:59 | LOC: NS 13:46 | PROVIDERS: PCP Family Medicine Geriatric Medicine; Visit Provider Family Medicine Geriatric Medicine | DX: Z71.3 Dietary counseling and surveillance (principal); E11.9 Type 2 diabetes mellitus without complications | CPT/HCPCS: 97802 ==

== ENCOUNTER → 2025-01-28 | Outpatient (CLI) | payer MEDICARE, BC, SELFPAY ==
[2025-01-28 12:47] LABS: Hematocrit 45.6 % (37-47); Hemoglobin 15.6 g/dL (12.0-15.0); Immature Granulocytes Count 0.050 X10^3/uL (0.0-0.0); Mean Corp Hgb Conc 34.2 g/dL (32-36); Mean Corpuscular Volume 92.3 fL (81-99); Mean Platelet Vol. 10.1 fl (6.2-12.0); NRBC Flagged by Analyzer 0 % (0-5); Platelet Count 321 K/mm3 (150-450); RBC Distribution Width CV 12.9 % (11.6-14.6); RBC Distribution Width SD 43.3 fl (35.1-43.9); Red Blood Count 4.94 M/mm3 (4.2-5.4); White Blood Count 10.6 K/mm3 (4.4-11.0)
[2025-01-28 14:10] LABS: AST(SGOT) 23 U/L (<=31); Alanine Aminotransfer ALT/SGPT 36 U/L (<=34); Albumin, Serum 4.5 g/dL (3.4-4.8); Alkaline Phosphatase 52 U/L (35-104); Anion Gap 10 (5-15); BUN 12 mg/dL (4-19); BUN/Creat Ratio 20.0 RATIO (10-20); Calcium,Total 9.8 mg/dL (7.6-11.0); Carbon Dioxide 26.3 mmol/L (21.0-32.0); Chloride 102 mmol/L (98-108); Globulin 2.4 g/dL (2.2-4.2); Glucose 95 mg/dL (70-99); Potassium 3.8 mmol/L (3.3-5.1); Vitamin D,25 Hydroxy 113.0 ng/mL (30-100)
== END | disposition home or self-care (01) ==
LOC: POLAB3 12:28
PROVIDERS: PCP Family Medicine Geriatric Medicine; Referring Provider Family Medicine Geriatric Medicine; Visit Provider Family Medicine Geriatric Medicine
DX: E11.9 Type 2 diabetes mellitus without complications (principal); E55.9 Vitamin D deficiency, unspecified; I10 Essential (primary) hypertension
CPT/HCPCS: 36415; 80053; 82306; 84443; 85025

== ENCOUNTER 2025-02-19 12:55 | Outpatient (RCR) | payer MEDICARE, BC, SELFPAY | END 2025-03-09 23:59 | LOC: NS 12:55 | PROVIDERS: PCP Family Medicine Geriatric Medicine; Visit Provider Family Medicine Geriatric Medicine | DX: Z71.3 Dietary counseling and surveillance (principal); E11.9 Type 2 diabetes mellitus without complications | CPT/HCPCS: 97803 ==

== ENCOUNTER → 2025-03-19 | Outpatient (CLI) | payer MEDICARE, BC, SELFPAY ==
--- NOTE | 2025-03-19 16:10 | RAD_ITS ---
PROCEDURE: CHEST PA AND LATERAL 03/19/2025 REASON FOR EXAM: COUGH/HX LUNG CA TECHNIQUE: Procedure Code: RADCXR Modality: DX Procedure: CHEST PA AND LATERAL COMPARISON: 08/14/2024 FINDINGS: Status post right upper lobectomy. No focal consolidation. No pleural effusion or pneumothorax. Cardiac silhouette is within normal limits. No acute fractures. RAD/Chest PA and Lateral IMPRESSION: No focal consolidations. Reading Location: [id number]
== END | disposition home or self-care (01) ==
PROVIDERS: PCP Family Medicine Geriatric Medicine; Visit Provider Family Medicine Geriatric Medicine
DX: J32.9 Chronic sinusitis, unspecified (principal); R05.9 Cough, unspecified; R06.2 Wheezing; Z85.118 Personal history of other malignant neoplasm of bronchus and lung
CPT/HCPCS: 71046; 87631